=== PATIENT | female | born 1950 | race Caucasian/White ===

== ENCOUNTER → 2016-05-13 | Outpatient (CLI) | payer MEDICARE ==
[2016-05-13 08:55] LABS: Potassium 3.9 mmol/L (3.5-5.1); Total Bilirubin 0.7 mg/dL (0.2-1.3); Total Protein 6.8 g/dL (6.3-8.2)
== END | disposition home or self-care (01) ==
LOC: LABWHC1 08:13
PROVIDERS: ATTEND Internal Medicine Endocrinology, Diabetes & Metabolism
DX: E11.65 Type 2 diabetes mellitus with hyperglycemia (principal)
CPT/HCPCS: 36415; 80053; 80061; 82043

== ENCOUNTER → 2016-05-24 | Outpatient (CLI) | payer MEDICARE ==
[2016-05-24 10:17] LABS: Anisocytosis Slight; Basophils # (A) 0.1 k/uL (0-0.2); Basophils % (A) 1 %; CH 21.9; CHCM 29.5; Eosinophils # (A) 0.2 k/uL (0-0.7); Eosinophils % (A) 2 %; HGB 8.9 gm/dL (11.4-16.0); Hypochromasia Marked; Luc # (Auto) 0.18; Luc % (Auto) 2; Lymphocytes # (A) 1.9 k/uL (1.0-4.8); Lymphocytes % (A) 23 %; MCH 21.5 pg (25.0-35.0); MCHC 28.7 g/dL (31.0-37.0); MCV 74.6 fL (80.0-100.0); Microcytosis Slight; Monocytes # (A) 0.5 k/uL (0-1.0); Monocytes % (A) 6 %; Neutrophils # (A) 5.4 k/uL (1.3-7.7); Neutrophils % (A) 67 %; Poikilocytosis Slight; RBC 4.16 m/uL (3.80-5.40); RDW 16.5 % (11.5-15.5); WBC 8.1 k/uL (3.8-10.6); WBC (Perox) 8.64
[2016-05-24 10:48] LABS: ALT 16 U/L (9-52); AST 18 U/L (14-36); Alkaline Phosphatase 120 U/L (38-126); Anion Gap 11 mmol/L; Blood Urea Nitrogen 13 mg/dL (7-17); Calcium 9.4 mg/dL (8.4-10.2); Carbon Dioxide 27 mmol/L (22-30); Chloride 106 mmol/L (98-107); Creatine Kinase 48 U/L (30-135); Glucose 67 mg/dL (74-99); Non-African American GFR(MDRD) 47 (>60 ml/min/1.73 sqM); Sodium 144 mmol/L (137-145); Total Bilirubin 0.6 mg/dL (0.2-1.3); Total Protein 6.7 g/dL (6.3-8.2)
== END ==
LOC: LABWHC1 09:31
PROVIDERS: ATTEND Internal Medicine
DX: I50.30 Unspecified diastolic (congestive) heart failure (principal); E78.2 Mixed hyperlipidemia; T86.20 Unspecified complication of heart transplant; T86.21 Heart transplant rejection; T86.22 Heart transplant failure; T86.23 Heart transplant infection; T86.290 Cardiac allograft vasculopathy; Z94.1 Heart transplant status
CPT/HCPCS: 36415; 80053; 82550; 83735; 83880; 85025

== ENCOUNTER → 2016-06-08 | Outpatient (CLI) | payer MEDICARE ==
[2016-06-08 10:40] LABS: Anisocytosis Slight; Basophils # (A) 0.1 k/uL (0-0.2); Basophils % (A) 1 %; CH 21.2; CHCM 28.5; Eosinophils # (A) 0.2 k/uL (0-0.7); Eosinophils % (A) 2 %; HDW 3.51; HGB 8.9 gm/dL (11.4-16.0); Hypochromasia Marked; Luc # (Auto) 0.24; Luc % (Auto) 3; Lymphocytes # (A) 1.7 k/uL (1.0-4.8); Lymphocytes % (A) 22 %; MCH 21.6 pg (25.0-35.0); MCHC 28.8 g/dL (31.0-37.0); MCV 74.8 fL (80.0-100.0); Mean Platelet Volume 7.9; Microcytosis Slight; Monocytes # (A) 0.5 k/uL (0-1.0); Monocytes % (A) 6 %; Neutrophils # (A) 5.3 k/uL (1.3-7.7); Neutrophils % (A) 67 %; Poikilocytosis Slight; RBC 4.15 m/uL (3.80-5.40); RDW 16.7 % (11.5-15.5); WBC (Perox) 8.83
[2016-06-08 11:16] LABS: Anion Gap 12 mmol/L; Blood Urea Nitrogen 14 mg/dL (7-17); Calcium 8.9 mg/dL (8.4-10.2); Carbon Dioxide 26 mmol/L (22-30); Chloride 105 mmol/L (98-107); Glucose 125 mg/dL (74-99); Non-African American GFR(MDRD) 45 (>60 ml/min/1.73 sqM); Potassium 3.6 mmol/L (3.5-5.1); Sodium 143 mmol/L (137-145)
== END | disposition home or self-care (01) ==
LOC: LABWHC1 08:54
PROVIDERS: ATTEND Internal Medicine
DX: Z94.1 Heart transplant status (principal); T86.20 Unspecified complication of heart transplant; T86.21 Heart transplant rejection; T86.22 Heart transplant failure; T86.23 Heart transplant infection; T86.290 Cardiac allograft vasculopathy; E78.2 Mixed hyperlipidemia; I50.30 Unspecified diastolic (congestive) heart failure
CPT/HCPCS: 36415; 80048; 85025

== ENCOUNTER 2016-06-24 11:17 | Emergency (ER) | payer MEDICARE ==
[2016-06-24] MEDS ORDERED: SODIUM CHLORIDE 0.9% 1,000 ML IV STA ×2 (11:40)
[2016-06-24] MEDS ORDERED: ONDANSETRON 4 MG/2 ML VIAL IVP STA (11:40)
--- NOTE | 2016-06-24 12:47 | XR ---
EXAMINATION TYPE: XR abdomen acute w cxr DATE OF EXAM ORDERED: 06/24/2016 12:37 PM HISTORY: nausea and vomiting. COMPARISON: None. FINDINGS: There has been a midline sternotomy. The most superior cyst sternal wire is fractured. The lungs are clear. Pleural spaces are clear. Heart size is upper limits of normal. Within the abdomen, is been a previous cholecystectomy. The abdominal gas pattern is normal. There is no evidence of obstruction or free air. There is a solitary phlebolith in the right hemipelvis. Ther e are mild degenerative changes in the lower lumbar spine. IMPRESSION: NO ACUTE THORACIC OR ABDOMINAL ABNORMALITY.
[2016-06-24 13:01] VITALS: RESP 16
[2016-06-24] MEDS ORDERED: ACETAMINOPHEN IV (For NPO) 1,000 MG in EMPTY BAG 1 BAG IVPB ONE (13:10)
[2016-06-24 14:30] LABS: Anisocytosis Slight; Basophils # (A) 0.1 k/uL (0-0.2); Basophils % (A) 1 %; CH 20.6; CHCM 27.8; Eosinophils % (A) 1 %; HCT 34.3 % (34.0-46.0); HDW 3.49; HGB 9.5 gm/dL (11.4-16.0); Hypochromasia Marked; Luc # (Auto) 0.16; Luc % (Auto) 2; Lymphocytes # (A) 1.8 k/uL (1.0-4.8); Lymphocytes % (A) 27 %; MCH 20.7 pg (25.0-35.0); MCV 74.5 fL (80.0-100.0); Mean Platelet Volume 6.4; Microcytosis Slight; Monocytes # (A) 0.3 k/uL (0-1.0); Monocytes % (A) 5 %; Neutrophils # (A) 4.4 k/uL (1.3-7.7); Neutrophils % (A) 65 %; Poikilocytosis Slight; RDW 16.3 % (11.5-15.5); WBC 6.7 k/uL (3.8-10.6); WBC (Perox) 6.92
[2016-06-24 14:35] LABS: MCHC 27.7 g/dL (31.0-37.0)
[2016-06-24 14:42] LABS: Calcium 9.5 mg/dL (8.4-10.2); Potassium 3.9 mmol/L (3.5-5.1); Total Bilirubin 0.7 mg/dL (0.2-1.3)
--- NOTE | 2016-06-24 15:44 | ED ---
Nausea/Vomiting/Diarrhea HPI - General Chief complaint: Nausea/Vomiting/Diarrhea Stated complaint: POSS DEHYDRATION, SENT BY DR BELL Time Seen by Provider: 06/24/16 11:36 Source: patient Mode of arrival: wheelchair Limitations: no limitations - History of Present Illness Initial comments: This 65-year-old white female presents with a complaint of some nausea and vomiting. She states that she is just vomited some phlegm. This started approximately 24 hours ago. She states that she has not been able to keep any of her food or fluids down for one day. She feels weak and has had some myalgias. She denies any chest pain or shortness of breath. She denies any fevers or chills. She does feel somewhat dehydrated. She saw her primary care physician and they sent her to the ER for further treatment. She does relate that she had some dental work this past week and apparently had a dental infection and was on clindamycin. Her dental pain hasn't alleviated. She talked to her heart transplant team at [facility] and they told her to stop the clindamycin as they do not want to interact with the CellCept. She denies any other complaints or modifying factors. She does have the history of heart transplant in 2001 at [facility] and has been doing well with this treatment since. - Related Data Home Medications Medication Instructions Recorded Confirmed Aspirin EC [Ecotrin Low Dose] 81 mg PO DAILY 06/24/16 06/24/16 Atorvastatin Calcium [Lipitor] 10 mg PO HS 06/24/16 06/24/16 Furosemide [Lasix] 40 mg PO BID 06/24/16 06/24/16 Insulin NPH Human Isophane 30 unit SQ BID 06/24/16 06/24/16 [NovoLIN N] Insulin Regular, Human [Novolin R] See Protocol SQ AC-TID 06/24/16 06/24/16 Levothyroxine Sodium [Synthroid] 75 mcg PO DAILY 06/24/16 06/24/16 Metoprolol Tartrate [Lopressor] 12.5 mg PO BID 06/24/16 06/24/16 Mycophenolate Mofetil [Cellcept] 500 mg PO BID 06/24/16 06/24/16 Pantoprazole Sodium [Protonix] 40 mg PO AC-BID 06/24/16 06/24/16 Sirolimus 1 mg PO DAILY 06/24/16 06/24/16 Sucralfate [Carafate] 500 mg PO QID 06/24/16 06/24/16 Topiramate [Topamax] 25 mg PO BID 06/24/16 06/24/16 hydrALAZINE HCL [Apresoline] 50 mg PO TID 06/24/16 06/24/16 Allergies Allergy/AdvReac Type Severity Reaction Status Date / Time codeine Allergy Unknown Verified 06/24/16 11:48 hydrocodone [From Lortab] Allergy Unknown Verified 06/24/16 11:48 hydroxyprogesterone Allergy Unknown Verified 06/24/16 11:48 opium (anthroposophic) Allergy Unknown Verified 06/24/16 11:48 Penicillins Allergy Unknown Verified 06/24/16 11:48 simvastatin Allergy Unknown Verified 06/24/16 11:48 tramadol HCl [From Ultram] Allergy Unknown Verified 06/24/16 11:48 Review of Systems ROS Statement: Those systems with pertinent positive or pertinent negative responses have been documented in the HPI. ROS Other: All systems not noted in ROS Statement are negative. Past Medical History Past Medical History: Diabetes Mellitus, GERD/Reflux, Thyroid Disorder History of Any Multi-Drug Resistant Organisms: None Reported Past Surgical History: Appendectomy, Breast Surgery, Cholecystectomy, Tonsillectomy, Tubal Ligation Additional Past Surgical History / Comment(s): Heart Transplant 2002 Past Psychological History: No Psychological Hx Reported Smoking Status: Former smoker Past Alcohol Use History: None Reported Past Drug Use History: None Reported General Exam - General Exam Comments Initial Comments: GENERAL: The patient is well nourished and well hydrated. VITAL SIGNS: Heart rate, blood pressure, respiratory rate reviewed as recorded in nurse's notes. EYES: Pupils are round and reactive. Extraocular movements are intact. No conjunctival / lid redness or swelling. ENT: No external evidence of injury, swelling, or ecchymosis. Airway is patent. Throat is clear. NECK: Nontender. No swelling or evidence of injury. No subcutaneous emphysema. Trachea is midline. No thyroid mass. HEART: Regular rate and rhythm. Good peripheral pulses. LUNGS/CHEST: Breath sounds clear and equal bilaterally. No rales, rhonchi, or wheezes. No ecchymosis, subcutaneous emphysema, or tenderness. ABDOMEN: Abdomen soft without tenderness. No palpable masses or organomegaly. No peritoneal signs. No abdominal wall swelling or ecchymosis. EXTREMITIES: No extremity tenderness. Normal muscle tone and function. No thoracolumbar tenderness. NEUROLOGIC: Sensation is grossly intact. Cranial nerve exam reveals face is symmetrical, tongue is midline, speech is clear. SKIN: No abrasions or ecchymosis is noted. No induration or masses noted. PSYCHIATRIC: Alert and oriented. Appropriate behavior and judgment. Limitations: no limitations Course Vital Signs 06/24/16 06/24/16 06/24/16 11:28 13:00 14:57 Temperature 97.8 F Pulse Rate 64 64 64 Respiratory 20 16 16 Rate Blood Pressure 186/78 173/74 140/67 O2 Sat by Pulse 98 99 97 Oximetry Medical Decision Making - Medical Decision Making The patient was seen and examined. All diagnostics were reviewed. The EKG shows a sinus bradycardia with a sinus arrhythmia at a heart rate of 57. There is no acute ST-T wave changes identified. 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 The NH interval is 148, QRS duration is 96, and QTC intervals 443. The acute abdominal series x-ray was also essentially within normal limits. The patient's labs showed a stable and slightly improved hemoglobin which is still low at 9.5. The creatinine is slightly elevated at 1.2 but is stable compared to previous. Her glucose is slightly elevated at 221. The influenza test was negative. She was hydrated received Zofran and Ofirmev and is feeling improved on recheck. It is felt as though she would benefit from admission to the hospital the sure that her symptoms resolved. Is likely due to viral gastritis but she does have a history of cardiac transplant. Case is discussed with Dr. Soto and he is agreeable to admission. - Lab Data Result diagrams: 06/24/16 14:14 06/24/16 14:14 Lab Results 06/24/16 06/24/16 06/24/16 Range/Units 12:05 14:14 14:14 WBC 6.7 (3.8-10.6) k/uL RBC 4.60 (3.80-5.40) m/uL Hgb 9.5 L (11.4-16.0) gm/dL Hct 34.3 (34.0-46.0) % MCV 74.5 L (80.0-100.0) fL MCH 20.7 L (25.0-35.0) pg MCHC 27.7 L (31.0-37.0) g/dL RDW 16.3 H (11.5-15.5) % Plt Count 327 (150-450) k/uL Neutrophils % 65 % Lymphocytes % 27 % Monocytes % 5 % Eosinophils % 1 % Basophils % 1 % Neutrophils # 4.4 (1.3-7.7) k/uL Lymphocytes # 1.8 (1.0-4.8) k/uL Monocytes # 0.3 (0-1.0) k/uL Eosinophils # 0.0 (0-0.7) k/uL Basophils # 0.1 (0-0.2) k/uL Hypochromasia Marked Poikilocytosis Slight Anisocytosis Slight Microcytosis Slight Sodium 142 (137-145) mmol/L Potassium 3.9 (3.5-5.1) mmol/L Chloride 104 (98-107) mmol/L Carbon Dioxide 25 (22-30) mmol/L Anion Gap 13 mmol/L BUN 16 (7-17) mg/dL Creatinine 1.20 H (0.52-1.04) mg/dL Est GFR (MDRD) Af Amer 55 (>60 ml/min/1.73 sqM) Est GFR (MDRD) Non-Af 45 (>60 ml/min/1.73 sqM) Glucose 221 H (74-99) mg/dL Calcium 9.5 (8.4-10.2) mg/dL Total Bilirubin 0.7 (0.2-1.3) mg/dL AST 16 (14-36) U/L ALT 18 (9-52) U/L Alkaline Phosphatase 132 H (38-126) U/L Total Protein 7.0 (6.3-8.2) g/dL Albumin 3.7 (3.5-5.0) g/dL Amylase 62 (30-110) U/L Lipase 12 L (23-300) U/L Influenza Type A RNA Not Detected (Not Detectd) Influenza Type B (PCR) Not Detected (Not Detectd) Disposition Clinical Impression: Nausea and vomiting, Viral gastritis, History of heart transplant, Anemia, Renal insufficiency, Hyperglycemia Disposition: ADMITTED IP TO THIS HOSP Condition: Fair Time of Disposition: 15:44 Decision Date: 06/24/16 Decision Time: 15:44
[2016-06-24] MEDS ORDERED: ACETAMINOPHEN TAB 325 MG TAB PO PRN (15:46)
[2016-06-24] MEDS ORDERED: ONDANSETRON 4 MG/2 ML VIAL IVP PRN (15:46)
[2016-06-24] MEDS ORDERED: hydrALAZINE HCL 50 MG TAB PO SCH (16:00)
[2016-06-24 16:28] LABS: Hemoglobin A1C 7.6 % (4.2-6.1)
--- NOTE | 2016-06-24 16:39 | ED ---
Medical Decision Making - Lab Data Result diagrams: 06/24/16 14:14 06/24/16 14:14 Lab Results 06/24/16 06/24/16 06/24/16 Range/Units 12:05 14:14 14:14 WBC 6.7 (3.8-10.6) k/uL RBC 4.60 (3.80-5.40) m/uL Hgb 9.5 L (11.4-16.0) gm/dL Hct 34.3 (34.0-46.0) % MCV 74.5 L (80.0-100.0) fL MCH 20.7 L (25.0-35.0) pg MCHC 27.7 L (31.0-37.0) g/dL RDW 16.3 H (11.5-15.5) % Plt Count 327 (150-450) k/uL Neutrophils % 65 % Lymphocytes % 27 % Monocytes % 5 % Eosinophils % 1 % Basophils % 1 % Neutrophils # 4.4 (1.3-7.7) k/uL Lymphocytes # 1.8 (1.0-4.8) k/uL Monocytes # 0.3 (0-1.0) k/uL Eosinophils # 0.0 (0-0.7) k/uL Basophils # 0.1 (0-0.2) k/uL Hypochromasia Marked Poikilocytosis Slight Anisocytosis Slight Microcytosis Slight Sodium 142 (137-145) mmol/L Potassium 3.9 (3.5-5.1) mmol/L Chloride 104 (98-107) mmol/L Carbon Dioxide 25 (22-30) mmol/L Anion Gap 13 mmol/L BUN 16 (7-17) mg/dL Creatinine 1.20 H (0.52-1.04) mg/dL Est GFR (MDRD) Af Amer 55 (>60 ml/min/1.73 sqM) Est GFR (MDRD) Non-Af 45 (>60 ml/min/1.73 sqM) Glucose 221 H (74-99) mg/dL Estimated Ave Glu mg/dL mg/dL Hemoglobin A1c (4.2-6.1) % Calcium 9.5 (8.4-10.2) mg/dL Total Bilirubin 0.7 (0.2-1.3) mg/dL AST 16 (14-36) U/L ALT 18 (9-52) U/L Alkaline Phosphatase 132 H (38-126) U/L Total Protein 7.0 (6.3-8.2) g/dL Albumin 3.7 (3.5-5.0) g/dL Amylase 62 (30-110) U/L Lipase 12 L (23-300) U/L Influenza Type A RNA Not Detected (Not Detectd) Influenza Type B (PCR) Not Detected (Not Detectd) 06/24/16 Range/Units 15:51 WBC (3.8-10.6) k/uL RBC (3.80-5.40) m/uL Hgb (11.4-16.0) gm/dL Hct (34.0-46.0) % MCV (80.0-100.0) fL MCH (25.0-35.0) pg MCHC (31.0-37.0) g/dL RDW (11.5-15.5) % Plt Count (150-450) k/uL Neutrophils % % Lymphocytes % % Monocytes % % Eosinophils % % Basophils % % Neutrophils # (1.3-7.7) k/uL Lymphocytes # (1.0-4.8) k/uL Monocytes # (0-1.0) k/uL Eosinophils # (0-0.7) k/uL Basophils # (0-0.2) k/uL Hypochromasia Poikilocytosis Anisocytosis Microcytosis Sodium (137-145) mmol/L Potassium (3.5-5.1) mmol/L Chloride (98-107) mmol/L Carbon Dioxide (22-30) mmol/L Anion Gap mmol/L BUN (7-17) mg/dL Creatinine (0.52-1.04) mg/dL Est GFR (MDRD) Af Amer (>60 ml/min/1.73 sqM) Est GFR (MDRD) Non-Af (>60 ml/min/1.73 sqM) Glucose (74-99) mg/dL Estimated Ave Glu mg/dL 171 mg/dL Hemoglobin A1c 7.6 H (4.2-6.1) % Calcium (8.4-10.2) mg/dL Total Bilirubin (0.2-1.3) mg/dL AST (14-36) U/L ALT (9-52) U/L Alkaline Phosphatase (38-126) U/L Total Protein (6.3-8.2) g/dL Albumin (3.5-5.0) g/dL Amylase (30-110) U/L Lipase (23-300) U/L Influenza Type A RNA (Not Detectd) Influenza Type B (PCR) (Not Detectd) Disposition Clinical Impression: Nausea and vomiting, Viral gastritis, History of heart transplant, Anemia, Renal insufficiency, Hyperglycemia Disposition: ADMITTED IP TO THIS HOSP Condition: Fair Instructions: Acute Nausea and Vomiting (ED) Prescriptions: Ondansetron [Zofran ODT] 8 mg PO Q8HR PRN #12 tab PRN Reason: Nausea Referrals: Gilmar Al MD [Primary Care Provider] - 1-2 days Time of Disposition: 16:38
[2016-06-24 16:44] VITALS: BP 177/77; PULSE 57; TEMP 97.7
[2016-06-24] MEDS ORDERED: FUROSEMIDE 40 MG TAB PO SCH (17:00)
[2016-06-24] MEDS ORDERED: INSULIN LISPRO (humaLOG) 300 UNIT/3 ML VIAL SQ SCH (17:30)
[2016-06-24] MEDS ORDERED: SUCRALFATE 1 GM TAB PO SCH (18:00)
[2016-06-24] MEDS ORDERED: TOPIRAMATE 25 MG TAB PO SCH (21:00)
[2016-06-24] MEDS ORDERED: METOPROLOL TARTRATE 12.5 MG TAB PO SCH (21:00)
[2016-06-24] MEDS ORDERED: INSULIN NPH 300 UNIT/3 ML VIAL SQ SCH (21:00)
[2016-06-24] MEDS ORDERED: MYCOPHENOLATE MOFETIL 250 MG CAP PO SCH (21:00)
[2016-06-24] MEDS ORDERED: ATORVASTATIN 10 MG TAB PO SCH (21:00)
[2016-06-25] MEDS ORDERED: LEVOTHYROXINE 75 MCG TAB PO SCH (06:30)
[2016-06-25] MEDS ORDERED: PANTOPRAZOLE 40 MG/10 ML VIAL IV SCH (09:00)
[2016-06-25] MEDS ORDERED: ENOXAPARIN 40 MG/0.4 ML SYRINGE SQ SCH (09:00)
[2016-06-25] MEDS ORDERED: ASPIRIN 81 MG CHEW PO SCH (09:00)
[2016-06-25] MEDS ORDERED: SIROLIMUS 1 MG PO SCH (09:00)
== END 2016-06-24 17:00 | disposition other institution (70) ==
LOC: EC 11:17 → 5ONC 15:46 → UNDOADMOB 15:46 → EC 17:00
DX: A08.4 Viral intestinal infection, unspecified (principal); R11.2 Nausea with vomiting, unspecified; D64.9 Anemia, unspecified; N28.9 Disorder of kidney and ureter, unspecified; R00.0 Tachycardia, unspecified; E11.65 Type 2 diabetes mellitus with hyperglycemia; E07.9 Disorder of thyroid, unspecified; Z88.5 Allergy status to narcotic agent; Z88.0 Allergy status to penicillin; Z88.6 Allergy status to analgesic agent; Z88.8 Allergy status to other drugs, medicaments and biological substances; Z79.4 Long term (current) use of insulin; Z90.49 Acquired absence of other specified parts of digestive tract; Z87.891 Personal history of nicotine dependence; Z79.899 Other long term (current) drug therapy
CPT/HCPCS: 99284; 96374; 96375; 96361 ×5; 36415; 93005; 80053; 82150; 83036; 83690; 85025; 87502; 74022; J2405; J0131

== ENCOUNTER → 2016-07-07 | Outpatient (CLI) | payer MEDICARE ==
[2016-07-07 10:28] LABS: Anisocytosis Slight; Basophils # (A) 0.1 k/uL (0-0.2); Basophils % (A) 1 %; CH 20.3; CHCM 27.2; Eosinophils # (A) 0.1 k/uL (0-0.7); Eosinophils % (A) 2 %; HCT 34.3 % (34.0-46.0); HDW 3.35; HGB 9.7 gm/dL (11.4-16.0); Hypochromasia Marked; Luc # (Auto) 0.19; Luc % (Auto) 2; Lymphocytes # (A) 2.2 k/uL (1.0-4.8); Lymphocytes % (A) 24 %; MCH 21.3 pg (25.0-35.0); MCHC 28.3 g/dL (31.0-37.0); MCV 75.1 fL (80.0-100.0); Mean Platelet Volume 6.9; Microcytosis Slight; Monocytes # (A) 0.6 k/uL (0-1.0); Monocytes % (A) 7 %; Neutrophils # (A) 5.9 k/uL (1.3-7.7); Neutrophils % (A) 65 %; RBC 4.57 m/uL (3.80-5.40); RDW 16.6 % (11.5-15.5); WBC 9.1 k/uL (3.8-10.6); WBC (Perox) 9.26
[2016-07-07 11:07] LABS: ALT 14 U/L (9-52); AST 16 U/L (14-36); Alkaline Phosphatase 121 U/L (38-126); Anion Gap 11 mmol/L; Blood Urea Nitrogen 13 mg/dL (7-17); Calcium 9.2 mg/dL (8.4-10.2); Carbon Dioxide 27 mmol/L (22-30); Chloride 104 mmol/L (98-107); Creatine Kinase 42 U/L (30-135); Glucose 132 mg/dL (74-99); Non-African American GFR(MDRD) 49 (>60 ml/min/1.73 sqM); Potassium 3.7 mmol/L (3.5-5.1); Sodium 142 mmol/L (137-145); Total Bilirubin 0.7 mg/dL (0.2-1.3); Total Protein 6.8 g/dL (6.3-8.2)
[2016-07-09 16:10] LABS: Mis test requested (Blood) B-Natriuretic Pep
== END | disposition home or self-care (01) ==
LOC: LABWHC1 09:16
PROVIDERS: ATTEND Internal Medicine
DX: I50.30 Unspecified diastolic (congestive) heart failure (principal); E78.2 Mixed hyperlipidemia; T86.290 Cardiac allograft vasculopathy; T86.23 Heart transplant infection; T86.22 Heart transplant failure; T86.21 Heart transplant rejection; T86.20 Unspecified complication of heart transplant; Z94.1 Heart transplant status
CPT/HCPCS: 36415; 80053; 82550; 83735; 83880; 85025

== ENCOUNTER → 2016-07-12 | Outpatient (CLI) | payer MEDICARE ==
[2016-07-12 09:27] LABS: Anisocytosis Slight; Basophils % (A) 1 %; CH 20.4; CHCM 27.4; Eosinophils # (A) 0.2 k/uL (0-0.7); Eosinophils % (A) 2 %; HCT 33.3 % (34.0-46.0); HDW 3.17; HGB 9.2 gm/dL (11.4-16.0); Hypochromasia Marked; Luc # (Auto) 0.15; Luc % (Auto) 2; Lymphocytes # (A) 1.9 k/uL (1.0-4.8); Lymphocytes % (A) 22 %; MCH 20.7 pg (25.0-35.0); MCV 74.9 fL (80.0-100.0); Mean Platelet Volume 6.5; Microcytosis Slight; Monocytes # (A) 0.5 k/uL (0-1.0); Monocytes % (A) 5 %; Neutrophils # (A) 6.2 k/uL (1.3-7.7); Neutrophils % (A) 69 %; RBC 4.44 m/uL (3.80-5.40); RDW 16.9 % (11.5-15.5); WBC 8.9 k/uL (3.8-10.6); WBC (Perox) 9.55
[2016-07-12 09:34] LABS: MCHC 27.7 g/dL (31.0-37.0)
[2016-07-12 09:39] LABS: ALT 17 U/L (9-52); AST 20 U/L (14-36); Alkaline Phosphatase 122 U/L (38-126); Anion Gap 12 mmol/L; Blood Urea Nitrogen 14 mg/dL (7-17); Calcium 9.1 mg/dL (8.4-10.2); Carbon Dioxide 26 mmol/L (22-30); Chloride 103 mmol/L (98-107); Creatine Kinase 41 U/L (30-135); Glucose 174 mg/dL (74-99); Magnesium 2.1 mg/dL (1.6-2.3); Non-African American GFR(MDRD) 46 (>60 ml/min/1.73 sqM); Potassium 3.8 mmol/L (3.5-5.1); Sodium 141 mmol/L (137-145); Total Bilirubin 0.6 mg/dL (0.2-1.3); Total Protein 6.9 g/dL (6.3-8.2)
== END | disposition home or self-care (01) ==
LOC: LABWHC1 08:22
PROVIDERS: ATTEND Internal Medicine
DX: I50.30 Unspecified diastolic (congestive) heart failure (principal); E78.2 Mixed hyperlipidemia; T86.290 Cardiac allograft vasculopathy; T86.23 Heart transplant infection; T86.22 Heart transplant failure; T86.21 Heart transplant rejection; T86.20 Unspecified complication of heart transplant; Z94.1 Heart transplant status
CPT/HCPCS: 36415; 80053; 82550; 83735; 83880; 85025

== ENCOUNTER → 2016-07-19 | Outpatient (CLI) | payer MEDICARE ==
[2016-07-19 09:07] LABS: Anisocytosis Slight; Basophils % (A) 1 %; CH 20.2; CHCM 27.6; Eosinophils # (A) 0.2 k/uL (0-0.7); Eosinophils % (A) 2 %; HCT 30.7 % (34.0-46.0); HDW 3.26; HGB 8.6 gm/dL (11.4-16.0); Hypochromasia Marked; Luc # (Auto) 0.21; Luc % (Auto) 3; Lymphocytes # (A) 1.7 k/uL (1.0-4.8); Lymphocytes % (A) 20 %; MCH 20.7 pg (25.0-35.0); MCHC 28.1 g/dL (31.0-37.0); MCV 73.7 fL (80.0-100.0); Mean Platelet Volume 6.4; Microcytosis Moderate; Monocytes # (A) 0.5 k/uL (0-1.0); Monocytes % (A) 6 %; Neutrophils # (A) 5.8 k/uL (1.3-7.7); Neutrophils % (A) 69 %; RBC 4.16 m/uL (3.80-5.40); WBC 8.5 k/uL (3.8-10.6); WBC (Perox) 8.81
[2016-07-19 09:20] LABS: ALT 20 U/L (9-52); AST 24 U/L (14-36); Alkaline Phosphatase 128 U/L (38-126); Anion Gap 10 mmol/L; Blood Urea Nitrogen 12 mg/dL (7-17); Calcium 8.7 mg/dL (8.4-10.2); Carbon Dioxide 25 mmol/L (22-30); Chloride 106 mmol/L (98-107); Creatine Kinase 38 U/L (30-135); Glucose 214 mg/dL (74-99); Non-African American GFR(MDRD) 47 (>60 ml/min/1.73 sqM); Potassium 3.7 mmol/L (3.5-5.1); Sodium 141 mmol/L (137-145); Total Bilirubin 0.6 mg/dL (0.2-1.3); Total Protein 6.2 g/dL (6.3-8.2)
[2016-07-21 12:35] LABS: Mis test requested (Blood) B Type Natriuretic P
== END | disposition home or self-care (01) ==
LOC: LABWHC1 08:17
PROVIDERS: ATTEND Internal Medicine
DX: T86.20 Unspecified complication of heart transplant (principal); T86.21 Heart transplant rejection; T86.22 Heart transplant failure; T86.23 Heart transplant infection; T86.290 Cardiac allograft vasculopathy; I50.30 Unspecified diastolic (congestive) heart failure; E78.2 Mixed hyperlipidemia; Z94.1 Heart transplant status
CPT/HCPCS: 36415; 80053; 82550; 83735; 83880; 85025

== ENCOUNTER → 2016-07-26 | Outpatient (CLI) | payer MEDICARE ==
[2016-07-26 09:22] LABS: ALT 16 U/L (9-52); AST 14 U/L (14-36); Alkaline Phosphatase 133 U/L (38-126); Anion Gap 10 mmol/L; Blood Urea Nitrogen 12 mg/dL (7-17); Calcium 8.9 mg/dL (8.4-10.2); Carbon Dioxide 28 mmol/L (22-30); Chloride 105 mmol/L (98-107); Creatine Kinase 44 U/L (30-135); Glucose 140 mg/dL (74-99); Magnesium 2.2 mg/dL (1.6-2.3); Non-African American GFR(MDRD) 47 (>60 ml/min/1.73 sqM); Potassium 3.7 mmol/L (3.5-5.1); Sodium 143 mmol/L (137-145); Total Bilirubin 0.6 mg/dL (0.2-1.3); Total Protein 6.9 g/dL (6.3-8.2)
[2016-07-26 09:43] LABS: Anisocytosis Slight; Basophils % (A) 0 %; CH 20.3; CHCM 27.6; Eosinophils # (A) 0.1 k/uL (0-0.7); Eosinophils % (A) 2 %; HCT 32.9 % (34.0-46.0); HDW 3.31; HGB 9.2 gm/dL (11.4-16.0); Hypochromasia Marked; Luc # (Auto) 0.14; Luc % (Auto) 2; Lymphocytes # (A) 1.8 k/uL (1.0-4.8); Lymphocytes % (A) 19 %; MCH 20.7 pg (25.0-35.0); MCHC 28.1 g/dL (31.0-37.0); MCV 73.9 fL (80.0-100.0); Mean Platelet Volume 6.7; Microcytosis Moderate; Monocytes # (A) 0.5 k/uL (0-1.0); Monocytes % (A) 6 %; Neutrophils # (A) 6.9 k/uL (1.3-7.7); Neutrophils % (A) 72 %; RBC 4.46 m/uL (3.80-5.40); RDW 16.9 % (11.5-15.5); WBC 9.6 k/uL (3.8-10.6); WBC (Perox) 10.07
[2016-07-28 15:43] LABS: Mis test requested (Blood) B-Natriuretic Pep
== END | disposition home or self-care (01) ==
LOC: LABWHC1 08:12
PROVIDERS: ATTEND Internal Medicine
DX: T86.20 Unspecified complication of heart transplant (principal); T86.21 Heart transplant rejection; T86.22 Heart transplant failure; T86.23 Heart transplant infection; T86.290 Cardiac allograft vasculopathy; E78.5 Hyperlipidemia, unspecified; I50.30 Unspecified diastolic (congestive) heart failure; Z94.1 Heart transplant status
CPT/HCPCS: 36415; 80053; 82550; 83735; 83880; 85025

== ENCOUNTER → 2016-08-04 | Outpatient (CLI) | payer MEDICARE ==
[2016-08-04 13:13] LABS: EKG EKG PERFORMED
[2016-08-04 13:41] LABS: Anion Gap 11 mmol/L; Blood Urea Nitrogen 10 mg/dL (7-17); Calcium 9.2 mg/dL (8.4-10.2); Carbon Dioxide 23 mmol/L (22-30); Chloride 107 mmol/L (98-107); Glucose 130 mg/dL (74-99); Magnesium 1.9 mg/dL (1.6-2.3); Non-African American GFR(MDRD) 50 (>60 ml/min/1.73 sqM); Potassium 3.8 mmol/L (3.5-5.1); Sodium 141 mmol/L (137-145)
== END | disposition home or self-care (01) ==
LOC: LABWHC1 13:03
PROVIDERS: ATTEND Internal Medicine
DX: T86.20 Unspecified complication of heart transplant (principal); T86.21 Heart transplant rejection; T86.22 Heart transplant failure; T86.23 Heart transplant infection; T86.290 Cardiac allograft vasculopathy; E78.2 Mixed hyperlipidemia; I50.30 Unspecified diastolic (congestive) heart failure; Z94.1 Heart transplant status
CPT/HCPCS: 36415; 80048; 83735; 93005

== ENCOUNTER → 2016-08-10 | Outpatient (CLI) | payer MEDICARE ==
[2016-08-10 16:03] LABS: Calcium 9.4 mg/dL (8.4-10.2); Potassium 3.7 mmol/L (3.5-5.1)
== END | disposition home or self-care (01) ==
LOC: LABWHC1 15:18
PROVIDERS: ATTEND Internal Medicine
DX: T86.290 Cardiac allograft vasculopathy (principal); T86.21 Heart transplant rejection; T86.22 Heart transplant failure; T86.23 Heart transplant infection; E78.2 Mixed hyperlipidemia; I50.30 Unspecified diastolic (congestive) heart failure; Z94.1 Heart transplant status
CPT/HCPCS: 36415; 80048

== ENCOUNTER → 2016-09-07 | Outpatient (CLI) | payer MEDICARE ==
[2016-09-07 09:43] LABS: Anisocytosis Slight; Basophils % (A) 1 %; CH 19.8; Eosinophils # (A) 0.2 k/uL (0-0.7); Eosinophils % (A) 2 %; HCT 32.2 % (34.0-46.0); HDW 3.44; HGB 8.8 gm/dL (11.4-16.0); Hypochromasia Marked; Luc # (Auto) 0.15; Luc % (Auto) 2; Lymphocytes # (A) 1.6 k/uL (1.0-4.8); Lymphocytes % (A) 20 %; MCH 20.2 pg (25.0-35.0); MCHC 27.3 g/dL (31.0-37.0); Microcytosis Moderate; Monocytes # (A) 0.4 k/uL (0-1.0); Monocytes % (A) 5 %; Neutrophils # (A) 5.8 k/uL (1.3-7.7); Neutrophils % (A) 71 %; Poikilocytosis Slight; RBC 4.35 m/uL (3.80-5.40); RDW 17.7 % (11.5-15.5); WBC 8.2 k/uL (3.8-10.6); WBC (Perox) 8.52
[2016-09-07 10:03] LABS: Magnesium 2.2 mg/dL (1.6-2.3); Total Bilirubin 0.5 mg/dL (0.2-1.3); Total Protein 6.1 g/dL (6.3-8.2)
== END | disposition home or self-care (01) ==
LOC: LABWHC1 09:04
PROVIDERS: ATTEND Internal Medicine
DX: T86.20 Unspecified complication of heart transplant (principal); T86.21 Heart transplant rejection; T86.22 Heart transplant failure; T86.23 Heart transplant infection; T86.290 Cardiac allograft vasculopathy; E78.2 Mixed hyperlipidemia; I50.30 Unspecified diastolic (congestive) heart failure; Z94.1 Heart transplant status
CPT/HCPCS: 36415; 80053; 82550; 83735; 83880; 85025

== ENCOUNTER → 2016-09-16 | Outpatient (CLI) | payer MEDICARE ==
[2016-09-16 12:57] LABS: Prothrombin Time 10.6 sec (9.0-12.0)
== END | disposition home or self-care (01) ==
LOC: LABWHC1 12:28
PROVIDERS: ATTEND Internal Medicine
DX: T86.21 Heart transplant rejection (principal); T86.20 Unspecified complication of heart transplant; T86.22 Heart transplant failure; T86.23 Heart transplant infection; T86.290 Cardiac allograft vasculopathy; E78.5 Hyperlipidemia, unspecified; I50.30 Unspecified diastolic (congestive) heart failure; Z94.1 Heart transplant status
CPT/HCPCS: 36415; 85610

== ENCOUNTER → 2016-10-14 | Outpatient (CLI) | payer MEDICARE ==
[2016-10-14 10:20] LABS: Anisocytosis Slight; Basophils # (A) 0.1 k/uL (0-0.2); Basophils % (A) 1 %; CH 19.7; CHCM 27.9; Eosinophils # (A) 0.3 k/uL (0-0.7); Eosinophils % (A) 2 %; HCT 31.8 % (34.0-46.0); HDW 3.61; HGB 8.8 gm/dL (11.4-16.0); Hypochromasia Marked; Luc # (Auto) 0.17; Luc % (Auto) 2; Lymphocytes % (A) 19 %; MCH 19.8 pg (25.0-35.0); MCHC 27.8 g/dL (31.0-37.0); MCV 71.1 fL (80.0-100.0); Mean Platelet Volume 6.8; Microcytosis Marked; Monocytes # (A) 0.6 k/uL (0-1.0); Monocytes % (A) 6 %; Neutrophils % (A) 70 %; Poikilocytosis Slight; RBC 4.47 m/uL (3.80-5.40); RDW 17.8 % (11.5-15.5); WBC 10.1 k/uL (3.8-10.6); WBC (Perox) 10.75
[2016-10-14 10:46] LABS: Glucose 113 mg/dL (74-99); Total Protein 6.4 g/dL (6.3-8.2); Triglycerides 102 mg/dL (<150); Uric Acid 6.1 mg/dL (3.7-7.4)
[2016-10-14 10:48] LABS: ALT 15 U/L (9-52); AST 17 U/L (14-36); Alkaline Phosphatase 131 U/L (38-126); Anion Gap 11 mmol/L; Blood Urea Nitrogen 14 mg/dL (7-17); Carbon Dioxide 26 mmol/L (22-30); Chloride 105 mmol/L (98-107); Cholesterol 139 mg/dL (<200); Creatine Kinase 68 U/L (30-135); HDL Cholesterol 43 mg/dL (40-60); Non-African American GFR(MDRD) 43 (>60 ml/min/1.73 sqM); Potassium 4.2 mmol/L (3.5-5.1); Sodium 142 mmol/L (137-145); Total Bilirubin 0.6 mg/dL (0.2-1.3)
[2016-10-18 08:29] LABS: Mis test requested (Blood) BNP
== END | disposition home or self-care (01) ==
LOC: LABWHC1 09:41
PROVIDERS: ATTEND Internal Medicine
DX: E78.2 Mixed hyperlipidemia (principal); I50.30 Unspecified diastolic (congestive) heart failure; T86.20 Unspecified complication of heart transplant; T86.21 Heart transplant rejection; T86.22 Heart transplant failure; T86.23 Heart transplant infection; T86.290 Cardiac allograft vasculopathy; Z94.1 Heart transplant status
CPT/HCPCS: 36415; 80053; 80061; 82550; 83735; 83880; 84550; 85025

== ENCOUNTER → 2017-03-08 | Outpatient (CLI) | payer MEDICARE, OTHER ==
[2017-03-08 09:52] LABS: Anisocytosis Slight; Basophils # (A) 0.1 k/uL (0-0.2); Basophils % (A) 1 %; CHCM 27.3; Eosinophils # (A) 0.2 k/uL (0-0.7); Eosinophils % (A) 3 %; HDW 3.61; HGB 8.9 gm/dL (11.4-16.0); Hypochromasia Marked; Luc % (Auto) 1; Lymphocytes # (A) 1.5 k/uL (1.0-4.8); Lymphocytes % (A) 16 %; MCH 19.5 pg (25.0-35.0); MCHC 27.8 g/dL (31.0-37.0); MCV 70.1 fL (80.0-100.0); Mean Platelet Volume 6.5; Microcytosis Marked; Monocytes # (A) 0.6 k/uL (0-1.0); Monocytes % (A) 6 %; Neutrophils % (A) 74 %; Poikilocytosis Slight; RBC 4.57 m/uL (3.80-5.40); RDW 18.4 % (11.5-15.5); WBC 9.4 k/uL (3.8-10.6); WBC (Perox) 9.91
[2017-03-08 10:07] LABS: Calcium 8.9 mg/dL (8.4-10.2); Magnesium 2.1 mg/dL (1.6-2.3); Potassium 3.9 mmol/L (3.5-5.1); Total Bilirubin 0.5 mg/dL (0.2-1.3); Total Protein 6.5 g/dL (6.3-8.2)
== END | disposition home or self-care (01) ==
LOC: LABWHC1 09:19
PROVIDERS: ATTEND Internal Medicine
DX: E78.2 Mixed hyperlipidemia (principal); I50.30 Unspecified diastolic (congestive) heart failure; T86.21 Heart transplant rejection; T86.22 Heart transplant failure; T86.23 Heart transplant infection; T86.290 Cardiac allograft vasculopathy
CPT/HCPCS: 36415; 80053; 82550; 83735; 83880; 85025

== ENCOUNTER 2017-03-20 09:12 | Emergency (ER) | payer MEDICARE, OTHER ==
[2017-03-20 09:20] VITALS: BP 146/61; PULSE 72; RESP 18; TEMP 97.9
[2017-03-20] MEDS ORDERED: PHENAZOPYRIDINE 100 MG TAB PO STA (09:53)
[2017-03-20] MEDS ORDERED: SULFAMETH-TMP DS STARTER PACK 2 TAB BTL PO STA (09:55)
[2017-03-20 09:56] LABS: Appearance,Urine Cloudy (Clear); Bilirubin,Urine Negative (Negative); Blood,Urine Moderate (Negative); Budding Yeast,Urine Rare /hpf; Color,Urine Yellow; Glucose,Urine (UA) Negative (Negative); Ketones,Urine Negative (Negative); Leukocyte Esterase,Urine Large (Negative); Nitrite,Urine Negative (Negative); PH, Urine 5.5 (5.0-8.0); Protein,Urine 1+ (Negative); RBC,Urine >182 /hpf (0-5); Specific Gravity,Urine 1.009 (1.001-1.035); Urobilinogen,Urine <2.0 mg/dL (<2.0); WBC,Urine 83 /hpf (0-5)
--- NOTE | 2017-03-20 09:56 | ED ---
Female Urogenital HPI - General Chief complaint: Urogenital Stated complaint: blood in urine Time Seen by Provider: 03/20/17 09:29 Source: patient, RN notes reviewed, old records reviewed Mode of arrival: ambulatory Limitations: no limitations - History of Present Illness Initial comments: Is a 66-year-old female presents emergency Department with the sudden onset of dysuria and hematuria for one day. She reports she woke up this morning at 3 AM and had dysuria. She states that she has not had a urinary tract infection in many years. Past medical history includes a heart transplant, and she is on warfarin. Patient reports that she has had no complications since her heart surgeries. She denies any fever or chills. She reports that she is ALLERGIC to multiple antibiotics. She denies any back pain, abdominal pain, nausea or vomiting. She reports urinary frequency. - Related Data Home Medications Medication Instructions Recorded Confirmed Atorvastatin Calcium [Lipitor] 10 mg PO HS 06/24/16 03/20/17 Levothyroxine Sodium [Synthroid] 75 mcg PO DAILY 06/24/16 03/20/17 Metoprolol Tartrate [Lopressor] 12.5 mg PO BID 06/24/16 03/20/17 Pantoprazole Sodium [Protonix] 40 mg PO DAILY 06/24/16 03/20/17 Sirolimus 1 mg PO HS 06/24/16 03/20/17 hydrALAZINE HCL [Apresoline] 50 mg PO TID 06/24/16 03/20/17 Butorphanol Tartrate [Stadol Nasal 1 spray NASAL Q4H PRN 03/03/17 03/20/17 [place]ed] Furosemide [Lasix] 40 mg PO DAILY 03/03/17 03/20/17 Furosemide [Lasix] 80 mg PO Q2D 03/03/17 03/20/17 Mycophenolate Mofetil [Cellcept] 500 mg PO BID 03/03/17 03/20/17 Potassium Chloride [Klor-Con 20] 20 - 40 meq PO DAILY 03/03/17 03/20/17 Topiramate [Topamax] 50 mg PO BID 03/03/17 03/20/17 Warfarin Sodium [Jantoven] 3 - 4 mg PO DAILY 03/03/17 03/20/17 Previous Rx's Medication Instructions Recorded Phenazopyridine [Pyridium] 100 mg PO TID #9 tablet 03/20/17 Sulfamethox-Tmp 800-160Mg [Bactrim 1 tab PO Q12HR #10 tab 03/20/17 DS 800-160 mg] Allergies Allergy/AdvReac Type Severity Reaction Status Date / Time cephalexin [From Keflex] Allergy Rash/Hives Verified 03/20/17 09:31 ciprofloxacin [From Cipro] Allergy Rash/Hives Verified 03/20/17 09:31 codeine Allergy Unknown Verified 03/20/17 09:31 hydrocodone [From Lortab] Allergy Unknown Verified 03/20/17 09:31 hydroxyprogesterone Allergy Unknown Verified 03/20/17 09:31 opium (anthroposophic) Allergy Unknown Verified 03/20/17 09:31 Penicillins Allergy Unknown Verified 03/20/17 09:31 simvastatin Allergy Unknown Verified 03/20/17 09:31 tramadol HCl [From Ultram] Allergy Unknown Verified 03/20/17 09:31 Review of Systems ROS Statement: Those systems with pertinent positive or pertinent negative responses have been documented in the HPI. ROS Other: All systems not noted in ROS Statement are negative. Past Medical History Past Medical History: Atrial Fibrillation, Diabetes Mellitus, GERD/Reflux, Thyroid Disorder History of Any Multi-Drug Resistant Organisms: None Reported Past Surgical History: Appendectomy, Breast Surgery, Cholecystectomy, Tonsillectomy, Tubal Ligation Additional Past Surgical History / Comment(s): Heart Transplant 2002 Past Psychological History: No Psychological Hx Reported Smoking Status: Former smoker Past Alcohol Use History: None Reported Past Drug Use History: None Reported General Exam - General Exam Comments Initial Comments: Is a 66-year-old female. No distress. Limitations: no limitations General appearance: alert Head exam: Present: atraumatic, normocephalic, normal inspection Eye exam: Present: normal appearance, PERRL, EOMI. Absent: scleral icterus, conjunctival injection, periorbital swelling ENT exam: Present: normal exam, mucous membranes moist Neck exam: Present: normal inspection. Absent: tenderness, meningismus, lymphadenopathy Respiratory exam: Present: normal lung sounds bilaterally, other (scar from heart surgery ). Absent: respiratory distress, wheezes, rales, rhonchi, stridor Cardiovascular Exam: Present: regular rate, normal rhythm, normal heart sounds. Absent: systolic murmur, diastolic murmur, rubs, gallop, clicks GI/Abdominal exam: Present: soft, tenderness (minimal suprapubic tenderness), normal bowel sounds. Absent: distended, guarding, rebound, rigid Extremities exam: Present: normal inspection, full ROM, normal capillary refill. Absent: tenderness, pedal edema, joint swelling, calf tenderness Back exam: Present: normal inspection, other (no CVA tenderness) Neurological exam: Present: alert, oriented X3, CN II-XII intact Psychiatric exam: Present: normal affect, normal mood Skin exam: Present: warm, dry, intact, normal color. Absent: rash Course Vital Signs 03/20/17 09:17 Temperature 97.9 F Pulse Rate 72 Respiratory 18 Rate Blood Pressure 146/61 O2 Sat by Pulse 98 Oximetry Medical Decision Making - Medical Decision Making 66-year-old presents emergency Department with 1 day of hematuria and dysuria and urinary frequency. No fever or chills. No back pain, nausea or vomiting or abdominal pain. She does have some minimal suprapubic tenderness. Patient' s urinalysis is positive for many red blood cells as well as over 90 white blood cells. Patient urine will be sent for culture. She is ALLERGIC to multiple antibiotics. Started on Bactrim. Given a starter pack in the emergency department as well as Pyridium. Patient was informed that she needs to have her INR rechecked after completing antibiotics. She is on warfarin. Patient understands treatment plan will comply. Return parameters were discussed. - Lab Data Lab Results 03/20/17 Range/Units 09:41 Urine Color Yellow Urine Appearance Cloudy H (Clear) Urine pH 5.5 (5.0-8.0) Ur Specific [place] 1.009 (1.001-1.035) Urine Protein 1+ H (Negative) Urine Glucose (UA) Negative (Negative) Urine Ketones Negative (Negative) Urine Blood Moderate H (Negative) Urine Nitrite Negative (Negative) Urine Bilirubin Negative (Negative) Urine Urobilinogen <2.0 (<2.0) mg/dL Ur Leukocyte Esterase Large H (Negative) Urine RBC >182 H (0-5) /hpf Urine WBC 83 H (0-5) /hpf Urine Yeast (Budding) Rare H (None) /hpf Disposition Clinical Impression: UTI (urinary tract infection) Disposition: HOME SELF-CARE Condition: Good Instructions: Urinary Tract Infection in Women (ED) Additional Instructions: Rest rest, increase her fluid intake. Patient needs to be completing the antibiotic prescription as well as taking Pyridium for pain. Follow-up with her primary care provider on Tuesday to have INR checked as well as follow up with Urinalysis recheck. Return to the emergency department if any alarming signs or symptoms occur. Prescriptions: Phenazopyridine [Pyridium] 100 mg PO TID #9 tablet Sulfamethox-Tmp 800-160Mg [Bactrim DS 800-160 mg] 1 tab PO Q12HR #10 tab Referrals: Gilmar Al MD [Primary Care Provider] - 1-2 days Time of Disposition: 10:30
== END 2017-03-20 10:43 | disposition home or self-care (01) ==
LOC: EC 09:12
DX: N39.0 Urinary tract infection, site not specified (principal); I48.91 Unspecified atrial fibrillation; E11.9 Type 2 diabetes mellitus without complications; K21.9 Gastro-esophageal reflux disease without esophagitis; E07.9 Disorder of thyroid, unspecified; Z87.891 Personal history of nicotine dependence; Z79.01 Long term (current) use of anticoagulants; Z79.899 Other long term (current) drug therapy; Z88.1 Allergy status to other antibiotic agents; Z88.0 Allergy status to penicillin; Z88.5 Allergy status to narcotic agent; Z88.8 Allergy status to other drugs, medicaments and biological substances; Z88.6 Allergy status to analgesic agent; Z90.49 Acquired absence of other specified parts of digestive tract; Z98.51 Tubal ligation status
CPT/HCPCS: 81001; 87077; 87086; 87186; 99284

== ENCOUNTER → 2017-04-26 | Outpatient (CLI) | payer MEDICARE, OTHER ==
[2017-04-26 13:18] LABS: ALT 22 U/L (9-52); AST 13 U/L (14-36); Albumin 3.3 g/dL (3.5-5.0); Alkaline Phosphatase 131 U/L (38-126); Anion Gap 10 mmol/L; Blood Urea Nitrogen 11 mg/dL (7-17); Carbon Dioxide 29 mmol/L (22-30); Chloride 103 mmol/L (98-107); Creatine Kinase 40 U/L (30-135); Glucose 167 mg/dL (74-99); Sodium 142 mmol/L (137-145); Total Bilirubin 0.6 mg/dL (0.2-1.3)
[2017-04-26 13:35] LABS: Anisocytosis Slight; Basophils % (A) 1 %; Eosinophils # (A) 0.3 k/uL (0-0.7); Eosinophils % (A) 3 %; HCT 32.3 % (34.0-46.0); HGB 8.6 gm/dL (11.4-16.0); Hypochromasia Marked; Lymphocytes % (A) 23 %; MCH 19.3 pg (25.0-35.0); MCHC 26.6 g/dL (31.0-37.0); MCV 72.7 fL (80.0-100.0); Mean Platelet Volume 6.8; Microcytosis Moderate; Monocytes # (A) 0.5 k/uL (0-1.0); Monocytes % (A) 6 %; Neutrophils # (A) 5.9 k/uL (1.3-7.7); Neutrophils % (A) 66 %; Platelet Count 417 k/uL (150-450); Poikilocytosis Slight; RBC 4.44 m/uL (3.80-5.40); RDW 17.7 % (11.5-15.5); WBC 8.9 k/uL (3.8-10.6)
== END | disposition home or self-care (01) ==
LOC: LABWHC1 12:21
PROVIDERS: ATTEND Internal Medicine
DX: T86.20 Unspecified complication of heart transplant (principal); T86.21 Heart transplant rejection; T86.22 Heart transplant failure; T86.23 Heart transplant infection; T86.290 Cardiac allograft vasculopathy; E78.2 Mixed hyperlipidemia; I50.30 Unspecified diastolic (congestive) heart failure
CPT/HCPCS: 36415; 80053; 80195; 82550; 83735; 83880; 85025; 85610

== ENCOUNTER 2017-06-25 13:01 | Emergency (ER) | payer MEDICARE, OTHER ==
[2017-06-25 13:22] VITALS: BP 134/62; PULSE 66; RESP 18; TEMP 99.1
--- NOTE | 2017-06-25 14:25 | ED ---
General Adult HPI - General Chief complaint: Upper Respiratory Infection Stated complaint: Sore throat Time Seen by Provider: 06/25/17 13:41 Source: patient Mode of arrival: ambulatory Limitations: no limitations - History of Present Illness Initial comments: 66-year-old female presents to the emergency department for scratchy throat 2 days. Patient states she has had a slight cough as well. The cough is dry and unproductive. Patient states she has not had fevers. She states she is on immunosuppressants and her was diagnosed with influenza so she would like to be tested. Patient states she can follow up with primary care provider easily. Patient denies any shortness of breath, chest pain, history of asthma or smoking, nausea or vomiting. Patient denies any urinary symptoms. Patient states she is only feeling a little more tired than normal and mostly came to the emergency department to be valuated for influenza. - Related Data Home Medications Medication Instructions Recorded Confirmed Atorvastatin Calcium [Lipitor] 10 mg PO HS 06/24/16 03/20/17 Levothyroxine Sodium [Synthroid] 75 mcg PO DAILY 06/24/16 03/20/17 Metoprolol Tartrate [Lopressor] 12.5 mg PO BID 06/24/16 03/20/17 Pantoprazole Sodium [Protonix] 40 mg PO DAILY 06/24/16 03/20/17 Sirolimus 1 mg PO HS 06/24/16 03/20/17 hydrALAZINE HCL [Apresoline] 50 mg PO TID 06/24/16 03/20/17 Butorphanol Tartrate [Stadol Nasal 1 spray NASAL Q4H PRN 03/03/17 03/20/17 [place]] Furosemide [Lasix] 40 mg PO DAILY 03/03/17 03/20/17 Furosemide [Lasix] 80 mg PO Q2D 03/03/17 03/20/17 Mycophenolate Mofetil [Cellcept] 500 mg PO BID 03/03/17 03/20/17 Potassium Chloride [Klor-Con 20] 20 - 40 meq PO DAILY 03/03/17 03/20/17 Topiramate [Topamax] 50 mg PO BID 03/03/17 03/20/17 Warfarin Sodium [Jantoven] 3 - 4 mg PO DAILY 03/03/17 03/20/17 Previous Rx's Medication Instructions Recorded Phenazopyridine [Pyridium] 100 mg PO TID #9 tablet 03/20/17 Sulfamethox-Tmp 800-160Mg [Bactrim 1 tab PO Q12HR #10 tab 03/20/17 DS 800-160 mg] Benzonatate [Tessalon Perles] 200 mg PO Q8H PRN #15 capsule 06/25/17 Allergies Allergy/AdvReac Type Severity Reaction Status Date / Time cephalexin [From Keflex] Allergy Rash/Hives Verified 06/25/17 13:23 ciprofloxacin [From Cipro] Allergy Rash/Hives Verified 06/25/17 13:23 codeine Allergy Unknown Verified 06/25/17 13:23 hydrocodone [From Lortab] Allergy Unknown Verified 06/25/17 13:23 hydromorphone [From Dilaudid] Allergy Rash/Hives Verified 06/25/17 13:23 hydroxyprogesterone Allergy Unknown Verified 06/25/17 13:23 opium (anthroposophic) Allergy Unknown Verified 06/25/17 13:23 Penicillins Allergy Unknown Verified 06/25/17 13:23 simvastatin Allergy Unknown Verified 06/25/17 13:23 tramadol HCl [From Ultram] Allergy Unknown Verified 06/25/17 13:23 Review of Systems ROS Statement: Those systems with pertinent positive or pertinent negative responses have been documented in the HPI. ROS Other: All systems not noted in ROS Statement are negative. Past Medical History Past Medical History: Atrial Fibrillation, Diabetes Mellitus, GERD/Reflux, Thyroid Disorder History of Any Multi-Drug Resistant Organisms: None Reported Past Surgical History: Appendectomy, Breast Surgery, Cholecystectomy, Tonsillectomy, Tubal Ligation Additional Past Surgical History / Comment(s): Heart Transplant 2002 Past Psychological History: No Psychological Hx Reported Smoking Status: Former smoker Past Alcohol Use History: None Reported Past Drug Use History: None Reported General Exam Limitations: no limitations Eye exam: Present: normal appearance, PERRL, EOMI. Absent: scleral icterus, conjunctival injection, periorbital swelling ENT exam: Present: normal exam, normal oropharynx, mucous membranes moist, TM's normal bilaterally Neck exam: Present: normal inspection. Absent: tenderness, meningismus, lymphadenopathy Respiratory exam: Present: normal lung sounds bilaterally. Absent: respiratory distress, wheezes, rales, rhonchi, stridor Cardiovascular Exam: Present: regular rate, normal rhythm, normal heart sounds. Absent: systolic murmur, diastolic murmur, rubs, gallop, clicks GI/Abdominal exam: Present: soft, normal bowel sounds. Absent: distended, tenderness, guarding, rebound, rigid Course Vital Signs 06/25/17 13:19 Temperature 99.1 F Pulse Rate 66 Respiratory 18 Rate Blood Pressure 134/62 O2 Sat by Pulse 98 Oximetry Medical Decision Making - Medical Decision Making 56-year-old female presents to the emergency room for a chief complaint of scratchy throat. Patient states she also has a slight cough but it is unproductive. Patient denies any fevers or chills at home. Vitals are within normal limits: Temp 99.1, pulse 66, respirations 18, blood pressure 134/62, pulse ox 98 on room air. Patient states her was diagnosed with the flu and would like to be tested for it. Patient states she is on immunosuppressants. She states she is feeling relatively fine but just wants to make sure she does not the flu. Influenza was obtained and was negative. Discussed a chest x-ray with patient. As her cough is not too bad, she has no shortness of breath, and no fevers she would like to follow up with primary care provider in one to 2 days instead of obtaining a chest x-ray in the emergency department. She will return to the emergency Department if she develops high fevers or has any shortness of breath. She will return if she has any worsening symptoms. She will take Tessalon Perles as prescribed as well as other [id number] medications for cold and flu if needed. She will take Tylenol for fever reduction. All of this was discussed with the patient. - Lab Data Lab Results 06/25/17 Range/Units 13:24 Influenza Type A RNA Not Detected (Not Detectd) Influenza Type B (PCR) Not Detected (Not Detectd) Disposition Clinical Impression: Upper respiratory infection Disposition: HOME SELF-CARE Condition: Good Instructions: Upper Respiratory Infection (ED) Additional Instructions: Please follow up with primary care provider in one to 2 days as discussed. If your cough worsens or you develop shortness of breath please return to the emergency department. Otherwise take Tylenol for fever reduction. You may take Tessalon Perles for cough. You may take [id number] cold or flu medication for symptom relief. Prescriptions: Benzonatate [Tessalon Perles] 200 mg PO Q8H PRN #15 capsule PRN Reason: Cough Referrals: Gilmar Al MD [Primary Care Provider] - 1-2 days Time of Disposition: 14:25 Decision Time: 14:24
== END 2017-06-25 14:37 | disposition home or self-care (01) ==
LOC: EC 13:01
DX: J06.9 Acute upper respiratory infection, unspecified (principal); I48.91 Unspecified atrial fibrillation; K21.9 Gastro-esophageal reflux disease without esophagitis; E07.9 Disorder of thyroid, unspecified; Z87.891 Personal history of nicotine dependence; Z79.01 Long term (current) use of anticoagulants; Z79.899 Other long term (current) drug therapy; Z88.0 Allergy status to penicillin; Z88.1 Allergy status to other antibiotic agents; Z88.5 Allergy status to narcotic agent; Z88.8 Allergy status to other drugs, medicaments and biological substances
CPT/HCPCS: 87502; 99283

== ENCOUNTER → 2017-06-29 | Outpatient (CLI) | payer MEDICARE, OTHER ==
[2017-06-29 10:47] LABS: Anisocytosis Slight; Basophils # (A) 0.1 k/uL (0-0.2); Basophils % (A) 1 %; Eosinophils # (A) 0.2 k/uL (0-0.7); Eosinophils % (A) 2 %; HCT 30.3 % (34.0-46.0); HGB 8.2 gm/dL (11.4-16.0); Hypochromasia Marked; Lymphocytes # (A) 2.1 k/uL (1.0-4.8); Lymphocytes % (A) 24 %; MCH 19.2 pg (25.0-35.0); MCHC 27.2 g/dL (31.0-37.0); MCV 70.6 fL (80.0-100.0); Mean Platelet Volume 6.5; Microcytosis Marked; Monocytes # (A) 0.4 k/uL (0-1.0); Monocytes % (A) 5 %; Neutrophils # (A) 5.5 k/uL (1.3-7.7); Neutrophils % (A) 65 %; Platelet Count 414 k/uL (150-450); Poikilocytosis Slight; RBC 4.29 m/uL (3.80-5.40); RDW 17.7 % (11.5-15.5); WBC 8.5 k/uL (3.8-10.6)
[2017-06-29 10:50] LABS: Albumin 3.3 g/dL (3.5-5.0); Calcium 8.8 mg/dL (8.4-10.2); Magnesium 2.1 mg/dL (1.6-2.3); Potassium 3.8 mmol/L (3.5-5.1); Total Bilirubin 0.7 mg/dL (0.2-1.3)
== END | disposition home or self-care (01) ==
LOC: LABWHC1 10:00
PROVIDERS: ATTEND Internal Medicine
DX: E78.2 Mixed hyperlipidemia (principal); I50.30 Unspecified diastolic (congestive) heart failure; T86.23 Heart transplant infection; T86.22 Heart transplant failure; T86.21 Heart transplant rejection
CPT/HCPCS: 36415; 80053; 82550; 83735; 83880; 85025

== ENCOUNTER → 2017-08-16 | Outpatient (CLI) | payer MEDICARE ==
[2017-08-16 12:07] LABS: INR 3.3 (<1.2); Prothrombin Time 29.4 sec (9.0-12.0)
== END | disposition home or self-care (01) ==
LOC: LABWHC1 10:56
PROVIDERS: ATTEND Internal Medicine Cardiovascular Disease
DX: I48.0 Paroxysmal atrial fibrillation (principal)
CPT/HCPCS: 36415; 85610

== ENCOUNTER → 2017-08-19 | Outpatient (CLI) | payer MEDICARE ==
[2017-08-19 08:20] LABS: Anisocytosis Slight; HCT 30.3 % (34.0-46.0); HGB 8.6 gm/dL (11.4-16.0); Hypochromasia Marked; MCH 19.9 pg (25.0-35.0); MCHC 28.4 g/dL (31.0-37.0); Mean Platelet Volume 7.4; Microcytosis Marked; Platelet Count 350 k/uL (150-450); RBC 4.33 m/uL (3.80-5.40); RDW 19.3 % (11.5-15.5); WBC 8.5 k/uL (3.8-10.6)
[2017-08-19 08:32] LABS: Calcium 8.7 mg/dL (8.4-10.2); Potassium 4.1 mmol/L (3.5-5.1)
[2017-08-19 08:42] LABS: INR 4.2 (<1.2); Prothrombin Time 38.1 sec (9.0-12.0)
== END | disposition home or self-care (01) ==
LOC: LABWHC1 08:02
PROVIDERS: ATTEND Internal Medicine Cardiovascular Disease
DX: I48.0 Paroxysmal atrial fibrillation (principal)
CPT/HCPCS: 36415; 80048; 85027; 85610

== ENCOUNTER → 2017-08-29 | Outpatient (CLI) | payer MEDICARE ==
[2017-08-29 10:17] LABS: Anisocytosis Slight; Basophils # (A) 0.1 k/uL (0-0.2); Basophils % (A) 1 %; Eosinophils # (A) 0.3 k/uL (0-0.7); Eosinophils % (A) 3 %; HCT 30.6 % (34.0-46.0); HGB 8.3 gm/dL (11.4-16.0); Hypochromasia Marked; Lymphocytes # (A) 1.8 k/uL (1.0-4.8); Lymphocytes % (A) 23 %; MCH 19.4 pg (25.0-35.0); MCV 71.9 fL (80.0-100.0); Mean Platelet Volume 6.4; Microcytosis Marked; Monocytes # (A) 0.5 k/uL (0-1.0); Monocytes % (A) 6 %; Neutrophils # (A) 5.3 k/uL (1.3-7.7); Neutrophils % (A) 65 %; Platelet Count 345 k/uL (150-450); RBC 4.25 m/uL (3.80-5.40); WBC 8.1 k/uL (3.8-10.6)
[2017-08-29 10:22] LABS: INR 3.7 (<1.2); Prothrombin Time 33.5 sec (9.0-12.0)
[2017-08-29 10:30] LABS: Albumin 3.5 g/dL (3.5-5.0); Calcium 8.9 mg/dL (8.4-10.2); Potassium 4.7 mmol/L (3.5-5.1); Total Bilirubin 0.4 mg/dL (0.2-1.3); Total Protein 6.2 g/dL (6.3-8.2)
== END | disposition home or self-care (01) ==
LOC: LABWHC1 09:18
PROVIDERS: ATTEND Internal Medicine
DX: T86.20 Unspecified complication of heart transplant (principal); T86.21 Heart transplant rejection
CPT/HCPCS: 36415; 80053; 83735; 83880; 85025; 85610

== ENCOUNTER 2017-09-06 05:23 | Inpatient (IN) | payer MEDICARE, OTHER ==
[2017-09-06] MEDS ORDERED: METOCLOPRAMIDE 5 MG/ML 2 ML VIAL IVP STA (05:47)
--- NOTE | 2017-09-06 05:48 | ED ---
Nausea/Vomiting/Diarrhea HPI - General Chief complaint: Nausea/Vomiting/Diarrhea Stated complaint: nvd Time Seen by Provider: 09/06/17 05:30 Source: EMS Mode of arrival: EMS Limitations: no limitations - History of Present Illness Initial comments: This patient is 66-year-old woman who presents because she woke this morning around 2 AM with a feeling of nausea and feeling sweaty. She states that prior to going to bed yesterday she had had a couple of episodes of which she is describing as diarrhea. She did not have any dark tarry or bloody stool. Patient's denying chest or abdominal pain. MD complaint: nausea, diarrhea Onset/Timin -: hour(s) Associated Abdominal Pain: No Improves with: none Worsens with: none Associated Symptoms: diaphoresis - Related Data Home Medications Medication Instructions Recorded Confirmed Atorvastatin Calcium [Lipitor] 10 mg PO HS 06/24/16 09/06/17 Levothyroxine Sodium [Synthroid] 75 mcg PO DAILY 06/24/16 09/06/17 Metoprolol Tartrate [Lopressor] 12.5 mg PO BID 06/24/16 09/06/17 Pantoprazole Sodium [Protonix] 40 mg PO DAILY 06/24/16 09/06/17 Sirolimus 1 mg PO HS 06/24/16 09/06/17 hydrALAZINE HCL [Apresoline] 50 mg PO TID 06/24/16 09/06/17 Butorphanol Tartrate [Stadol Nasal 1 spray NASAL Q4H PRN 03/03/17 09/06/17 [place]] Furosemide [Lasix] 40 mg PO DAILY 03/03/17 09/06/17 Furosemide [Lasix] 40 mg PO Q48H 03/03/17 09/06/17 Mycophenolate Mofetil [Cellcept] 500 mg PO BID 03/03/17 09/06/17 Potassium Chloride [Klor-Con 20] 20 - 40 meq PO DAILY 03/03/17 09/06/17 Topiramate [Topamax] 50 mg PO BID 03/03/17 09/06/17 Warfarin Sodium [Jantoven] 3 mg PO HS 03/03/17 09/06/17 Lisinopril [Zestril] 2.5 mg PO DAILY 09/06/17 09/06/17 Allergies Allergy/AdvReac Type Severity Reaction Status Date / Time cephalexin [From Keflex] Allergy Rash/Hives Verified 09/06/17 08:12 ciprofloxacin [From Cipro] Allergy Rash/Hives Verified 09/06/17 08:12 codeine Allergy Unknown Verified 09/06/17 08:12 hydrocodone [From Lortab] Allergy Unknown Verified 09/06/17 08:12 hydromorphone [From Dilaudid] Allergy Rash/Hives Verified 09/06/17 08:12 hydroxyprogesterone Allergy Unknown Verified 09/06/17 08:12 opium (anthroposophic) Allergy Unknown Verified 09/06/17 08:12 Penicillins Allergy Unknown Verified 09/06/17 08:12 simvastatin Allergy Unknown Verified 09/06/17 08:12 tramadol HCl [From Ultram] Allergy Unknown Verified 09/06/17 08:12 Review of Systems ROS Statement: Those systems with pertinent positive or pertinent negative responses have been documented in the HPI. ROS Other: All systems not noted in ROS Statement are negative. Constitutional: Denies: fever, chills, weakness Respiratory: Denies: cough, dyspnea Cardiovascular: Denies: chest pain, palpitations, orthopnea, edema, syncope Gastrointestinal: Reports: nausea, diarrhea. Denies: abdominal pain, vomiting, constipation, melena, hematochezia Genitourinary: Denies: dysuria Musculoskeletal: Denies: back pain Skin: Denies: rash Neurological: Denies: headache, weakness, numbness Past Medical History Past Medical History: Atrial Fibrillation, Diabetes Mellitus, GERD/Reflux, Thyroid Disorder History of Any Multi-Drug Resistant Organisms: None Reported Past Surgical History: Appendectomy, Breast Surgery, Cardiac Ablation, Cholecystectomy, Tonsillectomy, Tubal Ligation Additional Past Surgical History / Comment(s): Heart Transplant 2002 Past Psychological History: No Psychological Hx Reported Smoking Status: Former smoker Past Alcohol Use History: None Reported Past Drug Use History: None Reported General Exam Limitations: no limitations General appearance: alert, in no apparent distress Head exam: Present: atraumatic, normocephalic Eye exam: Present: normal appearance. Absent: scleral icterus, conjunctival injection ENT exam: Present: normal oropharynx Neck exam: Present: normal inspection Respiratory exam: Present: normal lung sounds bilaterally. Absent: respiratory distress, wheezes, rales, rhonchi, stridor Cardiovascular Exam: Present: regular rate, normal rhythm, normal heart sounds. Absent: systolic murmur, diastolic murmur, rubs, gallop GI/Abdominal exam: Present: soft. Absent: distended, tenderness, guarding, rebound, mass Extremities exam: Present: normal inspection, normal capillary refill. Absent: pedal edema, calf tenderness Back exam: Absent: CVA tenderness (R), CVA tenderness (L) Skin exam: Present: warm, dry, intact, normal color. Absent: rash Course Vital Signs 09/06/17 09/06/17 09/06/17 05:26 06:15 06:47 Temperature 97.0 F L Pulse Rate 70 65 78 Respiratory 18 18 18 Rate Blood Pressure 181/74 143/66 147/63 O2 Sat by Pulse 99 97 99 Oximetry Medical Decision Making - Lab Data Result diagrams: 09/06/17 05:36 09/06/17 05:36 Lab Results 09/06/17 09/06/17 09/06/17 Range/Units 05:36 05:36 05:36 WBC 7.7 (3.8-10.6) k/uL RBC 4.62 (3.80-5.40) m/uL Hgb 9.1 L (11.4-16.0) gm/dL Hct 31.6 L (34.0-46.0) % MCV 68.3 L (80.0-100.0) fL MCH 19.6 L (25.0-35.0) pg MCHC 28.8 L (31.0-37.0) g/dL RDW 18.9 H (11.5-15.5) % Plt Count 388 (150-450) k/uL Neutrophils % 73 % Lymphocytes % 19 % Monocytes % 5 % Eosinophils % 2 % Basophils % 1 % Neutrophils # 5.6 (1.3-7.7) k/uL Lymphocytes # 1.5 (1.0-4.8) k/uL Monocytes # 0.4 (0-1.0) k/uL Eosinophils # 0.2 (0-0.7) k/uL Basophils # 0.0 (0-0.2) k/uL Hypochromasia Marked Anisocytosis Slight Microcytosis Marked PT (9.0-12.0) sec INR (<1.2) APTT (22.0-30.0) sec Sodium 139 (137-145) mmol/L Potassium 5.2 H (3.5-5.1) mmol/L Chloride 104 (98-107) mmol/L Carbon Dioxide 23 (22-30) mmol/L Anion Gap 12 mmol/L BUN 22 H (7-17) mg/dL Creatinine 1.60 H (0.52-1.04) mg/dL Est GFR (CKD-EPI)AfAm 39 (>60 ml/min/1.73 sqM) Est GFR (CKD-EPI)NonAf 34 (>60 ml/min/1.73 sqM) Glucose 198 H (74-99) mg/dL Calcium 9.3 (8.4-10.2) mg/dL Total Bilirubin 0.6 (0.2-1.3) mg/dL AST 46 H (14-36) U/L ALT 20 (9-52) U/L Alkaline Phosphatase 103 (38-126) U/L Troponin I <0.012 (0.000-0.034) ng/mL Total Protein 7.0 (6.3-8.2) g/dL Albumin 3.9 (3.5-5.0) g/dL Amylase 44 (30-110) U/L Lipase 13 L (23-300) U/L Urine Color Urine Appearance (Clear) Urine pH (5.0-8.0) Ur Specific Johnson (1.001-1.035) Urine Protein (Negative) Urine Glucose (UA) (Negative) Urine Ketones (Negative) Urine Blood (Negative) Urine Nitrite (Negative) Urine Bilirubin (Negative) Urine Urobilinogen (<2.0) mg/dL Ur Leukocyte Esterase (Negative) Urine RBC (0-5) /hpf Urine WBC (0-5) /hpf Ur Squamous Epith Cells (0-4) /hpf Hyaline Casts (0-2) /lpf Urine Mucus (None) /hpf 09/06/17 09/06/17 Range/Units 05:36 07:10 WBC (3.8-10.6) k/uL RBC (3.80-5.40) m/uL Hgb (11.4-16.0) gm/dL Hct (34.0-46.0) % MCV (80.0-100.0) fL MCH (25.0-35.0) pg MCHC (31.0-37.0) g/dL RDW (11.5-15.5) % Plt Count (150-450) k/uL Neutrophils % % Lymphocytes % % Monocytes % % Eosinophils % % Basophils % % Neutrophils # (1.3-7.7) k/uL Lymphocytes # (1.0-4.8) k/uL Monocytes # (0-1.0) k/uL Eosinophils # (0-0.7) k/uL Basophils # (0-0.2) k/uL Hypochromasia Anisocytosis Microcytosis PT 68.4 H (9.0-12.0) sec INR 7.4 H* (<1.2) APTT 34.0 H (22.0-30.0) sec Sodium (137-145) mmol/L Potassium (3.5-5.1) mmol/L Chloride (98-107) mmol/L Carbon Dioxide (22-30) mmol/L Anion Gap mmol/L BUN (7-17) mg/dL Creatinine (0.52-1.04) mg/dL Est GFR (CKD-EPI)AfAm (>60 ml/min/1.73 sqM) Est GFR (CKD-EPI)NonAf (>60 ml/min/1.73 sqM) Glucose (74-99) mg/dL Calcium (8.4-10.2) mg/dL Total Bilirubin (0.2-1.3) mg/dL AST (14-36) U/L ALT (9-52) U/L Alkaline Phosphatase (38-126) U/L Troponin I (0.000-0.034) ng/mL Total Protein (6.3-8.2) g/dL Albumin (3.5-5.0) g/dL Amylase (30-110) U/L Lipase (23-300) U/L Urine Color Yellow Urine Appearance Clear (Clear) Urine pH 5.5 (5.0-8.0) Ur Specific Johnson 1.020 (1.001-1.035) Urine Protein 2+ H (Negative) Urine Glucose (UA) Negative (Negative) Urine Ketones 1+ H (Negative) Urine Blood Negative (Negative) Urine Nitrite Negative (Negative) Urine Bilirubin Negative (Negative) Urine Urobilinogen <2.0 (<2.0) mg/dL Ur Leukocyte Esterase Moderate H (Negative) Urine RBC 2 (0-5) /hpf Urine WBC 5 (0-5) /hpf Ur Squamous Epith Cells 2 (0-4) /hpf Hyaline Casts 20 H (0-2) /lpf Urine Mucus Rare H (None) /hpf - EKG Data -: EKG Interpreted by Me EKG shows normal: sinus rhythm, axis (Normal), intervals (Normal), ST-T waves ( Normal) Rate: normal (Rate 70 bpm) When compared to previous EKG there are: other (Similar to previous ECG from proximal month ago) Interpretation: other (Q waves in lead V2 and V3 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
[2017-09-06] MEDS ORDERED: SODIUM CHLORIDE 0.9% 500 ML IV STA (05:51)
[2017-09-06 06:05] LABS: Anisocytosis Slight; Basophils % (A) 1 %; Eosinophils # (A) 0.2 k/uL (0-0.7); Eosinophils % (A) 2 %; HCT 31.6 % (34.0-46.0); HGB 9.1 gm/dL (11.4-16.0); Hypochromasia Marked; Lymphocytes # (A) 1.5 k/uL (1.0-4.8); Lymphocytes % (A) 19 %; MCH 19.6 pg (25.0-35.0); MCHC 28.8 g/dL (31.0-37.0); MCV 68.3 fL (80.0-100.0); Mean Platelet Volume 7.4; Microcytosis Marked; Monocytes # (A) 0.4 k/uL (0-1.0); Monocytes % (A) 5 %; Neutrophils # (A) 5.6 k/uL (1.3-7.7); Neutrophils % (A) 73 %; Platelet Count 388 k/uL (150-450); RBC 4.62 m/uL (3.80-5.40); RDW 18.9 % (11.5-15.5); WBC 7.7 k/uL (3.8-10.6)
[2017-09-06 06:12] LABS: Albumin 3.9 g/dL (3.5-5.0); Calcium 9.3 mg/dL (8.4-10.2); Total Bilirubin 0.6 mg/dL (0.2-1.3)
[2017-09-06 06:26] LABS: Potassium 5.2 mmol/L (3.5-5.1)
[2017-09-06 06:54] LABS: Prothrombin Time 68.4 sec (9.0-12.0)
[2017-09-06 07:03] LABS: INR 7.4 (<1.2)
--- NOTE | 2017-09-06 07:29 | XR ---
EXAM: XR Chest, 1 View CLINICAL HISTORY: Pain TECHNIQUE: Frontal view of the chest. COMPARISON: FINDINGS: Lungs: The pulmonary vasculature is felt to be within normal limits. No focal airspace disease noted. Pleural space: No large pleural effusion noted. No pneumothorax. Heart: The cardiac silhouette is presumed accentuated by portable technique but appears to be within normal limits. Mediastinum: Unremarkable. Bones/joints: Intact sternotomy wires noted. IMPRESSION: Findings consistent with prior sternotomy. No focal airspace disease or definite acute cardiopulmonary process.
[2017-09-06] MEDS ORDERED: NITROGLYCERIN SL TABS 0.4 MG TAB SUBLINGUAL PRN (07:30)
[2017-09-06 07:32] LABS: Appearance,Urine Clear (Clear); Bilirubin,Urine Negative (Negative); Blood,Urine Negative (Negative); Color,Urine Yellow; Glucose,Urine (UA) Negative (Negative); Hyaline Casts,Urine 20 /lpf (0-2); Ketones,Urine 1+ (Negative); Leukocyte Esterase,Urine Moderate (Negative); Mucus,Urine Rare /hpf; Nitrite,Urine Negative (Negative); PH, Urine 5.5 (5.0-8.0); Protein,Urine 2+ (Negative); RBC,Urine 2 /hpf (0-5); Squamous Epithelial Cell,Urine 2 /hpf (0-4); Urobilinogen,Urine <2.0 mg/dL (<2.0); WBC,Urine 5 /hpf (0-5)
[2017-09-06] MEDS ORDERED: BENZONATATE 100 MG CAP PO PRN (07:33)
[2017-09-06] MEDS ORDERED: STADOL NASAL PRN (07:33)
[2017-09-06] MEDS ORDERED: FUROSEMIDE 40 MG TAB PO SCH (09:00)
[2017-09-06] MEDS ORDERED: SULFAMETHOX-TMP 800-160MG 1 EACH TAB PO SCH (09:00)
[2017-09-06] MEDS ORDERED: PHENAZOPYRIDINE 100 MG TAB PO SCH (09:00)
[2017-09-06] MEDS: TOPIRAMATE 25 MG TAB PO SCH ×2 (11:08→20:21)
[2017-09-06] MEDS: PANTOPRAZOLE 40 MG TABLET PO SCH (11:08)
[2017-09-06] MEDS: METOPROLOL TARTRATE 12.5 MG TAB PO SCH ×2 (11:08→20:21)
[2017-09-06] MEDS: LEVOTHYROXINE 75 MCG TAB PO SCH (11:09)
[2017-09-06] MEDS: MYCOPHENOLATE MOFETIL 250 MG CAP PO SCH ×2 (11:09→20:21)
[2017-09-06] MEDS: hydrALAZINE HCL 50 MG TAB PO SCH ×3 (11:09→20:21)
[2017-09-06 12:48] LABS: Glucose,Whole Blood 205 mg/dL (75-99)
[2017-09-06 12:56] LABS: Creatine Kinase 85 U/L (30-135)
[2017-09-06 13:10] LABS: Creatine Kinase MB 1.2 ng/mL (0.0-2.4); Troponin I <0.012 ng/mL (0.000-0.034)
--- NOTE | 2017-09-06 13:18 | ECHOF ---
Referral Reason:cp MEASUREMENTS -------- HEIGHT: 152.4 cm WEIGHT: 70.8 kg BP: 151/63 RVIDd: 3.8 cm (< 3.3) IVSd: 1.3 cm (0.6 - 1.1) LVIDd: 4.7 cm (3.9 - 5.3) LVPWd: 1.3 cm (0.6 - 1.1) IVSs: 1.6 cm LVIDs: 3.2 cm LVPWs: 1.6 cm LAESV Index (A-L): 53.48 ml/m Ao Diam: 2.8 cm (2.0 - 3.7) AV Cusp: 1.9 cm (1.5 - 2.6) LA Diam: 5.6 cm (2.7 - 3.8) EPSS: 0.2 cm MV E Alonzo: 1.52 m/s MV DecT: 191 ms MV A Alonzo: 0.87 m/s MV E/A Ratio: 1.75 RAP: 5.00 mmHg RVSP: 43.78 mmHg MV EF SLOPE: 108.65 mm/s (70 - 150) MV EXCURSION: 1.84 cm (> 18.000) FINDINGS -------- Sinus rhythm. This was a technically difficult study with suboptimal views. Patient has history of cardiac transp lantation in 2001. The left ventricular size is normal. There is mild concentric left ventricular hypertrophy. Overa ll left ventricular systolic function is normal with, an EF between 55 - 60 %. The right ventricle is mildly enlarged. LA is severely dilated >40 ml/m2 RA appears enlarged. 3ml of Lumason was utilized for enhancement of images. Aortic valve is trileaflet and is mildly thickened. There is mild aortic valve sclerosis. Trace t o mild aortic regurgitation. The mitral valve leaflets are mildly thickened. Mild mitral regurgitation is present. Mild tricuspid regurgitation present. Right ventricular systolic pressure is normal at < 35 mmHg. There is mild pulmonary hypertension. Trace/mild (physiologic) pulmonic regurgitation. The aortic root size is normal. The inferior vena cava is mildly dilated. There is no pericardial effusion. CONCLUSIONS -------- 1. Sinus rhythm. 2. This was a technically difficult study with suboptimal views. 3. Patient has history of cardiac transplantation in 2001. 4. The left ventricular size is normal. 5. There is mild concentric left ventricular hypertrophy. 6. Overall left ventricular systolic function is normal with, an EF between 55 - 60 %. 7. The right ventricle is mildly enlarged. 8. LA is severely dilated >40 ml/m2 9. RA appears enlarged. 10. 3ml of Lumason was utilized for enhancement of images. 11. Aortic valve is trileaflet and is mildly thickened. 12. Trace to mild aortic regurgitation. 13. The mitral valve leaflets are mildly thickened. 14. Mild mitral regurgitation is present. 15. Mild tricuspid regurgitation present. 16. Right ventricular systolic pressure is normal at < 35 mmHg. 17. There is mild pulmonary hypertension. 18. Trace/mild (physiologic) pulmonic regurgitation. 19. The aortic root size is normal. 20. The inferior vena cava is mildly dilated. 21. There is no pericardial effusion. SCRAPER TENDER: Mehdi Mcdermott RDCS
[2017-09-06] MEDS: INSULIN ASPART 100 UNIT/ML 1 ML 10 ML VIAL SQ SCH ×3 (14:29→21:43)
--- NOTE | 2017-09-06 14:35 | P.CRDCN ---
History of Present Illness History of present illness: Mrs. Barfield is a pleasant 66-year-old female past medical history significant for heart transplant 2001, atrial fibrillation s/p ablation 2 weeks ago and U of , diabetes mellitus, GERD, hypertension and dyslipidemia. She follows with a pheresis specialist at [facility]. We have been asked to see her in consultation. She states she woke up at 0200 in the morning with symptoms of nausea and acute diaphoresis. She had also had a couple episodes of diarrhea prior to going to bed. The symptoms were brief and subsided on their own with no specific alleviating factors. She states she recently been completed a 2 week course of Cipro for an infected tooth. She took her last dose 3 days ago. She has had no further symptoms since admission. She follows in [facility] for her coumadin dosing and INR on Tuesday was 3.1, found to be 7.4 on admission today. EKG sinus mechanism with no evidence of acute ST or T-wave abnormality. Chest x-ray no acute cardiopulmonary process. Laboratory data reviewed, hemoglobin 9.1, platelets 388, INR 7.4, sodium 139, potassium 5.2, creatinine 1.6, cardiac enzymes negative 2. Current cardiac medications include lisinopril 2.5 mg daily, hydralazine 50 mg 3 times a day, Coumadin 3 mg daily, metoprolol 12.5 mg twice a day, Lasix 40 mg daily and atorvastatin 10 mg daily. Echocardiogram has been ordered and reveals preserved left ventricular systolic function with ejection fraction 55-60%, mildly enlarged right ventricle, severely dilated left atrium, trace to mild aortic regurgitation, mild mitral regurgitation and mild tricuspid regurgitation. Review of Systems At the time of my exam: CONSTITUTIONAL: Denies fever. Denies chills. EYES: Denies blurred vision. Denies vision changes. Denies eye pain. EARS, NOSE, MOUTH & THROAT: Denies headache. Denies sore throat. Denies ear pain. CARDIOVASCULAR: Denies chest pain. Denies shortness of breath. Denies orthopnea. Denies PND. Denies palpitations. RESPIRATORY: Denies cough. GASTROINTESTINAL: Denies abdominal pain. Denies diarrhea. Denies constipation. Denies nausea. Denies vomiting. MUSCULOSKELETAL: Denies myalgias. INTEGUMENTARY: Denies pruitis. Denies rash. NEUROLOGIC: Denies numbness. Denies tingling. Denies weakness. PSYCHIATRIC: Denies anxiety. Denies depression. ENDOCRINE: Denies fatigue. Denies weight change. Denies polydipsia. Denies polyurina. GENITOURINARY: Denies burning, hematuria or urgency with micturation. HEMATOLOGIC: Denies history of anemia. Denies bleeding. Past Medical History Past Medical History: Atrial Fibrillation, Diabetes Mellitus, GERD/Reflux, Hyperlipidemia, Hypertension, Thyroid Disorder Additional Past Medical History / Comment(s): IDDM type II, cardiac transplant 2001 at [facility], hypothyroid. History of Any Multi-Drug Resistant Organisms: None Reported Past Surgical History: Appendectomy, Breast Surgery, Cardiac Ablation, Cholecystectomy, Tonsillectomy, Tubal Ligation Additional Past Surgical History / Comment(s): Heart Transplant 2001 at [facility], cardiac ablation about 2 weeks ago at [facility] for afib, bilateral breast reduction. Past Anesthesia/Blood Transfusion Reactions: No Reported Reaction Additional Past Anesthesia/Blood Transfusion Reaction / Comment(s): Pt has received blood in past without reaction. Smoking Status: Former smoker - Past Family History Father Family Medical History: Myocardial Infarction ([place]) Additional Family Medical History / Comment(s): Father of a massive [place] at the age of 52 yrs. Mother Family Medical History: No Reported History Additional Family Medical History / Comment(s): Mother in her sleep at the age of 82 yrs. Medications and Allergies Home Medications Medication Instructions Recorded Confirmed Type Atorvastatin Calcium [Lipitor] 10 mg PO HS 06/24/16 09/06/17 History Levothyroxine Sodium [Synthroid] 75 mcg PO DAILY 06/24/16 09/06/17 History Metoprolol Tartrate [Lopressor] 12.5 mg PO BID 06/24/16 09/06/17 History Pantoprazole Sodium [Protonix] 40 mg PO DAILY 06/24/16 09/06/17 History Sirolimus 1 mg PO HS 06/24/16 09/06/17 History hydrALAZINE HCL [Apresoline] 50 mg PO TID 06/24/16 09/06/17 History Butorphanol Tartrate [Stadol Nasal 1 spray NASAL Q4H PRN 03/03/17 09/06/17 History Balko] Furosemide [Lasix] 40 mg PO DAILY 03/03/17 09/06/17 History Furosemide [Lasix] 40 mg PO Q48H 03/03/17 09/06/17 History Mycophenolate Mofetil [Cellcept] 500 mg PO BID 03/03/17 09/06/17 History Potassium Chloride [Klor-Con 20] 20 - 40 meq PO DAILY 03/03/17 09/06/17 History Topiramate [Topamax] 50 mg PO BID 03/03/17 09/06/17 History Warfarin Sodium [Jantoven] 3 mg PO HS 03/03/17 09/06/17 History Lisinopril [Zestril] 2.5 mg PO DAILY 09/06/17 09/06/17 History Allergies Allergy/AdvReac Type Severity Reaction Status Date / Time cephalexin [From Keflex] Allergy Rash/Hives Verified 09/06/17 08:12 ciprofloxacin [From Cipro] Allergy Rash/Hives Verified 09/06/17 08:12 codeine Allergy Unknown Verified 09/06/17 08:12 hydrocodone [From Lortab] Allergy Unknown Verified 09/06/17 08:12 hydromorphone [From Dilaudid] Allergy Rash/Hives Verified 09/06/17 08:12 hydroxyprogesterone Allergy Unknown Verified 09/06/17 08:12 opium (anthroposophic) Allergy Unknown Verified 09/06/17 08:12 Penicillins Allergy Unknown Verified 09/06/17 08:12 simvastatin Allergy Unknown Verified 09/06/17 08:12 tramadol HCl [From Ultram] Allergy Unknown Verified 09/06/17 08:12 Physical Exam Vitals: Vital Signs Temp Pulse Pulse Resp BP BP Pulse Ox 09/06/17 09:53 97.8 F 81 16 151/63 99 09/06/17 08:53 72 16 150/63 96 09/06/17 06:47 78 18 147/63 99 09/06/17 06:15 65 18 143/66 97 09/06/17 05:26 97.0 F L 70 18 181/74 99 Intake and Output 09/05/17 09/06/17 09/06/17 22:59 06:59 14:59 Other: Weight 71.214 kg 70.8 kg Blood pressure 151/63 heart rate 81 afebrile maintaining oxygen saturation on room air GENERAL: This is a 66-year-old female in no apparent distress at the time of my examination. HEENT: Head is atraumatic, normocephalic. Pupils are equal, round. Sclerae anicteric. Conjunctivae are clear. Mucous membranes of the mouth are moist. Neck is supple. There is no jugular venous distention. No carotid bruit is heard. LUNGS: Clear to auscultation no wheezes, rales or rhonchi. No chest wall tenderness is noted on palpation or with deep breathing. HEART: Regular rate and rhythm with systolic ejection murmur at the base, no rubs or gallops. S1 and S2 heard. ABDOMEN: Soft, nontender. Bowel sounds are heard. No organomegaly noted. EXTREMITIES: No evidence of peripheral edema and no calf tenderness noted. VASCULAR: Radial and dorsalis pedis pulses palpated, no evidence of clubbing. NEUROLOGIC: Patient is awake, alert and oriented x3. Results 09/06/17 05:36 09/06/17 05:36 Cardiac Enzymes 09/06/17 09/06/17 09/06/17 Range/Units 05:36 05:36 12:16 AST 46 H (14-36) U/L CK-MB (CK-2) 1.2 (0.0-2.4) ng/mL Troponin I <0.012 <0.012 (0.000-0.034) ng/mL Coagulation 09/06/17 Range/Units 05:36 PT 68.4 H (9.0-12.0) sec APTT 34.0 H (22.0-30.0) sec CBC 09/06/17 Range/Units 05:36 WBC 7.7 (3.8-10.6) k/uL RBC 4.62 (3.80-5.40) m/uL Hgb 9.1 L (11.4-16.0) gm/dL Hct 31.6 L (34.0-46.0) % Plt Count 388 (150-450) k/uL Comprehensive Metabolic Panel 09/06/17 Range/Units 05:36 Sodium 139 (137-145) mmol/L Potassium 5.2 H (3.5-5.1) mmol/L Chloride 104 (98-107) mmol/L Carbon Dioxide 23 (22-30) mmol/L BUN 22 H (7-17) mg/dL Creatinine 1.60 H (0.52-1.04) mg/dL Glucose 198 H (74-99) mg/dL Calcium 9.3 (8.4-10.2) mg/dL AST 46 H (14-36) U/L ALT 20 (9-52) U/L Alkaline Phosphatase 103 (38-126) U/L Total Protein 7.0 (6.3-8.2) g/dL Albumin 3.9 (3.5-5.0) g/dL Current Medications Generic Name Dose Route Start Last Admin Trade Name Freq PRN Reason Stop Dose Admin Atorvastatin Calcium 10 mg 09/06/17 21:00 Lipitor PO HS DYLON Furosemide 40 mg 09/06/17 09:00 09/06/17 11:10 Lasix PO 40 mg DAILY DYLON Administration Hydralazine HCl 50 mg 09/06/17 09:00 09/06/17 11:09 Apresoline PO 50 mg TID DYLON Administration Insulin Aspart 0 unit 09/06/17 12:30 Novolog SQ ACHS DYLON Protocol Levothyroxine Sodium 75 mcg 09/06/17 09:00 09/06/17 11:09 Synthroid PO 75 mcg 0630 DYLON Administration Metoprolol Tartrate 12.5 mg 09/06/17 09:00 09/06/17 11:08 Lopressor PO 12.5 mg BID DYLON Administration Mycophenolate Mofetil 500 mg 09/06/17 09:00 09/06/17 11:09 Cellcept PO 500 mg BID DYLON Administration Nitroglycerin 0.4 mg 09/06/17 07:30 Nitrostat SUBLINGUAL Q5M PRN Chest Pain Stadol Nasal Balko ( 1 spray 09/06/17 07:33 Butorphanol Tartrate NASAL ) Q4H PRN MIGRAINES Rapamune (Sirolimus) 1 mg 09/06/17 21:00 1 Mg Tablet PO HS DYLON Pantoprazole Sodium 40 mg 09/06/17 09:00 09/06/17 11:08 Protonix PO 40 mg DAILY DYLON Administration Topiramate 50 mg 09/06/17 09:00 09/06/17 11:08 Topamax PO 50 mg BID DYLON Administration Intake and Output 09/05/17 09/06/17 09/06/17 22:59 06:59 14:59 Other: Weight 71.214 kg 70.8 kg Patient Weight 09/07/17 06:59 Weight 70.8 kg 09/06/17 05:36 09/06/17 05:36 Assessment and Plan Assessment: ASSESSMENT 1. Diarrhea, nausea and diaphoresis. An acute coronary event has been ruled out with no EKG evidence of acute ischemia and negative cardiac enzymes. 2. History of heart translplant 2001 3. Paroxysmal atrial fibrillation s/p recent ablation 2 weeks ago. Currently maintaining sinus mechanism. On penitentiary anti-coagulation with coumadin. 4. Diabetes mellitus 5. Hypertension 6. Dyslipidemia 7. Supra-therapeutic INR 8. Chronic kidney disease, GFR 34, Stage 3 9. Hyperkalemia 10. Hypochromic microcytic anemia PLAN Echocardiogram has been obtained and reviewed. Hold Coumadin tonight. Repeat INR and BMP in the morning. Thank you kindly for this consultation. Nurse Practitioner note has been reviewed, I agree with a documented findings and plan of care. Patient was seen and examined.
--- NOTE | 2017-09-06 16:10 | P.HPIM ---
History of Present Illness H&P Date: 09/06/17 Chief Complaint: Sweats, nausea This is a 66-year-old female patient of Dr. Al with a past medical history of paroxysmal atrial fibrillation status post ablation, diabetes mellitus type 2, insulin requiring, gastroesophageal reflux disease, hypothyroidism, congenital deformity of the heart status post heart transplant in 2001 at [facility]. Patient states that she woke up at 2 in the morning with sweats that were profuse with nausea. She denies having any chest pain. Prior to going to bed, patient had several episodes of loose stools. She states her just had a bone marrow transplant 2 months ago and he told her to just call EMS and going to the hospital. Patient thought that her blood sugar was low but when she checked it it was 150. She came into [facility] emergency center for evaluation. Chest x-ray revealed no focal airspace disease or definite acute cardio pulmonary process. EKG was a sinus rhythm without acute ST-T wave changes. Her hemoglobin was 9.1, INR was at 7.4. Patient states that she did have an INR checked on Tuesday which was 3.2 and this is managed by [facility]. Her creatinine was 1.6 and her baseline is at 1.2 with potassium of 5.2. Vital signs have been stable. Patient has been afebrile. Pulse ox 96% on room air. Troponins have been negative on 2 draws. She was placed on the observation unit and cardiology consult was requested. Patient has been cleared for discharge by cardiology but she will be monitored overnight and recheck lab work in the morning. Echocardiogram reveals EF of 55-60% with mild concentric left hypertrophy, LA severely dilated at greater than 40, are appears enlarged, mild aortic regurgitation, mild mitral regurgitation, mild tricuspid regurgitation, mild pulmonary hypertension. Review of Systems All systems: negative Constitutional: Reports sweats, Reports weakness, Denies chills, Denies fever Eyes: denies blurred vision, denies pain Ears, nose, mouth and throat: Denies headache, Denies sore throat Cardiovascular: Denies chest pain, Denies decreased exercise tolerance, Denies dyspnea on exertion, Denies leg edema, Denies lightheadedness, Denies shortness of breath, Denies syncope Respiratory: Denies cough, Denies cough with sputum, Denies dyspnea, Denies excessive sputum, Denies hemoptysis, Denies home oxygen, Denies wheezing Gastrointestinal: Reports diarrhea, Reports nausea, Denies abdominal pain, Denies vomiting Genitourinary: Denies dysuria, Denies hematuria, Denies urgency, Denies urinary frequency Musculoskeletal: Denies myalgias Integumentary: Denies pruritus, Denies rash, Denies wounds Neurological: Denies numbness, Denies weakness Psychiatric: Denies anxiety, Denies depression Endocrine: Denies fatigue, Denies weight change Past Medical History Past Medical History: Atrial Fibrillation, Diabetes Mellitus, GERD/Reflux, Thyroid Disorder Additional Past Medical History / Comment(s): Congenital deformity of the heart status post heart transplant in 2001 in [facility], skin cancer on her ankle History of Any Multi-Drug Resistant Organisms: None Reported Past Surgical History: Appendectomy, Breast Surgery, Cardiac Ablation, Cholecystectomy, Tonsillectomy, Tubal Ligation Additional Past Surgical History / Comment(s): Heart Transplant 2001 at [facility], lumbar laminectomy, breast reduction, removal of skin cancer on her ankle. Past Psychological History: No Psychological Hx Reported Smoking Status: Former smoker Past Alcohol Use History: None Reported Additional Past Alcohol Use History / Comment(s): Patient quit smoking more than 20 years ago. No alcohol or illicit drug use. She lives at home with her . Past Drug Use History: None Reported - Past Family History Father Family Medical History: Myocardial Infarction ([place]) Additional Family Medical History / Comment(s): Father of a massive [place] at the age of 52 yrs. Mother Family Medical History: No Reported History Additional Family Medical History / Comment(s): Mother in her sleep at the age of 82 yrs. Brother(s) Additional Family Medical History / Comment(s): Patient has 2 sisters and one brother with history of coronary artery disease. Patient does not have any children. Medications and Allergies Home Medications Medication Instructions Recorded Confirmed Type Atorvastatin Calcium [Lipitor] 10 mg PO HS 06/24/16 09/06/17 History Levothyroxine Sodium [Synthroid] 75 mcg PO DAILY 06/24/16 09/06/17 History Metoprolol Tartrate [Lopressor] 12.5 mg PO BID 06/24/16 09/06/17 History Pantoprazole Sodium [Protonix] 40 mg PO DAILY 06/24/16 09/06/17 History Sirolimus 1 mg PO HS 06/24/16 09/06/17 History hydrALAZINE HCL [Apresoline] 50 mg PO TID 06/24/16 09/06/17 History Butorphanol Tartrate [Stadol Nasal 1 spray NASAL Q4H PRN 03/03/17 09/06/17 History Russell] Furosemide [Lasix] 40 mg PO DAILY 03/03/17 09/06/17 History Furosemide [Lasix] 40 mg PO Q48H 03/03/17 09/06/17 History Mycophenolate Mofetil [Cellcept] 500 mg PO BID 03/03/17 09/06/17 History Potassium Chloride [Klor-Con 20] 20 - 40 meq PO DAILY 03/03/17 09/06/17 History Topiramate [Topamax] 50 mg PO BID 03/03/17 09/06/17 History Warfarin Sodium [Jantoven] 3 mg PO HS 03/03/17 09/06/17 History Lisinopril [Zestril] 2.5 mg PO DAILY 09/06/17 09/06/17 History Allergies Allergy/AdvReac Type Severity Reaction Status Date / Time cephalexin [From Keflex] Allergy Rash/Hives Verified 09/06/17 08:12 ciprofloxacin [From Cipro] Allergy Rash/Hives Verified 09/06/17 08:12 codeine Allergy Unknown Verified 09/06/17 08:12 hydrocodone [From Lortab] Allergy Unknown Verified 09/06/17 08:12 hydromorphone [From Dilaudid] Allergy Rash/Hives Verified 09/06/17 08:12 hydroxyprogesterone Allergy Unknown Verified 09/06/17 08:12 opium (anthroposophic) Allergy Unknown Verified 09/06/17 08:12 Penicillins Allergy Unknown Verified 09/06/17 08:12 simvastatin Allergy Unknown Verified 09/06/17 08:12 tramadol HCl [From Ultram] Allergy Unknown Verified 09/06/17 08:12 Physical Exam Vitals: Vital Signs Temp Pulse Pulse Resp BP BP Pulse Ox 09/06/17 09:53 97.8 F 81 16 151/63 99 09/06/17 08:53 72 16 150/63 96 09/06/17 06:47 78 18 147/63 99 09/06/17 06:15 65 18 143/66 97 09/06/17 05:26 97.0 F L 70 18 181/74 99 Intake and Output 09/05/17 09/06/17 09/06/17 22:59 06:59 14:59 Other: Weight 71.214 kg 70.8 kg Gen: This is a 66-year-old female. She is sitting up in bed and appears to be comfortable and in no acute distress. HEENT: Head is atraumatic, normocephalic. Pupils equal, round. Sclerae is anicteric. NECK: Supple. No JVD. No lymphadenopathy. No thyromegaly. LUNGS: Clear to auscultation. No wheezes or rhonchi. No intercostal retractions. HEART: Regular rate and rhythm. Systolic ejection murmur. ABDOMEN: Soft. Bowel sounds are present. No masses. No tenderness. EXTREMITIES: No pedal edema. No calf tenderness. NEUROLOGICAL: Patient is awake, alert and oriented x3. Cranial nerves 2 through 12 are grossly intact. Results CBC & Chem 7: 09/06/17 05:36 09/06/17 05:36 Labs: Abnormal Lab Results - Last 24 Hours (Table) 09/06/17 09/06/17 09/06/17 Range/Units 05:36 05:36 05:36 Hgb 9.1 L (11.4-16.0) gm/dL Hct 31.6 L (34.0-46.0) % MCV 68.3 L (80.0-100.0) fL MCH 19.6 L (25.0-35.0) pg MCHC 28.8 L (31.0-37.0) g/dL RDW 18.9 H (11.5-15.5) % PT 68.4 H (9.0-12.0) sec INR 7.4 H* (<1.2) APTT 34.0 H (22.0-30.0) sec Potassium 5.2 H (3.5-5.1) mmol/L BUN 22 H (7-17) mg/dL Creatinine 1.60 H (0.52-1.04) mg/dL Glucose 198 H (74-99) mg/dL AST 46 H (14-36) U/L Lipase 13 L (23-300) U/L Urine Protein (Negative) Urine Ketones (Negative) Ur Leukocyte Esterase (Negative) Hyaline Casts (0-2) /lpf Urine Mucus (None) /hpf 09/06/17 Range/Units 07:10 Hgb (11.4-16.0) gm/dL Hct (34.0-46.0) % MCV (80.0-100.0) fL MCH (25.0-35.0) pg MCHC (31.0-37.0) g/dL RDW (11.5-15.5) % PT (9.0-12.0) sec INR (<1.2) APTT (22.0-30.0) sec Potassium (3.5-5.1) mmol/L BUN (7-17) mg/dL Creatinine (0.52-1.04) mg/dL Glucose (74-99) mg/dL AST (14-36) U/L Lipase (23-300) U/L Urine Protein 2+ H (Negative) Urine Ketones 1+ H (Negative) Ur Leukocyte Esterase Moderate H (Negative) Hyaline Casts 20 H (0-2) /lpf Urine Mucus Rare H (None) /hpf Thrombosis Risk Factor Assmnt - DVT/VTE Prophylaxis DVT/VTE Prophylaxis: Pharmacologic Prophylaxis ordered Assessment and Plan Plan: 1. Nausea, sweats, diarrhea, possible viral gastroenteritis. Patient's symptoms have all resolved. She denies having any abdominal pain. Cardiology consult is appreciated. Acute coronary syndrome has been ruled out by cardiology Echocardiogram as above. One more set of troponins to be drawn. 2. Hypercoagulopathy secondary to Coumadin use and antibiotics. Coumadin is on hold. Recheck INR in the morning. 3. Acute kidney injury with creatinine of 1.6 and hypercholesterolemia of 5.2 and baseline creatinine of 1.2. Patient will be placed on IV fluids 0.9 normal saline at 50 mL per hour. She has received IV fluids of 500 ML's. Recheck labs in the morning. Lisinopril, Lasix and potassium on hold. 4. History of heart transplant in 2001, stable. Continue CellCept 500 mg twice daily, Sirolimus. 5. History of paroxysmal atrial fibrillation status post ablation. Coumadin is on hold. Continue Lopressor 12.5 mg twice daily. 6. Hypertension. Continue hydralazine 50 mg 3 times daily, Lopressor 12.5 mg twice daily. 7. Gastroesophageal reflux disease. Continue Protonix. 8. Hypothyroidism. Continue levothyroxine 75 g daily. 9. Hyperlipidemia. Continue atorvastatin 10 mg at bedtime. 10. Chronic kidney disease stage III. Patient will be admitted to the hospital for a minimum of 2 night stay. Discharge plan: Return home Impression and plan of care have been directed as dictated by the signing physician. Manisha Boyle nurse practitioner acting as scribe for signing physician.
[2017-09-06 17:58] LABS: Glucose,Whole Blood 125 mg/dL (75-99)
[2017-09-06] MEDS: SODIUM CHLORIDE 0.9% 1,000 ML IV SCH (17:58)
[2017-09-06 18:00] LABS: Creatine Kinase 85 U/L (30-135)
[2017-09-06 18:14] LABS: Creatine Kinase MB 1.1 ng/mL (0.0-2.4); Troponin I <0.012 ng/mL (0.000-0.034)
[2017-09-06] MEDS: ATORVASTATIN 10 MG TAB PO SCH (20:21)
[2017-09-06 21:03] LABS: Glucose,Whole Blood 140 mg/dL (75-99)
[2017-09-06] MEDS: RAPAMUNE 1 MG PO SCH (21:44)
[2017-09-06 22:20] LABS: Hemoglobin A1C 7.6 % (4.0-6.0)
[2017-09-07 02:00] LABS: Glucose,Whole Blood 146 mg/dL (75-99)
[2017-09-07 07:01] LABS: Glucose,Whole Blood 161 mg/dL (75-99)
[2017-09-07] MEDS: LEVOTHYROXINE 75 MCG TAB PO SCH (07:22)
[2017-09-07 07:33] LABS: Prothrombin Time 84.7 sec (9.0-12.0)
[2017-09-07 07:34] LABS: Anisocytosis Slight; Basophils % (A) 1 %; Eosinophils # (A) 0.1 k/uL (0-0.7); Eosinophils % (A) 2 %; HCT 26.6 % (34.0-46.0); HGB 7.8 gm/dL (11.4-16.0); Hypochromasia Marked; Lymphocytes # (A) 1.7 k/uL (1.0-4.8); Lymphocytes % (A) 30 %; MCH 19.9 pg (25.0-35.0); MCHC 29.3 g/dL (31.0-37.0); MCV 67.9 fL (80.0-100.0); Mean Platelet Volume 7.3; Microcytosis Marked; Monocytes # (A) 0.3 k/uL (0-1.0); Monocytes % (A) 6 %; Neutrophils # (A) 3.4 k/uL (1.3-7.7); Neutrophils % (A) 60 %; Platelet Count 433 k/uL (150-450); RBC 3.91 m/uL (3.80-5.40); RDW 18.7 % (11.5-15.5); WBC 5.7 k/uL (3.8-10.6)
[2017-09-07 07:40] LABS: Albumin 3.1 g/dL (3.5-5.0); Calcium 8.8 mg/dL (8.4-10.2); Potassium 3.9 mmol/L (3.5-5.1); Total Bilirubin 0.3 mg/dL (0.2-1.3); Total Protein 5.7 g/dL (6.3-8.2)
[2017-09-07 07:44] LABS: INR 9.1 (<1.2)
[2017-09-07] MEDS: INSULIN ASPART 100 UNIT/ML 1 ML 10 ML VIAL SQ SCH ×4 (08:21→21:16)
[2017-09-07] MEDS: PANTOPRAZOLE 40 MG TABLET PO SCH (08:23)
[2017-09-07] MEDS: MYCOPHENOLATE MOFETIL 250 MG CAP PO SCH ×2 (08:23→21:13)
[2017-09-07] MEDS: ONDANSETRON 4 MG/2 ML VIAL IVP PRN ×2 (08:58→14:12)
[2017-09-07] MEDS ORDERED: PHYTONADIONE ORAL 5 MG/5 ML ORAL.SYRG PO STA (10:42)
[2017-09-07] MEDS ORDERED: SODIUM FERRIC GLUCONAT-SUCROSE 125 MG in SODIUM CHLORIDE 0.9% 100 ML IVPB ONE (11:30)
[2017-09-07] MEDS: TOPIRAMATE 25 MG TAB PO SCH ×2 (12:05→21:12)
[2017-09-07] MEDS: METOPROLOL TARTRATE 12.5 MG TAB PO SCH ×2 (12:05→21:13)
[2017-09-07] MEDS: hydrALAZINE HCL 50 MG TAB PO SCH ×3 (12:05→21:13)
[2017-09-07] MEDS: SODIUM CHLORIDE 0.9% 1,000 ML IV SCH (12:08)
[2017-09-07 12:16] LABS: Glucose,Whole Blood 198 mg/dL (75-99)
[2017-09-07] MEDS ORDERED: LOPERAMIDE 2 MG CAP PO PRN (14:02)
--- NOTE | 2017-09-07 14:06 | P.PN ---
Subjective Progress Note Date: 09/07/17 This is a 66-year-old female patient of Dr. 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 Patient states that she woke up at 2 in the morning with sweats that were profuse with nausea. She denies having any chest pain. Prior to going to bed, patient had several episodes of loose stools. She states her just had a bone marrow transplant 2 months ago and he told her to just call EMS and going to the hospital. Patient thought that her blood sugar was low but when she checked it it was 150. She came into [facility] emergency center for evaluation. Chest x-ray revealed no focal airspace disease or definite acute cardio pulmonary process. EKG was a sinus rhythm without acute ST-T wave changes. Her hemoglobin was 9.1, INR was at 7.4. Patient states that she did have an INR checked on Tuesday which was 3.2 and this is managed by [facility]. Her creatinine was 1.6 and her baseline is at 1.2 with potassium of 5.2. Vital signs have been stable. Patient has been afebrile. Pulse ox 96% on room air. Troponins have been negative on 2 draws. She was placed on the observation unit and cardiology consult was requested. Patient has been cleared for discharge by cardiology but she will be monitored overnight and recheck lab work in the morning. Echocardiogram reveals EF of 55-60% with mild concentric left hypertrophy, LA severely dilated at greater than 40, are appears enlarged, mild aortic regurgitation, mild mitral regurgitation, mild tricuspid regurgitation, mild pulmonary hypertension. 09/07: Darwin came back with a hemoglobin of 7.8, INR is now 9.1, BUN 18 creatinine 1.5. Capillary blood glucose running between 146 and 198. Patient states that she had significant diarrhea that returned last evening. She was on clindamycin for 2 weeks for a tooth infection/abscess. She does complain of nausea this morning. Stool for occult blood and C. difficile toxin have been negative. Patient will be given Ferrlecit one dose. For the INR, one dose of vitamin K oral has been given and recheck INR at 4 PM. Plan to recheck blood work in the morning and possible discharge tomorrow. 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 Muhammad will contact the services and update them on patient's current status here. Objective - Vital Signs Vital signs: Vital Signs Temp 98.1 F 09/07/17 11:50 Pulse 69 09/07/17 11:50 Resp 18 09/07/17 11:50 BP 149/50 09/07/17 11:50 Pulse Ox 96 09/07/17 11:50 Intake & Output 09/06/17 09/07/17 09/07/17 18:59 06:59 18:59 Intake Total 476 Balance 476 Weight 70.8 kg Intake: Oral 476 Other: Voiding Method Toilet Toilet Toilet - Exam Gen: This is a 66-year-old female. She is sitting up in bed and appears to be comfortable and in no acute distress. HEENT: Head is atraumatic, normocephalic. Pupils equal, round. Sclerae is anicteric. NECK: Supple. No JVD. No lymphadenopathy. No thyromegaly. LUNGS: Clear to auscultation. No wheezes or rhonchi. No intercostal retractions. HEART: Regular rate and rhythm. Systolic ejection murmur. ABDOMEN: Soft. Bowel sounds are present. No masses. No tenderness. EXTREMITIES: No pedal edema. No calf tenderness. NEUROLOGICAL: Patient is awake, alert and oriented x3. Cranial nerves 2 through 12 are grossly intact. - Labs CBC & Chem 7: 09/07/17 06:44 09/07/17 06:44 Labs: Abnormal Lab Results - Last 24 Hours (Table) 09/06/17 09/06/17 09/06/17 Range/Units 05:36 17:10 20:46 Hgb (11.4-16.0) gm/dL Hct (34.0-46.0) % MCV (80.0-100.0) fL MCH (25.0-35.0) pg MCHC (31.0-37.0) g/dL RDW (11.5-15.5) % PT (9.0-12.0) sec INR (<1.2) Carbon Dioxide (22-30) mmol/L BUN (7-17) mg/dL Creatinine (0.52-1.04) mg/dL Glucose (74-99) mg/dL POC Glucose (mg/dL) 125 H 140 H (75-99) mg/dL Hemoglobin A1c 7.6 H (4.0-6.0) % Total Protein (6.3-8.2) g/dL Albumin (3.5-5.0) g/dL Triglycerides (<150) mg/dL HDL Cholesterol (40-60) mg/dL 09/07/17 09/07/17 09/07/17 Range/Units 01:34 06:44 06:44 Hgb 7.8 L (11.4-16.0) gm/dL Hct 26.6 L (34.0-46.0) % MCV 67.9 L (80.0-100.0) fL MCH 19.9 L (25.0-35.0) pg MCHC 29.3 L (31.0-37.0) g/dL RDW 18.7 H (11.5-15.5) % PT (9.0-12.0) sec INR (<1.2) Carbon Dioxide 20 L (22-30) mmol/L BUN 18 H (7-17) mg/dL Creatinine 1.50 H (0.52-1.04) mg/dL Glucose 151 H (74-99) mg/dL POC Glucose (mg/dL) 146 H (75-99) mg/dL Hemoglobin A1c (4.0-6.0) % Total Protein 5.7 L (6.3-8.2) g/dL Albumin 3.1 L (3.5-5.0) g/dL Triglycerides 182 H (<150) mg/dL HDL Cholesterol 27 L (40-60) mg/dL 09/07/17 09/07/17 09/07/17 Range/Units 06:44 06:59 12:11 Hgb (11.4-16.0) gm/dL Hct (34.0-46.0) % MCV (80.0-100.0) fL MCH (25.0-35.0) pg MCHC (31.0-37.0) g/dL RDW (11.5-15.5) % PT 84.7 H (9.0-12.0) sec INR 9.1 H* (<1.2) Carbon Dioxide (22-30) mmol/L BUN (7-17) mg/dL Creatinine (0.52-1.04) mg/dL Glucose (74-99) mg/dL POC Glucose (mg/dL) 161 H 198 H (75-99) mg/dL Hemoglobin A1c (4.0-6.0) % Total Protein (6.3-8.2) g/dL Albumin (3.5-5.0) g/dL Triglycerides (<150) mg/dL HDL Cholesterol (40-60) mg/dL Assessment and Plan Plan: 1. Nausea, sweats, diarrhea, possible viral gastroenteritis, C. difficile colitis has been ruled out. Symptoms most likely secondary to clindamycin. Imodium added. She denies having any abdominal pain. Cardiology consult is appreciated. Acute coronary syndrome has been ruled out by cardiology. Echocardiogram as above. 2. Hypercoagulopathy secondary to Coumadin use, diarrhea from and mycin. Coumadin is on hold. Vitamin K 1 dose ordered. Recheck INR at 4 PM. Recheck INR in the morning. 3. Acute kidney injury with hyperkalemia and baseline creatinine of 1.2. Patient will be placed on IV fluids 0.9 normal saline at 50 mL per hour. She has received IV fluids of 500 ML's. Recheck labs in the morning. Lisinopril, Lasix and potassium on hold. 4. History of heart transplant in 2001, stable. Continue CellCept 500 mg twice daily, Sirolimus. 5. History of paroxysmal atrial fibrillation status post ablation. Coumadin is on hold. Continue Lopressor 12.5 mg twice daily. 6. Hypertension. Continue hydralazine 50 mg 3 times daily, Lopressor 12.5 mg twice daily. 7. Gastroesophageal reflux disease. Continue Protonix. 8. Hypothyroidism. Continue levothyroxine 75 g daily. 9. Hyperlipidemia. Continue atorvastatin 10 mg at bedtime. 10. Chronic kidney disease stage III. Discharge plan: Return home Impression and plan of care have been directed as dictated by the signing physician. Manisha Boyle nurse practitioner acting as scribe for signing physician.
[2017-09-07 16:56] LABS: Glucose,Whole Blood 185 mg/dL (75-99)
[2017-09-07] MEDS ORDERED: oxyCODONE-APAP 10-325MG 1 EACH TAB PO ONE (18:08)
[2017-09-07 20:27] LABS: Glucose,Whole Blood 132 mg/dL (75-99)
[2017-09-07] MEDS: RAPAMUNE 1 MG PO SCH (21:02)
[2017-09-07] MEDS: ATORVASTATIN 10 MG TAB PO SCH (21:13)
[2017-09-07 22:00] LABS: Appearance,Urine Clear (Clear); Bilirubin,Urine Negative (Negative); Blood,Urine Negative (Negative); Color,Urine Yellow; Glucose,Urine (UA) Negative (Negative); Ketones,Urine 2+ (Negative); Leukocyte Esterase,Urine Trace (Negative); Nitrite,Urine Negative (Negative); PH, Urine 6.5 (5.0-8.0); Protein,Urine 2+ (Negative); RBC,Urine 4 /hpf (0-5); Specific Gravity,Urine 1.021 (1.001-1.035); Squamous Epithelial Cell,Urine <1 /hpf (0-4); Urobilinogen,Urine <2.0 mg/dL (<2.0); WBC,Urine 3 /hpf (0-5)
[2017-09-07] MEDS: oxyCODONE-APAP 10-325MG 1 EACH TAB PO PRN (22:36)
[2017-09-08] MEDS: LEVOTHYROXINE 75 MCG TAB PO SCH (06:35)
[2017-09-08] MEDS: oxyCODONE-APAP 10-325MG 1 EACH TAB PO PRN (06:36)
[2017-09-08 07:20] LABS: Glucose,Whole Blood 159 mg/dL (75-99)
[2017-09-08 07:26] VITALS: BP 130/65; PULSE 59; RESP 16; TEMP 98.5
[2017-09-08 07:47] LABS: INR 1.5 (<1.2); Prothrombin Time 13.9 sec (9.0-12.0)
[2017-09-08 07:54] LABS: Anisocytosis Slight; HCT 27.2 % (34.0-46.0); HGB 7.6 gm/dL (11.4-16.0); Hypochromasia Marked; MCHC 27.8 g/dL (31.0-37.0); MCV 68.5 fL (80.0-100.0); Mean Platelet Volume 6.4; Microcytosis Marked; Platelet Count 392 k/uL (150-450); RBC 3.97 m/uL (3.80-5.40); RDW 19.1 % (11.5-15.5); WBC 6.6 k/uL (3.8-10.6)
[2017-09-08 07:56] LABS: Calcium 8.8 mg/dL (8.4-10.2); Potassium 3.9 mmol/L (3.5-5.1)
[2017-09-08] MEDS: MYCOPHENOLATE MOFETIL 250 MG CAP PO SCH (08:02)
[2017-09-08] MEDS: hydrALAZINE HCL 50 MG TAB PO SCH (08:03)
[2017-09-08] MEDS: METOPROLOL TARTRATE 12.5 MG TAB PO SCH ×2 (08:03→09:35)
[2017-09-08] MEDS: TOPIRAMATE 25 MG TAB PO SCH (08:03)
[2017-09-08] MEDS: PANTOPRAZOLE 40 MG TABLET PO SCH (08:03)
[2017-09-08] MEDS: INSULIN ASPART 100 UNIT/ML 1 ML 10 ML VIAL SQ SCH (08:04)
[2017-09-08] MEDS: SODIUM CHLORIDE 0.9% 1,000 ML IV SCH (08:04)
[2017-09-08 11:55] LABS: Glucose,Whole Blood 177 mg/dL (75-99)
--- NOTE | 2017-09-08 12:41 | P.DS ---
Providers Date of admission: 09/07/17 10:41 Attending physician: Roddy Muhammad Consults: 09/06/17 07:30 Consult Physician Routine Consulting Provider: Jason Gross Consult Reason/Comments: Patient known to you Do you want consulting provider notified?: Yes Primary care physician: Gilmar Al [facility] Course: This is a 66-year-old female patient of Dr. 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 Patient states that she woke up at 2 in the morning with sweats that were profuse with nausea. She denies having any chest pain. Prior to going to bed, patient had several episodes of loose stools. She states her just had a bone marrow transplant 2 months ago and he told her to just call EMS and going to the hospital. Patient thought that her blood sugar was low but when she checked it it was 150. She came into [facility] emergency center for evaluation. Chest x-ray revealed no focal airspace disease or definite acute cardio pulmonary process. EKG was a sinus rhythm without acute ST-T wave changes. Her hemoglobin was 9.1, INR was at 7.4. Patient states that she did have an INR checked on Tuesday which was 3.2 and this is managed by [facility]. Her creatinine was 1.6 and her baseline is at 1.2 with potassium of 5.2. Vital signs have been stable. Patient has been afebrile. Pulse ox 96% on room air. Troponins have been negative on 2 draws. She was placed on the observation unit and cardiology consult was requested. Patient has been cleared for discharge by cardiology but she will be monitored overnight and recheck lab work in the morning. Echocardiogram reveals EF of 55-60% with mild concentric left hypertrophy, LA severely dilated at greater than 40, are appears enlarged, mild aortic regurgitation, mild mitral regurgitation, mild tricuspid regurgitation, mild pulmonary hypertension. 09/07: Lab came back with a hemoglobin of 7.8, INR is now 9.1, BUN 18 creatinine 1.5. Capillary blood glucose running between 146 and 198. Patient states that she had significant diarrhea that returned last evening. She was on clindamycin for 2 weeks for a tooth infection/abscess. She does complain of nausea this morning. Stool for occult blood and C. difficile toxin have been negative. Patient will be given Ferrlecit one dose. For the INR, one dose of vitamin K oral has been given and recheck INR at 4 PM. Plan to recheck blood work in the morning and possible discharge tomorrow. 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 Muhammad will contact the services and update them on patient's current status here. Her coagulopathy has improved significantly she will be back on warfarin today, testing her INR be done tomorrow and early next week. Patient is stable to be discharged home today. I had long discussion with the cardiac transplant in [facility] yesterday inform patient condition and her admission the 1 per to follow-up in their clinic sometime in a week to 10 days. We will contact her. Also we will follow her coagulation in the next few days. Assessment and Plan Plan: 1. Nausea, sweats, diarrhea, possible viral gastroenteritis, C. difficile colitis has been ruled out. Symptoms most likely secondary to clindamycin. Imodium added. She denies having any abdominal pain. Cardiology consult is appreciated. Acute coronary syndrome has been ruled out by cardiology. Echocardiogram as above. 2. Hypercoagulopathy secondary to Coumadin use, diarrhea from and mycin. Coumadin is on hold. Vitamin K 1 dose ordered. Recheck INR at 4 PM. Recheck INR in the morning. INR on 09/08 was down to 1.5 patient will be stable to be discharged and to start her warfarin back. 3. Acute kidney injury with hyperkalemia and baseline creatinine of 1.2. Patient will be placed on IV fluids 0.9 normal saline at 50 mL per hour. She has received IV fluids of 500 ML's. Recheck labs in the morning. Lisinopril, Lasix and potassium on hold. 4. History of heart transplant in 2001, stable. Continue CellCept 500 mg twice daily, Sirolimus. 5. History of paroxysmal atrial fibrillation status post ablation. Coumadin is on hold. Continue Lopressor 12.5 mg twice daily. 6. Hypertension. Continue hydralazine 50 mg 3 times daily, Lopressor 12.5 mg twice daily. 7. Gastroesophageal reflux disease. Continue Protonix. 8. Hypothyroidism. Continue levothyroxine 75 g daily. 9. Hyperlipidemia. Continue atorvastatin 10 mg at bedtime. 10. Chronic kidney disease stage III. Discharge plan: Return home day 09/08 2017. Patient Condition at Discharge: Fair Plan - Discharge Summary Discharge Rx Participant: No New Discharge Prescriptions: New oxyCODONE-APAP 10-325MG [Percocet 10-325 mg] 1 each PO Q4H PRN tab PRN Reason: Migraine Headache Continue Sirolimus 1 mg PO HS Atorvastatin Calcium [Lipitor] 10 mg PO HS hydrALAZINE HCL [Apresoline] 50 mg PO TID Metoprolol Tartrate [Lopressor] 12.5 mg PO BID Levothyroxine Sodium [Synthroid] 75 mcg PO DAILY Pantoprazole Sodium [Protonix] 40 mg PO DAILY Furosemide [Lasix] 40 mg PO Q48H Furosemide [Lasix] 40 mg PO DAILY Mycophenolate Mofetil [Cellcept] 500 mg PO BID Warfarin Sodium [Jantoven] 3 mg PO HS Topiramate [Topamax] 50 mg PO BID Potassium Chloride [Klor-Con 20] 20 - 40 meq PO DAILY Butorphanol Tartrate [Stadol Nasal [place]] 1 spray NASAL Q4H PRN PRN Reason: MIGRAINES Lisinopril [Zestril] 2.5 mg PO DAILY Discharge Medication List Atorvastatin Calcium [Lipitor] 10 mg PO HS 06/24/16 [History] Levothyroxine Sodium [Synthroid] 75 mcg PO DAILY 06/24/16 [History] Metoprolol Tartrate [Lopressor] 12.5 mg PO BID 06/24/16 [History] Pantoprazole Sodium [Protonix] 40 mg PO DAILY 06/24/16 [History] Sirolimus 1 mg PO HS 06/24/16 [History] hydrALAZINE HCL [Apresoline] 50 mg PO TID 06/24/16 [History] Butorphanol Tartrate [Stadol Nasal [place]] 1 spray NASAL Q4H PRN 03/03/17 [ History] Furosemide [Lasix] 40 mg PO DAILY 03/03/17 [History] Furosemide [Lasix] 40 mg PO Q48H 03/03/17 [History] Mycophenolate Mofetil [Cellcept] 500 mg PO BID 03/03/17 [History] Potassium Chloride [Klor-Con 20] 20 - 40 meq PO DAILY 03/03/17 [History] Topiramate [Topamax] 50 mg PO BID 03/03/17 [History] Warfarin Sodium [Jantoven] 3 mg PO HS 03/03/17 [History] Lisinopril [Zestril] 2.5 mg PO DAILY 09/06/17 [History] oxyCODONE-APAP 10-325MG [Percocet 10-325 mg] 1 each PO Q4H PRN tab 09/08/17 [Rx ] Follow up Appointment(s)/Referral(s): Gilmar Al MD [Primary Care Provider] - 09/09/17 10:00 am Patient Instructions/Handouts: Warfarin Toxicity (GEN) Activity/Diet/Wound Care/Special Instructions: Follow up at [facility] ict security specialist. Cardiac, low fat diet. Activity as tolerated. Discharge Disposition: HOME SELF-CARE
== END 2017-09-08 13:02 | disposition home or self-care (01) | DRG 392 ==
LOC: EC 05:23 → 3OBS 07:30 → OBSVTOIN 09-07 10:41 → 4MS4W 09-07 15:55
PROVIDERS: ADMIT Internal Medicine Geriatric Medicine; ATTEND Internal Medicine Geriatric Medicine
DX: A08.4 Viral intestinal infection, unspecified (principal); N17.9 Acute kidney failure, unspecified; Z94.1 Heart transplant status; D50.9 Iron deficiency anemia, unspecified; E03.9 Hypothyroidism, unspecified; E11.22 Type 2 diabetes mellitus with diabetic chronic kidney disease; E78.00 Pure hypercholesterolemia, unspecified; E78.5 Hyperlipidemia, unspecified; E87.5 Hyperkalemia; I08.3 Combined rheumatic disorders of mitral, aortic and tricuspid valves; I13.10 Hypertensive heart and chronic kidney disease without heart failure, with stage 1 through stage 4 chronic kidney disease, or unspecified chronic kidney disease; I27.20 Pulmonary hypertension, unspecified; I48.0 Paroxysmal atrial fibrillation; K21.9 Gastro-esophageal reflux disease without esophagitis; N18.3 Chronic kidney disease, stage 3 (moderate); T36.8X5A Adverse effect of other systemic antibiotics, initial encounter; T45.511A Poisoning by anticoagulants, accidental (unintentional), initial encounter; R79.1 Abnormal coagulation profile; Z79.01 Long term (current) use of anticoagulants; Z79.899 Other long term (current) drug therapy; Z79.890 Hormone replacement therapy; Z88.1 Allergy status to other antibiotic agents; Z88.5 Allergy status to narcotic agent; Z88.0 Allergy status to penicillin; Z88.8 Allergy status to other drugs, medicaments and biological substances; Z87.891 Personal history of nicotine dependence; Z85.828 Personal history of other malignant neoplasm of skin; Z90.49 Acquired absence of other specified parts of digestive tract; Z98.51 Tubal ligation status; Z82.49 Family history of ischemic heart disease and other diseases of the circulatory system; Y92.009 Unspecified place in unspecified non-institutional (private) residence as the place of occurrence of the external cause
CPT/HCPCS: 36415; 71045; 80048; 80053; 80061; 81001; 82150; 82272; 82550; 82553; 83036; 83690; 84484; 85025; 85027; 85610; 85730; 87086; 87324; 93005; 93306; 96361; 96374; 99285

== ENCOUNTER → 2017-09-09 | Outpatient (CLI) | payer MEDICARE, OTHER ==
[2017-09-09 12:39] LABS: Anisocytosis Slight; Basophils # (A) 0.1 k/uL (0-0.2); Basophils % (A) 1 %; Eosinophils # (A) 0.1 k/uL (0-0.7); Eosinophils % (A) 2 %; HCT 30.2 % (34.0-46.0); HGB 8.5 gm/dL (11.4-16.0); Hypochromasia Marked; Lymphocytes # (A) 2.2 k/uL (1.0-4.8); Lymphocytes % (A) 25 %; MCH 19.9 pg (25.0-35.0); MCHC 28.2 g/dL (31.0-37.0); MCV 70.5 fL (80.0-100.0); Mean Platelet Volume 6.8; Microcytosis Marked; Monocytes # (A) 0.6 k/uL (0-1.0); Monocytes % (A) 6 %; Neutrophils # (A) 5.7 k/uL (1.3-7.7); Neutrophils % (A) 65 %; Platelet Count 400 k/uL (150-450); Poikilocytosis Slight; RBC 4.29 m/uL (3.80-5.40); RDW 19.3 % (11.5-15.5); WBC 8.9 k/uL (3.8-10.6)
[2017-09-09 12:57] LABS: Prothrombin Time 10.2 sec (9.0-12.0)
== END ==
LOC: LABWHC1 11:27
PROVIDERS: ATTEND Family Medicine
DX: D64.9 Anemia, unspecified (principal); T45.511A Poisoning by anticoagulants, accidental (unintentional), initial encounter
CPT/HCPCS: 36415; 85025; 85610

== ENCOUNTER 2017-10-23 02:14 | Inpatient (IN) | payer MEDICARE, OTHER ==
[2017-10-23] MEDS ORDERED: oxyCODONE-APAP 5-325MG 1 EACH TAB PO STA (02:51)
--- NOTE | 2017-10-23 03:19 | ED ---
ENT HPI - General Chief complaint: Dental/Oral Stated complaint: Dental pain/infection Time Seen by Provider: 10/23/17 02:46 Source: patient, RN notes reviewed Mode of arrival: ambulatory Limitations: no limitations - History of Present Illness Initial comments: 66-year-old female presents emergency Department with chief complaint of dental pain, facial swelling. Patient states it started last 24 hours. Patient states that she did have root canal in this region with the last year states that the pain is severe at this time. Patient denies any fever, chills, night sweats. Patient states that she had no trauma. Patient states because it was a week and she did not contact her dentist. Patient states that she has multiple ALLERGIES and has not tried taking anything. - Related Data Home Medications Medication Instructions Recorded Confirmed Atorvastatin Calcium [Lipitor] 10 mg PO HS 06/24/16 09/06/17 Levothyroxine Sodium [Synthroid] 75 mcg PO DAILY 06/24/16 09/06/17 Metoprolol Tartrate [Lopressor] 12.5 mg PO BID 06/24/16 09/06/17 Pantoprazole Sodium [Protonix] 40 mg PO DAILY 06/24/16 09/06/17 Sirolimus 1 mg PO HS 06/24/16 09/06/17 hydrALAZINE HCL [Apresoline] 50 mg PO TID 06/24/16 09/06/17 Butorphanol Tartrate [Stadol Nasal 1 spray NASAL Q4H PRN 03/03/17 09/06/17 [place]] Furosemide [Lasix] 40 mg PO DAILY 03/03/17 09/06/17 Furosemide [Lasix] 40 mg PO Q48H 03/03/17 09/06/17 Mycophenolate Mofetil [Cellcept] 500 mg PO BID 03/03/17 09/06/17 Potassium Chloride [Klor-Con 20] 20 - 40 meq PO DAILY 03/03/17 09/06/17 Topiramate [Topamax] 50 mg PO BID 03/03/17 09/06/17 Warfarin Sodium [Jantoven] 3 mg PO HS 03/03/17 09/06/17 Lisinopril [Zestril] 2.5 mg PO DAILY 09/06/17 09/06/17 Previous Rx's Medication Instructions Recorded oxyCODONE-APAP 10-325MG [Percocet 1 each PO Q4H PRN tab 09/08/17 10-325 mg] Allergies Allergy/AdvReac Type Severity Reaction Status Date / Time cephalexin [From Keflex] Allergy Rash/Hives Verified 10/23/17 02:20 ciprofloxacin [From Cipro] Allergy Rash/Hives Verified 10/23/17 02:20 codeine Allergy Unknown Verified 10/23/17 02:20 hydrocodone [From Lortab] Allergy Unknown Verified 10/23/17 02:20 hydromorphone [From Dilaudid] Allergy Rash/Hives Verified 10/23/17 02:20 hydroxyprogesterone Allergy Unknown Verified 10/23/17 02:20 opium (anthroposophic) Allergy Unknown Verified 10/23/17 02:20 Penicillins Allergy Unknown Verified 10/23/17 02:20 simvastatin Allergy Unknown Verified 10/23/17 02:20 tramadol HCl [From Ultram] Allergy Unknown Verified 10/23/17 02:20 Review of Systems ROS Statement: Those systems with pertinent positive or pertinent negative responses have been documented in the HPI. ROS Other: All systems not noted in ROS Statement are negative. Past Medical History Past Medical History: Atrial Fibrillation, Diabetes Mellitus, GERD/Reflux, Thyroid Disorder Additional Past Medical History / Comment(s): Congenital deformity of the heart status post heart transplant in 2001 in [facility], skin cancer on her ankle History of Any Multi-Drug Resistant Organisms: None Reported Past Surgical History: Appendectomy, Breast Surgery, Cardiac Ablation, Cholecystectomy, Tonsillectomy, Tubal Ligation Additional Past Surgical History / Comment(s): Heart Transplant 2001 at [facility], lumbar laminectomy, breast reduction, removal of skin cancer on her ankle. Past Anesthesia/Blood Transfusion Reactions: No Reported Reaction Additional Past Anesthesia/Blood Transfusion Reaction / Comment(s): Pt has received blood in past without reaction. Past Psychological History: No Psychological Hx Reported Smoking Status: Former smoker Past Alcohol Use History: None Reported Past Drug Use History: None Reported - Past Family History Father Family Medical History: Myocardial Infarction ([place]) Additional Family Medical History / Comment(s): Father of a massive [place] at the age of 52 yrs. Mother Family Medical History: No Reported History Additional Family Medical History / Comment(s): Mother in her sleep at the age of 82 yrs. Brother(s) Additional Family Medical History / Comment(s): Patient has 2 sisters and one brother with history of coronary artery disease. Patient does not have any children. General Exam Limitations: no limitations General appearance: alert, in no apparent distress Head exam: Present: atraumatic, normocephalic, normal inspection Eye exam: Present: normal appearance, PERRL, EOMI. Absent: scleral icterus, conjunctival injection, periorbital swelling ENT exam: Present: mucous membranes moist. Absent: normal oropharynx (Dental fracture noted #27 with filling noted) Neck exam: Present: normal inspection, full ROM. Absent: tenderness, meningismus, lymphadenopathy Respiratory exam: Present: normal lung sounds bilaterally. Absent: respiratory distress, wheezes, rales, rhonchi, stridor Cardiovascular Exam: Present: regular rate, normal rhythm, normal heart sounds. Absent: systolic murmur, diastolic murmur, rubs, gallop, clicks Course Vital Signs 10/23/17 02:16 Temperature 97.8 F Pulse Rate 70 Respiratory 18 Rate Blood Pressure 153/69 O2 Sat by Pulse 98 Oximetry Medical Decision Making - Lab Data Lab Results 10/23/17 Range/Units 03:00 PT 38.7 H (9.0-12.0) sec INR 4.3 H (<1.2) APTT 38.1 H (22.0-30.0) sec Disposition Clinical Impression: Warfarin-induced coagulopathy, Dental abscess Disposition: ADMITTED IP TO THIS [facility] Condition: Stable Referrals: Gilmar Al MD [Primary Care Provider] - 1-2 days
[2017-10-23 03:28] LABS: INR 4.3 (<1.2); Partial Thromboplastin Time 38.1 sec (22.0-30.0); Prothrombin Time 38.7 sec (9.0-12.0)
[2017-10-23] MEDS ORDERED: ONDANSETRON ODT 4 MG TAB PO STA (03:28)
[2017-10-23] MEDS ORDERED: CLINDAMYCIN 600 MG in DEXTROSE 5% IN WATER 50 ML IVPB STA ×2 (04:17)
[2017-10-23] MEDS ORDERED: NALOXONE 0.4 MG/ML 1 ML VIAL IV PRN (04:18)
[2017-10-23] MEDS ORDERED: ONDANSETRON 4 MG/2 ML VIAL IVP PRN (04:18)
[2017-10-23 05:11] LABS: Anisocytosis Moderate; Basophils % (A) 1 %; Eosinophils # (A) 0.2 k/uL (0-0.7); Eosinophils % (A) 2 %; HCT 33.1 % (34.0-46.0); HGB 9.6 gm/dL (11.4-16.0); Hypochromasia Marked; Lymphocytes # (A) 2.4 k/uL (1.0-4.8); Lymphocytes % (A) 25 %; MCH 20.7 pg (25.0-35.0); MCHC 28.9 g/dL (31.0-37.0); MCV 71.7 fL (80.0-100.0); Microcytosis Marked; Monocytes # (A) 0.6 k/uL (0-1.0); Monocytes % (A) 6 %; Neutrophils # (A) 6.2 k/uL (1.3-7.7); Neutrophils % (A) 65 %; Platelet Count 331 k/uL (150-450); RBC 4.61 m/uL (3.80-5.40); RDW 20.5 % (11.5-15.5); WBC 9.5 k/uL (3.8-10.6)
[2017-10-23 05:27] LABS: Calcium 9.5 mg/dL (8.4-10.2); Potassium 4.2 mmol/L (3.5-5.1); Total Bilirubin 0.4 mg/dL (0.2-1.3); Total Protein 6.8 g/dL (6.3-8.2)
[2017-10-23 06:16] VITALS: BMI 30.2
[2017-10-23] MEDS: oxyCODONE-APAP 5-325MG 1 EACH TAB PO PRN ×4 (07:52→20:28)
[2017-10-23] MEDS ORDERED: CLINDAMYCIN 600 MG in DEXTROSE 5% IN WATER 50 ML IVPB SCH ×2 (12:00)
[2017-10-23] MEDS: MORPHINE SULFATE 2 MG/ML SYRINGE IVP PRN ×2 (12:28→18:52)
[2017-10-23 12:41] LABS: Anisocytosis Moderate; Basophils # (A) 0.1 k/uL (0-0.2); Basophils % (A) 1 %; Eosinophils # (A) 0.2 k/uL (0-0.7); Eosinophils % (A) 2 %; HCT 30.3 % (34.0-46.0); HGB 8.8 gm/dL (11.4-16.0); Hypochromasia Marked; Lymphocytes # (A) 1.9 k/uL (1.0-4.8); Lymphocytes % (A) 24 %; MCH 21.6 pg (25.0-35.0); MCV 74.5 fL (80.0-100.0); Mean Platelet Volume 6.5; Microcytosis Moderate; Monocytes # (A) 0.4 k/uL (0-1.0); Monocytes % (A) 5 %; Neutrophils # (A) 5.3 k/uL (1.3-7.7); Neutrophils % (A) 67 %; Platelet Count 295 k/uL (150-450); RBC 4.07 m/uL (3.80-5.40); RDW 20.1 % (11.5-15.5); WBC 7.9 k/uL (3.8-10.6)
[2017-10-23 12:49] LABS: Calcium 8.9 mg/dL (8.4-10.2); Potassium 4.2 mmol/L (3.5-5.1)
[2017-10-23 12:54] LABS: Prothrombin Time 44.9 sec (9.0-12.0)
[2017-10-23] MEDS ORDERED: BUTORPHANOL TARTRATE NASAL PRN (14:36)
--- NOTE | 2017-10-23 15:12 | P.HPIM ---
History of Present Illness H&P Date: 10/23/17 Chief Complaint: dental pain and swellign 66 years old female patient of Dr. 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 Patient comes in with the complaining of right jaw pain that started 24 hours ago. Patient had a root canal surgery one month ago on and was on Coumadin prior to that. She does have Coumadin coagulopathy when initiated on clindamycin. Patient is ALLERGIC to penicillin, Keflex, Cipro in the form of hives and rash. Clindamycin switched to ertapenem and due to the side effects. Dr. Davila consulted. No imaging has been performed in the ER. Will get CT of the facial bone and neck to rule out dental abscess ENT will be consulted. If no abscess collection patient will follow up being ENT. Percocet with morphine will be continued for pain control Review of Systems Constitutional: Denies chills, Denies fever, Denies lethargy, Denies malaise, Denies poor appetite, Denies weakness, Denies weight loss Eyes: denies decreased vision, denies diplopia, denies discharge, denies pain Ears: deny: decreased hearing Ears, nose, mouth and throat: endorsesdental painand swelling and no difficulty chewing food, Denies headache, Denies nasal discharge, Denies nose pain Cardiovascular: Denies chest pain, Denies decreased exercise tolerance, Denies edema, Denies high blood pressure, Denies irregular heart beat, Denies palpitations, Denies paroxysmal nocturnal dyspnea, Denies rapid heart beat, Denies shortness of breath Respiratory: Denies congestion, Denies cough, Denies cough with sputum, Denies dyspnea, Denies home oxygen, Denies wheezing Gastrointestinal: Denies abdominal pain, Denies change in bowel habits, Denies coffee ground emesis, Denies early satiety, Denies excessive gas, Denies heartburn, Denies hematemesis, Denies hematochezia, Denies loss of appetite, Denies nausea, Denies vomiting Genitourinary: Denies dysuria, Denies flank pain, Denies kidney stones, Denies menorrhagia, Denies urgency, Denies urinary frequency Musculoskeletal: Denies gait dysfunction, Denies limitation of motion, Denies morning stiffness, Denies muscle cramps Integumentary: Denies rash, Denies wounds, Denies brittle nails, Denies change in hair/nails, Denies darkening of skin Neurological: Denies balance difficulties, Denies change in speech, Denies double vision, Denies gait dysfunction, Denies loss of vision, Denies motor disturbance, Denies numbness, Denies paralysis, Denies paresthesias, Denies seizures Psychiatric: Denies anxiety, Denies depression Endocrine: Denies excessive sweating, Denies excessive thirst, Denies high blood sugars, Denies palpitations Hematologic/Lymphatic: Denies easy bruising, Denies lymphadenopathy Past Medical History Past Medical History: Atrial Fibrillation, Diabetes Mellitus, GERD/Reflux, Thyroid Disorder Additional Past Medical History / Comment(s): 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 History of Any Multi-Drug Resistant Organisms: None Reported Past Surgical History: Appendectomy, Breast Surgery, Cardiac Ablation, Cholecystectomy, Tonsillectomy, Tubal Ligation Additional Past Surgical History / Comment(s): Heart Transplant 2002 at [facility], lumbar laminectomy, breast reduction, removal of skin cancer on her left ankle. Past Anesthesia/Blood Transfusion Reactions: No Reported Reaction Additional Past Anesthesia/Blood Transfusion Reaction / Comment(s): Pt has received blood in past without reaction. Past Psychological History: No Psychological Hx Reported Additional Psychological History / Comment(s): Pt resides with her spouse. She is independent. She drives. She is retired. Smoking Status: Former smoker Past Alcohol Use History: None Reported Additional Past Alcohol Use History / Comment(s): Patient quit smoking more than 20 years ago. No alcohol or illicit drug use. She lives at home with her . Past Drug Use History: None Reported - Past Family History Father Family Medical History: Myocardial Infarction (ID) Additional Family Medical History / Comment(s): Father of a massive ID at the age of 52 yrs. Mother Family Medical History: No Reported History Additional Family Medical History / Comment(s): Mother in her sleep at the age of 82 yrs. Brother(s) Additional Family Medical History / Comment(s): Patient has 2 sisters and one brother with history of coronary artery disease. Patient does not have any children. Medications and Allergies Home Medications Medication Instructions Recorded Confirmed Type Atorvastatin Calcium [Lipitor] 10 mg PO HS 06/24/16 10/23/17 History Levothyroxine Sodium [Synthroid] 75 mcg PO DAILY 06/24/16 10/23/17 History Metoprolol Tartrate [Lopressor] 12.5 mg PO BID 06/24/16 10/23/17 History Pantoprazole Sodium [Protonix] 40 mg PO DAILY 06/24/16 10/23/17 History Sirolimus 1 mg PO HS 06/24/16 10/23/17 History hydrALAZINE HCL [Apresoline] 50 mg PO TID 06/24/16 10/23/17 History Butorphanol Tartrate [Stadol Nasal 1 spray NASAL Q4H PRN 03/03/17 10/23/17 History [place]] Furosemide [Lasix] 40 mg PO DAILY 03/03/17 10/23/17 History Furosemide [Lasix] 40 mg PO Q48H 03/03/17 10/23/17 History Mycophenolate Mofetil [Cellcept] 500 mg PO BID 03/03/17 10/23/17 History Potassium Chloride [Klor-Con 20] 20 - 40 meq PO DAILY 03/03/17 10/23/17 History Topiramate [Topamax] 50 mg PO BID 03/03/17 10/23/17 History Warfarin Sodium [Jantoven] 3 mg PO HS 03/03/17 10/23/17 History Lisinopril [Zestril] 2.5 mg PO DAILY 09/06/17 10/23/17 History Insulin NPH Human Isophane 35 unit SQ BID 10/23/17 10/23/17 History [NovoLIN N] Insulin Regular, Human [NovoLIN R] See Protocol SQ AC-TID 10/23/17 10/23/17 History Allergies Allergy/AdvReac Type Severity Reaction Status Date / Time cephalexin [From Keflex] Allergy Rash/Hives Verified 10/23/17 13:33 ciprofloxacin [From Cipro] Allergy Rash/Hives Verified 10/23/17 13:33 codeine Allergy Unknown Verified 10/23/17 13:33 hydrocodone [From Lortab] Allergy Unknown Verified 10/23/17 13:33 hydromorphone [From Dilaudid] Allergy Rash/Hives Verified 10/23/17 13:33 hydroxyprogesterone Allergy Unknown Verified 10/23/17 13:33 opium (anthroposophic) Allergy Unknown Verified 10/23/17 13:33 Penicillins Allergy Unknown Verified 10/23/17 13:33 simvastatin Allergy Unknown Verified 10/23/17 13:33 tramadol HCl [From Ultram] Allergy Unknown Verified 10/23/17 13:33 Physical Exam Vitals: Vital Signs Temp Pulse Pulse Resp BP BP Pulse Ox 10/23/17 07:56 55 L 10/23/17 06:16 97.3 F L 55 L 16 150/67 99 10/23/17 05:30 59 L 16 156/70 100 10/23/17 02:16 97.8 F 70 18 153/69 98 Intake and Output 10/23/17 10/23/17 10/23/17 06:59 14:59 22:59 Intake Total 110 50 Balance 110 50 Intake: Intake, IV Titration 50 50 Amount Clindamycin 600 mg In 50 50 Dextrose 5% in Water 50 ml @ 100 mls/hr IVPB Q6HR [facility] Rx#:[id number] Oral 60 Other: Voiding Method Toilet # Voids 2 Weight 70.307 kg - Constitutional General appearance: cooperative, no acute distress, obese - EENT Eyes: anicteric sclerae, PERRLA, normal appearance ENT: hearing grossly normal, significant swelling noted in the right jaw extending to the neck with no overlying inflammation, positive for indurated on palpation, tender to touch, no oral lesions or open wound, no drainage noted - Neck Neck: no lymphadenopathy, normal ROM, no other, no rigidity, no stridor, no thyromegaly - Respiratory Respiratory: bilateral: CTA, negative: diminished, dullness, rales, rhonchi - Cardiovascular Rhythm: regular Heart sounds: normal: S1, S2 Abnormal Heart Sounds: no systolic murmur, no diastolic murmur, no rub, no S3 Gallop, no S4 Gallop, no click, no other - Gastrointestinal General gastrointestinal: normal bowel sounds, soft - Integumentary Integumentary: no rash - Neurologic Neurologic: CNII-XII intact - Musculoskeletal Musculoskeletal: gait normal, strength equal bilaterally - Psychiatric Psychiatric: A&O x's 3, appropriate affect Results CBC & Chem 7: 10/24/17 06:45 08/06/18 06:45 Labs: Abnormal Lab Results - Last 24 Hours (Table) 10/23/17 10/23/17 10/23/17 Range/Units 03:00 04:59 04:59 Hgb 9.6 L (11.4-16.0) gm/dL Hct 33.1 L (34.0-46.0) % MCV 71.7 L (80.0-100.0) fL MCH 20.7 L (25.0-35.0) pg MCHC 28.9 L (31.0-37.0) g/dL RDW 20.5 H (11.5-15.5) % PT 38.7 H (9.0-12.0) sec INR 4.3 H (<1.2) APTT 38.1 H (22.0-30.0) sec Chloride 108 H (98-107) mmol/L Carbon Dioxide (22-30) mmol/L BUN 18 H (7-17) mg/dL Creatinine 1.20 H (0.52-1.04) mg/dL Glucose 168 H (74-99) mg/dL Alkaline Phosphatase 136 H (38-126) U/L C-Reactive Protein (<10.0) mg/L 10/23/17 10/23/17 10/23/17 Range/Units 12:17 12:17 12:17 Hgb 8.8 L (11.4-16.0) gm/dL Hct 30.3 L (34.0-46.0) % MCV 74.5 L (80.0-100.0) fL MCH 21.6 L (25.0-35.0) pg MCHC 29.0 L (31.0-37.0) g/dL RDW 20.1 H (11.5-15.5) % PT 44.9 H (9.0-12.0) sec INR 5.0 H* (<1.2) APTT (22.0-30.0) sec Chloride 108 H (98-107) mmol/L Carbon Dioxide 21 L (22-30) mmol/L BUN (7-17) mg/dL Creatinine 1.14 H (0.52-1.04) mg/dL Glucose 230 H (74-99) mg/dL Alkaline Phosphatase (38-126) U/L C-Reactive Protein (<10.0) mg/L 10/23/17 Range/Units 12:17 Hgb (11.4-16.0) gm/dL Hct (34.0-46.0) % MCV (80.0-100.0) fL MCH (25.0-35.0) pg MCHC (31.0-37.0) g/dL RDW (11.5-15.5) % PT (9.0-12.0) sec INR (<1.2) APTT (22.0-30.0) sec Chloride (98-107) mmol/L Carbon Dioxide (22-30) mmol/L BUN (7-17) mg/dL Creatinine (0.52-1.04) mg/dL Glucose (74-99) mg/dL Alkaline Phosphatase (38-126) U/L C-Reactive Protein 13.3 H (<10.0) mg/L Thrombosis Risk Factor Assmnt - Choose All That Apply Each Risk Factor Represents 2 Points: Age 61-74 years Thrombosis Risk Factor Assessment Total Risk Factor Score: 2 Thrombosis Risk Factor Assessment Level: Low Risk Assessment and Plan Plan: 1. swelling of the jaw likely dental abscess. CT facial bone and neck ordered to be done as soon as possible. Indomethacin switched to ertapenem due to patient's side effects and hypercoagulopathy with Coumadin. Infectious disease consulted. ENT consulted. Continuepain control with Percocet and morphine 2. Hypercoagulopathy secondary to Coumadin use and antibiotics. Coumadin is on hold. Recheck INR in the morning.current INR 5 3. chronic kidney diseasestage III with baseline creatinine 1.3 4. History of heart transplant in 2001, stable. continue CellCept 500 mg twice daily, Sirolimus, will talk to cardiac transplant if can be stopped while dealing with infection 5. History of paroxysmal atrial fibrillation status post ablation. Coumadin is on hold. Continue Lopressor 12.5 mg twice daily. 6. Hypertension. Continue hydralazine 50 mg 3 times daily, Lopressor 12.5 mg twice daily. 7. Gastroesophageal reflux disease. Continue Protonix. 8. Hypothyroidism. Continue levothyroxine 75 g daily. 9. Hyperlipidemia. Continue atorvastatin 10 mg at bedtime. 10. CODE STATUS full code Patient will be admitted to the hospital for a minimum of 2 night stay. Discharge plan: Return home
[2017-10-23] MEDS: hydrALAZINE HCL 50 MG TAB PO SCH ×2 (16:49→22:23)
[2017-10-23] MEDS: ERTAPENEM 1 GM in SODIUM CHLORIDE 0.9% 50 ML IVPB SCH (16:50)
--- NOTE | 2017-10-23 16:52 | CT ---
EXAMINATION TYPE: CT soft tissue neck w con DATE OF EXAM: 10/23/2017 COMPARISON: None HISTORY: 66 year-old female right dental abscess, Right side mandible swelling and pain. TECHNIQUE: Contiguous axial scanning of the soft tissues of the neck performed with IV Contrast, merry ent injected with 80ml mL of Isovue 300. Coronal/sagittal reconstructions performed. CT DLP: 599 mGycm Automated exposure control for dose reduction was used. FINDINGS: Visualized intracranial structures and mastoid air cells appear clear. There is air-fluid level in th e right maxillary sinus with moderate mucosal thickening. Nasopharynx is clear. Oropharynx is clear. The glottic and subglottic structures as well as the tracheal column and visualized upper lungs appea r clear. 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 Small thyroid gland, possible hypothyroidism. There is a nodule in the right lobe measuring 1.5 cm on coronal series. This can be further evaluated with thyroid ultrasound. The submandibular and parotid glands appear satisfactory. Scattered nonenlarged upper cervical lymph nodes. No cervical adenopathy. There is subcutaneous soft tissue stranding throughout the adipose layer of the right jaw extending a long the right upper neck. Extensive dental amalgam artifact limits assessment. Small periapical luce ncies suggestive involving the left maxillary first incisor and canine. No abscess is identified. No osseous destructive process. IMPRESSION: 1. CELLULITIS ALONG THE RIGHT JAW. NO ABSCESS IS SEEN. 2. THE EXACT ODONTOGENIC ORIGIN OF THE CELLULITIS IS NOT READILY APPARENT. THERE ARE SMALL PERIAPICAL LUCENCIES INVOLVING SOME OF THE LEFT-SIDED MAXILLARY TEETH. 3. A 1.5 CM RIGHT THYROID NODULE. THYROID ULTRASOUND CAN FURTHER EVALUATE. 4. INCIDENTAL ABERRANT RIGHT SUBCLAVIAN ARTERY WHICH TAKES A RETROESOPHAGEAL COURSE.
[2017-10-23 17:24] LABS: Glucose,Whole Blood 286 mg/dL (75-99)
[2017-10-23] MEDS: INSULIN NPH 300 UNIT/3 ML VIAL SQ SCH (17:42)
[2017-10-23] MEDS: INSULIN ASPART 100 UNIT/ML 1 ML 10 ML VIAL SQ SCH ×2 (17:43→20:33)
[2017-10-23 20:14] LABS: Glucose,Whole Blood 197 mg/dL (75-99)
[2017-10-23] MEDS: ATORVASTATIN 10 MG TAB PO SCH (20:29)
[2017-10-23] MEDS: TOPIRAMATE 25 MG TAB PO SCH (20:34)
[2017-10-23] MEDS: METOPROLOL TARTRATE 12.5 MG TAB PO SCH (20:34)
[2017-10-23] MEDS ORDERED: SIROLIMUS PO SCH (21:00)
[2017-10-23] MEDS ORDERED: MYCOPHENOLATE MOFETIL 250 MG CAP PO SCH (21:00)
--- NOTE | 2017-10-23 21:27 | XR ---
EXAMINATION TYPE: XR Panorex DATE OF EXAM: 10/23/2017 COMPARISON: NONE HISTORY: 66-year-old female right-sided dental abscess, swelling TECHNIQUE: Single panoramic AP view FINDINGS: Patient is partially edentulous. Small periapical lucencies redemonstrated involving left maxillary i ncisor and canine. Multiple root canals and fillings are present. There may be due to the rotation along the anterior/medial margin of the right maxillary molar near t he cortical margin of the mandible. No periapical lucency here. IMPRESSION: Possible dental haris along the anterior medial margin of the right mandibular molar near the junctio n with the mandibular cortex. A couple small periapical lucencies involving left maxillary teeth as noted on CT.
[2017-10-24] MEDS: MORPHINE ORAL SOLN 10 MG/5 ML CUP PO PRN ×2 (01:40→07:38)
[2017-10-24] MEDS: oxyCODONE-APAP 5-325MG 1 EACH TAB PO PRN ×4 (04:24→20:01)
[2017-10-24] MEDS: LEVOTHYROXINE 75 MCG TAB PO SCH (05:34)
[2017-10-24 07:10] LABS: Glucose,Whole Blood 184 mg/dL (75-99)
[2017-10-24 07:32] LABS: Anisocytosis Moderate; Basophils % (A) 0 %; Eosinophils # (A) 0.2 k/uL (0-0.7); Eosinophils % (A) 2 %; HCT 28.9 % (34.0-46.0); HGB 8.2 gm/dL (11.4-16.0); Hypochromasia Marked; Lymphocytes # (A) 1.7 k/uL (1.0-4.8); Lymphocytes % (A) 20 %; MCH 20.4 pg (25.0-35.0); MCHC 28.4 g/dL (31.0-37.0); Microcytosis Marked; Monocytes # (A) 0.5 k/uL (0-1.0); Monocytes % (A) 6 %; Neutrophils # (A) 6.2 k/uL (1.3-7.7); Neutrophils % (A) 71 %; Platelet Count 280 k/uL (150-450); RBC 4.01 m/uL (3.80-5.40); RDW 20.3 % (11.5-15.5); WBC 8.8 k/uL (3.8-10.6)
[2017-10-24] MEDS: INSULIN ASPART 100 UNIT/ML 1 ML 10 ML VIAL SQ SCH ×4 (07:36→20:58)
[2017-10-24] MEDS: INSULIN NPH 300 UNIT/3 ML VIAL SQ SCH ×2 (07:36→17:37)
[2017-10-24] MEDS: PANTOPRAZOLE 40 MG TABLET PO SCH (07:37)
[2017-10-24] MEDS: ERTAPENEM 1 GM in SODIUM CHLORIDE 0.9% 50 ML IVPB SCH (07:37)
[2017-10-24] MEDS: FUROSEMIDE 40 MG TAB PO SCH ×2 (07:37→07:38)
[2017-10-24] MEDS: TOPIRAMATE 25 MG TAB PO SCH ×2 (07:38→20:57)
[2017-10-24] MEDS: POTASSIUM CHLORIDE ER 20 MEQ TAB.ER PO SCH (07:38)
[2017-10-24] MEDS: METOPROLOL TARTRATE 12.5 MG TAB PO SCH ×2 (07:38→20:56)
[2017-10-24] MEDS: LISINOPRIL 2.5 MG TAB PO SCH (07:38)
[2017-10-24] MEDS: hydrALAZINE HCL 50 MG TAB PO SCH ×3 (07:38→20:57)
[2017-10-24 07:44] LABS: Albumin 3.2 g/dL (3.5-5.0); Calcium 8.7 mg/dL (8.4-10.2); Potassium 4.2 mmol/L (3.5-5.1); Total Bilirubin 0.2 mg/dL (0.2-1.3); Total Protein 5.7 g/dL (6.3-8.2)
--- NOTE | 2017-10-24 07:53 | CONS ---
CONSULTATION DATE OF SERVICE: 10/23/2017. REASON FOR CONSULTATION: A dental abscess and multiple drug allergies. HISTORY OF PRESENT ILLNESS: The patient is a 66-year-old female with past medical history significant for diabetes mellitus, status post heart transplant at [facility] currently on . The patient is coming to the hospital with chief complaints of pain to the right lower jaw area. Apparently the patient did have a root canal surgery done on the right lower jaw tooth. The patient describes the pain to be more of a throbbing nature almost 7 to 8/10, and no radiation. He did have associated swelling of the right lower jaw area with these symptoms, the patient did present to [facility] ER. The patient did have a CT of the soft tissue off the neck obtained which did show subcutaneous soft tissue stranding throughout the adipose layer of the joint extending along the right upper neck. Extensive dental amalgam artifact limits assessment. Small periapical lucency suggestive involving the left maxillary 1st incisor and canine teeth. In the ER because of multiple antibiotic allergies including to cephalexin, ciprofloxacin and penicillin and the patient seemed to have been on the clindamycin in outpatient setting, she was started on Invanz and admitted hospital. Infectious Disease was consulted for further recommendation regarding antibiotic therapy. REVIEW OF SYSTEMS: CONSTITUTIONAL: Positive for weakness and chills. EYES: No complaint. ENT: As per HPI. RESPIRATORY: No complaint. CARDIOVASCULAR: No complaint. GENITOURINARY: No complaint. GASTROINTESTINAL: No complaint. MUSCULOSKELETAL: No complaint. INTEGUMENTARY: No complaint. PSYCHOLOGICAL: No complaint. ENDOCRINE: No complaint. NEUROLOGICAL: No complaint. PAST MEDICAL HISTORY: Significant for a obtained anomaly of the heart, paroxysmal atrial fibrillation, type 2 diabetes mellitus, gastroesophageal reflux disease, hypothyroidism. PAST SURGICAL HISTORY: Heart transplant, appendectomy, back surgery, cardiac ablation, cholecystectomy, tonsillectomy, tubal ligation, removal of skin cancer on her left ankle. SOCIAL HISTORY: Patient quit smoking 20 years ago. No drinking or any drug use. , lives with . FAMILY HISTORY: Father with history of [place]. Mother of old age. ALLERGIES: To CEPHALEXIN, CIPROFLOXACIN, PENICILLIN, mostly with rash. MEDICATION: Currently include the patient is on Lipitor, ertapenem 1 g daily, she is on Lasix, hydralazine, NovoLog, Synthroid, Zestril, Lopressor, morphine sulfate, Zofran, Percocet, Protonix, K-Dur, Topamax. EXAMINATION: Blood pressure is 145/56, pulse of 51, temperature 98.1. She is 97% on room air. General description is an elderly female, lying in bed in no distress. No tachypnea or accessory muscle of respiration use. HEENT: Shows pallor. No scleral icterus. Oral mucosa is moist. Poor dental hygiene, especially in the lower right lower jaw. She did have some swelling and tenderness. No significant NECK: Trachea central. No thyromegaly. LUNGS: Unlabored breathing. Clear to auscultation. No wheeze or crackle. HEART: S1, S2 regular rate and rhythm. ABDOMEN: Soft, no tenderness. No rigidity. EXTREMITIES: No edema of the feet. SKIN EXAMINATION: No rash or mass palpable. NEUROLOGICAL: Patient is awake, alert, oriented x3. Mood and affect normal. LABS: Hemoglobin is 8.8, white count 7.9, BUN of 16, creatinine is 1.14. The blood culture obtained currently pending. DIAGNOSTIC IMPRESSION AND PLAN: 1. Patient admitted to the hospital right lower jaw pain and swelling and redness likely a dental caries in a patient who did have recent root canal done in the outpatient setting, more likely need to cover for the oral mainor of mouth which include mostly gram-positive both aerobes and anaerobes with underlying gram- negative infection not entirely excluded. 2. The patient has multiple antibiotic allergies that do limit the number of antibiotics that could be safely used. PLAN: 1. Invanz 1 g IV piggyback daily should provide adequate coverage of both aerobes and anaerobes. 2. The patient may benefit from a dental surgery evaluation to see extension of that infected tooth and drainage of the abscess will help in the healing of this infection. 3. We will follow up on clinical condition and further adjust medication if needed. Thank you for this consultation. Follow this patient along with you. MMODL / IJN: [id number] /
[2017-10-24 10:33] LABS: INR 3.9 (<1.2); Prothrombin Time 34.6 sec (9.0-12.0)
[2017-10-24 11:53] LABS: Erythrocyte Sedimentation Rate 44 mm/hr (0-20)
[2017-10-24 11:59] LABS: Glucose,Whole Blood 145 mg/dL (75-99)
[2017-10-24] MEDS: MYCOPHENOLATE MOFETIL 500 MG TAB PO SCH ×2 (14:28→21:25)
[2017-10-24 16:31] LABS: Glucose,Whole Blood 124 mg/dL (75-99)
[2017-10-24 20:15] LABS: Glucose,Whole Blood 126 mg/dL (75-99)
[2017-10-24] MEDS: ATORVASTATIN 10 MG TAB PO SCH (20:56)
[2017-10-24] MEDS ORDERED: SIROLIMUS 1 MG PO SCH (21:00)
--- NOTE | 2017-10-24 23:53 | PN ---
PROGRESS NOTE DATE OF SERVICE: 10/24/2017. REASON FOR FOLLOWUP: Right lower infected tooth. INTERVAL HISTORY: The patient is currently afebrile. She is still complaining of pain to the lower jaw area. Denies having any difficulty swallowing. No chest pain. No shortness of breath or cough. No abdominal pain. No diarrhea. PHYSICAL EXAMINATION: Her blood pressure is 138/53, pulse of 62, temperature 98.2. She is 99% on room air. General description is an elderly female up in the room in no distress. HEENT EXAMINATION: The right lower jaw with minimal swelling. Slightly tender to touch. No lymphadenopathy. LUNGS: Unlabored breathing. Clear to auscultation. HEART: S1, S2. Regular rate and rhythm. ABDOMEN: Soft. No tenderness. LABS: Hemoglobin 8.2, white count 8.8 with a BUN of 13, creatinine 1.15. DIAGNOSTIC IMPRESSION AND PLAN: Patient with right lower infected tooth and possible abscess. Waiting for the oral surgeon for possible extraction. In concert, will give the patient ertapenem because of her multiple antibiotin allergies. Continue with supportive care. MMODL / IJN: [id number] /
[2017-10-25] MEDS: oxyCODONE-APAP 5-325MG 1 EACH TAB PO PRN ×4 (01:54→19:21)
[2017-10-25] MEDS: LEVOTHYROXINE 75 MCG TAB PO SCH (06:20)
[2017-10-25 06:57] LABS: Glucose,Whole Blood 106 mg/dL (75-99)
[2017-10-25] MEDS: INSULIN ASPART 100 UNIT/ML 1 ML 10 ML VIAL SQ SCH ×4 (07:01→21:16)
[2017-10-25 07:24] LABS: Anisocytosis Moderate; Basophils # (A) 0.1 k/uL (0-0.2); Basophils % (A) 1 %; Eosinophils # (A) 0.3 k/uL (0-0.7); Eosinophils % (A) 3 %; HCT 29.3 % (34.0-46.0); HGB 8.5 gm/dL (11.4-16.0); Hypochromasia Marked; Lymphocytes # (A) 2.1 k/uL (1.0-4.8); Lymphocytes % (A) 25 %; MCH 20.5 pg (25.0-35.0); MCHC 28.8 g/dL (31.0-37.0); MCV 71.2 fL (80.0-100.0); Mean Platelet Volume 7.1; Microcytosis Marked; Monocytes # (A) 0.5 k/uL (0-1.0); Monocytes % (A) 6 %; Neutrophils # (A) 5.3 k/uL (1.3-7.7); Neutrophils % (A) 63 %; Platelet Count 279 k/uL (150-450); RBC 4.12 m/uL (3.80-5.40); RDW 20.6 % (11.5-15.5); WBC 8.4 k/uL (3.8-10.6)
[2017-10-25 07:36] LABS: INR 2.9 (<1.2); Prothrombin Time 25.8 sec (9.0-12.0)
[2017-10-25 07:47] LABS: Albumin 3.2 g/dL (3.5-5.0); Calcium 8.9 mg/dL (8.4-10.2); Potassium 3.7 mmol/L (3.5-5.1); Total Bilirubin 0.4 mg/dL (0.2-1.3); Total Protein 5.7 g/dL (6.3-8.2)
[2017-10-25] MEDS: ERTAPENEM 1 GM in SODIUM CHLORIDE 0.9% 50 ML IVPB SCH (08:30)
[2017-10-25] MEDS: PANTOPRAZOLE 40 MG TABLET PO SCH (08:32)
[2017-10-25] MEDS: TOPIRAMATE 25 MG TAB PO SCH ×2 (08:33→21:17)
[2017-10-25] MEDS: INSULIN NPH 300 UNIT/3 ML VIAL SQ SCH ×2 (08:33→19:22)
[2017-10-25] MEDS: POTASSIUM CHLORIDE ER 20 MEQ TAB.ER PO SCH (08:33)
[2017-10-25] MEDS: MYCOPHENOLATE MOFETIL 500 MG TAB PO SCH ×2 (08:33→21:17)
[2017-10-25] MEDS: FUROSEMIDE 40 MG TAB PO SCH (09:32)
[2017-10-25] MEDS: LISINOPRIL 2.5 MG TAB PO SCH (09:32)
[2017-10-25] MEDS: hydrALAZINE HCL 50 MG TAB PO SCH ×3 (09:32→21:17)
[2017-10-25] MEDS ORDERED: FUROSEMIDE 20 MG TAB PO STA (09:33)
[2017-10-25] MEDS: METOPROLOL TARTRATE 12.5 MG TAB PO SCH ×2 (10:27→21:17)
--- NOTE | 2017-10-25 11:09 | P.PN ---
Subjective Progress Note Date: 10/24/17 66 years old female patient of Dr. 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 Patient comes in with the complaining of right jaw pain that started 24 hours ago. Patient had a root canal surgery one month ago on and was on Coumadin prior to that. She does have Coumadin coagulopathy when initiated on clindamycin. Patient is ALLERGIC to penicillin, Keflex, Cipro in the form of hives and rash. Clindamycin switched to ertapenem and due to the side effects. Dr. Davila consulted. No imaging has been performed in the ER. Will get CT of the facial bone and neck to rule out dental abscess ENT will be consulted. If no abscess collection patient will follow up being ENT. Percocet with morphine will be continued for pain control 10/24: Patient states the swelling in her mouth is low but better. No trouble with swallowing. She states the pain is still there and quite intense. She denies any ALLERGIC reaction or hives from antibiotics. She is followed by Dr. Davila and remains on ertapenem. Transplant team was contacted and patient resumed back on her normal dose of CellCept and Sirolimus 1 mg changed from daily to every 48 hours per recommendations from the transplant team. INR today is 3.9 and Coumadin will remain on hold. Objective - Vital Signs Vital signs: Vital Signs Temp 98.3 F 10/24/17 07:37 Pulse 60 10/24/17 07:37 Resp 16 10/24/17 07:37 BP 130/57 10/24/17 07:37 Pulse Ox 97 10/24/17 07:37 Intake & Output 10/23/17 10/24/17 10/24/17 18:59 06:59 18:59 Intake Total 50 600 Balance 50 600 Weight 70.307 kg Intake: Intake, IV Titration 50 Amount Clindamycin 600 mg In 50 Dextrose 5% in Water 50 ml @ 100 mls/hr IVPB Q6HR [facility] Rx#:[id number] Oral 600 Other: Voiding Method Toilet Toilet Toilet # Voids 2 2 - Exam General appearance: cooperative, no acute distress, obese - EENT Eyes: anicteric sclerae, PERRLA, normal appearance ENT: hearing grossly normal, significant swelling noted in the right jaw extending to the neck with no overlying inflammation, positive for indurated on palpation, tender to touch, no oral lesions or open wound, no drainage noted - Neck Neck: no lymphadenopathy, normal ROM, no other, no rigidity, no stridor, no thyromegaly - Respiratory Respiratory: bilateral: CTA, negative: diminished, dullness, rales, rhonchi - Cardiovascular Rhythm: regular Heart sounds: normal: S1, S2 Abnormal Heart Sounds: no systolic murmur, no diastolic murmur, no rub, no S3 Gallop, no S4 Gallop, no click, no other - Gastrointestinal General gastrointestinal: normal bowel sounds, soft - Integumentary Integumentary: no rash - Neurologic Neurologic: CNII-XII intact - Musculoskeletal Musculoskeletal: gait normal, strength equal bilaterally - Psychiatric Psychiatric: A&O x's 3, appropriate affect - Labs CBC & Chem 7: 10/25/17 06:57 10/25/17 06:57 Labs: Abnormal Lab Results - Last 24 Hours (Table) 10/23/17 10/23/17 10/23/17 Range/Units 12:17 12:17 12:17 Hgb 8.8 L (11.4-16.0) gm/dL Hct 30.3 L (34.0-46.0) % MCV 74.5 L (80.0-100.0) fL MCH 21.6 L (25.0-35.0) pg MCHC 29.0 L (31.0-37.0) g/dL RDW 20.1 H (11.5-15.5) % ESR (0-20) mm/hr PT 44.9 H (9.0-12.0) sec INR 5.0 H* (<1.2) Chloride 108 H (98-107) mmol/L Carbon Dioxide 21 L (22-30) mmol/L Creatinine 1.14 H (0.52-1.04) mg/dL Glucose 230 H (74-99) mg/dL POC Glucose (mg/dL) (75-99) mg/dL C-Reactive Protein (<10.0) mg/L Total Protein (6.3-8.2) g/dL Albumin (3.5-5.0) g/dL 10/23/17 10/23/17 10/23/17 Range/Units 12:17 17:23 20:12 Hgb (11.4-16.0) gm/dL Hct (34.0-46.0) % MCV (80.0-100.0) fL MCH (25.0-35.0) pg MCHC (31.0-37.0) g/dL RDW (11.5-15.5) % ESR (0-20) mm/hr PT (9.0-12.0) sec INR (<1.2) Chloride (98-107) mmol/L Carbon Dioxide (22-30) mmol/L Creatinine (0.52-1.04) mg/dL Glucose (74-99) mg/dL POC Glucose (mg/dL) 286 H 197 H (75-99) mg/dL C-Reactive Protein 13.3 H (<10.0) mg/L Total Protein (6.3-8.2) g/dL Albumin (3.5-5.0) g/dL 10/24/17 10/24/17 10/24/17 Range/Units 06:45 06:45 06:45 Hgb 8.2 L (11.4-16.0) gm/dL Hct 28.9 L (34.0-46.0) % MCV 72.0 L (80.0-100.0) fL MCH 20.4 L (25.0-35.0) pg MCHC 28.4 L (31.0-37.0) g/dL RDW 20.3 H (11.5-15.5) % ESR 44 H (0-20) mm/hr PT 34.6 H (9.0-12.0) sec INR 3.9 H (<1.2) Chloride 109 H (98-107) mmol/L Carbon Dioxide (22-30) mmol/L Creatinine 1.15 H (0.52-1.04) mg/dL Glucose 151 H (74-99) mg/dL POC Glucose (mg/dL) (75-99) mg/dL C-Reactive Protein (<10.0) mg/L Total Protein 5.7 L (6.3-8.2) g/dL Albumin 3.2 L (3.5-5.0) g/dL 10/24/17 10/24/17 Range/Units 07:09 11:59 Hgb (11.4-16.0) gm/dL Hct (34.0-46.0) % MCV (80.0-100.0) fL MCH (25.0-35.0) pg MCHC (31.0-37.0) g/dL RDW (11.5-15.5) % ESR (0-20) mm/hr PT (9.0-12.0) sec INR (<1.2) Chloride (98-107) mmol/L Carbon Dioxide (22-30) mmol/L Creatinine (0.52-1.04) mg/dL Glucose (74-99) mg/dL POC Glucose (mg/dL) 184 H 145 H (75-99) mg/dL C-Reactive Protein (<10.0) mg/L Total Protein (6.3-8.2) g/dL Albumin (3.5-5.0) g/dL Microbiology - Last 24 Hours (Table) 10/23/17 05:35 Blood Culture - Preliminary Blood No Growth after 24 hours Assessment and Plan Plan: 1. Dental abscess. CT facial bone and neck ordered to be done as soon as possible. Indomethacin switched to ertapenem due to patient's side effects and hypercoagulopathy with Coumadin. Infectious disease consulted. ENT consulted. Continue pain control with Percocet and morphine 2. Hypercoagulopathy secondary to Coumadin use and antibiotics. Coumadin is on hold. Recheck INR in the morning. 3. Chronic kidney diseasestage III with baseline creatinine 1.3 4. History of heart transplant in 2001, stable. continue CellCept 500 mg twice daily, Sirolimus 1 mg every 48 hours. 5. History of paroxysmal atrial fibrillation status post ablation. Coumadin is on hold. Continue Lopressor 12.5 mg twice daily. 6. Hypertension. Continue hydralazine 50 mg 3 times daily, Lopressor 12.5 mg twice daily. 7. Gastroesophageal reflux disease. Continue Protonix. 8. Hypothyroidism. Continue levothyroxine 75 g daily. 9. Hyperlipidemia. Continue atorvastatin 10 mg at bedtime. 10. CODE STATUS full code Discharge plan: Return home Impression and plan of care have been directed as dictated by the signing physician. Manisha Boyle nurse practitioner acting as scribe for signing physician.
[2017-10-25 11:38] LABS: Glucose,Whole Blood 92 mg/dL (75-99)
--- NOTE | 2017-10-25 14:48 | PN ---
PROGRESS NOTE DATE OF SERVICE: 10/25/17. REASON FOR FOLLOWUP: Right lower jaw infected tooth with possible abscess. INTERVAL HISTORY: The patient is currently afebrile. Pain to the right lower jaw area has slightly improved compared to since she has been admitted to the hospital is about 25%. Denies any difficulty swallowing. Denies having any chest pain. No shortness of breath or cough. EXAMINATION: Blood pressure is 103/50 with a pulse of 63, temperature 98.2. She is 97% on room air. General description is an elderly female up in the room in no distress. HEENT EXAMINATION: The lower jaw slight tenderness but no redness. LUNGS: Unlabored breathing. Clear to auscultation. HEART: S1, S2. Regular rate and rhythm. ABDOMEN: Soft, no tenderness. LABS: Hemoglobin is 8.5, white count 8.4, BUN of 13, creatinine 1.27. DIAGNOSTIC IMPRESSION AND PLAN: Patient with right lower jaw infected tooth with possible abscess, has been seen by oral surgeon not recommending extraction of the teeth in view of her multiple antibiotic allergy and currently improving on the Invanz. She will continue with Invanz through a midline for 2 weeks with close outpatient followup. MMODL / IJN: [id number] /
--- NOTE | 2017-10-25 16:33 | CONS ---
CONSULTATION DATE OF CONSULT: 10/24/2017. CHIEF COMPLAINT: My face is swollen. HISTORY OF THE PRESENT ILLNESS: The patient is a 66-year-old female who had a root canal done in the lower right quadrant approximately 1 month ago. She states that she recently bit down on something and had acute pain. The next day she noticed significant swelling and then she presented to the [facility] ER for evaluation. The patient was evaluated and admitted for further evaluation and treatment. The patient is currently on IV imipenem and her coagulopathy has been stabilized. She entered the hospital with an INR of 9 and it is now approaching therapeutic range. The patient states that since she arrived in the hospital, the swelling and pain have significantly improved. She is afebrile currently and denies any odynophagia or dysphagia or any difficulty breathing. PAST MEDICAL HISTORY: Significant for atrial fibrillation, type 1 diabetes, GERD, and hypothyroidism. She also had a heart transplant in . She recently had an ablation approximately 1 month ago. PAST SURGICAL HISTORY: Significant for appendectomy, cholecystectomy, tonsillectomy, tubal ligation, breast reduction surgery and most recently a cardiac ablation. Also, she had a heart transplant in 2001 at the [facility]. SOCIAL HISTORY: Is insignificant. She denies currently smoking or abuse of alcohol. The patient quit smoking approximately 20 years ago. She denies any illicit drug use and she lives at home with her . MEDICATIONS: Include a levothyroxine, metoprolol, hydralazine, Lasix, CellCept, K-Ce, Topamax, lisinopril, Novolin, nasal Stadol, Protonix and sirolimus. ALLERGIES: Include KEFLEX, CIPRO, LORTAB, CODEINE, PENICILLIN, TRAMADOL, DILAUDID, SIMVASTATIN AND question OPIUM. PHYSICAL EXAMINATION: Reveals mild soft tissue swelling of the right mandible and submandibular triangle. It is tender to the touch and it is mildly firm. Intraoral examination reveals mild vestibular swelling in the buccal region of teeth numbers 28, 29, 30. This is tender to palpation. There is no floor of mouth swelling. There is no pharyngeal swelling. There is no trismus. Teeth numbers 28, 29, 30 are tender to palpation. No other swelling is noted. RADIOGRAPHIC EXAMINATION: Radiographic examination and panoramic x-ray reveals tooth #28 to have a root canal, tooth #29 with possible cervical caries and tooth #30 with a mesial bony defect superiorly. ASSESSMENT: 1. Right submandibular space and right buccal space cellulitis. 2. Odontogenic infection from teeth numbers 28 and 29 or 30. PLAN: Continue the IV imipenem and heat to the right mandible and submandibular triangle. The patient can have a soft diet and advance as tolerated. At this time, it is difficult to determine which tooth is causing the cellulitis. It is most likely teeth numbers 28 or 29. I will continue to follow and wait until the origin makes itself detectable. Once the offending tooth is noted then either a root canal will be necessary or extraction. I will review this with the patient at that time. MMODL / IJN: [id number] /
[2017-10-25 16:51] LABS: Glucose,Whole Blood 197 mg/dL (75-99)
[2017-10-25 20:09] LABS: Glucose,Whole Blood 152 mg/dL (75-99)
[2017-10-25] MEDS: ATORVASTATIN 10 MG TAB PO SCH (21:17)
[2017-10-26] MEDS: oxyCODONE-APAP 5-325MG 1 EACH TAB PO PRN ×3 (03:50→12:33)
[2017-10-26 05:57] VITALS: BP 116/56; PULSE 62; RESP 16; TEMP 97.7
[2017-10-26] MEDS: LEVOTHYROXINE 75 MCG TAB PO SCH (06:09)
[2017-10-26 06:58] LABS: Glucose,Whole Blood 101 mg/dL (75-99)
[2017-10-26 07:55] LABS: Anisocytosis Moderate; Basophils % (A) 0 %; Eosinophils # (A) 0.2 k/uL (0-0.7); Eosinophils % (A) 3 %; HCT 28.8 % (34.0-46.0); HGB 8.7 gm/dL (11.4-16.0); Hypochromasia Marked; Lymphocytes # (A) 2.1 k/uL (1.0-4.8); Lymphocytes % (A) 25 %; MCH 21.9 pg (25.0-35.0); MCHC 30.2 g/dL (31.0-37.0); MCV 72.4 fL (80.0-100.0); Mean Platelet Volume 6.2; Microcytosis Marked; Monocytes # (A) 0.4 k/uL (0-1.0); Monocytes % (A) 5 %; Neutrophils # (A) 5.2 k/uL (1.3-7.7); Neutrophils % (A) 65 %; Platelet Count 256 k/uL (150-450); RBC 3.98 m/uL (3.80-5.40); RDW 20.4 % (11.5-15.5); WBC 8.1 k/uL (3.8-10.6)
[2017-10-26 08:12] LABS: Albumin 3.3 g/dL (3.5-5.0); Calcium 8.7 mg/dL (8.4-10.2); Potassium 3.6 mmol/L (3.5-5.1); Total Bilirubin 0.3 mg/dL (0.2-1.3); Total Protein 5.8 g/dL (6.3-8.2)
[2017-10-26 08:18] LABS: INR 1.7 (<1.2); Prothrombin Time 15.9 sec (9.0-12.0)
[2017-10-26] MEDS: INSULIN ASPART 100 UNIT/ML 1 ML 10 ML VIAL SQ SCH ×2 (08:20→12:15)
[2017-10-26] MEDS: INSULIN NPH 300 UNIT/3 ML VIAL SQ SCH (08:20)
[2017-10-26] MEDS: METOPROLOL TARTRATE 12.5 MG TAB PO SCH (08:23)
[2017-10-26] MEDS: POTASSIUM CHLORIDE ER 20 MEQ TAB.ER PO SCH (08:23)
[2017-10-26] MEDS: hydrALAZINE HCL 50 MG TAB PO SCH (08:23)
[2017-10-26] MEDS: LISINOPRIL 2.5 MG TAB PO SCH (08:24)
[2017-10-26] MEDS: FUROSEMIDE 40 MG TAB PO SCH ×2 (08:24→10:44)
[2017-10-26] MEDS: MYCOPHENOLATE MOFETIL 500 MG TAB PO SCH (08:24)
[2017-10-26] MEDS: PANTOPRAZOLE 40 MG TABLET PO SCH (08:24)
[2017-10-26] MEDS: TOPIRAMATE 25 MG TAB PO SCH (08:24)
[2017-10-26] MEDS: ERTAPENEM 1 GM in SODIUM CHLORIDE 0.9% 50 ML IVPB SCH (08:25)
[2017-10-26 11:25] LABS: Glucose,Whole Blood 110 mg/dL (75-99)
--- NOTE | 2017-10-26 14:16 | PN ---
PROGRESS NOTE DATE OF SERVICE: 10/26/2017 REASON FOR FOLLOWUP: Right lower infected tooth and a question of an abscess. INTERVAL HISTORY: The patient is afebrile. She is currently feeling better. Pain has slightly decreased, almost 30% better since admission to the hospital. Denies having any chest pain, shortness of breath or cough. No abdominal pain, no diarrhea. PHYSICAL EXAMINATION: Blood pressure 116/56, pulse of 62, temperature is 97.7. She is 95% on room air. General description is an elderly female, up in the bed in no distress. HEENT EXAMINATION: Lower jaw currently with no swelling, redness, minimal tenderness. LUNGS: Unlabored breathing, clear to auscultation anteriorly. HEART: S1, S2. Regular rate and rhythm. ABDOMEN: Soft, no tenderness. LABS: Hemoglobin is 8.8, white count 8.1, BUN of 13, creatinine 1.1. DIAGNOSTIC IMPRESSION AND PLAN: Patient with right lower jaw infected tooth with secondary cellulitis. PLAN: At this time is to continue with Invanz 1 g daily for 2 weeks. In view of her multiple antibiotic allergies, no other option available and close outpatient followup. MMODL / IJN: [id number] /
[2017-10-26] MEDS ORDERED: FUROSEMIDE 40 MG TAB PO SCH (16:00)
--- NOTE | 2017-10-26 16:11 | P.PN ---
Subjective Progress Note Date: 10/25/17 66 years old female patient of Dr. Al with past medical history of paroxysmal atrial fibrillation status post ablation at 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 Patient comes in with the complaining of right jaw pain that started 24 hours ago. Patient had a root canal surgery one month ago on and was on Coumadin prior to that. She does have Coumadin coagulopathy when initiated on clindamycin. Patient is ALLERGIC to penicillin, Keflex, Cipro in the form of hives and rash. Clindamycin switched to ertapenem and due to the side effects. Dr. Davila consulted. No imaging has been performed in the ER. Will get CT of the facial bone and neck to rule out dental abscess ENT will be consulted. If no abscess collection patient will follow up being ENT. Percocet with morphine will be continued for pain control 10/24: Patient states the swelling in her mouth is low but better. No trouble with swallowing. She states the pain is still there and quite intense. She denies any ALLERGIC reaction or hives from antibiotics. She is followed by Dr. Davila and remains on ertapenem. Transplant team was contacted and patient resumed back on her normal dose of CellCept and Sirolimus 1 mg changed from daily to every 48 hours per recommendations from the transplant team. INR today is 3.9 and Coumadin will remain on hold. 10/25: INR today is 2.9. Creatinine is at 1.27. Blood culture is showing no growth at 48 hours. Patient has been afebrile. We are planning to reverse INR and have midline placed this afternoon. Discussed with this plan team at [facility]. Patient was seen by oral surgeon, Dr. Lira. No plan for any surgical intervention. Objective - Vital Signs Vital signs: Vital Signs Temp 98.2 F 10/25/17 06:46 Pulse 61 10/25/17 08:27 Resp 16 10/25/17 06:46 BP 106/54 10/25/17 08:27 Pulse Ox 97 10/25/17 06:46 Intake & Output 10/24/17 10/25/17 10/25/17 18:59 06:59 18:59 Intake Total 50 240 Balance 50 240 Weight 70.307 kg Intake: IV 240 ns@20 240 Intake, IV Titration 50 Amount Ertapenem 1 gm In Sodium 50 Chloride 0.9% 50 ml @ 100 mls/hr IVPB DAILY [facility] Rx #:[id number] Other: Voiding Method Toilet Toilet Toilet # Bowel Movements 0 - Exam General appearance: cooperative, no acute distress, obese - EENT Eyes: anicteric sclerae, PERRLA, normal appearance ENT: hearing grossly normal, significant swelling noted in the right jaw extending to the neck with no overlying inflammation, positive for indurated on palpation, tender to touch, no oral lesions or open wound, no drainage noted - Neck Neck: no lymphadenopathy, normal ROM, no other, no rigidity, no stridor, no thyromegaly - Respiratory Respiratory: bilateral: CTA, negative: diminished, dullness, rales, rhonchi - Cardiovascular Rhythm: regular Heart sounds: normal: S1, S2 Abnormal Heart Sounds: no systolic murmur, no diastolic murmur, no rub, no S3 Gallop, no S4 Gallop, no click, no other - Gastrointestinal General gastrointestinal: normal bowel sounds, soft - Integumentary Integumentary: no rash - Neurologic Neurologic: CNII-XII intact - Musculoskeletal Musculoskeletal: gait normal, strength equal bilaterally - Psychiatric Psychiatric: A&O x's 3, appropriate affect - Labs CBC & Chem 7: 10/26/17 07:15 10/26/17 07:15 Labs: Abnormal Lab Results - Last 24 Hours (Table) 10/24/17 10/24/17 10/24/17 Range/Units 06:45 11:59 16:30 Hgb (11.4-16.0) gm/dL Hct (34.0-46.0) % MCV (80.0-100.0) fL MCH (25.0-35.0) pg MCHC (31.0-37.0) g/dL RDW (11.5-15.5) % ESR 44 H (0-20) mm/hr PT (9.0-12.0) sec INR (<1.2) Creatinine (0.52-1.04) mg/dL POC Glucose (mg/dL) 145 H 124 H (75-99) mg/dL Total Protein (6.3-8.2) g/dL Albumin (3.5-5.0) g/dL 10/24/17 10/25/17 10/25/17 Range/Units 20:13 06:56 06:57 Hgb 8.5 L (11.4-16.0) gm/dL Hct 29.3 L (34.0-46.0) % MCV 71.2 L (80.0-100.0) fL MCH 20.5 L (25.0-35.0) pg MCHC 28.8 L (31.0-37.0) g/dL RDW 20.6 H (11.5-15.5) % ESR (0-20) mm/hr PT (9.0-12.0) sec INR (<1.2) Creatinine (0.52-1.04) mg/dL POC Glucose (mg/dL) 126 H 106 H (75-99) mg/dL Total Protein (6.3-8.2) g/dL Albumin (3.5-5.0) g/dL 10/25/17 10/25/17 Range/Units 06:57 06:57 Hgb (11.4-16.0) gm/dL Hct (34.0-46.0) % MCV (80.0-100.0) fL MCH (25.0-35.0) pg MCHC (31.0-37.0) g/dL RDW (11.5-15.5) % ESR (0-20) mm/hr PT 25.8 H (9.0-12.0) sec INR 2.9 H (<1.2) Creatinine 1.27 H (0.52-1.04) mg/dL POC Glucose (mg/dL) (75-99) mg/dL Total Protein 5.7 L (6.3-8.2) g/dL Albumin 3.2 L (3.5-5.0) g/dL Microbiology - Last 24 Hours (Table) 10/23/17 05:35 Blood Culture - Preliminary Blood No Growth after 48 hours Assessment and Plan Plan: 1. Dental abscess. CT facial bone and neck ordered to be done as soon as possible. Indomethacin switched to ertapenem due to patient's side effects and hypercoagulopathy with Coumadin. Infectious disease consulted. ENT consult appreciated. Continue pain control with Percocet and morphine. PICC line has been ordered and INR will be reviewed just with fresh frozen plasma. She will be resumed on Coumadin tonight at 1 mg and recheck INR in the morning. 2. Hypercoagulopathy secondary to Coumadin use and antibiotics. Coumadin resumed. Recheck INR in the morning. 3. Chronic kidney diseasestage III with baseline creatinine 1.3 4. History of heart transplant in 2001, stable. continue CellCept 500 mg twice daily, Sirolimus 1 mg every 48 hours. 5. History of paroxysmal atrial fibrillation status post ablation. Coumadin is on hold. Continue Lopressor 12.5 mg twice daily. 6. Hypertension. Continue hydralazine 50 mg 3 times daily, Lopressor 12.5 mg twice daily. 7. Gastroesophageal reflux disease. Continue Protonix. 8. Hypothyroidism. Continue levothyroxine 75 g daily. 9. Hyperlipidemia. Continue atorvastatin 10 mg at bedtime. 10. CODE STATUS full code Discharge plan: Return home Impression and plan of care have been directed as dictated by the signing physician. Manisha Boyle nurse practitioner acting as scribe for signing physician.
--- NOTE | 2017-10-26 16:16 | P.DS ---
Providers Date of admission: 10/24/17 14:28 Expected date of discharge: 10/26/17 Attending physician: Antonia Roe MD Consults: 10/23/17 14:53 Consult Physician Routine Consulting Provider: Joyce Venegas Consult Reason/Comments: dental abscess, multiple allergies to antibiotics Do you want consulting provider notified?: Yes 10/23/17 15:13 Consult Physician Routine Consulting Provider: Jack Leon Consult Reason/Comments: r/o dental abscess Do you want consulting provider notified?: Yes 10/23/17 18:13 Consult Physician Routine Consulting Provider: Jeyson Kidd Consult Reason/Comments: Mouth pain/recent oral surgery Do you want consulting provider notified?: Yes Primary care physician: Gilmar Al [facility] Course: 66 years old female patient of Dr. 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 Patient comes in with the complaining of right jaw pain that started 24 hours ago. Patient had a root canal surgery one month ago on and was on Coumadin prior to that. She does have Coumadin coagulopathy when initiated on clindamycin. Patient is ALLERGIC to penicillin, Keflex, Cipro in the form of hives and rash. Clindamycin switched to ertapenem and due to the side effects. Dr. Davila consulted. No imaging has been performed in the ER. Will get CT of the facial bone and neck to rule out dental abscess ENT will be consulted. If no abscess collection patient will follow up being ENT. Percocet with morphine will be continued for pain control 10/24: Patient states the swelling in her mouth is low but better. No trouble with swallowing. She states the pain is still there and quite intense. She denies any ALLERGIC reaction or hives from antibiotics. She is followed by Dr. Davila and remains on ertapenem. Transplant team was contacted and patient resumed back on her normal dose of CellCept and Sirolimus 1 mg changed from daily to every 48 hours per recommendations from the transplant team. INR today is 3.9 and Coumadin will remain on hold. 10/25: INR today is 2.9. Creatinine is at 1.27. Blood culture is showing no growth at 48 hours. Patient has been afebrile. We are planning to reverse INR and have midline placed this afternoon. Discussed with this plan team at [facility]. Patient was seen by oral surgeon, Dr. Lira. No plan for any surgical intervention. 10/26: Patient had midline placed yesterday evening. She was given Coumadin 1 mg last night and repeat INR is 1.7. Patient has been instructed to take Coumadin 2.5 mg and have recheck INR in 2 days. Patient was requesting Percocet for pain control which was given a 3 day supply and opioid start talking form was completed. Patient will be discharged home today in stable condition. Discharge diagnoses: 1. Dental abscess. 2. Hypercoagulopathy secondary to Coumadin use and antibiotics. 3. Chronic kidney diseasestage III with baseline creatinine 1.3 4. History of heart transplant in 2001, stable. 5. History of paroxysmal atrial fibrillation status post ablation. 6. Hypertension. 7. Gastroesophageal reflux disease. 8. Hypothyroidism. 9. Hyperlipidemia. Discharge plan: Return home Impression and plan of care have been directed as dictated by the signing physician. Manisha Boyle nurse practitioner acting as scribe for signing physician. Patient Condition at Discharge: Good Plan - Discharge Summary Discharge Rx Participant: No New Discharge Prescriptions: New Ertapenem [INVanz] 1 gm IVPB Q24H #14 bag Warfarin [Coumadin] 2.5 mg PO DAILY@1800 #75 tab oxyCODONE-APAP 5-325MG [Percocet 5-325 mg] 1 each PO Q4HR PRN #18 tab PRN Reason: Severe Pain Continue Sirolimus 1 mg PO HS Atorvastatin Calcium [Lipitor] 10 mg PO HS hydrALAZINE HCL [Apresoline] 50 mg PO TID Metoprolol Tartrate [Lopressor] 12.5 mg PO BID Levothyroxine Sodium [Synthroid] 75 mcg PO DAILY Pantoprazole Sodium [Protonix] 40 mg PO DAILY Furosemide [Lasix] 40 mg PO Q48H Furosemide [Lasix] 40 mg PO DAILY Mycophenolate Mofetil [Cellcept] 500 mg PO BID Topiramate [Topamax] 50 mg PO BID Potassium Chloride [Klor-Con 20] 20 - 40 meq PO DAILY Butorphanol Tartrate [Stadol Nasal Fults] 1 spray NASAL Q4H PRN PRN Reason: MIGRAINES Lisinopril [Zestril] 2.5 mg PO DAILY Insulin Regular, Human [NovoLIN R] See Protocol SQ AC-TID Insulin NPH Human Isophane [NovoLIN N] 35 unit SQ BID Discontinued Warfarin Sodium [Jantoven] 3 mg PO HS Discharge Medication List Atorvastatin Calcium [Lipitor] 10 mg PO HS 06/24/16 [History] Levothyroxine Sodium [Synthroid] 75 mcg PO DAILY 06/24/16 [History] Metoprolol Tartrate [Lopressor] 12.5 mg PO BID 06/24/16 [History] Pantoprazole Sodium [Protonix] 40 mg PO DAILY 06/24/16 [History] Sirolimus 1 mg PO HS 06/24/16 [History] hydrALAZINE HCL [Apresoline] 50 mg PO TID 06/24/16 [History] Butorphanol Tartrate [Stadol Nasal Fults] 1 spray NASAL Q4H PRN 03/03/17 [ History] Furosemide [Lasix] 40 mg PO DAILY 03/03/17 [History] Furosemide [Lasix] 40 mg PO Q48H 03/03/17 [History] Mycophenolate Mofetil [Cellcept] 500 mg PO BID 03/03/17 [History] Potassium Chloride [Klor-Con 20] 20 - 40 meq PO DAILY 03/03/17 [History] Topiramate [Topamax] 50 mg PO BID 03/03/17 [History] Lisinopril [Zestril] 2.5 mg PO DAILY 09/06/17 [History] Insulin NPH Human Isophane [NovoLIN N] 35 unit SQ BID 10/23/17 [History] Insulin Regular, Human [NovoLIN R] See Protocol SQ AC-TID 10/23/17 [History] Ertapenem [INVanz] 1 gm IVPB Q24H #14 bag 10/25/17 [Rx] Warfarin [Coumadin] 2.5 mg PO DAILY@1800 #75 tab 10/26/17 [Rx] oxyCODONE-APAP 5-325MG [Percocet 5-325 mg] 1 each PO Q4HR PRN #18 tab 10/26/17 [ Rx] Follow up Appointment(s)/Referral(s): Gilmar Al MD [Primary Care Provider] - 10/31/17 2:30 pm Joyce Venegas MD [STAFF PHYSICIAN] - 11/07/17 1:45 pm ([facility]) Ambulatory/Diagnostic Orders: Basic Metabolic Panel [LAB.AMB] Location: None Selected Complete Blood Count w/diff [LAB.AMB] Location: None Selected Prothrombin Time INR [LAB.AMB] Location: None Selected Activity/Diet/Wound Care/Special Instructions: Patient is set up at [facility] for tue10/27/17 at 1:45 pm please arrive 1/2 hr early for first visit. Discharge Disposition: HOME SELF-CARE
[2017-10-26] MEDS ORDERED: WARFARIN 1 MG TAB PO SCH (18:00)
== END 2017-10-26 14:15 | disposition home or self-care (01) | DRG 158 ==
LOC: EC 02:14 → 5MS5E 04:47 → OBSVTOIN 10-24 14:28
PROVIDERS: ADMIT Internal Medicine; ATTEND Internal Medicine
PROC: 05H633Z Insertion of Infusion Device into Left Subclavian Vein, Percutaneous Approach (ICD-10-PCS; principal; 2017-10-25 17:50)
PROC: B547ZZA Ultrasonography of Left Subclavian Vein, Guidance (ICD-10-PCS; 2017-10-25 17:50)
DX: K04.7 Periapical abscess without sinus (principal); Z94.1 Heart transplant status; K12.2 Cellulitis and abscess of mouth; I48.0 Paroxysmal atrial fibrillation; E10.22 Type 1 diabetes mellitus with diabetic chronic kidney disease; E03.9 Hypothyroidism, unspecified; E78.5 Hyperlipidemia, unspecified; E10.9 Type 1 diabetes mellitus without complications; K02.9 Dental caries, unspecified; I12.9 Hypertensive chronic kidney disease with stage 1 through stage 4 chronic kidney disease, or unspecified chronic kidney disease; N18.3 Chronic kidney disease, stage 3 (moderate); R79.1 Abnormal coagulation profile; T45.515A Adverse effect of anticoagulants, initial encounter; K21.9 Gastro-esophageal reflux disease without esophagitis; Z79.4 Long term (current) use of insulin; Z79.01 Long term (current) use of anticoagulants; Z79.890 Hormone replacement therapy; Z79.899 Other long term (current) drug therapy; Z87.798 Personal history of other (corrected) congenital malformations; Z90.49 Acquired absence of other specified parts of digestive tract; Z85.828 Personal history of other malignant neoplasm of skin; Z87.891 Personal history of nicotine dependence; Z98.51 Tubal ligation status; Z87.19 Personal history of other diseases of the digestive system; Z88.1 Allergy status to other antibiotic agents; Z88.5 Allergy status to narcotic agent; Z88.0 Allergy status to penicillin; Z88.8 Allergy status to other drugs, medicaments and biological substances; Z82.49 Family history of ischemic heart disease and other diseases of the circulatory system
CPT/HCPCS: 36415; 36569; 70355; 70491; 76937; 80048; 80053; 85025; 85610; 85652; 85730; 86140; 86850; 86900; 86901; 87040; 96365; 99284

== ENCOUNTER → 2017-10-28 | Outpatient (CLI) | payer MEDICARE, OTHER ==
[2017-10-28 10:11] LABS: INR 1.8 (<1.2); Prothrombin Time 16.2 sec (9.0-12.0)
== END | disposition home or self-care (01) ==
LOC: LABWHC1 09:39
PROVIDERS: ATTEND Internal Medicine
DX: I48.0 Paroxysmal atrial fibrillation (principal)
CPT/HCPCS: 36415; 85610

== ENCOUNTER → 2017-11-01 | Outpatient (CLI) | payer MEDICARE, OTHER ==
[2017-11-01 11:28] LABS: Anisocytosis Slight; Basophils # (A) 0.1 k/uL (0-0.2); Basophils % (A) 1 %; Eosinophils # (A) 0.2 k/uL (0-0.7); Eosinophils % (A) 3 %; HCT 34.7 % (34.0-46.0); HGB 10.4 gm/dL (11.4-16.0); Hypochromasia Marked; Lymphocytes % (A) 22 %; MCH 21.8 pg (25.0-35.0); MCV 72.5 fL (80.0-100.0); Mean Platelet Volume 7.6; Microcytosis Marked; Monocytes # (A) 0.4 k/uL (0-1.0); Monocytes % (A) 4 %; Neutrophils # (A) 6.3 k/uL (1.3-7.7); Neutrophils % (A) 70 %; Platelet Count 286 k/uL (150-450); RBC 4.78 m/uL (3.80-5.40); RDW 19.5 % (11.5-15.5); WBC 9.1 k/uL (3.8-10.6)
[2017-11-01 11:43] LABS: Albumin 4.1 g/dL (3.5-5.0); Calcium 9.4 mg/dL (8.4-10.2); Magnesium 2.3 mg/dL (1.6-2.3); Potassium 3.9 mmol/L (3.5-5.1); Total Bilirubin 0.4 mg/dL (0.2-1.3)
== END | disposition home or self-care (01) ==
LOC: LABWHC1 10:23
PROVIDERS: ATTEND Internal Medicine
DX: I48.91 Unspecified atrial fibrillation (principal); I50.30 Unspecified diastolic (congestive) heart failure; T86.21 Heart transplant rejection; T86.22 Heart transplant failure; T86.23 Heart transplant infection; T86.290 Cardiac allograft vasculopathy; E78.2 Mixed hyperlipidemia; Z51.81 Encounter for therapeutic drug level monitoring; Z79.01 Long term (current) use of anticoagulants
CPT/HCPCS: 36415; 80053; 82550; 83735; 83880; 85025

== ENCOUNTER → 2017-11-30 | Outpatient (CLI) | payer MEDICARE, OTHER ==
[2017-11-30 10:30] LABS: Anisocytosis Slight; Basophils % (A) 1 %; Eosinophils # (A) 0.2 k/uL (0-0.7); Eosinophils % (A) 2 %; HCT 35.2 % (34.0-46.0); HGB 10.3 gm/dL (11.4-16.0); Hypochromasia Marked; Lymphocytes # (A) 1.6 k/uL (1.0-4.8); Lymphocytes % (A) 21 %; MCH 22.3 pg (25.0-35.0); MCHC 29.2 g/dL (31.0-37.0); MCV 76.4 fL (80.0-100.0); Mean Platelet Volume 7.3; Microcytosis Slight; Monocytes # (A) 0.6 k/uL (0-1.0); Monocytes % (A) 7 %; Neutrophils # (A) 5.2 k/uL (1.3-7.7); Neutrophils % (A) 69 %; Platelet Count 334 k/uL (150-450); WBC 7.7 k/uL (3.8-10.6)
[2017-11-30 10:49] LABS: Calcium 9.5 mg/dL (8.4-10.2); Magnesium 2.1 mg/dL (1.6-2.3); Potassium 3.8 mmol/L (3.5-5.1); Total Bilirubin 0.7 mg/dL (0.2-1.3); Total Protein 7.3 g/dL (6.3-8.2)
== END ==
LOC: LABWHC1 09:11
PROVIDERS: ATTEND Internal Medicine
DX: T86.20 Unspecified complication of heart transplant (principal)
CPT/HCPCS: 36415; 80053; 83735; 83880; 85025; 85610

== ENCOUNTER → 2017-12-20 | Outpatient (CLI) | payer MEDICARE, OTHER ==
[2017-12-20 12:12] LABS: Albumin 3.6 g/dL (3.5-5.0); Calcium 9.3 mg/dL (8.4-10.2); Magnesium 1.7 mg/dL (1.6-2.3); Potassium 3.7 mmol/L (3.5-5.1); Total Bilirubin 0.7 mg/dL (0.2-1.3); Total Protein 6.7 g/dL (6.3-8.2)
[2017-12-20 12:26] LABS: Anisocytosis Slight; Basophils % (A) 0 %; Eosinophils # (A) 0.1 k/uL (0-0.7); Eosinophils % (A) 1 %; HCT 33.1 % (34.0-46.0); HGB 10.2 gm/dL (11.4-16.0); Hypochromasia Moderate; Lymphocytes # (A) 1.8 k/uL (1.0-4.8); Lymphocytes % (A) 23 %; MCH 22.9 pg (25.0-35.0); MCHC 30.9 g/dL (31.0-37.0); MCV 74.4 fL (80.0-100.0); Mean Platelet Volume 7.3; Microcytosis Moderate; Monocytes # (A) 0.5 k/uL (0-1.0); Monocytes % (A) 6 %; Neutrophils # (A) 5.1 k/uL (1.3-7.7); Neutrophils % (A) 68 %; Platelet Count 362 k/uL (150-450); RBC 4.46 m/uL (3.80-5.40); RDW 17.2 % (11.5-15.5); WBC 7.5 k/uL (3.8-10.6)
== END | disposition home or self-care (01) ==
LOC: LABWHC1 10:44
PROVIDERS: ATTEND Internal Medicine
DX: T86.21 Heart transplant rejection (principal); T86.23 Heart transplant infection; T86.290 Cardiac allograft vasculopathy; E78.2 Mixed hyperlipidemia; I50.30 Unspecified diastolic (congestive) heart failure
CPT/HCPCS: 36415; 80053; 82550; 83735; 83880; 85025

== ENCOUNTER 2017-12-21 19:48 | Emergency (ER) | payer MEDICARE, OTHER ==
[2017-12-21 19:54] VITALS: BP 117/71; PULSE 90; RESP 20; TEMP 98.3
[2017-12-21] MEDS ORDERED: MORPHINE SULFATE 4 MG/ML SYRINGE IM STA (20:50)
--- NOTE | 2017-12-21 21:01 | ED ---
General Adult HPI - General Chief complaint: Dental/Oral Stated complaint: DENTAL PAIN Time Seen by Provider: 12/21/17 20:02 Source: patient Mode of arrival: ambulatory Limitations: no limitations - History of Present Illness Initial comments: Patient is a 67-year-old female who presents the emergency department with complaint of right lower jaw pain that started yesterday. Her dentist prescribed her clindamycin which she has been taking since yesterday. Patient states she's been taking Percocet for pain last dose was 4 PM today. She has an appointment scheduled with an oral surgeon tomorrow. She comes the emergency department because she states she cannot tolerate her pain. She does not want a dental block or to try Orajel. She reports that she cannot take ibuprofen. She reports that she is able to eat with some difficulty but is able to drink without any difficulty. Patient denies any recent fever, chills, shortness of breath, chest pain, back pain, abdominal pain, nausea or vomiting, numbness or tingling, constipation or diarrhea, headaches or visual changes, or any other complaints. - Related Data Home Medications Medication Instructions Recorded Confirmed Atorvastatin Calcium [Lipitor] 10 mg PO HS 06/24/16 12/21/17 Levothyroxine Sodium [Synthroid] 75 mcg PO DAILY 06/24/16 12/21/17 Metoprolol Tartrate [Lopressor] 12.5 mg PO BID 06/24/16 12/21/17 Pantoprazole Sodium [Protonix] 40 mg PO DAILY 06/24/16 12/21/17 Sirolimus 1 mg PO HS 06/24/16 12/21/17 hydrALAZINE HCL [Apresoline] 50 mg PO TID 06/24/16 12/21/17 Butorphanol Tartrate [Stadol Nasal 1 spray NASAL Q4H PRN 03/03/17 12/21/17 [place]] Furosemide [Lasix] 40 mg PO DAILY 03/03/17 12/21/17 Furosemide [Lasix] 40 mg PO Q48H 03/03/17 12/21/17 Mycophenolate Mofetil [Cellcept] 500 mg PO BID 03/03/17 12/21/17 Potassium Chloride [Klor-Con 20] 20 - 40 meq PO DAILY 03/03/17 12/21/17 Topiramate [Topamax] 50 mg PO BID 03/03/17 12/21/17 Lisinopril [Zestril] 2.5 mg PO DAILY 09/06/17 12/21/17 Insulin NPH Human Isophane 35 unit SQ BID 10/23/17 12/21/17 [NovoLIN N] Insulin Regular, Human [NovoLIN R] See Protocol SQ AC-TID 10/23/17 12/21/17 Apixaban [Eliquis] 5 mg PO BID 12/21/17 12/21/17 Previous Rx's Medication Instructions Recorded Ertapenem [INVanz] 1 gm IVPB Q24H #14 bag 10/25/17 oxyCODONE-APAP 5-325MG [Percocet 1 each PO Q4HR PRN #18 tab 10/26/17 5-325 mg] Allergies Allergy/AdvReac Type Severity Reaction Status Date / Time cephalexin [From Keflex] Allergy Rash/Hives Verified 12/21/17 19:54 ciprofloxacin [From Cipro] Allergy Rash/Hives Verified 12/21/17 19:54 codeine Allergy Unknown Verified 12/21/17 19:54 hydrocodone [From Lortab] Allergy Unknown Verified 12/21/17 19:54 hydromorphone [From Dilaudid] Allergy Rash/Hives Verified 12/21/17 19:54 hydroxyprogesterone Allergy Unknown Verified 12/21/17 19:54 opium (anthroposophic) Allergy Unknown Verified 12/21/17 19:54 Penicillins Allergy Unknown Verified 12/21/17 19:54 simvastatin Allergy Unknown Verified 12/21/17 19:54 tramadol HCl [From Ultram] Allergy Unknown Verified 12/21/17 19:54 Review of Systems ROS Statement: Those systems with pertinent positive or pertinent negative responses have been documented in the HPI. ROS Other: All systems not noted in ROS Statement are negative. 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 History of Any Multi-Drug Resistant Organisms: None Reported Past Surgical History: Appendectomy, Breast Surgery, Cardiac Ablation, Cholecystectomy, Tonsillectomy, Tubal Ligation Additional Past Surgical History / Comment(s): Heart Transplant 2001 at [facility], lumbar laminectomy, breast reduction, removal of skin cancer on her left ankle. Past Anesthesia/Blood Transfusion Reactions: No Reported Reaction Additional Past Anesthesia/Blood Transfusion Reaction / Comment(s): Pt has received blood in past without reaction. Past Psychological History: No Psychological Hx Reported Smoking Status: Former smoker Past Alcohol Use History: None Reported Past Drug Use History: None Reported - Past Family History Father Family Medical History: Myocardial Infarction (DC) Additional Family Medical History / Comment(s): Father of a massive DC at the age of 52 yrs. Mother Family Medical History: No Reported History Additional Family Medical History / Comment(s): Mother in her sleep at the age of 82 yrs. Brother(s) Additional Family Medical History / Comment(s): Patient has 2 sisters and one brother with history of coronary artery disease. Patient does not have any children. General Exam - General Exam Comments Initial Comments: General: Well-developed, well-nourished, no acute distress HEENT: No visible abscess inside mouth. Normocephalic/atraumatic, no pharynx erythema, swallowing well, no cervical lymph nodes. Neck: Supple, nontender, trachea midline Chest/Lungs: Normal respirations, no signs of respiratory distress, clear to auscultation bilaterally, no wheezes, rales, or rhonchi Abdomen/GI: Soft, nontender Musculoskeletal: Nontender, moving all extremities, no edema Skin: Warmth, no cyanosis or diaphoresis Neurologic: A&O x 3, CN 2-12 intact Psychiatric: She is crying (due to pain), judgment normal Limitations: no limitations Course Vital Signs 12/21/17 19:52 Temperature 98.3 F Pulse Rate 90 Respiratory 20 Rate Blood Pressure 117/71 O2 Sat by Pulse 96 Oximetry Medical Decision Making - Medical Decision Making Patient is a 67-year-old female who presents to the emergency department with complaints of right lower jaw pain. She sees her oral surgeon tomorrow. She wants something for pain to hold her until then. She takes Percocet at home. She reported that she has taken morphine in the past without any ALLERGIC reactions; she would like morphine here. She was instructed not to drive tonight. Disposition Clinical Impression: Toothache Disposition: HOME SELF-CARE Condition: Good Instructions: Toothache (ED) Additional Instructions: Return to the emergency department if symptoms worsen or any other concerns. Do not drive tonight. See your oral surgeon tomorrow. Is patient prescribed a controlled substance at d/c from ED?: No Referrals: Gilmar Al MD [Primary Care Provider] - 1-2 days Time of Disposition: 21:01
== END 2017-12-21 21:07 | disposition home or self-care (01) ==
LOC: EC 19:48
DX: K08.89 Other specified disorders of teeth and supporting structures (principal); R68.84 Jaw pain; I48.91 Unspecified atrial fibrillation; E11.9 Type 2 diabetes mellitus without complications; K21.9 Gastro-esophageal reflux disease without esophagitis; E07.9 Disorder of thyroid, unspecified; Z87.891 Personal history of nicotine dependence; Z94.1 Heart transplant status; Z85.828 Personal history of other malignant neoplasm of skin; Z90.49 Acquired absence of other specified parts of digestive tract; Z98.51 Tubal ligation status; Z98.890 Other specified postprocedural states; Z79.01 Long term (current) use of anticoagulants; Z79.4 Long term (current) use of insulin; Z79.899 Other long term (current) drug therapy; Z88.0 Allergy status to penicillin; Z88.1 Allergy status to other antibiotic agents; Z88.5 Allergy status to narcotic agent; Z88.8 Allergy status to other drugs, medicaments and biological substances
CPT/HCPCS: 99282; 96372; J2270

== ENCOUNTER → 2018-01-05 | Outpatient (CLI) | payer MEDICARE, OTHER ==
[2018-01-05 08:57] LABS: Anisocytosis Slight; Basophils # (A) 0.1 k/uL (0-0.2); Basophils % (A) 1 %; Eosinophils # (A) 0.1 k/uL (0-0.7); Eosinophils % (A) 2 %; HCT 33.5 % (34.0-46.0); HGB 10.3 gm/dL (11.4-16.0); Hypochromasia Slight; Lymphocytes # (A) 1.5 k/uL (1.0-4.8); Lymphocytes % (A) 19 %; MCH 23.6 pg (25.0-35.0); MCHC 30.6 g/dL (31.0-37.0); MCV 77.2 fL (80.0-100.0); Mean Platelet Volume 7.4; Microcytosis Slight; Monocytes # (A) 0.5 k/uL (0-1.0); Monocytes % (A) 7 %; Neutrophils # (A) 5.2 k/uL (1.3-7.7); Neutrophils % (A) 70 %; Platelet Count 240 k/uL (150-450); RBC 4.34 m/uL (3.80-5.40); RDW 17.8 % (11.5-15.5); WBC 7.5 k/uL (3.8-10.6)
[2018-01-05 09:40] LABS: Albumin 3.8 g/dL (3.5-5.0); Calcium 9.4 mg/dL (8.4-10.2); Magnesium 1.9 mg/dL (1.6-2.3); Potassium 3.8 mmol/L (3.5-5.1); Total Bilirubin 0.8 mg/dL (0.2-1.3); Total Protein 6.9 g/dL (6.3-8.2)
[2018-01-05 16:53] LABS: Iron Saturation 7.31 (12.00-45.00)
== END ==
LOC: LABWHC1 08:03
PROVIDERS: ATTEND Internal Medicine
DX: E78.2 Mixed hyperlipidemia (principal); I50.30 Unspecified diastolic (congestive) heart failure; T86.290 Cardiac allograft vasculopathy; T86.21 Heart transplant rejection; T86.22 Heart transplant failure; T86.23 Heart transplant infection
CPT/HCPCS: 36415; 80053; 80061; 82550; 82728; 83540; 83550; 83735; 83880; 84550; 85025

== ENCOUNTER → 2018-02-03 | Outpatient (CLI) | payer MEDICARE, OTHER ==
[2018-02-03 11:11] LABS: Appearance,Urine Clear (Clear); Bilirubin,Urine Negative (Negative); Blood,Urine Negative (Negative); Color,Urine Colorless; Glucose,Urine (UA) Negative (Negative); Ketones,Urine Negative (Negative); Leukocyte Esterase,Urine Small (Negative); Mucus,Urine Rare /hpf; Nitrite,Urine Negative (Negative); Protein,Urine Negative (Negative); RBC,Urine 3 /hpf (0-5); Specific Gravity,Urine 1.005 (1.001-1.035); Squamous Epithelial Cell,Urine <1 /hpf (0-4); Urobilinogen,Urine <2.0 mg/dL (<2.0); WBC,Urine 16 /hpf (0-5)
[2018-02-03 16:55] LABS: Albumin 4.1 g/dL (3.80-4.90); Albumin/Globulin Ratio 1.86 (1.20-2.10); Calcium 9.4 mg/dL (8.7-10.3); Globulin 2.2 g/dL (2.1-3.7); LDL Cholesterol,Calculated 85.4 mg/dL (0.0-131.0); Potassium 3.6 mmol/L (3.5-5.5); Total Bilirubin 0.5 mg/dL (0.3-1.2); Total Protein 6.3 g/dL (6.2-8.2); VLDL Calculation 23.6 mg/dL (5.00-40.00)
[2018-02-03 20:16] LABS: Hemoglobin A1C 8.8 % (4.0-6.0)
== END ==
LOC: LABWHC1 09:58
PROVIDERS: ATTEND Internal Medicine Endocrinology, Diabetes & Metabolism
DX: E11.22 Type 2 diabetes mellitus with diabetic chronic kidney disease (principal); E11.65 Type 2 diabetes mellitus with hyperglycemia; N18.3 Chronic kidney disease, stage 3 (moderate)
CPT/HCPCS: 36415; 80053; 80061; 81001; 82043; 82570; 83036; 84443; 87086

== ENCOUNTER → 2018-03-30 | Outpatient (CLI) | payer MEDICARE, OTHER ==
[2018-03-30 12:21] LABS: Basophils % (A) 1 %; Eosinophils # (A) 0.2 k/uL (0-0.7); Eosinophils % (A) 2 %; HCT 37.8 % (34.0-46.0); HGB 12.1 gm/dL (11.4-16.0); Lymphocytes # (A) 1.9 k/uL (1.0-4.8); Lymphocytes % (A) 24 %; MCH 25.8 pg (25.0-35.0); MCHC 32.1 g/dL (31.0-37.0); MCV 80.2 fL (80.0-100.0); Mean Platelet Volume 7.8; Monocytes # (A) 0.5 k/uL (0-1.0); Monocytes % (A) 6 %; Neutrophils # (A) 5.3 k/uL (1.3-7.7); Neutrophils % (A) 66 %; Platelet Count 300 k/uL (150-450); RBC 4.72 m/uL (3.80-5.40); RDW 15.2 % (11.5-15.5)
[2018-03-30 17:23] LABS: Albumin 4.2 g/dL (3.80-4.90); Albumin/Globulin Ratio 2.1 (1.20-2.10); Anion Gap 11.3 mmol/L (4.00-12.00); Calcium 9.4 mg/dL (8.7-10.3); Carbon Dioxide 28.7 mmol/L (21.6-31.8); Magnesium 1.9 mg/dL (1.5-2.4); Potassium 4.3 mmol/L (3.5-5.5); Total Bilirubin 0.4 mg/dL (0.3-1.2); Total Protein 6.2 g/dL (6.2-8.2)
== END ==
LOC: LABWHC1 10:43
PROVIDERS: ATTEND Internal Medicine
DX: E78.2 Mixed hyperlipidemia (principal); I50.30 Unspecified diastolic (congestive) heart failure; T86.21 Heart transplant rejection; T86.22 Heart transplant failure; T86.23 Heart transplant infection; T86.290 Cardiac allograft vasculopathy; T86.20 Unspecified complication of heart transplant; Z94.1 Heart transplant status
CPT/HCPCS: 36415; 80053; 82550; 83735; 85025

== ENCOUNTER → 2018-04-07 | Outpatient (CLI) | payer MEDICARE, OTHER ==
--- NOTE | 2018-04-07 10:06 | MR ---
EXAMINATION TYPE: MR brain wo con DATE OF EXAM: 04/07/2018 COMPARISON: NONE HISTORY: HEADACHE T1-weighted sagittal, T2, FLAIR, and diffusion axial, and T2 coronal coronal views of the brain are s ubmitted. There is no evidence of acute ischemia. The ventricles, basal cisterns, and sulci overlying the conv exities are consistent with the patient's age. There is no mass effect. Craniocervical junction maintained. Partially empty sella turcica noted and there is a small amount o f fluid surrounding the optic nerves which can be associated with benign increased intracranial hyper tension. Areas of abnormal signal involving the meagan are noted and there are a few scattered areas of focal ab normal signal within the white matter bilaterally. Areas of abnormal signal involving the basal ganglia suggestive of prominent Virchow-Didier spaces or remote tiny lacunar infarct.. No cerebellopontine angle mass. Changes of chronic sinusitis are noted and there suggestion of a nasa l septal deviation. Nonspecific localized heterogeneous signal the inner table of right parietal bone . IMPRESSION: 1. Partially empty sella turcica which is a nonspecific finding. There also is a trace amount of flui d surrounding the optic nerves which can occasionally be seen with benign increased intracranial hype rtension correlate clinically. 2. Chronic sinusitis. 3. Mild nonspecific white matter changes most typical remote microvascular ischemia. 4. Nonspecific signal within the inner table of the right parietal bone questionable significance cou ld be followed short-term basis with CT head with bone windows. There are 5 there is hypertrophic anyi nge of the base of the skull on the left at the level the occipital condyle articulation with CT to v ertebral body resulting in mild anterolateral compression of the thecal sac and narrowing of the spin al canal.
== END | disposition home or self-care (01) ==
LOC: RADMRIMAIN 09:02
PROVIDERS: ATTEND Family Medicine
DX: I67.82 Cerebral ischemia (principal); R90.89 Other abnormal findings on diagnostic imaging of central nervous system
CPT/HCPCS: 70551

== ENCOUNTER → 2018-04-18 | Outpatient (CLI) | payer MEDICARE, OTHER ==
[2018-04-18 11:56] VITALS: BP 171/60; PULSE 96; RESP 16
== END ==
LOC: PNWHC3 11:34
PROVIDERS: ATTEND Anesthesiology
DX: Z53.21 Procedure and treatment not carried out due to patient leaving prior to being seen by health care provider (principal)
CPT/HCPCS: 99211

== ENCOUNTER → 2018-05-03 | Outpatient (CLI) | payer MEDICARE, OTHER ==
[2018-05-03 11:09] LABS: Basophils # (A) 0.1 k/uL (0-0.2); Basophils % (A) 1 %; Eosinophils # (A) 0.1 k/uL (0-0.7); Eosinophils % (A) 2 %; HGB 12.2 gm/dL (11.4-16.0); Hypochromasia Slight; Lymphocytes # (A) 1.6 k/uL (1.0-4.8); Lymphocytes % (A) 22 %; MCH 25.5 pg (25.0-35.0); MCHC 31.3 g/dL (31.0-37.0); MCV 81.5 fL (80.0-100.0); Mean Platelet Volume 6.8; Monocytes # (A) 0.5 k/uL (0-1.0); Monocytes % (A) 6 %; Neutrophils % (A) 68 %; Platelet Count 217 k/uL (150-450); RBC 4.79 m/uL (3.80-5.40); RDW 14.7 % (11.5-15.5); WBC 7.3 k/uL (3.8-10.6)
[2018-05-03 16:20] LABS: Albumin 4.2 g/dL (3.80-4.90); Albumin/Globulin Ratio 1.83 (1.60-3.17); Anion Gap 12.4 mmol/L (4.00-12.00); Calcium 9.6 mg/dL (8.7-10.3); Carbon Dioxide 25.6 mmol/L (21.6-31.8); Globulin 2.3 g/dL (1.6-3.3); Potassium 4.4 mmol/L (3.5-5.5); Total Bilirubin 0.5 mg/dL (0.3-1.2); Total Protein 6.5 g/dL (6.2-8.2)
== END | disposition home or self-care (01) ==
LOC: LABWHC1 09:57
PROVIDERS: ATTEND Internal Medicine
DX: T86.21 Heart transplant rejection (principal); T86.22 Heart transplant failure; T86.23 Heart transplant infection; T86.290 Cardiac allograft vasculopathy; E78.2 Mixed hyperlipidemia; I50.30 Unspecified diastolic (congestive) heart failure
CPT/HCPCS: 36415; 80053; 82550; 83735; 85025

== ENCOUNTER → 2018-05-26 | Outpatient (CLI) | payer MEDICARE, OTHER ==
[2018-05-26 20:28] LABS: Albumin 4.3 g/dL (3.80-4.90); Albumin/Globulin Ratio 1.79 (1.60-3.17); Anion Gap 11.9 mmol/L (4.00-12.00); Calcium 9.6 mg/dL (8.7-10.3); Carbon Dioxide 28.1 mmol/L (21.6-31.8); Globulin 2.4 g/dL (1.6-3.3); LDL Cholesterol,Calculated 98.2 mg/dL (0.0-131.0); Potassium 4.3 mmol/L (3.5-5.5); Total Bilirubin 0.4 mg/dL (0.2-1.2); Total Protein 6.7 g/dL (6.2-8.2); VLDL Calculation 23.8 mg/dL (5.00-40.00)
[2018-05-26 23:34] LABS: Hemoglobin A1C 9.7 % (4.0-6.0)
== END | disposition home or self-care (01) ==
LOC: LABWHC1 12:28
PROVIDERS: ATTEND Internal Medicine Endocrinology, Diabetes & Metabolism
DX: E11.65 Type 2 diabetes mellitus with hyperglycemia (principal); G43.709 Chronic migraine without aura, not intractable, without status migrainosus
CPT/HCPCS: 36415; 80053; 80061; 82043; 82306; 82570; 83036; 84443

== ENCOUNTER 2018-06-21 08:31 | Emergency (ER) | payer MEDICARE, OTHER ==
[2018-06-21 08:36] VITALS: TEMP 97.8
[2018-06-21] MEDS ORDERED: SODIUM CHLORIDE 0.9% 500 ML 500 ML IV STA (08:53)
[2018-06-21] MEDS ORDERED: ONDANSETRON 4 MG/2 ML VIAL IVP STA (08:54)
--- NOTE | 2018-06-21 08:57 | ED ---
General Adult HPI - General Chief complaint: Arrhythmia/Palpitations Stated complaint: nausea Time Seen by Provider: 06/21/18 08:31 Source: patient, RN notes reviewed Mode of arrival: ambulatory Limitations: no limitations - History of Present Illness Initial comments: This is a 67-year-old female who presents emergency Department with a past medical history significant for Radha anomaly and had a heart transplant. Patient comes in today because she was having palpitations and she does have a history of A. fib but did have an ablation about a year ago. Patient states she's had multiple episodes of these palpitations and she was seen at [facility] yesterday and he wanted to 23 hour her overnight but she did not want to stay. Patient states overnight she had more palpitations nausea and some lightheadedness which she decided to come the emergency department. Patient states she was somewhat short of breath but not very bad. Patient also complains of some left sided upper back pain. Patient denies any chest pain. Patient denies any fever chills or cough. Patient denies any abdominal pain. Patient denies any vomiting or diarrhea. Patient denies any near syncopal or syncopal episode. Patient denies any numbness or weakness focally - Related Data Home Medications Medication Instructions Recorded Confirmed Atorvastatin Calcium [Lipitor] 10 mg PO HS 06/24/16 06/21/18 Levothyroxine Sodium [Synthroid] 75 mcg PO DAILY 06/24/16 06/21/18 Pantoprazole Sodium [Protonix] 40 mg PO BID 06/24/16 06/21/18 Sirolimus 1 mg PO HS 06/24/16 06/21/18 hydrALAZINE HCL [Apresoline] 50 mg PO TID 06/24/16 06/21/18 Butorphanol Tartrate [Stadol Nasal 1 spray EA NOSTRIL Q4H PRN 03/03/17 06/21/18 [place]] Furosemide [Lasix] 40 mg PO DAILY 03/03/17 06/21/18 Furosemide [Lasix] 40 mg PO Q48H 03/03/17 06/21/18 Mycophenolate Mofetil [Cellcept] 500 mg PO BID 03/03/17 06/21/18 Potassium Chloride [Klor-Con 20] 40 meq PO DAILY 03/03/17 06/21/18 Lisinopril [Zestril] 2.5 mg PO DAILY 09/06/17 06/21/18 Apixaban [Eliquis] 5 mg PO BID 12/21/17 06/21/18 Insulin Glargine,Hum.rec.anlog 46 unit SQ DAILY 06/10/18 06/21/18 [Basaglar Miahikpen U-100] Allergies Allergy/AdvReac Type Severity Reaction Status Date / Time cephalexin [From Keflex] Allergy Rash/Hives Verified 06/21/18 08:57 ciprofloxacin [From Cipro] Allergy Rash/Hives Verified 06/21/18 08:57 codeine Allergy Unknown Verified 06/21/18 08:57 hydrocodone [From Lortab] Allergy Unknown Verified 06/21/18 08:57 hydromorphone [From Dilaudid] Allergy Rash/Hives Verified 06/21/18 08:57 hydroxyprogesterone Allergy Unknown Verified 06/21/18 08:57 opium (anthroposophic) Allergy Unknown Verified 06/21/18 08:57 Penicillins Allergy Unknown Verified 06/21/18 08:57 simvastatin Allergy Unknown Verified 06/21/18 08:57 tramadol HCl [From Ultram] Allergy Unknown Verified 06/21/18 08:57 Review of Systems ROS Statement: Those systems with pertinent positive or pertinent negative responses have been documented in the HPI. ROS Other: All systems not noted in ROS Statement are negative. 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 History of Any Multi-Drug Resistant Organisms: None Reported Past Surgical History: Appendectomy, Breast Surgery, Cardiac Ablation, Cholecystectomy, Tonsillectomy, Tubal Ligation Additional Past Surgical History / Comment(s): Heart Transplant 2001 at [facility], lumbar laminectomy, breast reduction, removal of skin cancer on her left ankle. Past Anesthesia/Blood Transfusion Reactions: No Reported Reaction Additional Past Anesthesia/Blood Transfusion Reaction / Comment(s): Pt has received blood in past without reaction. Past Psychological History: No Psychological Hx Reported Smoking Status: Former smoker Past Alcohol Use History: None Reported Past Drug Use History: None Reported - Past Family History Father Family Medical History: Myocardial Infarction (CT) Additional Family Medical History / Comment(s): Father of a massive CT at the age of 52 yrs. Mother Family Medical History: No Reported History Additional Family Medical History / Comment(s): Mother in her sleep at the age of 82 yrs. Brother(s) Additional Family Medical History / Comment(s): Patient has 2 sisters and one brother with history of coronary artery disease. Patient does not have any children. General Exam - General Exam Comments Initial Comments: GENERAL: Patient is well-developed and well-nourished. Patient is nontoxic and well- hydrated and is in mild distress. ENT: Neck is soft and supple. No significant lymphadenopathy is noted. Oropharynx is clear. Moist mucous membranes. Neck has full range of motion without eliciting any pain. EYES: The sclera were anicteric and conjunctiva were pink and moist. Extraocular movements were intact and pupils were equal round and reactive to light. Eyelids were unremarkable. PULMONARY: Unlabored respirations. Good breath sounds bilaterally. No audible rales rhonchi or wheezing was noted. CARDIOVASCULAR: Patient has regular rate with some extrasystole and is a 1/6 systolic murmur ABDOMEN: Soft and nontender with normal bowel sounds. No palpable organomegaly was noted. There is no palpable pulsatile mass. SKIN: Skin is clear with no lesions or rashes and otherwise unremarkable. NEUROLOGIC: Patient is alert and oriented x3. Cranial nerves II through XII are grossly intact. Motor and sensory are also intact. Normal speech, volume and content. Symmetrical smile. MUSCULOSKELETAL: Normal extremities with adequate strength and full range of motion. No lower extremity swelling or edema. No calf tenderness. LYMPHATICS: No significant lymphadenopathy is noted PSYCHIATRIC: Normal psychiatric evaluation. Limitations: no limitations Course Vital Signs 06/21/18 08:33 Temperature 97.8 F Pulse Rate 78 Respiratory 20 Rate Blood Pressure 162/73 O2 Sat by Pulse 97 Oximetry Medical Decision Making - Medical Decision Making EKG shows sinus rhythm with occasional PAC at 75 bpm NJ interval 152 QRS is 102 QT interval 422 QTC is 471 per patient's EKG shows no ST segment elevation or depression or T wave abnormalities are noted. Chest x-ray shows no acute normalities. I spoke with Dr. Padilla the pinner printed circuit boards for the patient. He recommended staying in this hospital or go to [facility] emergency department and be seen there. Patient refused to do either was in the room and she insisted on going home patient will sign out AMA - Lab Data Result diagrams: 06/21/18 09:35 06/21/18 09:35 Lab Results 06/21/18 06/21/18 06/21/18 Range/Units 09:35 09:35 09:35 WBC 8.2 (3.8-10.6) k/uL RBC 4.52 (3.80-5.40) m/uL Hgb 11.6 (11.4-16.0) gm/dL Hct 35.6 (34.0-46.0) % MCV 78.9 L (80.0-100.0) fL MCH 25.6 (25.0-35.0) pg MCHC 32.5 (31.0-37.0) g/dL RDW 15.0 (11.5-15.5) % Plt Count 245 (150-450) k/uL Neutrophils % 74 % Lymphocytes % 16 % Monocytes % 6 % Eosinophils % 2 % Basophils % 1 % Neutrophils # 6.1 (1.3-7.7) k/uL Lymphocytes # 1.3 (1.0-4.8) k/uL Monocytes # 0.5 (0-1.0) k/uL Eosinophils # 0.1 (0-0.7) k/uL Basophils # 0.0 (0-0.2) k/uL PT 10.7 (9.0-12.0) sec INR 1.0 (<1.2) APTT 28.9 (22.0-30.0) sec Sodium 137 (137-145) mmol/L Potassium 3.6 (3.5-5.1) mmol/L Chloride 97 L (98-107) mmol/L Carbon Dioxide 28 (22-30) mmol/L Anion Gap 12 mmol/L BUN 21 H (7-17) mg/dL Creatinine 1.12 H (0.52-1.04) mg/dL Est GFR (CKD-EPI)AfAm 59 (>60 ml/min/1.73 sqM) Est GFR (CKD-EPI)NonAf 51 (>60 ml/min/1.73 sqM) Glucose 312 H (74-99) mg/dL Calcium 9.5 (8.4-10.2) mg/dL Magnesium 1.7 (1.6-2.3) mg/dL Total Bilirubin 1.2 (0.2-1.3) mg/dL AST 18 (14-36) U/L ALT 22 (9-52) U/L Alkaline Phosphatase 128 H (38-126) U/L Troponin I (0.000-0.034) ng/mL Total Protein 6.8 (6.3-8.2) g/dL Albumin 4.0 (3.5-5.0) g/dL 06/21/18 Range/Units 09:35 WBC (3.8-10.6) k/uL RBC (3.80-5.40) m/uL Hgb (11.4-16.0) gm/dL Hct (34.0-46.0) % MCV (80.0-100.0) fL MCH (25.0-35.0) pg MCHC (31.0-37.0) g/dL RDW (11.5-15.5) % Plt Count (150-450) k/uL Neutrophils % % Lymphocytes % % Monocytes % % Eosinophils % % Basophils % % Neutrophils # (1.3-7.7) k/uL Lymphocytes # (1.0-4.8) k/uL Monocytes # (0-1.0) k/uL Eosinophils # (0-0.7) k/uL Basophils # (0-0.2) k/uL PT (9.0-12.0) sec INR (<1.2) APTT (22.0-30.0) sec Sodium (137-145) mmol/L Potassium (3.5-5.1) mmol/L Chloride (98-107) mmol/L Carbon Dioxide (22-30) mmol/L Anion Gap mmol/L BUN (7-17) mg/dL Creatinine (0.52-1.04) mg/dL Est GFR (CKD-EPI)AfAm (>60 ml/min/1.73 sqM) Est GFR (CKD-EPI)NonAf (>60 ml/min/1.73 sqM) Glucose (74-99) mg/dL Calcium (8.4-10.2) mg/dL Magnesium (1.6-2.3) mg/dL Total Bilirubin (0.2-1.3) mg/dL AST (14-36) U/L ALT (9-52) U/L Alkaline Phosphatase (38-126) U/L Troponin I <0.012 (0.000-0.034) ng/mL Total Protein (6.3-8.2) g/dL Albumin (3.5-5.0) g/dL Disposition Clinical Impression: Palpitations Disposition: Left Against Medical Advice Instructions (If sedation given, give patient instructions): Heart Palpitations (ED) Referrals: Gilmar Al MD [Primary Care Provider] - 1-2 days Time of Disposition: 11:23
[2018-06-21 09:56] LABS: Basophils % (A) 1 %; Eosinophils # (A) 0.1 k/uL (0-0.7); Eosinophils % (A) 2 %; HCT 35.6 % (34.0-46.0); HGB 11.6 gm/dL (11.4-16.0); Lymphocytes # (A) 1.3 k/uL (1.0-4.8); Lymphocytes % (A) 16 %; MCH 25.6 pg (25.0-35.0); MCHC 32.5 g/dL (31.0-37.0); MCV 78.9 fL (80.0-100.0); Mean Platelet Volume 7.4; Monocytes # (A) 0.5 k/uL (0-1.0); Monocytes % (A) 6 %; Neutrophils # (A) 6.1 k/uL (1.3-7.7); Neutrophils % (A) 74 %; Platelet Count 245 k/uL (150-450); RBC 4.52 m/uL (3.80-5.40); WBC 8.2 k/uL (3.8-10.6)
[2018-06-21 10:04] LABS: Partial Thromboplastin Time 28.9 sec (22.0-30.0); Prothrombin Time 10.7 sec (9.0-12.0)
[2018-06-21 10:07] LABS: Calcium 9.5 mg/dL (8.4-10.2); Magnesium 1.7 mg/dL (1.6-2.3); Potassium 3.6 mmol/L (3.5-5.1); Total Bilirubin 1.2 mg/dL (0.2-1.3); Total Protein 6.8 g/dL (6.3-8.2)
--- NOTE | 2018-06-21 10:25 | XR ---
EXAMINATION TYPE: XR chest 2V DATE OF EXAM: 06/21/2018 COMPARISON: 06/10/2018 TECHNIQUE: PA and lateral views submitted. HISTORY: Chest pain FINDINGS: The lungs are clear and there is no pneumothorax, pleural effusion, or focal pneumonia. Postsurgica l changes involving the mediastinum. Hypertrophic and degenerative change of the spine. Surgical clip s in the abdomen. IMPRESSION: 1. No acute process.
[2018-06-21 11:54] VITALS: BP 140/85; PULSE 78; RESP 18
== END 2018-06-21 11:56 | disposition left against medical advice (07) ==
LOC: EC 08:31
DX: R00.2 Palpitations (principal); R11.0 Nausea; R42 Dizziness and giddiness; R06.02 Shortness of breath; M54.9 Dorsalgia, unspecified; I48.91 Unspecified atrial fibrillation; E11.9 Type 2 diabetes mellitus without complications; K21.9 Gastro-esophageal reflux disease without esophagitis; E07.9 Disorder of thyroid, unspecified; Z79.01 Long term (current) use of anticoagulants; Z79.890 Hormone replacement therapy; Z79.4 Long term (current) use of insulin; Z79.899 Other long term (current) drug therapy; Z88.1 Allergy status to other antibiotic agents; Z88.5 Allergy status to narcotic agent; Z88.0 Allergy status to penicillin; Z88.8 Allergy status to other drugs, medicaments and biological substances; Z94.1 Heart transplant status; Z85.828 Personal history of other malignant neoplasm of skin
CPT/HCPCS: 36415; 93005; 80053; 83735; 84484; 85025; 85610; 85730; 71046; 99285; 96374; 96361; J2405

== ENCOUNTER → 2018-07-03 | Outpatient (CLI) | payer MEDICARE, OTHER ==
[2018-07-03 10:31] LABS: Basophils # (A) 0.1 k/uL (0-0.2); Basophils % (A) 1 %; Eosinophils # (A) 0.1 k/uL (0-0.7); Eosinophils % (A) 2 %; HCT 37.6 % (34.0-46.0); HGB 11.7 gm/dL (11.4-16.0); Hypochromasia Slight; Lymphocytes # (A) 1.6 k/uL (1.0-4.8); Lymphocytes % (A) 20 %; MCV 80.6 fL (80.0-100.0); Mean Platelet Volume 7.7; Monocytes # (A) 0.5 k/uL (0-1.0); Monocytes % (A) 7 %; Neutrophils # (A) 5.5 k/uL (1.3-7.7); Neutrophils % (A) 69 %; Platelet Count 263 k/uL (150-450); RBC 4.66 m/uL (3.80-5.40); RDW 15.4 % (11.5-15.5)
[2018-07-03 17:36] LABS: Albumin 4.2 g/dL (3.80-4.90); Anion Gap 9.9 mmol/L (4.00-12.00); Calcium 9.2 mg/dL (8.7-10.3); Carbon Dioxide 27.1 mmol/L (21.6-31.8); Globulin 2.1 g/dL (1.6-3.3); Magnesium 1.9 mg/dL (1.5-2.4); Potassium 4.1 mmol/L (3.5-5.5); Total Bilirubin 0.5 mg/dL (0.3-1.2); Total Protein 6.3 g/dL (6.2-8.2)
== END | disposition home or self-care (01) ==
LOC: LABWHC1 08:42
PROVIDERS: ATTEND Internal Medicine
DX: T86.21 Heart transplant rejection (principal); T86.22 Heart transplant failure; T86.23 Heart transplant infection; T86.290 Cardiac allograft vasculopathy; T86.20 Unspecified complication of heart transplant; E78.2 Mixed hyperlipidemia; I50.30 Unspecified diastolic (congestive) heart failure
CPT/HCPCS: 36415; 80053; 82550; 83735; 85025

== ENCOUNTER → 2018-07-25 | Outpatient (CLI) | payer MEDICARE, OTHER ==
[2018-07-25 17:28] LABS: Anion Gap 8.9 mmol/L (4.00-12.00); Calcium 9.2 mg/dL (8.7-10.3); Carbon Dioxide 25.1 mmol/L (21.6-31.8); Magnesium 1.9 mg/dL (1.5-2.4); Potassium 4.9 mmol/L (3.5-5.5)
== END | disposition home or self-care (01) ==
LOC: LABWHC1 08:58
PROVIDERS: ATTEND Internal Medicine
DX: E78.2 Mixed hyperlipidemia (principal); T86.20 Unspecified complication of heart transplant
CPT/HCPCS: 36415; 80048; 83735

== ENCOUNTER → 2018-08-15 | Outpatient (CLI) | payer MEDICARE, OTHER ==
[2018-08-15 13:05] LABS: INR 0.9 (<1.2); Prothrombin Time 9.9 sec (9.0-12.0)
[2018-08-15 13:06] LABS: Anisocytosis Slight; Basophils # (A) 0.1 k/uL (0-0.2); Basophils % (A) 1 %; Eosinophils # (A) 0.2 k/uL (0-0.7); Eosinophils % (A) 3 %; HCT 37.9 % (34.0-46.0); HGB 11.7 gm/dL (11.4-16.0); Hypochromasia Moderate; Lymphocytes # (A) 1.5 k/uL (1.0-4.8); Lymphocytes % (A) 22 %; MCH 25.6 pg (25.0-35.0); MCHC 30.9 g/dL (31.0-37.0); MCV 82.7 fL (80.0-100.0); Mean Platelet Volume 7.7; Monocytes # (A) 0.4 k/uL (0-1.0); Monocytes % (A) 6 %; Neutrophils # (A) 4.5 k/uL (1.3-7.7); Neutrophils % (A) 67 %; Platelet Count 226 k/uL (150-450); RBC 4.58 m/uL (3.80-5.40); RDW 16.5 % (11.5-15.5); WBC 6.8 k/uL (3.8-10.6)
[2018-08-15 18:35] LABS: Albumin 4.2 g/dL (3.80-4.90); Anion Gap 8.3 mmol/L (4.00-12.00); Calcium 9.3 mg/dL (8.7-10.3); Carbon Dioxide 26.7 mmol/L (21.6-31.8); Globulin 2.1 g/dL (1.6-3.3); Potassium 4.4 mmol/L (3.5-5.5); Total Bilirubin 0.4 mg/dL (0.3-1.2); Total Protein 6.3 g/dL (6.2-8.2)
== END | disposition home or self-care (01) ==
LOC: LABWHC1 11:52
PROVIDERS: ATTEND Internal Medicine
DX: T86.20 Unspecified complication of heart transplant (principal); T86.21 Heart transplant rejection; T86.22 Heart transplant failure; T86.23 Heart transplant infection; T86.290 Cardiac allograft vasculopathy; E78.2 Mixed hyperlipidemia; I50.30 Unspecified diastolic (congestive) heart failure; I48.0 Paroxysmal atrial fibrillation
CPT/HCPCS: 36415; 80053; 82550; 83735; 83880; 85025; 85610

== ENCOUNTER → 2018-08-25 | Outpatient (CLI) | payer MEDICARE, OTHER ==
[2018-08-25 10:57] LABS: Anisocytosis Slight; Basophils % (A) 0 %; Eosinophils # (A) 0.1 k/uL (0-0.7); Eosinophils % (A) 1 %; HCT 37.5 % (34.0-46.0); HGB 11.4 gm/dL (11.4-16.0); Hypochromasia Slight; Lymphocytes # (A) 1.5 k/uL (1.0-4.8); Lymphocytes % (A) 17 %; MCH 25.8 pg (25.0-35.0); MCHC 30.4 g/dL (31.0-37.0); MCV 84.7 fL (80.0-100.0); Mean Platelet Volume 7.2; Monocytes # (A) 0.7 k/uL (0-1.0); Monocytes % (A) 7 %; Neutrophils # (A) 6.7 k/uL (1.3-7.7); Neutrophils % (A) 73 %; Platelet Count 306 k/uL (150-450); RBC 4.43 m/uL (3.80-5.40); RDW 16.9 % (11.5-15.5); WBC 9.2 k/uL (3.8-10.6)
[2018-08-25 16:20] LABS: Albumin 4.5 g/dL (3.80-4.90); Albumin/Globulin Ratio 2.25 (1.60-3.17); Anion Gap 12.9 mmol/L (4.00-12.00); Calcium 9.3 mg/dL (8.7-10.3); Carbon Dioxide 26.1 mmol/L (21.6-31.8); Magnesium 2.2 mg/dL (1.5-2.4); Potassium 4.1 mmol/L (3.5-5.5); Total Bilirubin 0.4 mg/dL (0.3-1.2); Total Protein 6.5 g/dL (6.2-8.2)
== END | disposition home or self-care (01) ==
LOC: LABWHC1 09:34
PROVIDERS: ATTEND Internal Medicine
DX: E78.2 Mixed hyperlipidemia (principal); T86.20 Unspecified complication of heart transplant
CPT/HCPCS: 36415; 80053; 80195; 83735; 83880; 85025

== ENCOUNTER → 2018-09-18 | Outpatient (CLI) | payer MEDICARE, OTHER ==
[2018-09-18 16:22] LABS: T4, Free (Free Thyroxine) 1.2 ng/dL (0.80-1.80)
== END | disposition home or self-care (01) ==
LOC: LABWHC1 10:48
PROVIDERS: ATTEND Internal Medicine
DX: R94.6 Abnormal results of thyroid function studies (principal)
CPT/HCPCS: 36415; 84436; 84439; 84443; 84481

== ENCOUNTER → 2018-10-12 | Outpatient (CLI) | payer MEDICARE, OTHER ==
[2018-10-12 08:05] LABS: Anisocytosis Slight; Basophils # (A) 0.1 k/uL (0-0.2); Basophils % (A) 1 %; Eosinophils # (A) 0.1 k/uL (0-0.7); Eosinophils % (A) 1 %; HCT 30.1 % (34.0-46.0); Lymphocytes # (A) 1.4 k/uL (1.0-4.8); Lymphocytes % (A) 18 %; MCH 26.8 pg (25.0-35.0); MCHC 32.2 g/dL (31.0-37.0); MCV 83.2 fL (80.0-100.0); Mean Platelet Volume 7.5; Monocytes # (A) 0.5 k/uL (0-1.0); Monocytes % (A) 7 %; Neutrophils # (A) 5.6 k/uL (1.3-7.7); Neutrophils % (A) 71 %; Platelet Count 298 k/uL (150-450); RBC 3.62 m/uL (3.80-5.40); RDW 16.4 % (11.5-15.5); WBC 7.9 k/uL (3.8-10.6)
[2018-10-12 08:07] LABS: HGB 9.7 gm/dL (11.4-16.0)
[2018-10-12 11:59] LABS: Magnesium 1.9 mg/dL (1.5-2.4)
[2018-10-12 12:00] LABS: African American GFR (CKD) 35.8 (60.0-200.0); Albumin/Globulin Ratio 2.11 (1.60-3.17); Anion Gap 9.8 mmol/L (4.00-12.00); BUN/Creat Ratio 17.65 Ratio (12.00-20.00); Carbon Dioxide 24.2 mmol/L (21.6-31.8); Globulin 1.9 g/dL (1.6-3.3); Total Bilirubin 0.3 mg/dL (0.3-1.2); Total Protein 5.9 g/dL (6.2-8.2)
[2018-10-12 12:08] LABS: T4, Free (Free Thyroxine) 1.4 ng/dL (0.80-1.80)
[2018-10-12 12:14] LABS: Iron Saturation 6.06 (12.00-45.00)
== END | disposition home or self-care (01) ==
LOC: LABWHC1 06:58
PROVIDERS: ATTEND Internal Medicine
DX: E78.2 Mixed hyperlipidemia (principal); I50.30 Unspecified diastolic (congestive) heart failure; I50.84 End stage heart failure; Z94.1 Heart transplant status
CPT/HCPCS: 36415; 80053; 82550; 82728; 83540; 83550; 83735; 84439; 84443; 85025

== ENCOUNTER → 2018-10-30 | Outpatient (CLI) | payer MEDICARE, OTHER ==
[2018-10-30 08:30] LABS: Anisocytosis Slight; Basophils # (A) 0.1 k/uL (0-0.2); Basophils % (A) 1 %; Eosinophils # (A) 0.2 k/uL (0-0.7); Eosinophils % (A) 2 %; HCT 30.5 % (34.0-46.0); HGB 9.5 gm/dL (11.4-16.0); Hypochromasia Slight; Lymphocytes # (A) 1.6 k/uL (1.0-4.8); Lymphocytes % (A) 20 %; MCH 26.8 pg (25.0-35.0); MCHC 31.1 g/dL (31.0-37.0); MCV 86.3 fL (80.0-100.0); Mean Platelet Volume 7.1; Monocytes # (A) 0.7 k/uL (0-1.0); Monocytes % (A) 9 %; Neutrophils % (A) 65 %; Platelet Count 326 k/uL (150-450); RBC 3.53 m/uL (3.80-5.40); RDW 16.4 % (11.5-15.5); WBC 7.7 k/uL (3.8-10.6)
[2018-10-30 16:23] LABS: African American GFR (CKD) 29.4 (60.0-200.0); Albumin/Globulin Ratio 1.82 (1.60-3.17); Anion Gap 10.6 mmol/L (4.00-12.00); BUN/Creat Ratio 16.5 Ratio (12.00-20.00); Calcium 8.8 mg/dL (8.7-10.3); Carbon Dioxide 27.4 mmol/L (21.6-31.8); Globulin 2.2 g/dL (1.6-3.3); Magnesium 2.1 mg/dL (1.5-2.4); Non-African American GFR(CKD) 25.4 (60.0-200.0); Potassium 4.7 mmol/L (3.5-5.5); Total Bilirubin 0.4 mg/dL (0.3-1.2); Total Protein 6.2 g/dL (6.2-8.2)
== END | disposition home or self-care (01) ==
LOC: LABWHC1 08:00
PROVIDERS: ATTEND Internal Medicine
DX: I50.30 Unspecified diastolic (congestive) heart failure (principal); E78.2 Mixed hyperlipidemia; Z94.1 Heart transplant status
CPT/HCPCS: 36415; 80053; 82550; 83735; 83880; 85025

== ENCOUNTER → 2018-11-15 | Outpatient (CLI) | payer MEDICARE, OTHER ==
[2018-11-15 09:07] LABS: Anisocytosis Slight; Basophils # (A) 0.1 k/uL (0-0.2); Basophils % (A) 1 %; Eosinophils # (A) 0.2 k/uL (0-0.7); Eosinophils % (A) 2 %; HCT 31.3 % (34.0-46.0); HGB 9.7 gm/dL (11.4-16.0); Hypochromasia Moderate; Lymphocytes # (A) 1.8 k/uL (1.0-4.8); Lymphocytes % (A) 23 %; MCH 26.7 pg (25.0-35.0); MCHC 31.1 g/dL (31.0-37.0); MCV 85.7 fL (80.0-100.0); Mean Platelet Volume 7.6; Monocytes # (A) 0.5 k/uL (0-1.0); Monocytes % (A) 6 %; Neutrophils # (A) 5.1 k/uL (1.3-7.7); Neutrophils % (A) 67 %; Platelet Count 306 k/uL (150-450); RBC 3.65 m/uL (3.80-5.40); RDW 16.6 % (11.5-15.5); WBC 7.7 k/uL (3.8-10.6)
[2018-11-15 16:05] LABS: African American GFR (CKD) 35.8 (60.0-200.0); Albumin 4.3 g/dL (3.80-4.90); Albumin/Globulin Ratio 1.95 (1.60-3.17); Anion Gap 12.2 mmol/L (4.00-12.00); BUN/Creat Ratio 17.06 Ratio (12.00-20.00); Calcium 9.5 mg/dL (8.7-10.3); Carbon Dioxide 25.8 mmol/L (21.6-31.8); Globulin 2.2 g/dL (1.6-3.3); Potassium 4.3 mmol/L (3.5-5.5); Total Bilirubin 0.4 mg/dL (0.3-1.2); Total Protein 6.5 g/dL (6.2-8.2)
== END | disposition home or self-care (01) ==
LOC: LABWHC1 08:09
PROVIDERS: ATTEND Internal Medicine
DX: E78.2 Mixed hyperlipidemia (principal); I50.30 Unspecified diastolic (congestive) heart failure; T86.20 Unspecified complication of heart transplant; T86.21 Heart transplant rejection; T86.22 Heart transplant failure; T86.23 Heart transplant infection; T86.290 Cardiac allograft vasculopathy
CPT/HCPCS: 36415; 80053; 82550; 83735; 85025

== ENCOUNTER → 2018-12-29 | Outpatient (CLI) | payer MEDICARE, OTHER ==
[2018-12-29 09:01] LABS: Anisocytosis Slight; Basophils # (A) 0.1 k/uL (0-0.2); Basophils % (A) 1 %; Eosinophils # (A) 0.1 k/uL (0-0.7); Eosinophils % (A) 1 %; HCT 32.5 % (34.0-46.0); HGB 9.9 gm/dL (11.4-16.0); Hypochromasia Moderate; Lymphocytes # (A) 2.8 k/uL (1.0-4.8); Lymphocytes % (A) 39 %; MCH 27.4 pg (25.0-35.0); MCHC 30.4 g/dL (31.0-37.0); Mean Platelet Volume 7.6; Monocytes # (A) 0.4 k/uL (0-1.0); Monocytes % (A) 6 %; Neutrophils # (A) 3.6 k/uL (1.3-7.7); Neutrophils % (A) 50 %; Platelet Count 217 k/uL (150-450); RBC 3.61 m/uL (3.80-5.40); RDW 16.8 % (11.5-15.5); WBC 7.1 k/uL (3.8-10.6)
[2018-12-29 18:51] LABS: African American GFR (CKD) 38.2 (60.0-200.0); Anion Gap 10.8 mmol/L (4.00-12.00); BUN/Creat Ratio 16.25 Ratio (12.00-20.00); Calcium 9.3 mg/dL (8.7-10.3); Carbon Dioxide 27.2 mmol/L (21.6-31.8); Chol/HDL Ratio 5.31; Potassium 4.2 mmol/L (3.5-5.5); Total Bilirubin 0.3 mg/dL (0.3-1.2)
== END | disposition home or self-care (01) ==
LOC: LABWHC1 08:05
PROVIDERS: ATTEND Internal Medicine Endocrinology, Diabetes & Metabolism
DX: E11.65 Type 2 diabetes mellitus with hyperglycemia (principal); T86.20 Unspecified complication of heart transplant; T86.21 Heart transplant rejection; T86.22 Heart transplant failure; T86.23 Heart transplant infection; T86.290 Cardiac allograft vasculopathy; E78.2 Mixed hyperlipidemia; I50.30 Unspecified diastolic (congestive) heart failure; I50.84 End stage heart failure
CPT/HCPCS: 36415; 80053; 80061; 82043; 82570; 83880; 84443; 85025

== ENCOUNTER → 2019-01-02 | Outpatient (CLI) | payer MEDICARE, OTHER ==
--- NOTE | 2019-01-02 16:07 | US ---
EXAMINATION TYPE: US kidneys/renal and bladder DATE OF EXAM: 01/02/2019 COMPARISON: NONE CLINICAL HISTORY: R79.89 abnormal findings of blood chemistry. elevated creatinine, large body habitu s EXAM MEASUREMENTS: Right Kidney: 8.1 x 3.9 x 4.8 cm Left Kidney: 8.9 x 3.5 x 4.8 cm Right Kidney: Smaller in size, no hydronephrosis. Cortical renal thinning. Left Kidney: Smaller in size, no hydronephrosis. Cortical renal thinning. Bladder: wnl Bilateral Jets seen: no There is no evidence for hydronephrosis at this point in time. No nephrolithiasis is seen. Evaluatio n for masses is markedly limited given patient body habitus and suboptimal evaluation of the kidneys. The urinary bladder is anechoic. Bilateral ureteral jets are not seen. IMPRESSION: Mild bilateral cortical renal atrophy, sequela of chronic medical renal disease. Evaluati on of the kidneys is suboptimal given patient body habitus.
== END | disposition home or self-care (01) ==
LOC: RADUSWWP 14:08
PROVIDERS: ATTEND Family Medicine
DX: N26.1 Atrophy of kidney (terminal) (principal); N28.9 Disorder of kidney and ureter, unspecified; R79.89 Other specified abnormal findings of blood chemistry
CPT/HCPCS: 76770

== ENCOUNTER → 2019-03-12 | Outpatient (CLI) | payer MEDICARE, OTHER ==
[2019-03-12 08:56] LABS: Basophils # (A) 0.1 k/uL (0-0.2); Basophils % (A) 1 %; Eosinophils # (A) 0.2 k/uL (0-0.7); Eosinophils % (A) 2 %; HCT 33.7 % (34.0-46.0); HGB 10.7 gm/dL (11.4-16.0); Hypochromasia Slight; Lymphocytes # (A) 1.2 k/uL (1.0-4.8); Lymphocytes % (A) 13 %; MCH 27.4 pg (25.0-35.0); MCHC 31.6 g/dL (31.0-37.0); MCV 86.7 fL (80.0-100.0); Mean Platelet Volume 8.6; Monocytes # (A) 0.6 k/uL (0-1.0); Monocytes % (A) 7 %; Neutrophils # (A) 6.6 k/uL (1.3-7.7); Neutrophils % (A) 76 %; Platelet Count 221 k/uL (150-450); RBC 3.89 m/uL (3.80-5.40); RDW 14.7 % (11.5-15.5); WBC 8.7 k/uL (3.8-10.6)
[2019-03-12 17:11] LABS: African American GFR (CKD) 38.2 (60.0-200.0); Albumin 4.2 g/dL (3.80-4.90); Albumin/Globulin Ratio 2.33 (1.60-3.17); Anion Gap 8.2 mmol/L (4.00-12.00); BUN/Creat Ratio 10.63 Ratio (12.00-20.00); Calcium 9.2 mg/dL (8.7-10.3); Carbon Dioxide 24.8 mmol/L (21.6-31.8); Globulin 1.8 g/dL (1.6-3.3); Magnesium 1.9 mg/dL (1.5-2.4); Potassium 4.1 mmol/L (3.5-5.5); Total Bilirubin 0.3 mg/dL (0.3-1.2)
== END | disposition home or self-care (01) ==
LOC: LABWHC1 08:01
PROVIDERS: ATTEND Internal Medicine
DX: E78.2 Mixed hyperlipidemia (principal); I50.30 Unspecified diastolic (congestive) heart failure; T86.20 Unspecified complication of heart transplant; T86.21 Heart transplant rejection; T86.22 Heart transplant failure; T86.23 Heart transplant infection; T86.290 Cardiac allograft vasculopathy
CPT/HCPCS: 36415; 80053; 82550; 83735; 85025

== ENCOUNTER → 2019-03-27 | Outpatient (CLI) | payer MEDICARE, OTHER ==
[2019-03-27 13:26] LABS: African American GFR (CKD) 38.2 (60.0-200.0); Anion Gap 11.5 mmol/L (4.00-12.00); BUN/Creat Ratio 17.5 Ratio (12.00-20.00); Calcium 9.5 mg/dL (8.7-10.3); Carbon Dioxide 28.5 mmol/L (21.6-31.8); Potassium 4.3 mmol/L (3.5-5.5)
== END | disposition home or self-care (01) ==
LOC: LABWHC1 07:33
PROVIDERS: ATTEND Internal Medicine
DX: E78.2 Mixed hyperlipidemia (principal); T86.20 Unspecified complication of heart transplant; T86.21 Heart transplant rejection; T86.22 Heart transplant failure; T86.23 Heart transplant infection; T86.290 Cardiac allograft vasculopathy; I50.30 Unspecified diastolic (congestive) heart failure
CPT/HCPCS: 36415; 80048

== ENCOUNTER → 2019-04-06 | Outpatient (CLI) | payer MEDICARE, OTHER ==
[2019-04-06 09:43] LABS: HCT 34.8 % (34.0-46.0); HGB 10.6 gm/dL (11.4-16.0); Hypochromasia Slight; MCH 26.4 pg (25.0-35.0); MCHC 30.4 g/dL (31.0-37.0); MCV 86.8 fL (80.0-100.0); Mean Platelet Volume 8.1; Platelet Count 259 k/uL (150-450); RDW 15.3 % (11.5-15.5); WBC 8.1 k/uL (3.8-10.6)
[2019-04-06 18:01] LABS: % Iron Saturation 15.28 (12.00-45.00); African American GFR (CKD) 35.5 (60.0-200.0); Albumin/Globulin Ratio 2.35 (1.60-3.17); Anion Gap 13.2 mmol/L (4.00-12.00); BUN/Creat Ratio 13.53 Ratio (12.00-20.00); Carbon Dioxide 25.8 mmol/L (21.6-31.8); Globulin 1.7 g/dL (1.6-3.3); Non-African American GFR(CKD) 30.7 (60.0-200.0); Potassium 4.5 mmol/L (3.5-5.5); Total Bilirubin 0.5 mg/dL (0.3-1.2); Total Protein 5.7 g/dL (6.2-8.2)
[2019-04-06 18:02] LABS: Magnesium 1.9 mg/dL (1.5-2.4)
[2019-04-06 18:11] LABS: Ferritin 155.8 ng/mL (10.0-291.0)
[2019-04-06 19:16] LABS: Urine Creatinine 147.3 mg/dL
== END | disposition home or self-care (01) ==
LOC: LABWHC1 08:55
PROVIDERS: ATTEND Nurse Practitioner Family
DX: D64.9 Anemia, unspecified (principal); N18.3 Chronic kidney disease, stage 3 (moderate); R80.9 Proteinuria, unspecified; N25.81 Secondary hyperparathyroidism of renal origin; E55.9 Vitamin D deficiency, unspecified; M10.9 Gout, unspecified
CPT/HCPCS: 36415; 80053; 82043; 82570; 82652; 82728; 83540; 83550; 83735; 83970; 84100; 84550; 85027

== ENCOUNTER → 2019-04-18 | Outpatient (CLI) | payer MEDICARE, OTHER ==
[2019-04-18 11:51] LABS: Basophils # (A) 0.1 k/uL (0-0.2); Basophils % (A) 2 %; Eosinophils # (A) 0.2 k/uL (0-0.7); Eosinophils % (A) 4 %; HCT 38.1 % (34.0-46.0); HGB 11.6 gm/dL (11.4-16.0); Hypochromasia Slight; Lymphocytes # (A) 1.4 k/uL (1.0-4.8); Lymphocytes % (A) 21 %; MCH 26.6 pg (25.0-35.0); MCHC 30.5 g/dL (31.0-37.0); MCV 87.1 fL (80.0-100.0); Mean Platelet Volume 8.4; Monocytes # (A) 0.5 k/uL (0-1.0); Monocytes % (A) 7 %; Neutrophils # (A) 4.3 k/uL (1.3-7.7); Neutrophils % (A) 65 %; Platelet Count 189 k/uL (150-450); RBC 4.37 m/uL (3.80-5.40); RDW 15.6 % (11.5-15.5); WBC 6.6 k/uL (3.8-10.6)
[2019-04-18 18:56] LABS: African American GFR (CKD) 44.9 (60.0-200.0); Anion Gap 11.7 mmol/L (4.00-12.00); BUN/Creat Ratio 11.43 Ratio (12.00-20.00); Calcium 9.5 mg/dL (8.7-10.3); Carbon Dioxide 28.3 mmol/L (21.6-31.8); Non-African American GFR(CKD) 38.8 (60.0-200.0); Potassium 4.1 mmol/L (3.5-5.5)
== END | disposition home or self-care (01) ==
LOC: LABWHC1 10:37
PROVIDERS: ATTEND Internal Medicine
DX: E78.2 Mixed hyperlipidemia (principal); T86.20 Unspecified complication of heart transplant; T86.21 Heart transplant rejection; T86.22 Heart transplant failure; T86.23 Heart transplant infection; T86.290 Cardiac allograft vasculopathy; I50.30 Unspecified diastolic (congestive) heart failure
CPT/HCPCS: 36415; 80048; 83880; 85025

== ENCOUNTER → 2019-05-08 | Outpatient (CLI) | payer MEDICARE, OTHER ==
[2019-05-08 14:09] LABS: Basophils # (A) 0.1 k/uL (0-0.2); Basophils % (A) 1 %; Eosinophils # (A) 0.2 k/uL (0-0.7); Eosinophils % (A) 3 %; HGB 12.1 gm/dL (11.4-16.0); Hypochromasia Slight; Lymphocytes # (A) 1.8 k/uL (1.0-4.8); Lymphocytes % (A) 21 %; MCH 26.8 pg (25.0-35.0); MCV 86.4 fL (80.0-100.0); Monocytes # (A) 0.5 k/uL (0-1.0); Monocytes % (A) 6 %; Neutrophils # (A) 5.9 k/uL (1.3-7.7); Neutrophils % (A) 68 %; Platelet Count 248 k/uL (150-450); RBC 4.51 m/uL (3.80-5.40); RDW 15.3 % (11.5-15.5); WBC 8.6 k/uL (3.8-10.6)
[2019-05-08 17:03] LABS: African American GFR (CKD) 33.2 (60.0-200.0); Albumin 4.5 g/dL (3.80-4.90); Albumin/Globulin Ratio 2.5 (1.60-3.17); Anion Gap 10.9 mmol/L (4.00-12.00); BUN/Creat Ratio 17.22 Ratio (12.00-20.00); Calcium 9.6 mg/dL (8.7-10.3); Carbon Dioxide 25.1 mmol/L (21.6-31.8); Globulin 1.8 g/dL (1.6-3.3); Magnesium 2.1 mg/dL (1.5-2.4); Non-African American GFR(CKD) 28.6 (60.0-200.0); Total Bilirubin 0.3 mg/dL (0.3-1.2); Total Protein 6.3 g/dL (6.2-8.2)
== END | disposition home or self-care (01) ==
LOC: LABWHC1 08:50
PROVIDERS: ATTEND Internal Medicine
DX: E78.2 Mixed hyperlipidemia (principal); I50.30 Unspecified diastolic (congestive) heart failure; T86.20 Unspecified complication of heart transplant; T86.21 Heart transplant rejection; T86.22 Heart transplant failure; T86.23 Heart transplant infection; T86.290 Cardiac allograft vasculopathy
CPT/HCPCS: 36415; 80053; 82550; 83735; 83880; 85025

== ENCOUNTER → 2019-08-16 | Outpatient (CLI) | payer MEDICARE, OTHER ==
[2019-08-16 08:44] LABS: Basophils # (A) 0.1 k/uL (0-0.2); Basophils % (A) 1 %; Eosinophils # (A) 0.2 k/uL (0-0.7); Eosinophils % (A) 3 %; HCT 35.3 % (34.0-46.0); HGB 11.6 gm/dL (11.4-16.0); Hypochromasia Slight; Lymphocytes # (A) 1.8 k/uL (1.0-4.8); Lymphocytes % (A) 23 %; MCH 28.7 pg (25.0-35.0); MCHC 32.9 g/dL (31.0-37.0); MCV 87.3 fL (80.0-100.0); Mean Platelet Volume 8.3; Monocytes # (A) 0.5 k/uL (0-1.0); Monocytes % (A) 6 %; Neutrophils # (A) 5.3 k/uL (1.3-7.7); Neutrophils % (A) 66 %; Platelet Count 215 k/uL (150-450); RBC 4.04 m/uL (3.80-5.40); RDW 14.3 % (11.5-15.5)
[2019-08-16 19:56] LABS: African American GFR (CKD) 27.5 (60.0-200.0); Anion Gap 9.9 mmol/L (4.00-12.00); BUN/Creat Ratio 22.86 Ratio (12.00-20.00); Calcium 9.4 mg/dL (8.7-10.3); Carbon Dioxide 24.1 mmol/L (21.6-31.8); Non-African American GFR(CKD) 23.8 (60.0-200.0); Potassium 5.3 mmol/L (3.5-5.5)
== END | disposition home or self-care (01) ==
LOC: LABWHC1 08:06
PROVIDERS: ATTEND Internal Medicine
DX: I50.30 Unspecified diastolic (congestive) heart failure (principal); E78.2 Mixed hyperlipidemia; T86.290 Cardiac allograft vasculopathy; T86.23 Heart transplant infection; T86.22 Heart transplant failure; T86.21 Heart transplant rejection; T86.20 Unspecified complication of heart transplant
CPT/HCPCS: 36415; 80048; 85025

== ENCOUNTER → 2019-09-03 | Outpatient (CLI) | payer MEDICARE, OTHER ==
[2019-09-03 16:49] LABS: Hemoglobin A1C 7.9 % (4.0-6.0)
[2019-09-03 17:29] LABS: African American GFR (CKD) 41.4 (60.0-200.0); Albumin 4.1 g/dL (3.80-4.90); Albumin/Globulin Ratio 1.95 (1.60-3.17); Anion Gap 6.9 mmol/L (4.00-12.00); BUN/Creat Ratio 15.33 Ratio (12.00-20.00); Carbon Dioxide 27.1 mmol/L (21.6-31.8); Chol/HDL Ratio 3.45; Globulin 2.1 g/dL (1.6-3.3); Non-African American GFR(CKD) 35.7 (60.0-200.0); Potassium 5.1 mmol/L (3.5-5.5); Total Bilirubin 0.4 mg/dL (0.3-1.2); Total Protein 6.2 g/dL (6.2-8.2)
[2019-09-03 19:24] LABS: Urine Creatinine 63.9 mg/dL
== END | disposition home or self-care (01) ==
LOC: LABWHC1 08:26
PROVIDERS: ATTEND Internal Medicine Endocrinology, Diabetes & Metabolism
DX: E03.8 Other specified hypothyroidism (principal); E11.65 Type 2 diabetes mellitus with hyperglycemia
CPT/HCPCS: 36415; 80053; 80061; 82043; 82570; 83036; 83735; 83880; 84443

== ENCOUNTER → 2019-09-19 | Outpatient (CLI) | payer MEDICARE, OTHER ==
[2019-09-19 14:09] LABS: African American GFR (CKD) 31.1 (60.0-200.0); Anion Gap 17.5 mmol/L (4.00-12.00); BUN/Creat Ratio 16.32 Ratio (12.00-20.00); Calcium 9.3 mg/dL (8.7-10.3); Carbon Dioxide 20.5 mmol/L (21.6-31.8); Non-African American GFR(CKD) 26.8 (60.0-200.0)
== END | disposition home or self-care (01) ==
LOC: LABWHC1 07:31
PROVIDERS: ATTEND Internal Medicine
DX: T86.22 Heart transplant failure (principal); T86.21 Heart transplant rejection; E78.2 Mixed hyperlipidemia; I50.30 Unspecified diastolic (congestive) heart failure
CPT/HCPCS: 36415; 80048

== ENCOUNTER → 2019-10-16 | Outpatient (CLI) | payer MEDICARE, OTHER ==
[2019-10-16 08:17] LABS: Basophils # (A) 0.1 k/uL (0-0.2); Basophils % (A) 1 %; Eosinophils # (A) 0.1 k/uL (0-0.7); Eosinophils % (A) 1 %; HGB 12.3 gm/dL (11.4-16.0); Hypochromasia Slight; Lymphocytes # (A) 1.5 k/uL (1.0-4.8); Lymphocytes % (A) 20 %; MCH 26.7 pg (25.0-35.0); MCHC 31.4 g/dL (31.0-37.0); MCV 84.9 fL (80.0-100.0); Mean Platelet Volume 8.2; Monocytes # (A) 0.6 k/uL (0-1.0); Monocytes % (A) 7 %; Neutrophils # (A) 5.2 k/uL (1.3-7.7); Neutrophils % (A) 69 %; Platelet Count 201 k/uL (150-450); RDW 14.4 % (11.5-15.5); WBC 7.6 k/uL (3.8-10.6)
[2019-10-16 14:55] LABS: African American GFR (CKD) 41.4 (60.0-200.0); Albumin/Globulin Ratio 1.9 (1.60-3.17); Anion Gap 12.4 mmol/L (4.00-12.00); BUN/Creat Ratio 15.33 Ratio (12.00-20.00); Calcium 9.3 mg/dL (8.7-10.3); Carbon Dioxide 25.6 mmol/L (21.6-31.8); Globulin 2.1 g/dL (1.6-3.3); Magnesium 1.9 mg/dL (1.5-2.4); Non-African American GFR(CKD) 35.7 (60.0-200.0); Potassium 3.7 mmol/L (3.5-5.5); Total Bilirubin 0.5 mg/dL (0.3-1.2); Total Protein 6.1 g/dL (6.2-8.2)
== END | disposition home or self-care (01) ==
LOC: LABWHC1 07:20
PROVIDERS: ATTEND Internal Medicine
DX: I50.30 Unspecified diastolic (congestive) heart failure (principal); E78.2 Mixed hyperlipidemia; T86.23 Heart transplant infection; T86.22 Heart transplant failure; T86.21 Heart transplant rejection; T86.20 Unspecified complication of heart transplant
CPT/HCPCS: 36415; 80053; 82550; 83735; 83880; 85025

== ENCOUNTER → 2019-10-25 | Outpatient (CLI) | payer MEDICARE, OTHER | END | disposition home or self-care (01) | LOC: LABWHC1 07:05 | DX: I48.0 Paroxysmal atrial fibrillation (principal) | CPT/HCPCS: U0003; C9803 ==

== ENCOUNTER → 2019-12-28 | Outpatient (CLI) | payer MEDICARE, OTHER ==
[2019-12-28 15:38] LABS: Anisocytosis Slight; Basophils # (A) 0.2 k/uL (0-0.2); Basophils % (A) 3 %; Eosinophils # (A) 0.3 k/uL (0-0.7); Eosinophils % (A) 3 %; HCT 37.9 % (34.0-46.0); HGB 11.8 gm/dL (11.4-16.0); Hypochromasia Slight; Lymphocytes # (A) 1.8 k/uL (1.0-4.8); Lymphocytes % (A) 21 %; MCH 26.7 pg (25.0-35.0); MCHC 31.2 g/dL (31.0-37.0); MCV 85.5 fL (80.0-100.0); Mean Platelet Volume 7.9; Monocytes # (A) 0.8 k/uL (0-1.0); Monocytes % (A) 9 %; Neutrophils # (A) 5.3 k/uL (1.3-7.7); Neutrophils % (A) 63 %; Platelet Count 271 k/uL (150-450); RBC 4.43 m/uL (3.80-5.40); RDW 16.1 % (11.5-15.5); WBC 8.5 k/uL (3.8-10.6)
[2019-12-29 03:22] LABS: African American GFR (CKD) 30.9 (60.0-200.0); Anion Gap 12.3 mmol/L (4.00-12.00); BUN/Creat Ratio 15.79 Ratio (12.00-20.00); Calcium 9.1 mg/dL (8.7-10.3); Carbon Dioxide 26.7 mmol/L (21.6-31.8); Magnesium 2.1 mg/dL (1.5-2.4); Non-African American GFR(CKD) 26.6 (60.0-200.0)
== END | disposition home or self-care (01) ==
LOC: LABWHC1 14:00
PROVIDERS: ATTEND Internal Medicine
DX: E78.2 Mixed hyperlipidemia (principal); T86.20 Unspecified complication of heart transplant; T86.21 Heart transplant rejection; T86.22 Heart transplant failure; T86.23 Heart transplant infection; T86.290 Cardiac allograft vasculopathy; I50.30 Unspecified diastolic (congestive) heart failure
CPT/HCPCS: 36415; 80048; 83735; 85025

== ENCOUNTER 2020-01-19 22:51 | Observation (INO) | payer MEDICARE, OTHER ==
--- NOTE | 2020-01-19 23:27 | ED ---
Chest Pain HPI - General Chief Complaint: Chest Pain Stated Complaint: Chest Pain, Nausea Time Seen by Provider: 01/19/20 22:52 Source: patient, EMS Mode of arrival: EMS Limitations: no limitations - History of Present Illness Initial Comments: this patient is 69-year-old woman presenting to be evaluated for substernal chest pain. Has been going on intermittently throughout the day. It had started early and she states she was seen at [facility] for this condition. Theyhad checked a number of lab tests, EKG and x-ray and then discha rge her. When the symptoms recurred tonight she felt she should be reevaluated. She indicates substernal and states thepains usually accompany palpitations. She has not had any diaphoresis, nausea or vomiting. MD Complaint: chest pain Onset/Timin -: days(s) Onset: during rest Pain Location: substernal Pain Radiation: neck Severity: moderate Quality: dull Consistency: intermittent, now resolved Improves With: nothing Worsens With: exertion Anginal Symptoms: dyspnea Treatments Prior to Arrival: none - Related Data Home Medications Medication Instructions Recorded Confirmed Atorvastatin Calcium [Lipitor] 10 mg PO HS 06/24/16 01/20/20 Pantoprazole Sodium [Protonix] 40 mg PO BID 06/24/16 01/20/20 Sirolimus 1 mg PO HS 06/24/16 01/20/20 hydrALAZINE HCL [Apresoline] 50 mg PO TID 06/24/16 01/20/20 Butorphanol Tartrate [Stadol Nasal 1 spray EA NOSTRIL Q4H PRN 03/03/17 01/20/20 [place]] mycophenolate mofetiL [Cellcept] 250 mg PO BID 03/03/17 01/20/20 Apixaban [Eliquis] 5 mg PO BID 12/21/17 01/20/20 Aspirin EC [Ecotrin Low Dose] 81 mg PO DAILY 01/20/20 01/20/20 INSULIN LISPRO (humaLOG) [humaLOG] See Protocol SQ AC-TID 01/20/20 01/20/20 Insulin Glargine [Lantus] 26 unit SQ DAILY 01/20/20 01/20/20 Levothyroxine Sodium [Synthroid] 125 mcg PO DAILY 01/20/20 01/20/20 Losartan Potassium [Cozaar] 25 mg PO DAILY 01/20/20 01/20/20 Magnesium 200 mg PO DAILY 01/20/20 01/20/20 Promethazine HCl 12.5 mg PO Q6H PRN 01/20/20 01/20/20 Torsemide [Demadex] 20 mg PO MOWEFR 01/20/20 01/20/20 Previous Rx's Medication Instructions Recorded Losartan [Cozaar] 50 mg PO BID tab 01/20/20 Allergies Allergy/AdvReac Type Severity Reaction Status Date / Time cephalexin [From Keflex] Allergy Rash/Hives Verified 01/20/20 10:03 ciprofloxacin [From Cipro] Allergy Rash/Hives Verified 01/20/20 10:03 codeine Allergy Unknown Verified 01/20/20 10:03 hydrocodone [From Lortab] Allergy Unknown Verified 01/20/20 10:03 hydromorphone [From Dilaudid] Allergy Rash/Hives Verified 01/20/20 10:03 hydroxyprogesterone Allergy Unknown Verified 01/20/20 10:03 opium (anthroposophic) Allergy Unknown Verified 01/20/20 10:03 Penicillins Allergy Unknown Verified 01/20/20 10:03 simvastatin Allergy Unknown Verified 01/20/20 10:03 tramadol HCl [From Ultram] Allergy Unknown Verified 01/20/20 10:03 Review of Systems ROS Statement: Those systems with pertinent positive or pertinent negative responses have been documented in the HPI. ROS Other: All systems not noted in ROS Statement are negative. Constitutional: Denies: fever, chills, weakness Respiratory: Reports: dyspnea. Denies: cough, wheezes, hemoptysis Cardiovascular: Reports: chest pain, palpitations, edema (chronic). 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 History of Any Multi-Drug Resistant Organisms: None Reported Past Surgical History: Appendectomy, Breast Surgery, Cardiac Ablation, Cholecystectomy, Tonsillectomy, Tubal Ligation Additional Past Surgical History / Comment(s): Heart Transplant 2002 at [facility], lumbar laminectomy, breast reduction, removal of skin cancer on her left ankle. Past Anesthesia/Blood Transfusion Reactions: No Reported Reaction Additional Past Anesthesia/Blood Transfusion Reaction / Comment(s): Pt has received blood in past without reaction. Past Psychological History: No Psychological Hx Reported Smoking Status: Former smoker Past Alcohol Use History: None Reported Past Drug Use History: None Reported - Past Family History Father Family Medical History: Myocardial Infarction (HI) Additional Family Medical History / Comment(s): Father of a massive HI at the age of 52 yrs. Mother Family Medical History: No Reported History Additional Family Medical History / Comment(s): Mother in her sleep at the age of 82 yrs. Brother(s) Additional Family Medical History / Comment(s): Patient has 2 sisters and one brother with history of coronary artery disease. Patient does not have any children. General Exam Limitations: no limitations General appearance: alert, in no apparent distress Head exam: Present: atraumatic, normocephalic Eye exam: Present: normal appearance. Absent: scleral icterus, conjunctival injection ENT exam: Present: normal oropharynx Neck exam: Present: normal inspection, full ROM Respiratory exam: Present: normal lung sounds bilaterally. Absent: respiratory distress, wheezes, rales, rhonchi, stridor Cardiovascular Exam: Present: regular rate, normal rhythm, systolic murmur (grade 2/6 systolic ejection murmur). Absent: diastolic murmur, rubs, gallop GI/Abdominal exam: Present: soft. Absent: distended, tenderness, guarding, rebound, rigid, mass Extremities exam: Present: normal inspection, normal capillary refill, pedal edema (trace edema at the ankles bilaterally). Absent: calf tenderness Back exam: Present: normal inspection. Absent: CVA tenderness (R), CVA tenderness (L) Neurological exam: Present: alert Skin exam: Present: warm, dry, intact, normal color. Absent: rash Course Vital Signs 01/19/20 01/19/20 22:52 23:12 Temperature 98 F Pulse Rate 68 Respiratory 18 Rate Blood Pressure 184/68 152/54 O2 Sat by Pulse 94 L 98 Oximetry Chest Pain MDM - MDM following patient's workup I did discuss the case with her manager community at the [facility], Dr. Bhavik Mcginnis. we reviewed the studies and he feels that the patient does not require transfer to their facility at this point. He would recommend monitoring. And then patient stable for discharge to follow-up with them. Given this I discussed case with Dr. Jenkins, who is taking call and will accept patient here with telemetry monitoring and serial enzymes with cardiology consult. Disposition Clinical Impression: Chest pain, Palpitations Disposition: ADMITTED IP TO THIS HOSP Condition: Good Is patient prescribed a controlled substance at d/c from ED?: No
--- NOTE | 2020-01-19 23:42 | XR ---
EXAMINATION TYPE: XR chest 1V portable DATE OF EXAM: 01/19/2020 COMPARISON: 06/21/2018 HISTORY: Chest pain TECHNIQUE: FINDINGS: Heart and mediastinum are normal. Lungs are clear. Diaphragm is normal. Bony thorax is inta ct. There is left axillary pacemaker. There are sternal wires. IMPRESSION: No active cardiopulmonary disease. No change.
[2020-01-19 23:47] LABS: Anisocytosis Slight; Basophils # (A) 0.1 k/uL (0-0.2); Basophils % (A) 1 %; Eosinophils # (A) 0.2 k/uL (0-0.7); Eosinophils % (A) 2 %; HCT 36.5 % (34.0-46.0); HGB 11.7 gm/dL (11.4-16.0); Hypochromasia Slight; Lymphocytes # (A) 1.3 k/uL (1.0-4.8); Lymphocytes % (A) 19 %; MCH 27.4 pg (25.0-35.0); MCV 85.5 fL (80.0-100.0); Mean Platelet Volume 8.4; Monocytes # (A) 0.5 k/uL (0-1.0); Monocytes % (A) 7 %; Neutrophils % (A) 70 %; Platelet Count 214 k/uL (150-450); RBC 4.27 m/uL (3.80-5.40); RDW 16.9 % (11.5-15.5); WBC 7.1 k/uL (3.8-10.6)
[2020-01-19 23:56] LABS: Albumin 3.8 g/dL (3.5-5.0); Calcium 9.2 mg/dL (8.4-10.2); Magnesium 1.9 mg/dL (1.6-2.3); Total Bilirubin 0.8 mg/dL (0.2-1.3); Total Protein 6.6 g/dL (6.3-8.2)
[2020-01-19 23:58] LABS: Potassium 4.5 mmol/L (3.5-5.1)
[2020-01-20] MEDS ORDERED: PROMETHAZINE INJ 25 MG in SODIUM CHLORIDE 0.9% 50 ML IVPB STA (00:07)
[2020-01-20 00:14] LABS: Partial Thromboplastin Time 26.8 sec (22.0-30.0); Prothrombin Time 10.2 sec (9.0-12.0)
[2020-01-20] MEDS ORDERED: INSULIN REGULAR 100 UNIT/ML VIAL SQ STA (00:18)
[2020-01-20] MEDS ORDERED: MAGNESIUM SULFATE-D5W PMX 1 GM in DEXTROSE/WATER 1 100ML.BAG IVPB ONE (00:59)
[2020-01-20 01:28] LABS: Glucose,Whole Blood 279 mg/dL (75-99)
[2020-01-20] MEDS ORDERED: NITROGLYCERIN SL TABS 0.4 MG TAB SUBLINGUAL PRN (01:48)
[2020-01-20] MEDS ORDERED: SODIUM CHLORIDE 0.9% 1,000 ML IV SCH (02:00)
[2020-01-20] MEDS ORDERED: LEVOTHYROXINE 75 MCG TAB PO SCH (06:30)
[2020-01-20 08:56] VITALS: BP 142/58; PULSE 67; RESP 16; TEMP 97.7
[2020-01-20] MEDS ORDERED: POTASSIUM CHLORIDE ER 20 MEQ TAB.ER PO SCH (09:00)
[2020-01-20] MEDS ORDERED: lisinopriL 5 MG TAB PO SCH (09:00)
[2020-01-20] MEDS ORDERED: LOSARTAN 50 MG TAB PO SCH (09:00)
[2020-01-20] MEDS ORDERED: hydrALAZINE HCL 50 MG TAB PO SCH (09:00)
[2020-01-20] MEDS ORDERED: INSULIN DETEMIR (LEVEMIR) 100 UNIT/ML SYR SQ SCH (09:00)
[2020-01-20] MEDS ORDERED: APIXABAN 5 MG TAB PO SCH (09:00)
[2020-01-20] MEDS ORDERED: PANTOPRAZOLE 40 MG TABLET PO SCH (09:00)
--- NOTE | 2020-01-20 11:59 | P.CRDCN ---
History of Present Illness Consult date: 01/20/20 Consult reason: chest pain History of present illness: History of present illness: This is a 69-year-old female that follows with cardiology at [facility] with past medical history Radha anomaly of the heart status post heart transplant in 2001 at [facility], atrial fibrillation status post 2 ablations also done at [facility], pacemaker inserted in November of this year, diabetes mellitus insulin requiring, gastroesophageal reflux disease, hypothyroidism. She states that yesterday morning she was feeling lightheaded and wobbly as if she was given a follow her. She had trouble walking and she also felt a pounding sensation in her chest. She initially went to [facility] and they evaluated her and sent her home. Last night in bed she was still lightheaded and dizziness was worsening. She continued to have some pain or pounding sensation in her chest that went up into her neck and head. She denies having any chest pain. She states her last TSH was normal and was done recently at [facility]. She then came in to [facility] emergency center for evaluation. Her heart rate was in the 60s, initial blood pressure 184/68 and pulse ox 94% on room air. EKG is a paced rhythm. Chest x-ray showed no acute cardiopulmonary process. CBC was normal. BUN 23 and creatinine 1.33. Blood sugar 279. Troponins negative on 3 draws. ProBNP 1340. At the time of this evaluation, patient states that her symptoms are completely resolved. Review Of Systems: At the time of my evaluation Constitutional: No fever, no chills. No weakness, fatigue or lethargy. EENT: No headache. No dizziness. Lungs: No shortness of breath, cough, no sputum production. No wheezing. Cardiovascular: No chest pain, reports chronic lower extremity edema. No pa lpitations. No paroxysmal nocturnal dyspnea. No orthopnea. No lightheadedness or dizziness. No syncopal episodes. Abdominal: No abdominal pain. No nausea, vomiting. No diarrhea. No constipation. No bloody or tarry stools.. No loss of appetite. Genitourinary: No dysuria.. No urinary retention. Musculoskeletal: No myalgias. No muscle weakness, no gait dysfunction, no frequent falls. No back pain. No neck pain. Integumentary: No wounds, no lesions. No rash or pruritus. No unusual bru ising. Neurologic: No aphasia. No facial droop. No change in mentation. No head injury. No headache. No paralysis. No paresthesia. Psychiatric: No depression. No anxiety. Endocrine: No abnormal blood sugars. Physical examination: Gen: This is a 69-year-old female. Patient is resting in bed and appears to be comfortable and in no acute distress. VS: Afebrile, heart rate 67, blood pressure 142/58, pulse ox 90% on room air. HEENT: Head is atraumatic, normocephalic. Pupils equal, round. Sclerae is anicteric. NECK: Supple. No JVD. No lymphadenopathy. No thyromegaly. LUNGS: Clear to auscultation. No wheezes or rhonchi. No intercostal retractions. HEART: Regular rate and rhythm. 2/6 systolic ejection murmur. ABDOMEN: Soft. Bowel sounds are present. No masses. No tenderness. EXTREMITIES: Trace bilateral pedal edema. No calf tenderness. NEUROLOGICAL: Patient is awake, alert and oriented x3. Cranial nerves 2 through 12 are grossly intact. Assessment: Pounding sensation possible episode of atrial fibrillation with RVR, possibly related to hypertension uncontrolled Chronic persistent atrial fibrillation status post ablation 2 and pacemaker History of heart transplant Uncontrolled hypertension Diabetes mellitus insulin requiring Plan: Continue eliquis 5 mg twice daily, atorvastatin 10 mg at bedtime, hydralazine 50 mg 3 times daily Increase losartan from 75 mg daily to 50 mg twice daily Continue Demadex 20 mg Tuesday Continue antirejection medications Further recommendations to follow based upon clinical course Thank you kindly for this consultation. Nurse practitioner note has been reviewed, I agree with documented findings and plan of care. Patient was seen and examined. 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 History of Any Multi-Drug Resistant Organisms: None Reported Past Surgical History: Appendectomy, Breast Surgery, Cardiac Ablation, Cholecystectomy, Tonsillectomy, Tubal Ligation Additional Past Surgical History / Comment(s): Heart Transplant 2002 at [facility], lumbar laminectomy, breast reduction, removal of skin cancer on her left ankle. Past Anesthesia/Blood Transfusion Reactions: No Reported Reaction Additional Past Anesthesia/Blood Transfusion Reaction / Comment(s): Pt has received blood in past without reaction. Past Psychological History: No Psychological Hx Reported Smoking Status: Former smoker Past Alcohol Use History: None Reported Past Drug Use History: None Reported - Past Family History Father Family Medical History: Myocardial Infarction (NV) Additional Family Medical History / Comment(s): Father of a massive NV at the age of 52 yrs. Mother Family Medical History: No Reported History Additional Family Medical History / Comment(s): Mother in her sleep at the age of 82 yrs. Brother(s) Additional Family Medical History / Comment(s): Patient has 2 sisters and one brother with history of coronary artery disease. Patient does not have any children. Medications and Allergies Home Medications Medication Instructions Recorded Confirmed Type Atorvastatin Calcium [Lipitor] 10 mg PO HS 06/24/16 01/20/20 History Pantoprazole Sodium [Protonix] 40 mg PO BID 06/24/16 01/20/20 History Sirolimus 1 mg PO HS 06/24/16 01/20/20 History hydrALAZINE HCL [Apresoline] 50 mg PO TID 06/24/16 01/20/20 History Butorphanol Tartrate [Stadol Nasal 1 spray EA NOSTRIL Q4H PRN 03/03/17 01/20/20 History [place]] mycophenolate mofetiL [Cellcept] 250 mg PO BID 03/03/17 01/20/20 History Apixaban [Eliquis] 5 mg PO BID 12/21/17 01/20/20 History Aspirin EC [Ecotrin Low Dose] 81 mg PO DAILY 01/20/20 01/20/20 History INSULIN LISPRO (humaLOG) [humaLOG] See Protocol SQ AC-TID 01/20/20 01/20/20 History Insulin Glargine [Lantus] 26 unit SQ DAILY 01/20/20 01/20/20 History Levothyroxine Sodium [Synthroid] 125 mcg PO DAILY 01/20/20 01/20/20 History Losartan Potassium 50 mg PO DAILY 01/20/20 01/20/20 History Losartan Potassium [Cozaar] 25 mg PO DAILY 01/20/20 01/20/20 History Magnesium 200 mg PO DAILY 01/20/20 01/20/20 History Promethazine HCl 12.5 mg PO Q6H PRN 01/20/20 01/20/20 History Torsemide [Demadex] 20 mg PO MOWEFR 01/20/20 01/20/20 History Allergies Allergy/AdvReac Type Severity Reaction Status Date / Time cephalexin [From Keflex] Allergy Rash/Hives Verified 01/20/20 10:03 ciprofloxacin [From Cipro] Allergy Rash/Hives Verified 01/20/20 10:03 codeine Allergy Unknown Verified 01/20/20 10:03 hydrocodone [From Lortab] Allergy Unknown Verified 01/20/20 10:03 hydromorphone [From Dilaudid] Allergy Rash/Hives Verified 01/20/20 10:03 hydroxyprogesterone Allergy Unknown Verified 01/20/20 10:03 opium (anthroposophic) Allergy Unknown Verified 01/20/20 10:03 Penicillins Allergy Unknown Verified 01/20/20 10:03 simvastatin Allergy Unknown Verified 01/20/20 10:03 tramadol HCl [From Ultram] Allergy Unknown Verified 01/20/20 10:03 Physical Exam Vitals: Vital Signs Temp Pulse Pulse Resp BP BP Pulse Ox 01/20/20 02:53 70 18 01/20/20 02:45 97.9 F 70 18 163/67 98 01/20/20 02:28 97.9 F 70 18 163/67 98 01/20/20 02:20 143/75 01/19/20 23:12 152/54 98 01/19/20 22:52 98 F 68 18 184/68 94 L Intake and Output 01/19/20 01/20/20 01/20/20 23:59 06:59 14:59 Other: Voiding Method # Voids Weight Results 01/19/20 23:26 01/19/20 23:26 Cardiac Enzymes 01/19/20 01/19/20 01/20/20 Range/Units 23:26 23:26 02:50 AST 29 (14-36) U/L Troponin I <0.012 <0.012 (0.000-0.034) ng/mL Coagulation 01/19/20 Range/Units 23:26 PT 10.2 (9.0-12.0) sec APTT 26.8 (22.0-30.0) sec CBC 01/19/20 Range/Units 23:26 WBC 7.1 (3.8-10.6) k/uL RBC 4.27 (3.80-5.40) m/uL Hgb 11.7 (11.4-16.0) gm/dL Hct 36.5 (34.0-46.0) % Plt Count 214 (150-450) k/uL Comprehensive Metabolic Panel 01/19/20 Range/Units 23:26 Sodium 136 L (137-145) mmol/L Potassium 4.5 (3.5-5.1) mmol/L Chloride 105 (98-107) mmol/L Carbon Dioxide 25 (22-30) mmol/L BUN 23 H (7-17) mg/dL Creatinine 1.33 H (0.52-1.04) mg/dL Glucose 275 H (74-99) mg/dL Calcium 9.2 (8.4-10.2) mg/dL AST 29 (14-36) U/L ALT 11 (4-34) U/L Alkaline Phosphatase 100 (38-126) U/L Total Protein 6.6 (6.3-8.2) g/dL Albumin 3.8 (3.5-5.0) g/dL Current Medications Generic Name Dose Route Start Last Admin Trade Name Freq PRN Reason Stop Dose Admin Apixaban 5 mg 01/20/20 09:00 Apixaban 5 Mg Tab PO BID DYLON Aspirin 325 mg 01/21/20 09:00 Aspirin 325 Mg Tab PO DAILY DYLON Atorvastatin Calcium 10 mg 01/20/20 21:00 Atorvastatin 10 Mg Tab PO HS DYLON Hydralazine HCl 50 mg 01/20/20 09:00 Hydralazine Hcl 50 Mg Tab PO TID DYLON Sodium Chloride 1,000 mls @ 20 mls/hr 01/20/20 02:00 01/20/20 04:47 Saline 0.9% IV 20 mls/hr .Q24H DYLON Administration Insulin Detemir 46 unit 01/20/20 09:00 Insulin Detemir (Levemir) 100 Unit/Ml Syr SQ DAILY DYLON Levothyroxine Sodium 75 mcg 01/20/20 06:30 01/20/20 06:40 Levothyroxine 75 Mcg Tab PO 75 mcg DAILY@0630 DYLON Administration Lisinopril 2.5 mg 01/20/20 09:00 Lisinopril 2.5 Mg Tab PO DAILY DYLON Mycophenolate Mofetil 500 mg 01/20/20 09:00 Mycophenolate Mofetil 250 Mg Cap PO BID DYLON Nitroglycerin 0.4 mg 01/20/20 01:48 EST Nitroglycerin Sl Tabs 0.4 Mg Tab SUBLINGUAL Q5M PRN Chest Pain Non-Formulary Medication 1 mg 01/20/20 21:00 Sirolimus [Sirolimus] PO HS DYLON Pantoprazole Sodium 40 mg 01/20/20 09:00 Pantoprazole 40 Mg Tablet PO BID DYLON Potassium Chloride 40 meq 01/20/20 09:00 Potassium Chloride Er 20 Meq Tab.Er PO DAILY DYLON Intake and Output 01/19/20 01/20/20 01/20/20 23:59 06:59 14:59 Other: Voiding Method # Voids Weight 01/19/20 23:26 01/19/20 23:26
--- NOTE | 2020-01-20 13:46 | P.HPIM ---
History of Present Illness H&P Date: 01/20/20 THIS WILL SERVE BOTH H&p AND DISCHARGE SUMMARY This 76-year-old pleasant female, patient of Dr. Al, also sees a patient flow coordinator Bhavik Mcginnis at [facility] as the patient had congenital heart disease requiring heart transplant in 2007, and a dual chamber pacemaker implant on 12/09/2019. It's not AICD. He has she has underlying diabetes mellitus hypothyroidism, atrial fibrillation, requiring long-term anticoagulation with eliquis. Patient presents to the emergency room, secondary to occasional palpitations, off and on chest pressure, patient also was mentioning that the heart heart was squeezing harder, without any lightheadedness or dizziness. Patient denies any dyspnea on exertion, no PND, no diaphoresis. No nausea no vomiting no dysphagia, no aspirated events. No cough no fever no chills no other GI tablets. Patient denies any syncope or lightheadedness. She comes in to emergency room for rule out ACS, ER doctor has spoken to her primary patient flow coordinator at [facility], and requested that the patient just stay in for an observation for rule out NH. Next Troponins were performed, negative 3, seen by patient flow coordinator, cleared for discharge, with echocardiogram and stress test that can be performed by her primary patient flow coordinator. Losartan was increased to 50 mg twice a day by cardiology, no beta jimmie prior to this admission, heart rate is controlled in the 70s, patient has +1 chronic edema for which she is on Demadex 20 mg Tuesday. She is instructed to get one dose of Demadex today at home, and continue on her routine 20 mg 3 times a day. Electrolytes are okay admission was normal, TSH is not dunking his admission, needs to be performed as an outpatient creatinine at admission was 1.33, pro-BNP 1340 Review of Systems Constitutional: Reports as per HPI Ears, nose, mouth and throat: Reports as per HPI, Denies ant. neck pain, Denies bleeding gums, Denies dental pain, Denies dysphagia, Denies epistaxis, Denies headache, Denies hoarseness, Denies mouth pain, Denies nasal congestion, Denies nasal discharge, Denies neck fullness/pressure, Denies neck lump, Denies nose pain, Denies odynophagia, Denies post-nasal drip, Denies sinus pain, Denies sinus pressure, Denies swelling in mouth, Denies swelling in throat, Denies sore throat, Denies vertigo, Denies voice changes Cardiovascular: Reports as per HPI, Reports chest pain, Reports palpitations, De nies claudication, Denies decreased exercise tolerance, Denies dyspnea on exertion, Denies edema, Denies high blood pressure, Denies irregular heart beat, Denies leg edema, Denies lightheadedness, Denies orthopnea, Denies paroxysmal nocturnal dyspnea, Denies phlebitis, Denies rapid heart beat, Denies shortness of breath, Denies syncope Respiratory: Reports as per HPI, Denies congestion, Denies cough, Denies cough with sputum, Denies dyspnea, Denies excessive sputum, Denies hemoptysis, Denies home oxygen, Denies pain, Denies pain on inspiration, Denies pleurisy, Denies respiratory infections, Denies sleep apnea, Denies snoring, Denies wheezing Gastrointestinal: Reports as per HPI, Denies abdominal pain, Denies belching, Denies bloating, Denies BRBPR, Denies change in bowel habits, Denies coffee ground emesis, Denies constipation, Denies diarrhea, Denies dyspepsia, Denies early satiety, Denies excessive gas, Denies heartburn, Denies hematemesis, Denies hematochezia, Denies indigestion, Denies jaundice, Denies lactose intolerance, Denies loss of appetite, Denies melena, Denies nausea, Denies vomiting Genitourinary: Reports as per HPI, Denies abnormal vaginal bleeding, Denies decreased libido, Denies difficulty conceiving, Denies difficulty voiding, Denies dysmenorrhea, Denies dyspareunia, Denies dysuria, Denies flank pain, Denies genital sores, Denies hematuria, Denies hot flashes, Denies incomplete emptying, Denies kidney stones, Denies menorrhagia, Denies mixed incontinence, Denies nocturia, Denies pelvic pain, Denies post void dribbling, Denies , Denies prolapse symptoms, Denies stress incontinence, Denies urge incontinence, Denies urgency, Denies urinary frequency, Denies vaginal dischar ge, Denies vaginal dryness, Denies vaginal itching, Denies vaginal odor Menstruation: Reports as per HPI Musculoskeletal: Reports as per HPI, Denies arm numbness/tingling, Denies atrophy, Denies fractures, Denies frequent falls, Denies gait dysfunction, Denies hot joints, Denies leg numbness/tingling, Denies limitation of motion, Denies loss of height, Denies low back pain, Denies morning stiffness, Denies muscle cramps, Denies muscle weakness, Denies myalgias, Denies neck pain, Denies neck stiffness, Denies prior amputations, Denies redness of joints, Denies shooting arm pain, Denies shooting leg pain Integumentary: Reports as per HPI Neurological: Reports as per HPI Psychiatric: Reports as per HPI Endocrine: Reports as per HPI Hematologic/Lymphatic: Reports as per HPI, Denies easy bleeding, Denies easy bruising, Denies lymphadenopathy, Denies lymphedema, Denies thrombophilia Allergic/Immunologic: Reports as per HPI, Denies allergic rhinitis, Denies anaphylaxis, Denies angioedema, Denies gluten intolerance, Denies persistent infections, Denies seasonal allergies, Denies urticaria, Denies wheezing Past Medical History Past Medical History: Atrial Fibrillation, Diabetes Mellitus, GERD/Reflux, Thyroid Disorder Additional Past Medical History / Comment(s): Congenital deformity of the heart status post heart transplant in 2001 in [facility], skin cancer on her left ankle. History of Any Multi-Drug Resistant Organisms: None Reported Past Surgical History: Appendectomy, Breast Surgery, Cardiac Ablation, Cholecystectomy, Tonsillectomy, Tubal Ligation Additional Past Surgical History / Comment(s): Heart Transplant 2002 at [facility], lumbar laminectomy, breast reduction, removal of skin cancer on her left ankle. Past Anesthesia/Blood Transfusion Reactions: No Reported Reaction Additional Past Anesthesia/Blood Transfusion Reaction / Comment(s): Pt has received blood in past without reaction. Past Psychological History: No Psychological Hx Reported Smoking Status: Former smoker Past Alcohol Use History: None Reported Past Drug Use History: None Reported - Past Family History Father Family Medical History: Myocardial Infarction (NH) Additional Family Medical History / Comment(s): Father of a massive NH at the age of 52 yrs. Mother Family Medical History: No Reported History Additional Family Medical History / Comment(s): Mother in her sleep at the age of 82 yrs. Brother(s) Additional Family Medical History / Comment(s): Patient has 2 sisters and one brother with history of coronary artery disease. Patient does not have any children. Medications and Allergies Home Medications Medication Instructions Recorded Confirmed Type Atorvastatin Calcium [Lipitor] 10 mg PO HS 06/24/16 01/20/20 History Pantoprazole Sodium [Protonix] 40 mg PO BID 06/24/16 01/20/20 History Sirolimus 1 mg PO HS 06/24/16 01/20/20 History hydrALAZINE HCL [Apresoline] 50 mg PO TID 06/24/16 01/20/20 History Butorphanol Tartrate [Stadol Nasal 1 spray EA NOSTRIL Q4H PRN 03/03/17 01/20/20 History [place]] mycophenolate mofetiL [Cellcept] 250 mg PO BID 03/03/17 01/20/20 History Apixaban [Eliquis] 5 mg PO BID 12/21/17 01/20/20 History Aspirin EC [Ecotrin Low Dose] 81 mg PO DAILY 01/20/20 01/20/20 History INSULIN LISPRO (humaLOG) [humaLOG] See Protocol SQ AC-TID 01/20/20 01/20/20 History Insulin Glargine [Lantus] 26 unit SQ DAILY 01/20/20 01/20/20 History Levothyroxine Sodium [Synthroid] 125 mcg PO DAILY 01/20/20 01/20/20 History Losartan Potassium [Cozaar] 25 mg PO DAILY 01/20/20 01/20/20 History Losartan [Cozaar] 50 mg PO BID tab 01/20/20 Rx Magnesium 200 mg PO DAILY 01/20/20 01/20/20 History Promethazine HCl 12.5 mg PO Q6H PRN 01/20/20 01/20/20 History Torsemide [Demadex] 20 mg PO MOWEFR 01/20/20 01/20/20 History Allergies Allergy/AdvReac Type Severity Reaction Status Date / Time cephalexin [From Keflex] Allergy Rash/Hives Verified 01/20/20 10:03 ciprofloxacin [From Cipro] Allergy Rash/Hives Verified 01/20/20 10:03 codeine Allergy Unknown Verified 01/20/20 10:03 hydrocodone [From Lortab] Allergy Unknown Verified 01/20/20 10:03 hydromorphone [From Dilaudid] Allergy Rash/Hives Verified 01/20/20 10:03 hydroxyprogesterone Allergy Unknown Verified 01/20/20 10:03 opium (anthroposophic) Allergy Unknown Verified 01/20/20 10:03 Penicillins Allergy Unknown Verified 01/20/20 10:03 simvastatin Allergy Unknown Verified 01/20/20 10:03 tramadol HCl [From Ultram] Allergy Unknown Verified 01/20/20 10:03 Physical Exam Vitals: Vital Signs Temp Pulse Pulse Resp BP BP Pulse Ox 01/20/20 08:52 97.7 F 67 16 142/58 98 01/20/20 02:53 70 18 01/20/20 02:45 97.9 F 70 18 163/67 98 01/20/20 02:28 97.9 F 70 18 163/67 98 01/20/20 02:20 143/75 01/19/20 23:12 152/54 98 01/19/20 22:52 98 F 68 18 184/68 94 L Intake and Output 01/19/20 01/20/20 01/20/20 23:59 06:59 14:59 Other: Voiding Method # Voids Weight - Constitutional General appearance: cooperative, no acute distress - EENT Eyes: anicteric sclerae, EOMI, PERRLA, dentition normal, poor dentition ENT: NA/AT Results CBC & Chem 7: 01/19/20 23:26 01/19/20 23:26 Labs: Abnormal Lab Results - Last 24 Hours (Table) 01/19/20 01/19/20 01/20/20 Range/Units 23:26 23:26 01:26 EST RDW 16.9 H (11.5-15.5) % Sodium 136 L (137-145) mmol/L BUN 23 H (7-17) mg/dL Creatinine 1.33 H (0.52-1.04) mg/dL Glucose 275 H (74-99) mg/dL POC Glucose (mg/dL) 279 H (75-99) mg/dL Laboratory Results WBC 7.1 k/uL (3.8-10.6) 01/19/20 23:26 RBC 4.27 m/uL (3.80-5.40) 01/19/20 23:26 Hgb 11.7 gm/dL (11.4-16.0) 01/19/20 23:26 Hct 36.5 % (34.0-46.0) 01/19/20 23:26 MCV 85.5 fL (80.0-100.0) 01/19/20 23: MCH 27.4 pg (25.0-35.0) 01/19/20 23: MCHC 32.0 g/dL (31.0-37.0) 01/19/20 23: RDW 16.9 % (11.5-15.5) H 01/19/20 23:26 Plt Count 214 k/uL (150-450) 01/19/20 23:26 Neutrophils % 70 % 01/19/20 23: Lymphocytes % 19 % 01/19/20 23: Monocytes % 7 % 01/19/20 23: Eosinophils % 2 % 01/19/20 23: Basophils % 1 % 01/19/20 23:26 Neutrophils # 5.0 k/uL (1.3-7.7) 01/19/20 23: Lymphocytes # 1.3 k/uL (1.0-4.8) 01/19/20 23: Monocytes # 0.5 k/uL (0-1.0) 01/19/20 23: Eosinophils # 0.2 k/uL (0-0.7) 01/19/20 23: Basophils # 0.1 k/uL (0-0.2) 01/19/20 23:26 Hypochromasia Slight 01/19/20 23:26 Anisocytosis Slight 01/19/20 23:26 PT 10.2 sec (9.0-12.0) 01/19/20 23:26 INR 1.0 (<1.2) 01/19/20 23:26 APTT 26.8 sec (22.0-30.0) 01/19/20 23:26 Sodium 136 mmol/L (137-145) L 01/19/20 23:26 Potassium 4.5 mmol/L (3.5-5.1) 01/19/20 23:26 Chloride 105 mmol/L (98-107) 01/19/20 23:26 Carbon Dioxide 25 mmol/L (22-30) 01/19/20 23:26 Anion Gap 6 mmol/L 01/19/20 23:26 BUN 23 mg/dL (7-17) H 01/19/20 23:26 Creatinine 1.33 mg/dL (0.52-1.04) H 01/19/20 23:26 Est GFR (CKD-EPI)AfAm 47 (>60 ml/min/1.73 sqM) 01/19/20 23:26 Est GFR (CKD-EPI)NonAf 41 (>60 ml/min/1.73 sqM) 01/19/20 23:26 Glucose 275 mg/dL (74-99) H 01/19/20 23:26 POC Glucose (mg/dL) 279 mg/dL (75-99) H 01/20/20 01:26 EST POC Glu [employer] Operator ID Cony Fonseca 01/20/20 01:26 EST Calcium 9.2 mg/dL (8.4-10.2) 01/19/20 23:26 Magnesium 1.9 mg/dL (1.6-2.3) 01/19/20 23:26 Total Bilirubin 0.8 mg/dL (0.2-1.3) 01/19/20 23:26 AST 29 U/L (14-36) 01/19/20 23:26 ALT 11 U/L (4-34) 01/19/20 23:26 Alkaline Phosphatase 100 U/L (38-126) 01/19/20 23:26 Troponin I <0.012 ng/mL (0.000-0.034) 01/20/20 07:48 NT-Pro-B Natriuret Pep 1340 pg/mL 01/19/20 23:26 Total Protein 6.6 g/dL (6.3-8.2) 01/19/20 23:26 Albumin 3.8 g/dL (3.5-5.0) 01/19/20 23:26 Thrombosis Risk Factor Assmnt - Choose All That Apply Each Factor Represents 1 point: Obesity (BMI >25) Each Risk Factor Represents 2 Points: Age 61-74 years Other congenital or acquired thrombophilia - If yes, enter type in comment: No Thrombosis Risk Factor Assessment Total Risk Factor Score: 3 Thrombosis Risk Factor Assessment Level: Moderate Risk Assessment and Plan Plan: 1. Chest pain ruled out NH, symptoms of Palpitations perceived as heart beating hard, EKG currently is atrial sensed ventricular paced rhythm, seen by our patient flow coordinator, cardiac enzymes are negative 3, cleared for discharge by cardiology, outpatient follow-up with Dr. Bhavik Mcginnis [facility] patient flow coordinator. The complete cardiac workup 2Hypertension, uncontrolled, cardiology has increase to 50 mg twice a day, continue on hydralazine 50 3 times a day, Demadex 20 mg Tuesday 3. Atrial fibrillation history, on chronic anticoagulation with apixaban, not on any beta jimmie 4 history of congenital heart disease with cardiac transplant 2001, continue CellCept and tacrolimus 5. Hyperlipidemia on Lipitor 6Diabetes mellitus type 2, Levemir 26 units daily same as home, and NovoLog scale 7Hypothyroidism, on levothyroxine, no change in Synthroid 75, patient to have routine thyroid function test to be done as an outpatient
[2020-01-20] MEDS ORDERED: ATORVASTATIN 10 MG TAB PO SCH (21:00)
[2020-01-20] MEDS ORDERED: NON FORMULARY DRUG (Sirolimus [Sirolimus] 1 MG Tablet) PO SCH (21:00)
[2020-01-21] MEDS ORDERED: ASPIRIN 325 MG TAB PO SCH (09:00)
== END 2020-01-20 15:35 | disposition home or self-care (01) ==
LOC: EC 22:51 → 3NCARDOBS 01-20 01:48
PROVIDERS: ADMIT Family Medicine; ATTEND Family Medicine
DX: R07.89 Other chest pain (principal); R00.2 Palpitations; I10 Essential (primary) hypertension; I48.19 Other persistent atrial fibrillation; E78.5 Hyperlipidemia, unspecified; E11.9 Type 2 diabetes mellitus without complications; E03.9 Hypothyroidism, unspecified; K21.9 Gastro-esophageal reflux disease without esophagitis; E66.9 Obesity, unspecified; Z79.899 Other long term (current) drug therapy; Z79.01 Long term (current) use of anticoagulants; Z79.82 Long term (current) use of aspirin; Z79.4 Long term (current) use of insulin; Z79.890 Hormone replacement therapy; Z88.1 Allergy status to other antibiotic agents; Z88.5 Allergy status to narcotic agent; Z88.8 Allergy status to other drugs, medicaments and biological substances; Z88.0 Allergy status to penicillin; Z94.1 Heart transplant status; Z87.74 Personal history of (corrected) congenital malformations of heart and circulatory system; Z85.828 Personal history of other malignant neoplasm of skin; Z90.49 Acquired absence of other specified parts of digestive tract; Z98.890 Other specified postprocedural states; Z90.89 Acquired absence of other organs; Z98.51 Tubal ligation status; Z87.891 Personal history of nicotine dependence; Z95.0 Presence of cardiac pacemaker; Z68.35 Body mass index [BMI] 35.0-35.9, adult; Z82.49 Family history of ischemic heart disease and other diseases of the circulatory system
CPT/HCPCS: 96365; 96375; 99285; 36415 ×2; 93005; 83880; 80053; 83735; 84484 ×2; 85025; 85610; 85730; 71045; G0378; J2550; J7517; J3475

== ENCOUNTER → 2020-05-20 | Outpatient (CLI) | payer MEDICARE, OTHER ==
[2020-05-20 11:42] LABS: Basophils # (A) 0.05 X 10*3/uL (0.00-0.10); Basophils % (A) 0.6 %; Eosinophils # (A) 0.18 X 10*3/uL (0.04-0.35); Eosinophils % (A) 2.3 %; HCT 33.8 % (37.2-46.3); HGB 10.5 g/dL (12.0-15.0); Lymphocytes # (A) 1.51 X 10*3/uL (0.90-5.00); Lymphocytes % (A) 19.1 %; MCH 26.2 pg (27.0-32.0); MCHC 31.1 g/dL (32.0-37.0); MCV 84.3 fL (80.0-97.0); Mean Platelet Volume 11.1 fL (9.5-12.2); Monocytes # (A) 0.91 X 10*3/uL (0.20-1.00); Monocytes % (A) 11.5 %; Neutrophils # (A) 5.22 X 10*3/uL (1.80-7.70); Neutrophils % (A) 66.1 %; Platelet Count 219 X 10*3/uL (140-440); RBC 4.01 X 10*6/uL (4.10-5.20)
[2020-05-20 14:47] LABS: Albumin 4.2 g/dL (3.80-4.90); Albumin/Globulin Ratio 1.75 (1.60-3.17); BUN/Creat Ratio 18.5 Ratio (12.00-20.00); Calcium 9.4 mg/dL (8.7-10.3); Globulin 2.4 g/dL (1.6-3.3); Magnesium 1.7 mg/dL (1.5-2.4); Potassium 3.9 mmol/L (3.5-5.5); Total Bilirubin 0.4 mg/dL (0.2-1.2); Total Protein 6.6 g/dL (6.2-8.2)
== END | disposition home or self-care (01) ==
LOC: LABWHC1 07:21
PROVIDERS: ATTEND Internal Medicine
DX: R69 Illness, unspecified (principal)
CPT/HCPCS: 36415; 80053; 80195; 82550; 83735; 83880; 85025

== ENCOUNTER → 2020-08-26 | Outpatient (CLI) | payer MEDICARE, OTHER ==
[2020-08-26 16:02] LABS: Urine Creatinine 92.6 mg/dL
[2020-08-26 19:24] LABS: African American GFR (CKD) 35.3 (60.0-200.0); Albumin/Globulin Ratio 1.74 (1.60-3.17); Anion Gap 12.9 mmol/L (4.00-12.00); BUN/Creat Ratio 20.59 Ratio (12.00-20.00); Calcium 9.6 mg/dL (8.7-10.3); Carbon Dioxide 23.1 mmol/L (21.6-31.8); Chol/HDL Ratio 5.21; Globulin 2.3 g/dL (1.6-3.3); LDL Cholesterol,Calculated 80.8 mg/dL (0.0-131.0); Non-African American GFR(CKD) 30.5 (60.0-200.0); Potassium 4.1 mmol/L (3.5-5.5); Total Bilirubin 0.4 mg/dL (0.2-1.2); Total Protein 6.3 g/dL (6.2-8.2); VLDL Calculation 41.2 mg/dL (5.00-40.00)
[2020-08-26 21:16] LABS: Hemoglobin A1C 8.9 % (4.0-6.0)
== END | disposition home or self-care (01) ==
LOC: LABWHC1 07:29
PROVIDERS: ATTEND Internal Medicine Endocrinology, Diabetes & Metabolism
DX: E11.65 Type 2 diabetes mellitus with hyperglycemia (principal); I50.30 Unspecified diastolic (congestive) heart failure; T86.22 Heart transplant failure; T86.23 Heart transplant infection; E78.2 Mixed hyperlipidemia
CPT/HCPCS: 36415; 80053; 80061; 82043; 82570; 83036; 84443

== ENCOUNTER → 2020-10-16 | Outpatient (CLI) | payer MEDICARE, OTHER ==
[2020-10-16 18:53] LABS: HGB 11.1 g/dL (12.0-15.0); MCH 25.2 pg (27.0-32.0); MCHC 29.2 g/dL (32.0-37.0); MCV 86.2 fL (80.0-97.0); Mean Platelet Volume 11.1 fL (9.5-12.2); Platelet Count 264 X 10*3/uL (140-440); RBC 4.41 X 10*6/uL (4.10-5.20); RDW 15.4 % (11.5-14.5); WBC 9.03 X 10*3/uL (4.50-10.00)
[2020-10-17 04:58] LABS: % Iron Saturation 9.06 (12.00-45.00); African American GFR (CKD) 32.9 (60.0-200.0); Albumin 4.1 g/dL (3.80-4.90); Albumin/Globulin Ratio 1.71 (1.60-3.17); Anion Gap 14.6 mmol/L (4.00-12.00); BUN/Creat Ratio 12.78 Ratio (12.00-20.00); Calcium 9.2 mg/dL (8.7-10.3); Carbon Dioxide 23.4 mmol/L (21.6-31.8); Globulin 2.4 g/dL (1.6-3.3); Magnesium 1.8 mg/dL (1.5-2.4); Non-African American GFR(CKD) 28.4 (60.0-200.0); Total Bilirubin 0.5 mg/dL (0.3-1.2); Total Protein 6.5 g/dL (6.2-8.2); Uric Acid 8.2 mg/dL (2.9-7.7)
[2020-10-17 04:59] LABS: Phosphorus 3.2 mg/dL (2.4-5.1)
[2020-10-17 05:12] LABS: Urine Creatinine 130.9 mg/dL
== END | disposition home or self-care (01) ==
LOC: LABWHC1 12:04
PROVIDERS: ATTEND Nurse Practitioner Family
DX: N18.30 Chronic kidney disease, stage 3 unspecified (principal); D63.1 Anemia in chronic kidney disease; N25.81 Secondary hyperparathyroidism of renal origin; M10.9 Gout, unspecified; E55.9 Vitamin D deficiency, unspecified; R80.9 Proteinuria, unspecified
CPT/HCPCS: 36415; 80053; 82043; 82306; 82570; 82728; 83540; 83550; 83735; 83970; 84100; 84550; 85027

== ENCOUNTER 2020-10-30 01:57 | Emergency (ER) | payer MEDICARE, OTHER ==
[2020-10-30] MEDS ORDERED: SODIUM CHLORIDE 0.9% 1,000 ML IV STA ×2 (02:33)
[2020-10-30] MEDS ORDERED: ACETAMINOPHEN TAB 500 MG TAB PO STA (02:33)
[2020-10-30] MEDS ORDERED: KETOROLAC 15 MG/ML 1 ML VIAL IVP STA (02:33)
--- NOTE | 2020-10-30 02:36 | ED ---
Fever HPI - General Chief Complaint: Fever Stated Complaint: Fever Time Seen by Provider: 10/30/20 02:25 Source: patient, family Mode of arrival: ambulatory Limitations: no limitations - History of Present Illness Initial Comments: This is a 69 evaluation. Patient presents today for evaluation regards to fever. Shortness with fever bodyaches pains cough shortness of breath coughing up sputum and sore throat. Patient is also having fever running nose and sore throat. MD Complaint: fever, weakness -: days(s) Temperature Source: subjective Context: multiple patients with similar symptoms Associated Symptoms: denies other symptoms Treatments Prior to Arrival: none - Related Data Home Medications Medication Instructions Recorded Confirmed Atorvastatin Calcium [Lipitor] 10 mg PO HS 06/24/16 11/10/20 Pantoprazole Sodium [Protonix] 40 mg PO BID 06/24/16 11/10/20 Sirolimus 1 mg PO HS 06/24/16 11/10/20 hydrALAZINE HCL [Apresoline] 50 mg PO TID 06/24/16 11/10/20 Butorphanol Tartrate [Stadol Nasal 1 spray EA NOSTRIL Q4H PRN 03/03/17 11/10/20 [place]] mycophenolate mofetiL [Cellcept] 250 mg PO BID 03/03/17 11/10/20 Apixaban [Eliquis] 5 mg PO BID 12/21/17 11/10/20 Aspirin EC [Ecotrin Low Dose] 81 mg PO HS 01/20/20 11/10/20 INSULIN LISPRO (humaLOG) [humaLOG] See Protocol SQ AC-TID PRN 01/20/20 11/10/20 Insulin Glargine [Lantus Vial] 26 unit SQ DAILY 01/20/20 11/10/20 Levothyroxine Sodium [Synthroid] 125 mcg PO DAILY 01/20/20 11/10/20 Losartan Potassium [Cozaar] 25 mg PO DAILY 01/20/20 11/10/20 Promethazine HCl 12.5 mg PO Q6H PRN 01/20/20 11/10/20 Torsemide [Demadex] 20 mg PO MOWEFR 01/20/20 11/10/20 Metoprolol Succinate (ER) [Toprol 25 mg PO DAILY 10/31/20 11/10/20 Xl] Allergies Allergy/AdvReac Type Severity Reaction Status Date / Time cephalexin [From Keflex] Allergy Rash/Hives Verified 11/10/20 12:58 ciprofloxacin [From Cipro] Allergy Rash/Hives Verified 11/10/20 12:58 codeine Allergy Unknown Verified 11/10/20 12:58 hydrocodone [From Lortab] Allergy Unknown Verified 11/10/20 12:58 hydromorphone [From Dilaudid] Allergy Rash/Hives Verified 11/10/20 12:58 hydroxyprogesterone Allergy Unknown Verified 11/10/20 12:58 opium (anthroposophic) Allergy Unknown Verified 11/10/20 12:58 Penicillins Allergy Unknown Verified 11/10/20 12:58 simvastatin Allergy Unknown Verified 11/10/20 12:58 tramadol HCl [From Ultram] Allergy Unknown Verified 11/10/20 12:58 Review of Systems ROS Statement: Those systems with pertinent positive or pertinent negative responses have been documented in the HPI. ROS Other: All systems not noted in ROS Statement are negative. Past Medical History Past Medical History: Atrial Fibrillation, Diabetes Mellitus, GERD/Reflux, Thyroid Disorder Additional Past Medical History / Comment(s): Congenital deformity of the heart status post heart transplant in [address] [facility], skin cancer on her left ankle. History of Any Multi-Drug Resistant Organisms: None Reported Past Surgical History: Appendectomy, Breast Surgery, Cardiac Ablation, Cholecystectomy, Tonsillectomy, Tubal Ligation Additional Past Surgical History / Comment(s): Heart Transplant [address] [facility], lumbar laminectomy, breast reduction, removal of skin cancer on her left ankle. Past Anesthesia/Blood Transfusion Reactions: No Reported Reaction Additional Past Anesthesia/Blood Transfusion Reaction / Comment(s): Pt has received blood in past without reaction. Past Psychological History: No Psychological Hx Reported Smoking Status: Former smoker Past Alcohol Use History: None Reported Past Drug Use History: None Reported - Past Family History Father Family Medical History: Myocardial Infarction ([place]) Additional Family Medical History / Comment(s): Father of a massive [place] at the age of 52 yrs. Mother Family Medical History: No Reported History Additional Family Medical History / Comment(s): Mother in her sleep at the age of 82 yrs. Brother(s) Additional Family Medical History / Comment(s): Patient has 2 sisters and one brother with history of coronary artery disease. Patient does not have any children. General Exam Limitations: no limitations General appearance: alert, in no apparent distress Head exam: Present: atraumatic, normocephalic, normal inspection Eye exam: Present: normal appearance, PERRL, EOMI. Absent: scleral icterus, conjunctival injection, periorbital swelling ENT exam: Present: normal exam, mucous membranes moist Neck exam: Present: normal inspection. Absent: tenderness, meningismus, lymphadenopathy Respiratory exam: Present: normal lung sounds bilaterally. Absent: respiratory distress, wheezes, rales, rhonchi, stridor Cardiovascular Exam: Present: regular rate, normal rhythm, normal heart sounds. Absent: systolic murmur, diastolic murmur, rubs, gallop, clicks GI/Abdominal exam: Present: soft, normal bowel sounds. Absent: distended, tenderness, guarding, rebound, rigid Extremities exam: Present: normal inspection, full ROM, normal capillary refill. Absent: tenderness, pedal edema, joint swelling, calf tenderness Back exam: Present: normal inspection Neurological exam: Present: alert, oriented X3, CN II-XII intact Psychiatric exam: Present: normal affect, normal mood Skin exam: Present: warm, dry, intact, normal color. Absent: rash Course Vital Signs 10/30/20 10/30/20 02:04 05:00 Temperature 100.4 F H 97.9 F Pulse Rate 54 L 55 L Respiratory 22 18 Rate Blood Pressure 139/71 127/57 O2 Sat by Pulse 94 L 95 Oximetry - Reevaluation(s) Reevaluation #1: 11/01/20 Medical record is reviewed Symptoms are improved here in the emergency department Patient informed results and questions have been answered Patient is in no distress Medical Decision Making - Medical Decision Making 61 female to the ER today for evaluation, patient presents today for evaluation regards to fever. No significant cause found. Patient can be discharged home - Lab Data Result diagrams: 10/30/20 02:38 10/30/20 02:38 Lab Results 10/30/20 10/30/20 10/30/20 Range/Units 02:38 02:38 02:38 WBC 10.6 (3.8-10.6) k/uL RBC 4.51 (3.80-5.40) m/uL Hgb 11.9 (11.4-16.0) gm/dL Hct 36.5 (34.0-46.0) % MCV 80.8 (80.0-100.0) fL MCH 26.4 (25.0-35.0) pg MCHC 32.7 (31.0-37.0) g/dL RDW 15.6 H (11.5-15.5) % Plt Count 243 (150-450) k/uL MPV 7.9 Neutrophils % 84 % Lymphocytes % 9 % Monocytes % 4 % Eosinophils % 2 % Basophils % 1 % Neutrophils # 8.9 H (1.3-7.7) k/uL Lymphocytes # 1.0 (1.0-4.8) k/uL Monocytes # 0.4 (0-1.0) k/uL Eosinophils # 0.2 (0-0.7) k/uL Basophils # 0.1 (0-0.2) k/uL PT 12.1 H (9.0-12.0) sec INR 1.2 H (<1.2) APTT 25.7 (22.0-30.0) sec Sodium (137-145) mmol/L Potassium (3.5-5.1) mmol/L Chloride (98-107) mmol/L Carbon Dioxide (22-30) mmol/L Anion Gap mmol/L BUN (7-17) mg/dL Creatinine (0.52-1.04) mg/dL Est GFR (CKD-EPI)AfAm (>60 ml/min/1.73 sqM) Est GFR (CKD-EPI)NonAf (>60 ml/min/1.73 sqM) Glucose (74-99) mg/dL Plasma Lactic Acid Cj (0.7-2.0) mmol/L Calcium (8.4-10.2) mg/dL Magnesium (1.6-2.3) mg/dL Total Bilirubin (0.2-1.3) mg/dL AST (14-36) U/L ALT (4-34) U/L Alkaline Phosphatase (38-126) U/L Lactate Dehydrogenase (313-618) U/L C-Reactive Protein (<1.0) mg/dL NT-Pro-B Natriuret Pep 3210 pg/mL Total Protein (6.3-8.2) g/dL Albumin (3.5-5.0) g/dL Coronavirus (PCR) (Not Detectd) Influenza Type A RNA (Not Detectd) Influenza Type B (PCR) (Not Detectd) 10/30/20 10/30/20 10/30/20 Range/Units 02:38 02:38 02:38 WBC (3.8-10.6) k/uL RBC (3.80-5.40) m/uL Hgb (11.4-16.0) gm/dL Hct (34.0-46.0) % MCV (80.0-100.0) fL MCH (25.0-35.0) pg MCHC (31.0-37.0) g/dL RDW (11.5-15.5) % Plt Count (150-450) k/uL MPV Neutrophils % % Lymphocytes % % Monocytes % % Eosinophils % % Basophils % % Neutrophils # (1.3-7.7) k/uL Lymphocytes # (1.0-4.8) k/uL Monocytes # (0-1.0) k/uL Eosinophils # (0-0.7) k/uL Basophils # (0-0.2) k/uL PT (9.0-12.0) sec INR (<1.2) APTT (22.0-30.0) sec Sodium 136 L (137-145) mmol/L Potassium 3.6 (3.5-5.1) mmol/L Chloride 101 (98-107) mmol/L Carbon Dioxide 24 (22-30) mmol/L Anion Gap 11 mmol/L BUN 31 H (7-17) mg/dL Creatinine 1.85 H (0.52-1.04) mg/dL Est GFR (CKD-EPI)AfAm 32 (>60 ml/min/1.73 sqM) Est GFR (CKD-EPI)NonAf 28 (>60 ml/min/1.73 sqM) Glucose 161 H (74-99) mg/dL Plasma Lactic Acid Cj 0.8 (0.7-2.0) mmol/L Calcium 9.2 (8.4-10.2) mg/dL Magnesium 1.8 (1.6-2.3) mg/dL Total Bilirubin 0.7 (0.2-1.3) mg/dL AST 21 (14-36) U/L ALT 7 (4-34) U/L Alkaline Phosphatase 126 (38-126) U/L Lactate Dehydrogenase 496 (313-618) U/L C-Reactive Protein 3.3 H (<1.0) mg/dL NT-Pro-B Natriuret Pep pg/mL Total Protein 6.4 (6.3-8.2) g/dL Albumin 3.8 (3.5-5.0) g/dL Coronavirus (PCR) Not Detected (Not Detectd) Influenza Type A RNA (Not Detectd) Influenza Type B (PCR) (Not Detectd) 10/30/20 10/30/20 Range/Units 03:47 03:47 WBC (3.8-10.6) k/uL RBC (3.80-5.40) m/uL Hgb (11.4-16.0) gm/dL Hct (34.0-46.0) % MCV (80.0-100.0) fL MCH (25.0-35.0) pg MCHC (31.0-37.0) g/dL RDW (11.5-15.5) % Plt Count (150-450) k/uL MPV Neutrophils % % Lymphocytes % % Monocytes % % Eosinophils % % Basophils % % Neutrophils # (1.3-7.7) k/uL Lymphocytes # (1.0-4.8) k/uL Monocytes # (0-1.0) k/uL Eosinophils # (0-0.7) k/uL Basophils # (0-0.2) k/uL PT (9.0-12.0) sec INR (<1.2) APTT (22.0-30.0) sec Sodium (137-145) mmol/L Potassium (3.5-5.1) mmol/L Chloride (98-107) mmol/L Carbon Dioxide (22-30) mmol/L Anion Gap mmol/L BUN (7-17) mg/dL Creatinine (0.52-1.04) mg/dL Est GFR (CKD-EPI)AfAm (>60 ml/min/1.73 sqM) Est GFR (CKD-EPI)NonAf (>60 ml/min/1.73 sqM) Glucose (74-99) mg/dL Plasma Lactic Acid Cj (0.7-2.0) mmol/L Calcium (8.4-10.2) mg/dL Magnesium (1.6-2.3) mg/dL Total Bilirubin (0.2-1.3) mg/dL AST (14-36) U/L ALT (4-34) U/L Alkaline Phosphatase (38-126) U/L Lactate Dehydrogenase (313-618) U/L C-Reactive Protein (<1.0) mg/dL NT-Pro-B Natriuret Pep pg/mL Total Protein (6.3-8.2) g/dL Albumin (3.5-5.0) g/dL Coronavirus (PCR) Not Detected (Not Detectd) Influenza Type A RNA Not Detected (Not Detectd) Influenza Type B (PCR) Not Detected (Not Detectd) - EKG Data -: EKG Interpreted by Me (EKG shows paced a 71 AK 160 QRS 80 QTC 4:30) - Radiology Data Radiology results: report reviewed (Chest x-rays negative for acute disease), image reviewed Disposition Clinical Impression: Fever Disposition: HOME SELF-CARE Condition: Undetermined Instructions (If sedation given, give patient instructions): Fever in Adults (ED) Is patient prescribed a controlled substance at d/c from ED?: No Referrals: Gilmar Al MD [Primary Care Provider] - 1-2 days
[2020-10-30 03:14] LABS: Basophils # (A) 0.1 k/uL (0-0.2); Basophils % (A) 1 %; Eosinophils # (A) 0.2 k/uL (0-0.7); Eosinophils % (A) 2 %; HCT 36.5 % (34.0-46.0); HGB 11.9 gm/dL (11.4-16.0); Lymphocytes % (A) 9 %; MCH 26.4 pg (25.0-35.0); MCHC 32.7 g/dL (31.0-37.0); MCV 80.8 fL (80.0-100.0); Mean Platelet Volume 7.9; Monocytes # (A) 0.4 k/uL (0-1.0); Monocytes % (A) 4 %; Neutrophils # (A) 8.9 k/uL (1.3-7.7); Neutrophils % (A) 84 %; Platelet Count 243 k/uL (150-450); RBC 4.51 m/uL (3.80-5.40); RDW 15.6 % (11.5-15.5); WBC 10.6 k/uL (3.8-10.6)
--- NOTE | 2020-10-30 03:18 | XR ---
EXAMINATION TYPE: XR chest 1V portable DATE OF EXAM: 10/30/2020 COMPARISON: 01/19/2020 HISTORY: Fever TECHNIQUE: FINDINGS: There is no heart failure nor confluent pneumonic infiltrate. Costophrenic angles are clear . There is left axillary pacemaker. There are sternal wires. The thorax is intact. There is no pleura l effusion. IMPRESSION: No active cardiopulmonary disease. No change.
[2020-10-30 03:50] LABS: INR 1.2 (<1.2); Partial Thromboplastin Time 25.7 sec (22.0-30.0); Prothrombin Time 12.1 sec (9.0-12.0)
[2020-10-30 03:55] LABS: Albumin 3.8 g/dL (3.5-5.0); C Reactive Protein 3.3 mg/dL (<1.0); Calcium 9.2 mg/dL (8.4-10.2); Magnesium 1.8 mg/dL (1.6-2.3); Potassium 3.6 mmol/L (3.5-5.1); Total Bilirubin 0.7 mg/dL (0.2-1.3); Total Protein 6.4 g/dL (6.3-8.2)
[2020-10-30 05:11] VITALS: BP 127/57; PULSE 55; RESP 18; TEMP 97.9
== END 2020-10-30 05:05 | disposition home or self-care (01) ==
LOC: EC 01:57
DX: R50.9 Fever, unspecified (principal); R09.89 Other specified symptoms and signs involving the circulatory and respiratory systems; R06.02 Shortness of breath; R05 Cough; R52 Pain, unspecified; E11.9 Type 2 diabetes mellitus without complications; K21.9 Gastro-esophageal reflux disease without esophagitis; E07.9 Disorder of thyroid, unspecified; I48.91 Unspecified atrial fibrillation; Z88.1 Allergy status to other antibiotic agents; Z88.5 Allergy status to narcotic agent; Z88.0 Allergy status to penicillin; Z88.8 Allergy status to other drugs, medicaments and biological substances; Z79.890 Hormone replacement therapy; Z87.891 Personal history of nicotine dependence; Z79.899 Other long term (current) drug therapy; Z79.82 Long term (current) use of aspirin; Z94.1 Heart transplant status; Z20.822 Contact with and (suspected) exposure to COVID-19
CPT/HCPCS: 36415; 93005; 83880; 80053; 83605; 83615; 83735; 85025; 85610; 85730; 86140; 87040; 87502; 87635; 71045; 96374; 96361; 99285; U0003; U0005; J1885

== ENCOUNTER 2020-10-31 09:08 | Emergency (ER) | payer MEDICARE, OTHER ==
[2020-10-31 09:12] VITALS: RESP 18
[2020-10-31] MEDS ORDERED: SODIUM CHLORIDE 0.9% 1,000 ML IV STA (09:29)
[2020-10-31] MEDS ORDERED: ONDANSETRON 4 MG/2 ML VIAL IVP STA (09:29)
[2020-10-31] MEDS ORDERED: DICYCLOMINE 10 MG/ML 2 ML AMP IM STA (09:29)
[2020-10-31] MEDS ORDERED: FAMOTIDINE 20 MG/2 ML VIAL IV STA (09:30)
--- NOTE | 2020-10-31 09:35 | ED ---
General Adult HPI - General Chief complaint: Nausea/Vomiting/Diarrhea Stated complaint: N&V Time Seen by Provider: 10/31/20 09:16 Source: patient, RN notes reviewed Mode of arrival: ambulatory Limitations: no limitations - History of Present Illness Initial comments: Patient is a pleasant 69-year-old female presenting to the emergency department with nausea vomiting diarrhea. Onset of symptoms was around 3 days ago. Patient did have temperature of 100.2 today. Patient has nausea and vomiting approximately 3 times per day. Patient is probably having twice have much diarrhea. Patient has occasional abdominal cramping. No pain. No back pain. No history of chronic similar symptoms previously. - Related Data Home Medications Medication Instructions Recorded Confirmed Atorvastatin Calcium [Lipitor] 10 mg PO HS 06/24/16 10/31/20 Pantoprazole Sodium [Protonix] 40 mg PO BID 06/24/16 10/31/20 Sirolimus 1 mg PO HS 06/24/16 10/31/20 hydrALAZINE HCL [Apresoline] 50 mg PO TID 06/24/16 10/31/20 Butorphanol Tartrate [Stadol Nasal 1 spray EA NOSTRIL Q4H PRN 03/03/17 10/31/20 [place]] mycophenolate mofetiL [Cellcept] 250 mg PO BID 03/03/17 10/31/20 Apixaban [Eliquis] 5 mg PO BID 12/21/17 10/31/20 Aspirin EC [Ecotrin Low Dose] 81 mg PO HS 01/20/20 10/31/20 INSULIN LISPRO (humaLOG) [humaLOG] See Protocol SQ AC-TID PRN 01/20/20 10/31/20 Insulin Glargine [Lantus] 26 unit SQ DAILY 01/20/20 10/31/20 Levothyroxine Sodium [Synthroid] 125 mcg PO DAILY 01/20/20 10/31/20 Losartan Potassium [Cozaar] 25 mg PO DAILY 01/20/20 10/31/20 Promethazine HCl 12.5 mg PO Q6H PRN 01/20/20 10/31/20 Torsemide [Demadex] 20 mg PO MOWEFR 01/20/20 10/31/20 Losartan [Cozaar] 50 mg PO DAILY 10/31/20 10/31/20 Metoprolol Succinate (ER) [Toprol 25 mg PO DAILY 10/31/20 10/31/20 Xl] Allergies Allergy/AdvReac Type Severity Reaction Status Date / Time cephalexin [From Keflex] Allergy Rash/Hives Verified 10/31/20 10:55 ciprofloxacin [From Cipro] Allergy Rash/Hives Verified 10/31/20 10:55 codeine Allergy Unknown Verified 10/31/20 10:55 hydrocodone [From Lortab] Allergy Unknown Verified 10/31/20 10:55 hydromorphone [From Dilaudid] Allergy Rash/Hives Verified 10/31/20 10:55 hydroxyprogesterone Allergy Unknown Verified 10/31/20 10:55 opium (anthroposophic) Allergy Unknown Verified 10/31/20 10:55 Penicillins Allergy Unknown Verified 10/31/20 10:55 simvastatin Allergy Unknown Verified 10/31/20 10:55 tramadol HCl [From Ultram] Allergy Unknown Verified 10/31/20 10:55 Review of Systems ROS Statement: Those systems with pertinent positive or pertinent negative responses have been documented in the HPI. ROS Other: All systems not noted in ROS Statement are negative. 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 History of Any Multi-Drug Resistant Organisms: None Reported Past Surgical History: Appendectomy, Breast Surgery, Cardiac Ablation, Cholecystectomy, Tonsillectomy, Tubal Ligation Additional Past Surgical History / Comment(s): Heart Transplant 2002 at [facility], lumbar laminectomy, breast reduction, removal of skin cancer on her left ankle. Past Anesthesia/Blood Transfusion Reactions: No Reported Reaction Additional Past Anesthesia/Blood Transfusion Reaction / Comment(s): Pt has received blood in past without reaction. Past Psychological History: No Psychological Hx Reported Smoking Status: Former smoker Past Alcohol Use History: None Reported Past Drug Use History: None Reported - Past Family History Father Family Medical History: Myocardial Infarction ([place]) Additional Family Medical History / Comment(s): Father of a massive [place] at the age of 52 yrs. Mother Family Medical History: No Reported History Additional Family Medical History / Comment(s): Mother in her sleep at the age of 82 yrs. Brother(s) Additional Family Medical History / Comment(s): Patient has 2 sisters and one b rother with history of coronary artery disease. Patient does not have any children. General Exam Limitations: no limitations General appearance: alert, in no apparent distress Head exam: Present: normocephalic Eye exam: Present: normal appearance Neck exam: Present: normal inspection Respiratory exam: Present: normal lung sounds bilaterally Cardiovascular Exam: Present: regular rate, normal rhythm GI/Abdominal exam: Present: soft, normal bowel sounds. Absent: distended, tenderness, guarding, rebound, rigid, pulsatile mass Extremities exam: Present: normal inspection Neurological exam: Present: alert Psychiatric exam: Present: normal affect, normal mood Skin exam: Present: normal color Course Vital Signs 10/31/20 10/31/20 09:09 10:08 Temperature 98.2 F 98.6 F Pulse Rate 69 Respiratory 18 Rate Blood Pressure 172/69 O2 Sat by Pulse 97 Oximetry Medical Decision Making - Medical Decision Making Patient reevaluated and resting comfortably in bed. Patient updated on results. Patient is comfortable with discharge home. Patient states she has nausea medicine at home. - Lab Data Result diagrams: 10/31/20 09:47 10/31/20 09:47 Lab Results 10/31/20 10/31/20 10/31/20 Range/Units 09:47 09:47 09:47 WBC 11.6 H (3.8-10.6) k/uL RBC 4.69 (3.80-5.40) m/uL Hgb 12.4 (11.4-16.0) gm/dL Hct 38.3 (34.0-46.0) % MCV 81.6 (80.0-100.0) fL MCH 26.4 (25.0-35.0) pg MCHC 32.3 (31.0-37.0) g/dL RDW 15.4 (11.5-15.5) % Plt Count 230 (150-450) k/uL MPV 8.3 Neutrophils % 86 % Lymphocytes % 8 % Monocytes % 4 % Eosinophils % 1 % Basophils % 1 % Neutrophils # 10.0 H (1.3-7.7) k/uL Lymphocytes # 0.9 L (1.0-4.8) k/uL Monocytes # 0.5 (0-1.0) k/uL Eosinophils # 0.1 (0-0.7) k/uL Basophils # 0.1 (0-0.2) k/uL Sodium 138 (137-145) mmol/L Potassium 3.7 (3.5-5.1) mmol/L Chloride 101 (98-107) mmol/L Carbon Dioxide 23 (22-30) mmol/L Anion Gap 14 mmol/L BUN 30 H (7-17) mg/dL Creatinine 1.79 H (0.52-1.04) mg/dL Est GFR (CKD-EPI)AfAm 33 (>60 ml/min/1.73 sqM) Est GFR (CKD-EPI)NonAf 29 (>60 ml/min/1.73 sqM) Glucose 197 H (74-99) mg/dL Calcium 9.2 (8.4-10.2) mg/dL Total Bilirubin 0.8 (0.2-1.3) mg/dL AST 25 (14-36) U/L ALT 9 (4-34) U/L Alkaline Phosphatase 131 H (38-126) U/L Total Protein 6.6 (6.3-8.2) g/dL Albumin 4.0 (3.5-5.0) g/dL Amylase 41 (30-110) U/L Lipase 29 (23-300) U/L Urine Color Urine Appearance (Clear) Urine pH (5.0-8.0) Ur Specific [place] (1.001-1.035) Urine Protein (Negative) Urine Glucose (UA) (Negative) Urine Ketones (Negative) Urine Blood (Negative) Urine Nitrite (Negative) Urine Bilirubin (Negative) Urine Urobilinogen (<2.0) mg/dL Ur Leukocyte Esterase (Negative) Urine RBC (0-5) /hpf Urine WBC (0-5) /hpf Ur Squamous Epith Cells (0-4) /hpf Urine Bacteria (None) /hpf C. difficile (EIA) Intrp Negative (Negative) 10/31/20 Range/Units 12:15 WBC (3.8-10.6) k/uL RBC (3.80-5.40) m/uL Hgb (11.4-16.0) gm/dL Hct (34.0-46.0) % MCV (80.0-100.0) fL MCH (25.0-35.0) pg MCHC (31.0-37.0) g/dL RDW (11.5-15.5) % Plt Count (150-450) k/uL MPV Neutrophils % % Lymphocytes % % Monocytes % % Eosinophils % % Basophils % % Neutrophils # (1.3-7.7) k/uL Lymphocytes # (1.0-4.8) k/uL Monocytes # (0-1.0) k/uL Eosinophils # (0-0.7) k/uL Basophils # (0-0.2) k/uL Sodium (137-145) mmol/L Potassium (3.5-5.1) mmol/L Chloride (98-107) mmol/L Carbon Dioxide (22-30) mmol/L Anion Gap mmol/L BUN (7-17) mg/dL Creatinine (0.52-1.04) mg/dL Est GFR (CKD-EPI)AfAm (>60 ml/min/1.73 sqM) Est GFR (CKD-EPI)NonAf (>60 ml/min/1.73 sqM) Glucose (74-99) mg/dL Calcium (8.4-10.2) mg/dL Total Bilirubin (0.2-1.3) mg/dL AST (14-36) U/L ALT (4-34) U/L Alkaline Phosphatase (38-126) U/L Total Protein (6.3-8.2) g/dL Albumin (3.5-5.0) g/dL Amylase (30-110) U/L Lipase (23-300) U/L Urine Color Yellow Urine Appearance Clear (Clear) Urine pH 5.5 (5.0-8.0) Ur Specific [place] 1.018 (1.001-1.035) Urine Protein 1+ H (Negative) Urine Glucose (UA) Negative (Negative) Urine Ketones 1+ H (Negative) Urine Blood Negative (Negative) Urine Nitrite Negative (Negative) Urine Bilirubin Negative (Negative) Urine Urobilinogen <2.0 (<2.0) mg/dL Ur Leukocyte Esterase Trace H (Negative) Urine RBC 7 H (0-5) /hpf Urine WBC 2 (0-5) /hpf Ur Squamous Epith Cells 2 (0-4) /hpf Urine Bacteria Rare H (None) /hpf C. difficile (EIA) Intrp (Negative) Disposition Clinical Impression: Vomiting, Diarrhea Disposition: HOME SELF-CARE Condition: Stable Instructions (If sedation given, give patient instructions): Acute Nausea and Vomiting (ED), Acute Diarrhea (ED) Additional Instructions: Please do follow-up to primary care physician in the beginning of the week. Have primary care physician review stool culture from today. Return for not tolerating fluids, pain, fever, worsening or change in symptoms or other concerns. Is patient prescribed a controlled substance at d/c from ED?: No Referrals: Gilmar Al MD [Primary Care Provider] - 1-2 days Time of Disposition: 12:43
[2020-10-31 10:08] VITALS: TEMP 98.6
[2020-10-31 10:14] LABS: Basophils # (A) 0.1 k/uL (0-0.2); Basophils % (A) 1 %; Eosinophils # (A) 0.1 k/uL (0-0.7); Eosinophils % (A) 1 %; HCT 38.3 % (34.0-46.0); HGB 12.4 gm/dL (11.4-16.0); Lymphocytes # (A) 0.9 k/uL (1.0-4.8); Lymphocytes % (A) 8 %; MCH 26.4 pg (25.0-35.0); MCHC 32.3 g/dL (31.0-37.0); MCV 81.6 fL (80.0-100.0); Mean Platelet Volume 8.3; Monocytes # (A) 0.5 k/uL (0-1.0); Monocytes % (A) 4 %; Neutrophils % (A) 86 %; Platelet Count 230 k/uL (150-450); RBC 4.69 m/uL (3.80-5.40); RDW 15.4 % (11.5-15.5); WBC 11.6 k/uL (3.8-10.6)
[2020-10-31 10:30] LABS: Calcium 9.2 mg/dL (8.4-10.2); Potassium 3.7 mmol/L (3.5-5.1); Total Bilirubin 0.8 mg/dL (0.2-1.3); Total Protein 6.6 g/dL (6.3-8.2)
[2020-10-31 12:33] LABS: Appearance,Urine Clear (Clear); Bacteria,Urine Rare /hpf; Bilirubin,Urine Negative (Negative); Blood,Urine Negative (Negative); Color,Urine Yellow; Glucose,Urine (UA) Negative (Negative); Ketones,Urine 1+ (Negative); Leukocyte Esterase,Urine Trace (Negative); Nitrite,Urine Negative (Negative); PH, Urine 5.5 (5.0-8.0); Protein,Urine 1+ (Negative); RBC,Urine 7 /hpf (0-5); Specific Gravity,Urine 1.018 (1.001-1.035); Squamous Epithelial Cell,Urine 2 /hpf (0-4); Urobilinogen,Urine <2.0 mg/dL (<2.0); WBC,Urine 2 /hpf (0-5)
[2020-10-31 13:05] VITALS: BP 130/56; PULSE 65
== END 2020-10-31 13:16 | disposition home or self-care (01) ==
LOC: EC 09:08
DX: R11.2 Nausea with vomiting, unspecified (principal); R19.7 Diarrhea, unspecified; R10.9 Unspecified abdominal pain; E11.9 Type 2 diabetes mellitus without complications; I48.91 Unspecified atrial fibrillation; E07.9 Disorder of thyroid, unspecified; K21.9 Gastro-esophageal reflux disease without esophagitis; Z79.01 Long term (current) use of anticoagulants; Z79.4 Long term (current) use of insulin; Z79.82 Long term (current) use of aspirin; Z79.899 Other long term (current) drug therapy; Z87.891 Personal history of nicotine dependence; Z88.0 Allergy status to penicillin; Z88.1 Allergy status to other antibiotic agents; Z88.5 Allergy status to narcotic agent; Z94.1 Heart transplant status; Z88.8 Allergy status to other drugs, medicaments and biological substances; Z79.890 Hormone replacement therapy
CPT/HCPCS: 36415; 80053; 82150; 83690; 85025; 81001; 87324; 87045; 83630; 87046; 99284; 96374; 96375; 96361; 96372; J0500; J2405

== ENCOUNTER → 2020-11-17 | Outpatient (CLI) | payer MEDICARE, OTHER ==
[2020-11-17 14:52] LABS: Basophils # (A) 0.06 X 10*3/uL (0.00-0.10); Basophils % (A) 1.1 %; Eosinophils # (A) 0.07 X 10*3/uL (0.04-0.35); Eosinophils % (A) 1.3 %; HCT 36.3 % (37.2-46.3); HGB 11.1 g/dL (12.0-15.0); Lymphocytes # (A) 1.08 X 10*3/uL (0.90-5.00); Lymphocytes % (A) 20.3 %; MCH 25.7 pg (27.0-32.0); MCHC 30.6 g/dL (32.0-37.0); Monocytes % (A) 13.1 %; Neutrophils # (A) 3.39 X 10*3/uL (1.80-7.70); Neutrophils % (A) 63.6 %; Platelet Count 208 X 10*3/uL (140-440); RBC 4.32 X 10*6/uL (4.10-5.20); RDW 16.9 % (11.5-14.5); WBC 5.33 X 10*3/uL (4.50-10.00)
[2020-11-17 17:23] LABS: African American GFR (CKD) 35.3 (60.0-200.0); Albumin 3.8 g/dL (3.80-4.90); Albumin/Globulin Ratio 1.58 (1.60-3.17); Anion Gap 10.7 mmol/L (4.00-12.00); BUN/Creat Ratio 12.35 Ratio (12.00-20.00); Calcium 8.6 mg/dL (8.7-10.3); Carbon Dioxide 26.3 mmol/L (21.6-31.8); Globulin 2.4 g/dL (1.6-3.3); Magnesium 1.5 mg/dL (1.5-2.4); Non-African American GFR(CKD) 30.5 (60.0-200.0); Total Bilirubin 0.5 mg/dL (0.2-1.2); Total Protein 6.2 g/dL (6.2-8.2)
== END | disposition home or self-care (01) ==
LOC: LABWHC1 09:26
PROVIDERS: ATTEND Internal Medicine
DX: T86.21 Heart transplant rejection (principal); T86.23 Heart transplant infection; T86.22 Heart transplant failure; T86.290 Cardiac allograft vasculopathy; E78.2 Mixed hyperlipidemia
CPT/HCPCS: 36415; 80053; 82550; 83735; 85025; 87497

== ENCOUNTER 2020-12-02 07:45 | Emergency (ER) | payer MEDICARE, OTHER ==
[2020-12-02 07:53] VITALS: TEMP 97.5
[2020-12-02] MEDS ORDERED: METOCLOPRAMIDE 5 MG/ML 2 ML VIAL IVP STA (08:08)
[2020-12-02] MEDS ORDERED: SODIUM CHLORIDE 0.9% 500 ML 500 ML IV STA (08:08)
[2020-12-02] MEDS ORDERED: diphenhydrAMINE 50 MG/ML 1 ML VIAL IVP STA (08:08)
[2020-12-02 08:32] LABS: Anisocytosis Slight; Basophils # (A) 0.1 k/uL (0-0.2); Basophils % (A) 1 %; Eosinophils # (A) 0.1 k/uL (0-0.7); Eosinophils % (A) 1 %; HCT 37.9 % (34.0-46.0); HGB 12.3 gm/dL (11.4-16.0); Lymphocytes # (A) 1.3 k/uL (1.0-4.8); Lymphocytes % (A) 12 %; MCH 26.9 pg (25.0-35.0); MCHC 32.4 g/dL (31.0-37.0); MCV 82.9 fL (80.0-100.0); Mean Platelet Volume 7.9; Monocytes # (A) 0.5 k/uL (0-1.0); Monocytes % (A) 5 %; Neutrophils # (A) 8.2 k/uL (1.3-7.7); Neutrophils % (A) 80 %; Platelet Count 289 k/uL (150-450); RBC 4.57 m/uL (3.80-5.40); RDW 16.1 % (11.5-15.5); WBC 10.3 k/uL (3.8-10.6)
[2020-12-02 08:40] LABS: INR 1.1 (<1.2); Prothrombin Time 11.3 sec (9.0-12.0)
--- NOTE | 2020-12-02 08:46 | XR ---
EXAMINATION TYPE: XR chest 2V DATE OF EXAM: 12/02/2020 COMPARISON: Chest x-ray 10/30/2020 HISTORY: Dysrhythmia TECHNIQUE: Frontal and lateral views of the chest are obtained. FINDINGS: Generators present in the left pectoral region, there are leads in the right atrium and ve ntricle. Patient is post median sternotomy, there are fractured sternal wires as on prior. Cardiac me diastinal silhouette is within normal limits. No evident airspace disease, pneumothorax, or pleural e ffusion. There is eventration of the right hemidiaphragm. Suspect prominent epicardial fat pads. Ther e are overlying leads, patient is rotated. IMPRESSION: No acute cardiopulmonary process.
--- NOTE | 2020-12-02 08:46 | ED ---
General Adult HPI - General Chief complaint: Nausea/Vomiting/Diarrhea Stated complaint: Nausea/Vomiting/Diarrhea Time Seen by Provider: 12/02/20 07:47 Source: patient, RN notes reviewed Mode of arrival: ambulatory Limitations: no limitations - History of Present Illness Initial comments: This a 69-year-old female presents emergency Department chief complaint of nausea vomiting diarrhea, palpitations. Patient states symptoms started earlier today. Patient states she has no significant abdominal pain states that she just feels off. No fever but states that she has some chills this morning. Patient has no complaints of chest pain or shortness breath she only had some palpitations but is associated with her bowel issues. - Related Data Home Medications Medication Instructions Recorded Confirmed Atorvastatin Calcium [Lipitor] 10 mg PO HS 06/24/16 11/10/20 Pantoprazole Sodium [Protonix] 40 mg PO BID 06/24/16 11/10/20 Sirolimus 1 mg PO HS 06/24/16 11/10/20 hydrALAZINE HCL [Apresoline] 50 mg PO TID 06/24/16 11/10/20 Butorphanol Tartrate [Stadol Nasal 1 spray EA NOSTRIL Q4H PRN 03/03/17 11/10/20 [place]] mycophenolate mofetiL [Cellcept] 250 mg PO BID 03/03/17 11/10/20 Apixaban [Eliquis] 5 mg PO BID 12/21/17 11/10/20 Aspirin EC [Ecotrin Low Dose] 81 mg PO HS 01/20/20 11/10/20 INSULIN LISPRO (humaLOG) [humaLOG] See Protocol SQ AC-TID PRN 01/20/20 11/10/20 Insulin Glargine [Lantus Vial] 26 unit SQ DAILY 01/20/20 11/10/20 Levothyroxine Sodium [Synthroid] 125 mcg PO DAILY 01/20/20 11/10/20 Losartan Potassium [Cozaar] 25 mg PO DAILY 01/20/20 11/10/20 Promethazine HCl 12.5 mg PO Q6H PRN 01/20/20 11/10/20 Torsemide [Demadex] 20 mg PO MOWEFR 01/20/20 11/10/20 Metoprolol Succinate (ER) [Toprol 25 mg PO DAILY 10/31/20 11/10/20 Xl] Allergies Allergy/AdvReac Type Severity Reaction Status Date / Time cephalexin [From Keflex] Allergy Rash/Hives Verified 12/02/20 07:53 ciprofloxacin [From Cipro] Allergy Rash/Hives Verified 12/02/20 07:53 codeine Allergy Unknown Verified 12/02/20 07:53 hydrocodone [From Lortab] Allergy Unknown Verified 12/02/20 07:53 hydromorphone [From Dilaudid] Allergy Rash/Hives Verified 12/02/20 07:53 hydroxyprogesterone Allergy Unknown Verified 12/02/20 07:53 opium (anthroposophic) Allergy Unknown Verified 12/02/20 07:53 Penicillins Allergy Unknown Verified 12/02/20 07:53 simvastatin Allergy Unknown Verified 12/02/20 07:53 tramadol HCl [From Ultram] Allergy Unknown Verified 12/02/20 07:53 Review of Systems ROS Statement: Those systems with pertinent positive or pertinent negative responses have been documented in the HPI. ROS Other: All systems not noted in ROS Statement are negative. 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 History of Any Multi-Drug Resistant Organisms: None Reported Past Surgical History: Appendectomy, Breast Surgery, Cardiac Ablation, Cholecystectomy, Tonsillectomy, Tubal Ligation Additional Past Surgical History / Comment(s): Heart Transplant 2001 at [facility], lumbar laminectomy, breast reduction, removal of skin cancer on her left ankle. Past Anesthesia/Blood Transfusion Reactions: No Reported Reaction Additional Past Anesthesia/Blood Transfusion Reaction / Comment(s): Pt has received blood in past without reaction. Past Psychological History: No Psychological Hx Reported Smoking Status: Former smoker Past Alcohol Use History: None Reported Past Drug Use History: None Reported - Past Family History Father Family Medical History: Myocardial Infarction ([place]) Additional Family Medical History / Comment(s): Father of a massive [place] at the age of 52 yrs. Mother Family Medical History: No Reported History Additional Family Medical History / Comment(s): Mother in her sleep at the age of 82 yrs. Brother(s) Additional Family Medical History / Comment(s): Patient has 2 sisters and one brother with history of coronary artery disease. Patient does not have any children. General Exam Limitations: no limitations General appearance: alert, in no apparent distress Head exam: Present: atraumatic, normocephalic, normal inspection Neck exam: Present: normal inspection. Absent: tenderness, meningismus, lymphadenopathy Respiratory exam: Present: normal lung sounds bilaterally. Absent: respiratory distress, wheezes, rales, rhonchi, stridor Cardiovascular Exam: Present: regular rate, normal rhythm, normal heart sounds. Absent: systolic murmur, diastolic murmur, rubs, gallop, clicks GI/Abdominal exam: Present: soft, normal bowel sounds. Absent: distended, tenderness, guarding, rebound, rigid Back exam: Absent: CVA tenderness (R), CVA tenderness (L) Neurological exam: Present: alert Course Vital Signs 12/02/20 07:50 Temperature 97.5 F L Pulse Rate 56 L Respiratory 20 Rate Blood Pressure 157/71 O2 Sat by Pulse 97 Oximetry Medical Decision Making - Medical Decision Making Patient had presented for upset stomach, nausea vomiting diarrhea patient's labs unremarkable patient has no complaints of dysuria patient was hydrated feels greatly improved she did complain of mild palpitation she is a ventricular paced rhythm. Patient vitals been stable no fever be discharged in stable condition. Patient feels frontal discharge and close return symptoms worsen. - Lab Data Result diagrams: 12/02/20 08:22 12/02/20 08:22 Lab Results 12/02/20 12/02/20 12/02/20 Range/Units 08:22 08:22 08:22 WBC 10.3 (3.8-10.6) k/uL RBC 4.57 (3.80-5.40) m/uL Hgb 12.3 (11.4-16.0) gm/dL Hct 37.9 (34.0-46.0) % MCV 82.9 (80.0-100.0) fL MCH 26.9 (25.0-35.0) pg MCHC 32.4 (31.0-37.0) g/dL RDW 16.1 H (11.5-15.5) % Plt Count 289 (150-450) k/uL MPV 7.9 Neutrophils % 80 % Lymphocytes % 12 % Monocytes % 5 % Eosinophils % 1 % Basophils % 1 % Neutrophils # 8.2 H (1.3-7.7) k/uL Lymphocytes # 1.3 (1.0-4.8) k/uL Monocytes # 0.5 (0-1.0) k/uL Eosinophils # 0.1 (0-0.7) k/uL Basophils # 0.1 (0-0.2) k/uL Anisocytosis Slight PT 11.3 (9.0-12.0) sec INR 1.1 (<1.2) APTT 28.0 (22.0-30.0) sec Sodium 138 (137-145) mmol/L Potassium 3.8 (3.5-5.1) mmol/L Chloride 99 (98-107) mmol/L Carbon Dioxide 27 (22-30) mmol/L Anion Gap 12 mmol/L BUN 22 H (7-17) mg/dL Creatinine 1.60 H (0.52-1.04) mg/dL Est GFR (CKD-EPI)AfAm 38 (>60 ml/min/1.73 sqM) Est GFR (CKD-EPI)NonAf 33 (>60 ml/min/1.73 sqM) Glucose 166 H (74-99) mg/dL Calcium 9.4 (8.4-10.2) mg/dL Magnesium 1.5 L (1.6-2.3) mg/dL Total Bilirubin 0.8 (0.2-1.3) mg/dL AST 20 (14-36) U/L ALT 7 (4-34) U/L Alkaline Phosphatase 112 (38-126) U/L Troponin I (0.000-0.034) ng/mL Total Protein 7.0 (6.3-8.2) g/dL Albumin 3.7 (3.5-5.0) g/dL 12/02/20 Range/Units 08:22 WBC (3.8-10.6) k/uL RBC (3.80-5.40) m/uL Hgb (11.4-16.0) gm/dL Hct (34.0-46.0) % MCV (80.0-100.0) fL MCH (25.0-35.0) pg MCHC (31.0-37.0) g/dL RDW (11.5-15.5) % Plt Count (150-450) k/uL MPV Neutrophils % % Lymphocytes % % Monocytes % % Eosinophils % % Basophils % % Neutrophils # (1.3-7.7) k/uL Lymphocytes # (1.0-4.8) k/uL Monocytes # (0-1.0) k/uL Eosinophils # (0-0.7) k/uL Basophils # (0-0.2) k/uL Anisocytosis PT (9.0-12.0) sec INR (<1.2) APTT (22.0-30.0) sec Sodium (137-145) mmol/L Potassium (3.5-5.1) mmol/L Chloride (98-107) mmol/L Carbon Dioxide (22-30) mmol/L Anion Gap mmol/L BUN (7-17) mg/dL Creatinine (0.52-1.04) mg/dL Est GFR (CKD-EPI)AfAm (>60 ml/min/1.73 sqM) Est GFR (CKD-EPI)NonAf (>60 ml/min/1.73 sqM) Glucose (74-99) mg/dL Calcium (8.4-10.2) mg/dL Magnesium (1.6-2.3) mg/dL Total Bilirubin (0.2-1.3) mg/dL AST (14-36) U/L ALT (4-34) U/L Alkaline Phosphatase (38-126) U/L Troponin I <0.012 (0.000-0.034) ng/mL Total Protein (6.3-8.2) g/dL Albumin (3.5-5.0) g/dL Disposition Clinical Impression: Gastrointestinal symptoms, Palpitations Disposition: HOME SELF-CARE Condition: Stable Instructions (If sedation given, give patient instructions): Acute Nausea and Vomiting (ED), Acute Diarrhea (ED) Additional Instructions: Please return to the Emergency Department if symptoms worsen or any other concerns. Is patient prescribed a controlled substance at d/c from ED?: No Referrals: Gilmar Al MD [Primary Care Provider] - 1-2 days Time of Disposition: 09:56
[2020-12-02 09:04] LABS: Albumin 3.7 g/dL (3.5-5.0); Calcium 9.4 mg/dL (8.4-10.2); Magnesium 1.5 mg/dL (1.6-2.3); Potassium 3.8 mmol/L (3.5-5.1); Total Bilirubin 0.8 mg/dL (0.2-1.3)
[2020-12-02 10:03] VITALS: BP 147/59; PULSE 58; RESP 18
== END 2020-12-02 10:15 | disposition home or self-care (01) ==
LOC: EC 07:45
DX: R19.8 Other specified symptoms and signs involving the digestive system and abdomen (principal); R11.2 Nausea with vomiting, unspecified; R00.2 Palpitations; R19.7 Diarrhea, unspecified; I48.91 Unspecified atrial fibrillation; E11.9 Type 2 diabetes mellitus without complications; K21.9 Gastro-esophageal reflux disease without esophagitis; E07.9 Disorder of thyroid, unspecified; Z87.891 Personal history of nicotine dependence; Z79.82 Long term (current) use of aspirin; Z79.890 Hormone replacement therapy; Z79.4 Long term (current) use of insulin; Z79.899 Other long term (current) drug therapy; Z79.01 Long term (current) use of anticoagulants; Z88.1 Allergy status to other antibiotic agents; Z88.5 Allergy status to narcotic agent; Z88.8 Allergy status to other drugs, medicaments and biological substances; Z88.0 Allergy status to penicillin; Z88.6 Allergy status to analgesic agent
CPT/HCPCS: 99285; 96374; 96375; 93005; 80053; 83735; 84484; 85025; 85610; 85730; 71046; J1200; J2765

== ENCOUNTER → 2021-01-13 | Outpatient (CLI) | payer MEDICARE, OTHER ==
[2021-01-13 18:53] LABS: Basophils # (A) 0.04 X 10*3/uL (0.00-0.10); Basophils % (A) 0.5 %; Eosinophils # (A) 0.06 X 10*3/uL (0.04-0.35); Eosinophils % (A) 0.7 %; HGB 11.8 g/dL (12.0-15.0); Lymphocytes # (A) 1.34 X 10*3/uL (0.90-5.00); Lymphocytes % (A) 16.2 %; MCH 25.7 pg (27.0-32.0); MCHC 30.3 g/dL (32.0-37.0); Mean Platelet Volume 10.9 fL (9.5-12.2); Monocytes # (A) 0.61 X 10*3/uL (0.20-1.00); Monocytes % (A) 7.4 %; Neutrophils # (A) 6.19 X 10*3/uL (1.80-7.70); Neutrophils % (A) 74.8 %; Platelet Count 236 X 10*3/uL (140-440); RBC 4.59 X 10*6/uL (4.10-5.20); RDW 15.8 % (11.5-14.5); WBC 8.27 X 10*3/uL (4.50-10.00)
[2021-01-13 19:59] LABS: Magnesium 1.5 mg/dL (1.5-2.4)
[2021-01-13 20:00] LABS: African American GFR (CKD) 34.1 (60.0-200.0); Albumin 3.9 g/dL (3.8-4.9); Albumin/Globulin Ratio 1.35 (1.60-3.17); Anion Gap 12.9 mmol/L (4.00-12.00); BUN/Creat Ratio 7.93 Ratio (12.00-20.00); Blood Urea Nitrogen 13.8 mg/dL (9.0-27.0); Calcium 9.3 mg/dL (8.7-10.3); Globulin 2.9 g/dL (1.6-3.3); Non-African American GFR(CKD) 29.4 (60.0-200.0); Total Bilirubin 0.4 mg/dL (0.30-1.20); Total Protein 6.8 g/dL (6.2-8.2)
== END | disposition home or self-care (01) ==
LOC: LABWHC1 10:42
PROVIDERS: ATTEND Internal Medicine
DX: E78.2 Mixed hyperlipidemia (principal); T86.20 Unspecified complication of heart transplant; Z94.1 Heart transplant status; T86.21 Heart transplant rejection; T86.23 Heart transplant infection; T86.290 Cardiac allograft vasculopathy
CPT/HCPCS: 36415; 80053; 82550; 83735; 85025

== ENCOUNTER → 2021-01-13 | Outpatient (CLI) | payer MEDICARE, OTHER ==
[2021-01-13 12:39] LABS: Appearance,Urine Clear (Clear); Bilirubin,Urine Negative (Negative); Blood,Urine Negative (Negative); Color,Urine Yellow; Glucose,Urine (UA) Negative (Negative); Granular Casts,Urine 1 /lpf (0); Hyaline Casts,Urine 17 /lpf (0-2); Ketones,Urine Negative (Negative); Leukocyte Esterase,Urine Negative (Negative); Mucus,Urine Rare /hpf; Nitrite,Urine Negative (Negative); Protein,Urine 1+ (Negative); RBC,Urine 1 /hpf (0-5); Specific Gravity,Urine 1.013 (1.001-1.035); Squamous Epithelial Cell,Urine 1 /hpf (0-4); Urobilinogen,Urine <2.0 mg/dL (<2.0); WBC,Urine 2 /hpf (0-5)
[2021-01-13 12:51] LABS: Protein/Creatinine Ratio,Urine 0.252
[2021-01-13 19:57] LABS: % Iron Saturation 10.83 (12.00-45.00); Albumin 3.9 g/dL (3.8-4.9); Phosphorus 2.9 mg/dL (2.4-5.1); Uric Acid 9.9 mg/dL (2.9-7.7)
== END | disposition home or self-care (01) ==
LOC: LABWHC1 10:45
PROVIDERS: ATTEND Internal Medicine Nephrology
DX: N25.81 Secondary hyperparathyroidism of renal origin (principal); E61.1 Iron deficiency; M10.9 Gout, unspecified; N39.0 Urinary tract infection, site not specified; R80.9 Proteinuria, unspecified; N18.4 Chronic kidney disease, stage 4 (severe)
CPT/HCPCS: 36415; 81001; 82040; 82306; 82570; 82728; 83540; 83550; 83970; 84100; 84156; 84550

== ENCOUNTER → 2021-03-24 | Outpatient (CLI) | payer MEDICARE, OTHER ==
[2021-03-24 14:44] LABS: Basophils # (A) 0.06 X 10*3/uL (0.00-0.10); Basophils % (A) 0.8 %; Eosinophils % (A) 1.4 %; HCT 36.5 % (37.2-46.3); Lymphocytes # (A) 0.96 X 10*3/uL (0.90-5.00); Lymphocytes % (A) 13.5 %; MCH 26.1 pg (27.0-32.0); MCHC 30.1 g/dL (32.0-37.0); MCV 86.7 fL (80.0-97.0); Mean Platelet Volume 12.1 fL (9.5-12.2); Monocytes # (A) 0.64 X 10*3/uL (0.20-1.00); Neutrophils # (A) 5.35 X 10*3/uL (1.80-7.70); Platelet Count 205 X 10*3/uL (140-440); RBC 4.21 X 10*6/uL (4.10-5.20); RDW 14.8 % (11.5-14.5); WBC 7.13 X 10*3/uL (4.50-10.00)
[2021-03-24 16:15] LABS: Chol/HDL Ratio 5.26 Ratio; Creatine Kinase 28 U/L (26-186); LDL Cholesterol,Calculated 64.3 mg/dL (0.0-131.0); Magnesium 1.4 mg/dL (1.5-2.4)
[2021-03-24 16:36] LABS: ALT <5 U/L (8-44); AST 12 U/L (13-35); African American GFR (CKD) 40.8 (60.0-200.0); Albumin 3.8 g/dL (3.8-4.9); Albumin/Globulin Ratio 1.52 (1.60-3.17); Alkaline Phosphatase 102 U/L (41-126); BUN/Creat Ratio 9.87 Ratio (12.00-20.00); Blood Urea Nitrogen 14.8 mg/dL (9.0-27.0); Carbon Dioxide 28.2 mmol/L (20.0-27.5); Chloride 97 mmol/L (96-109); Globulin 2.5 g/dL (1.6-3.3); Glucose 183 mg/dL (70-110); Non-African American GFR(CKD) 35.2 (60.0-200.0); Potassium 3.6 mmol/L (3.5-5.5); Sodium 140 mmol/L (135-145); Total Protein 6.3 g/dL (6.2-8.2)
== END | disposition home or self-care (01) ==
LOC: LABWHC1 08:13
PROVIDERS: ATTEND Internal Medicine Endocrinology, Diabetes & Metabolism
DX: E11.65 Type 2 diabetes mellitus with hyperglycemia (principal); T86.21 Heart transplant rejection; T86.22 Heart transplant failure; T86.23 Heart transplant infection; T86.290 Cardiac allograft vasculopathy; E78.2 Mixed hyperlipidemia
CPT/HCPCS: 36415; 80053; 80061; 82043; 82550; 82570; 83036; 83735; 84443; 85025

== ENCOUNTER → 2021-04-17 | Outpatient (CLI) | payer MEDICARE, OTHER | END | disposition home or self-care (01) | LOC: LABWHC1 12:45 | PROVIDERS: ATTEND Internal Medicine | DX: Z94.1 Heart transplant status (principal); T86.20 Unspecified complication of heart transplant; T86.21 Heart transplant rejection; T86.22 Heart transplant failure | CPT/HCPCS: 36415; 86769 ==

== ENCOUNTER 2021-05-06 22:43 | Emergency (ER) | payer MEDICARE, OTHER ==
[2021-05-06 22:59] VITALS: TEMP 97.9
[2021-05-06 23:26] LABS: Glucose,Whole Blood 206 mg/dL (75-99)
[2021-05-06 23:35] LABS: Basophils # (A) 0.1 k/uL (0-0.2); Basophils % (A) 1 %; Eosinophils # (A) 0.1 k/uL (0-0.7); Eosinophils % (A) 1 %; HCT 38.1 % (34.0-46.0); HGB 12.1 gm/dL (11.4-16.0); Lymphocytes # (A) 1.5 k/uL (1.0-4.8); Lymphocytes % (A) 15 %; MCH 27.3 pg (25.0-35.0); MCHC 31.8 g/dL (31.0-37.0); MCV 85.8 fL (80.0-100.0); Mean Platelet Volume 8.7; Monocytes # (A) 0.5 k/uL (0-1.0); Monocytes % (A) 5 %; Neutrophils # (A) 7.8 k/uL (1.3-7.7); Neutrophils % (A) 77 %; Platelet Count 256 k/uL (150-450); RBC 4.45 m/uL (3.80-5.40); RDW 14.5 % (11.5-15.5)
--- NOTE | 2021-05-06 23:39 | ED ---
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 The patient presents tonight for 2 reasons. Started around 9 PM she noticed that she was starting to feel shaky and sweaty. She started having a cold feeling in the center of her chest. Patient just prior to that had taken her evening insulin. They checked and her blood sugar was low. They phoned EMS and she had just eaten. The blood sugar did subsequently recover. The patient states she continues to feel shaky and now the swelling has recurred. Patient denies dyspnea, nausea or vomiting. MD Complaint: chest pain -: hour(s) Onset: during rest Pain Location: substernal Pain Radiation: none Severity: mild Quality: other (Cold sensation) Consistency: constant Improves With: nothing Worsens With: nothing Anginal Symptoms: diaphoresis - Related Data Home Medications Medication Instructions Recorded Confirmed Atorvastatin Calcium [Lipitor] 10 mg PO HS 06/24/16 11/10/20 Pantoprazole Sodium [Protonix] 40 mg PO BID 06/24/16 11/10/20 Sirolimus 1 mg PO HS 06/24/16 11/10/20 hydrALAZINE HCL [Apresoline] 50 mg PO TID 06/24/16 11/10/20 Butorphanol Tartrate [Stadol Nasal 1 spray EA NOSTRIL Q4H PRN 03/03/17 11/10/20 [place]] mycophenolate mofetiL [Cellcept] 250 mg PO BID 03/03/17 11/10/20 Apixaban [Eliquis] 5 mg PO BID 12/21/17 11/10/20 Aspirin EC [Ecotrin Low Dose] 81 mg PO HS 01/20/20 11/10/20 INSULIN LISPRO (humaLOG) [humaLOG] See Protocol SQ AC-TID PRN 01/20/20 11/10/20 Insulin Glargine [Lantus Vial] 26 unit SQ DAILY 01/20/20 11/10/20 Levothyroxine Sodium [Synthroid] 125 mcg PO DAILY 01/20/20 11/10/20 Losartan Potassium [Cozaar] 25 mg PO DAILY 01/20/20 11/10/20 Promethazine HCl 12.5 mg PO Q6H PRN 01/20/20 11/10/20 Torsemide [Demadex] 20 mg PO MOWEFR 01/20/20 11/10/20 Metoprolol Succinate (ER) [Toprol 25 mg PO DAILY 10/31/20 11/10/20 Xl] Allergies Allergy/AdvReac Type Severity Reaction Status Date / Time cephalexin [From Keflex] Allergy Rash/Hives Verified 12/02/20 07:53 ciprofloxacin [From Cipro] Allergy Rash/Hives Verified 12/02/20 07:53 codeine Allergy Unknown Verified 12/02/20 07:53 hydrocodone [From Lortab] Allergy Unknown Verified 12/02/20 07:53 hydromorphone [From Dilaudid] Allergy Rash/Hives Verified 12/02/20 07:53 hydroxyprogesterone Allergy Unknown Verified 12/02/20 07:53 opium (anthroposophic) Allergy Unknown Verified 12/02/20 07:53 Penicillins Allergy Unknown Verified 12/02/20 07:53 simvastatin Allergy Unknown Verified 12/02/20 07:53 tramadol HCl [From Ultram] Allergy Unknown Verified 12/02/20 07:53 Review of Systems ROS Statement: Those systems with pertinent positive or pertinent negative responses have been documented in the HPI. ROS Other: All systems not noted in ROS Statement are negative. Constitutional: Denies: fever, chills, weakness Respiratory: Denies: cough, dyspnea Cardiovascular: Reports: as per HPI, chest pain. Denies: palpitations, orthopnea, edema, syncope Gastrointestinal: Denies: abdominal pain, nausea, vomiting, diarrhea Genitourinary: Denies: dysuria, hematuria Musculoskeletal: Denies: back pain Skin: Denies: rash Neurological: Denies: headache, weakness Psychiatric: Reports: anxiety EKG Findings - EKG Comments: EKG Findings:: The 12-lead ECG shows a paced rhythm with a rate of 64 bpm. 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 History of Any Multi-Drug Resistant Organisms: None Reported Past Surgical History: Appendectomy, Breast Surgery, Cardiac Ablation, Cholecystectomy, Tonsillectomy, Tubal Ligation Additional Past Surgical History / Comment(s): Heart Transplant 2002 at [facility], lumbar laminectomy, breast reduction, removal of skin cancer on her left ankle. Past Anesthesia/Blood Transfusion Reactions: No Reported Reaction Additional Past Anesthesia/Blood Transfusion Reaction / Comment(s): Pt has received blood in past without reaction. Past Psychological History: No Psychological Hx Reported Smoking Status: Former smoker Past Alcohol Use History: None Reported Past Drug Use History: None Reported - Past Family History Father Family Medical History: Myocardial Infarction ([place]) Additional Family Medical History / Comment(s): Father of a massive AL at the age of 52 yrs. Mother Family Medical History: No Reported History Additional Family Medical History / Comment(s): Mother in her sleep at the age of 82 yrs. Brother(s) Additional Family Medical History / Comment(s): Patient has 2 sisters and one brother with history of coronary artery disease. Patient does not have any children. General Exam General appearance: alert, in no apparent distress, anxious Head exam: Present: atraumatic, normocephalic Eye exam: Present: normal appearance. Absent: scleral icterus, conjunctival injection Neck exam: Present: normal inspection Respiratory exam: Present: normal lung sounds bilaterally. Absent: respiratory distress, wheezes, rales, rhonchi, stridor Cardiovascular Exam: Present: regular rate, normal rhythm, normal heart sounds. Absent: systolic murmur, diastolic murmur, rubs, gallop GI/Abdominal exam: Present: soft. Absent: distended, tenderness, guarding, rebound, rigid, mass, pulsatile mass, hernia Extremities exam: Present: normal inspection, normal capillary refill. Absent: pedal edema, calf tenderness Back exam: Present: normal inspection. Absent: CVA tenderness (R), CVA tenderness (L) Neurological exam: Present: alert Skin exam: Present: warm, dry, intact, normal color. Absent: rash Course Vital Signs 05/06/21 05/07/21 05/07/21 22:47 01:20 02:14 Temperature 97.9 F Pulse Rate 64 56 L 71 Respiratory 18 19 19 Rate Blood Pressure 143/66 180/85 136/62 O2 Sat by Pulse 98 99 97 Oximetry Chest Pain MDM - MDM Case is discussed with the patient's project development director, Dr. Padilla at [facility] and they will make contact tomorrow. Patient has had previous runs. Patient's labs approximate her baseline. Disposition Clinical Impression: Palpitations, Chest pain, Hypomagnesemia Disposition: HOME SELF-CARE Condition: Good Instructions (If sedation given, give patient instructions): Chest Pain (ED) Is patient prescribed a controlled substance at d/c from ED?: No Referrals: Gilmar Al MD [Primary Care Provider] - 1-2 days
[2021-05-06 23:48] LABS: Partial Thromboplastin Time 26.4 sec (22.0-30.0); Prothrombin Time 11.3 sec (9.0-12.0)
[2021-05-07 00:01] LABS: Albumin 3.9 g/dL (3.5-5.0); Calcium 9.2 mg/dL (8.4-10.2); Magnesium 1.3 mg/dL (1.6-2.3); Potassium 3.6 mmol/L (3.5-5.1); Total Bilirubin 0.6 mg/dL (0.2-1.3)
--- NOTE | 2021-05-07 00:07 | XR ---
EXAMINATION TYPE: XR chest 2V DATE OF EXAM: 05/06/2021 COMPARISON: 12/02/2020 HISTORY: Chest pain TECHNIQUE: FINDINGS: There is no heart failure nor confluent pneumonic infiltrate. Costophrenic angles are clear . There is left axillary pacemaker. There are sternal wires. Heart size is normal. IMPRESSION: No active cardiopulmonary disease. No change.
[2021-05-07] MEDS: MAGNESIUM SULFATE-D5W PMX 1 GM in DEXTROSE/WATER 1 100ML.BAG IVPB SCH ×2 (01:20→02:14)
[2021-05-07 01:24] VITALS: RESP 19
[2021-05-07] MEDS ORDERED: POTASSIUM CHLORIDE ER 20 MEQ TAB.ER PO STA (01:44)
[2021-05-07 02:15] VITALS: BP 136/62; PULSE 71
== END 2021-05-07 03:15 | disposition home or self-care (01) ==
LOC: EC 22:43
DX: R00.2 Palpitations (principal); K21.9 Gastro-esophageal reflux disease without esophagitis; E11.9 Type 2 diabetes mellitus without complications; Z87.891 Personal history of nicotine dependence; Z79.1 Long term (current) use of non-steroidal anti-inflammatories (NSAID); Z88.5 Allergy status to narcotic agent; Z88.1 Allergy status to other antibiotic agents; Z88.8 Allergy status to other drugs, medicaments and biological substances; Z88.0 Allergy status to penicillin
CPT/HCPCS: 36415; 93005; 83880; 80053; 83735; 84484; 85025; 85610; 85730; 71046; 99285; 96365; J3475

== ENCOUNTER → 2021-06-03 | Outpatient (CLI) | payer MEDICARE, OTHER ==
[2021-06-04 01:52] LABS: T4, Free (Free Thyroxine) 1.54 ng/dL (0.800-1.800)
== END | disposition home or self-care (01) ==
LOC: LABWHC1 09:30
PROVIDERS: ATTEND Internal Medicine Endocrinology, Diabetes & Metabolism
DX: E03.9 Hypothyroidism, unspecified (principal)
CPT/HCPCS: 36415; 84439; 84443; 84481

== ENCOUNTER → 2021-06-03 | Outpatient (CLI) | payer MEDICARE, OTHER ==
[2021-06-03 18:54] LABS: Basophils # (A) 0.07 X 10*3/uL (0.00-0.10); Basophils % (A) 0.9 %; Eosinophils % (A) 1.3 %; HCT 38.1 % (37.2-46.3); HGB 11.6 g/dL (12.0-15.0); Immature Grans, Automated 0.6 %; Lymphocytes # (A) 1.68 X 10*3/uL (0.90-5.00); Lymphocytes % (A) 21.5 %; MCH 26.8 pg (27.0-32.0); MCHC 30.4 g/dL (32.0-37.0); Mean Platelet Volume 11.4 fL (9.5-12.2); Monocytes # (A) 0.72 X 10*3/uL (0.20-1.00); Monocytes % (A) 9.2 %; NRBC Per 100 WBC 0 /100 WBCS (0.0-0.0); Neutrophils % (A) 66.5 %; Platelet Count 242 X 10*3/uL (140-440); RBC 4.33 X 10*6/uL (4.10-5.20); RDW 15.8 % (11.5-14.5); WBC 7.82 X 10*3/uL (4.50-10.00)
[2021-06-04 02:52] LABS: ALT <5 U/L (8-44); AST 16 U/L (13-35); African American GFR (CKD) 47.6 (60.0-200.0); Albumin/Globulin Ratio 1.38 (1.60-3.17); Alkaline Phosphatase 92 U/L (41-126); BUN/Creat Ratio 14.55 Ratio (12.00-20.00); Blood Urea Nitrogen 19.2 mg/dL (9.0-27.0); Calcium 9.6 mg/dL (8.7-10.3); Carbon Dioxide 23.9 mmol/L (20.0-27.5); Chloride 94 mmol/L (96-109); Creatine Kinase 81 U/L (26-186); Globulin 2.9 g/dL (1.6-3.3); Glucose 209 mg/dL (70-110); Magnesium 1.7 mg/dL (1.5-2.4); Non-African American GFR(CKD) 41.1 (60.0-200.0); Potassium 3.4 mmol/L (3.5-5.5); Sodium 137 mmol/L (135-145); Total Protein 6.8 g/dL (6.2-8.2)
== END | disposition home or self-care (01) ==
LOC: LABWHC1 09:26
PROVIDERS: ATTEND Internal Medicine
DX: T86.21 Heart transplant rejection (principal); T86.22 Heart transplant failure; E78.2 Mixed hyperlipidemia; Z94.1 Heart transplant status
CPT/HCPCS: 36415; 80053; 82550; 83735; 85025

== ENCOUNTER → 2021-07-09 | Outpatient (CLI) | payer MEDICARE, OTHER ==
[2021-07-09 23:21] LABS: African American GFR (CKD) 55.6 (60.0-200.0); Anion Gap 12.4 mmol/L (10.00-18.00); BUN/Creat Ratio 17.59 Ratio (12.00-20.00); Blood Urea Nitrogen 20.4 mg/dL (9.0-27.0); Calcium 9.4 mg/dL (8.7-10.3); Carbon Dioxide 27.9 mmol/L (20.0-27.5); Potassium 3.9 mmol/L (3.5-5.5)
== END | disposition home or self-care (01) ==
LOC: LABWHC1 13:38
PROVIDERS: ATTEND Internal Medicine
DX: T86.23 Heart transplant infection (principal); T86.21 Heart transplant rejection; T86.22 Heart transplant failure; T86.290 Cardiac allograft vasculopathy; E78.2 Mixed hyperlipidemia; I50.30 Unspecified diastolic (congestive) heart failure
CPT/HCPCS: 36415; 80048

== ENCOUNTER → 2021-07-09 | Outpatient (CLI) | payer MEDICARE, OTHER ==
[~2021-07-09] MED LIST: TIXAGEVIMAB/CILGAVIMAB (EUA) 300 MG/3 ML COMBO.PKG IM ONE
[2021-07-09 12:17] VITALS: BP 135/77; PULSE 65; RESP 16; TEMP 98.4
== END | disposition home or self-care (01) ==
LOC: PROCWHC3 11:59
PROVIDERS: ATTEND Family Medicine
DX: Z94.1 Heart transplant status (principal)
CPT/HCPCS: Q0220; M0220

== ENCOUNTER 2021-08-13 09:19 | Emergency (ER) | payer MEDICARE, OTHER ==
[2021-08-13 09:24] VITALS: RESP 16; TEMP 97.9
[2021-08-13 10:15] LABS: Basophils # (A) 0.1 k/uL (0-0.2); Basophils % (A) 1 %; Eosinophils # (A) 0.2 k/uL (0-0.7); Eosinophils % (A) 2 %; HCT 40.6 % (34.0-46.0); HGB 12.7 gm/dL (11.4-16.0); Lymphocytes # (A) 1.5 k/uL (1.0-4.8); Lymphocytes % (A) 20 %; MCH 26.8 pg (25.0-35.0); MCHC 31.2 g/dL (31.0-37.0); Mean Platelet Volume 8.3; Monocytes # (A) 0.4 k/uL (0-1.0); Monocytes % (A) 6 %; Neutrophils # (A) 5.2 k/uL (1.3-7.7); Neutrophils % (A) 69 %; Platelet Count 248 k/uL (150-450); RBC 4.73 m/uL (3.80-5.40); RDW 13.6 % (11.5-15.5); WBC 7.5 k/uL (3.8-10.6)
[2021-08-13 10:41] LABS: Partial Thromboplastin Time 27.3 sec (22.0-30.0); Prothrombin Time 10.8 sec (9.0-12.0)
--- NOTE | 2021-08-13 10:42 | ED ---
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 Mcginnis presents to the emergency department with palpitations, chest pain and rushes of cold sensation coming over her body. States that the symptoms started last night and progressed into today. She did receive a call yesterday from [facility]. States that she received a call from the monitoring clinic that something was going wrong with her pacemaker. They made an appointment for her to come in today. She attempted to drive to her appointment however symptoms worsened in route and came in to the closest facility. She has been taking her medications as directed. No fevers, chills or cough. Admits to nausea without vomiting. No abdominal pain. 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, precipitating or modifying factors - Related Data Home Medications Medication Instructions Recorded Confirmed Atorvastatin Calcium [Lipitor] 10 mg PO HS 06/24/16 07/09/21 Pantoprazole Sodium [Protonix] 40 mg PO BID 06/24/16 07/09/21 Sirolimus 1 mg PO HS 06/24/16 07/09/21 hydrALAZINE HCL [Apresoline] 50 mg PO TID 06/24/16 07/09/21 Butorphanol Tartrate [Stadol Nasal 1 spray EA NOSTRIL Q4H PRN 03/03/17 07/09/21 [place]] mycophenolate mofetiL [Cellcept] 250 mg PO BID 03/03/17 07/09/21 Apixaban [Eliquis] 5 mg PO BID 12/21/17 07/09/21 Aspirin EC [Ecotrin Low Dose] 81 mg PO HS 01/20/20 07/09/21 INSULIN LISPRO (humaLOG) [humaLOG] See Protocol SQ AC-TID PRN 01/20/20 07/09/21 Insulin Glargine [Lantus Vial] 26 unit SQ DAILY 01/20/20 07/09/21 Levothyroxine Sodium [Synthroid] 100 mcg PO DAILY 01/20/20 07/09/21 Losartan Potassium [Cozaar] 25 mg PO DAILY 01/20/20 07/09/21 Promethazine HCl 12.5 mg PO Q6H PRN 01/20/20 07/09/21 Torsemide [Demadex] 20 mg PO MOWEFR 01/20/20 07/09/21 Metoprolol Succinate (ER) [Toprol 25 mg PO DAILY 10/31/20 07/09/21 Xl] Allergies Allergy/AdvReac Type Severity Reaction Status Date / Time cephalexin [From Keflex] Allergy Rash/Hives Verified 08/13/21 09:24 ciprofloxacin [From Cipro] Allergy Rash/Hives Verified 08/13/21 09:24 codeine Allergy Unknown Verified 08/13/21 09:24 hydrocodone [From Lortab] Allergy Unknown Verified 08/13/21 09:24 hydromorphone [From Dilaudid] Allergy Rash/Hives Verified 08/13/21 09:24 hydroxyprogesterone Allergy Unknown Verified 08/13/21 09:24 opium (anthroposophic) Allergy Unknown Verified 08/13/21 09:24 Penicillins Allergy Unknown Verified 08/13/21 09:24 simvastatin Allergy Unknown Verified 08/13/21 09:24 tramadol HCl [From Ultram] Allergy Unknown Verified 08/13/21 09:24 Review of Systems ROS Statement: Those systems with pertinent positive or pertinent negative responses have been documented in the HPI. ROS Other: All systems not noted in ROS Statement are negative. 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, skin cancer on her left ankle. History of Any Multi-Drug Resistant Organisms: None Reported Past Surgical History: Appendectomy, Breast Surgery, Cardiac Ablation, Cholecystectomy, Tonsillectomy, Tubal Ligation Additional Past Surgical History / Comment(s): Heart Transplant 2001 at [facility], lumbar laminectomy, breast reduction, removal of skin cancer on her left ankle. Past Anesthesia/Blood Transfusion Reactions: No Reported Reaction Additional Past Anesthesia/Blood Transfusion Reaction / Comment(s): Pt has received blood in past without reaction. Past Psychological History: No Psychological Hx Reported Smoking Status: Former smoker Past Alcohol Use History: None Reported Past Drug Use History: None Reported - Past Family History Father Family Medical History: Myocardial Infarction ([place]) Additional Family Medical History / Comment(s): Father of a massive PR at the age of 52 yrs. Mother Family Medical History: No Reported History Additional Family Medical History / Comment(s): Mother in her sleep at the age of 82 yrs. Brother(s) Additional Family Medical History / Comment(s): Patient has 2 sisters and one brother with history of coronary artery disease. Patient does not have any children. General Exam Limitations: no limitations General appearance: alert, in no apparent distress Head exam: Present: atraumatic, normocephalic, normal inspection Eye exam: Present: normal appearance, PERRL, EOMI. Absent: scleral icterus, conjunctival injection, periorbital swelling ENT exam: Present: normal exam, mucous membranes moist Neck exam: Present: normal inspection. Absent: tenderness, meningismus, lymphadenopathy Respiratory exam: Present: normal lung sounds bilaterally. Absent: respiratory distress, wheezes, rales, rhonchi, stridor Cardiovascular Exam: Present: regular rate, irregular rhythm, normal heart sounds. Absent: systolic murmur, diastolic murmur, rubs, gallop, clicks GI/Abdominal exam: Present: soft, normal bowel sounds. Absent: distended, tenderness, guarding, rebound, rigid Extremities exam: Present: normal inspection, full ROM, normal capillary refill. Absent: tenderness, pedal edema, joint swelling, calf tenderness Back exam: Present: normal inspection Neurological exam: Present: alert, oriented X3, CN II-XII intact Psychiatric exam: Present: normal affect, normal mood Skin exam: Present: warm, dry, intact, normal color. Absent: rash Course Vital Signs 08/13/21 08/13/21 08/13/21 09:21 10:04 10:39 Temperature 97.9 F Pulse Rate 82 73 Pulse Rate [ 58 L [employer]] Respiratory 16 16 Rate Blood Pressure 178/80 157/63 O2 Sat by Pulse 100 99 Oximetry 08/13/21 12:20 Temperature Pulse Rate 63 Pulse Rate [ [employer]] Respiratory 16 Rate Blood Pressure 155/83 O2 Sat by Pulse 97 Oximetry EKG Findings - EKG Comments: EKG Findings:: EKG demonstrates electronic pacemaker. Pacemaker appears to capture appropriately. Rate of 73. OH interval 157. Dressing benign. QTC of 435. No acute ST segment elevations or depressions. Medical Decision Making - Medical Decision Making Upon arrival patient is placed into trauma 2. A thorough history and physical exam was performed. Patient placed on continuous pulse ox and cardiac monitoring. 12-lead EKG was obtained which demonstrates multiple PVCs. I did attempt to call the cardiac monitoring line however they are only able to disclose that the patient was coming in to 4 over pacing and PVCs. Patient's point was canceled as she reported she was going into the emergency department. Laboratory studies are obtained. Magnesium is 1.4. Potassium is 3.3. Chest x- ray demonstrates no acute process. Because of the patient's symptoms I did recommend transfer to [facility]. Spoke with Dr. Costa who accepted transfer. - Lab Data Result diagrams: 08/13/21 09:51 Lab Results 08/13/21 08/13/21 Range/Units 09:51 09:51 WBC 7.5 (3.8-10.6) k/uL RBC 4.73 (3.80-5.40) m/uL Hgb 12.7 (11.4-16.0) gm/dL Hct 40.6 (34.0-46.0) % MCV 86.0 (80.0-100.0) fL MCH 26.8 (25.0-35.0) pg MCHC 31.2 (31.0-37.0) g/dL RDW 13.6 (11.5-15.5) % Plt Count 248 (150-450) k/uL MPV 8.3 Neutrophils % 69 % Lymphocytes % 20 % Monocytes % 6 % Eosinophils % 2 % Basophils % 1 % Neutrophils # 5.2 (1.3-7.7) k/uL Lymphocytes # 1.5 (1.0-4.8) k/uL Monocytes # 0.4 (0-1.0) k/uL Eosinophils # 0.2 (0-0.7) k/uL Basophils # 0.1 (0-0.2) k/uL PT 10.8 (9.0-12.0) sec INR 1.0 (<1.2) APTT 27.3 (22.0-30.0) sec D-Dimer 0.44 (<0.60) mg/L FEU Disposition Clinical Impression: Chest pain, Nonsustained ventricular tachycardia Disposition: OTHER INSTITUTION NOT DEFINED Condition: Serious Is patient prescribed a controlled substance at d/c from ED?: No Referrals: Gilmar Al MD [Primary Care Provider] - 1-2 days - Out of Hospital Transfer - Req. Specs Out of Hospital Transfer - Requested Specifics: Other Emergency Center ([facility])
--- NOTE | 2021-08-13 10:51 | XR ---
EXAMINATION TYPE: XR chest 2V DATE OF EXAM: 08/13/2021 COMPARISON: Chest x-ray 05/06/2021 HISTORY: Dysrhythmia TECHNIQUE: Frontal and lateral views of the chest are obtained. FINDINGS: There is no focal air space opacity, pleural effusion, or pneumothorax seen. The cardiac silhouette size is within normal limits. There is a generator in the left pectoral region, leads are present in the right atrium and likely ventricle. Patient is post median sternotomy, superior sternal wires are fractured. There are overlying leads, artifacts. The osseous structures are intact, there is thoracic spondylosis. Surgical clips present in the upper abdomen. IMPRESSION: No acute cardiopulmonary process.
[2021-08-13 14:42] LABS: Calcium 8.9 mg/dL (8.4-10.2); Magnesium 1.4 mg/dL (1.6-2.3); Potassium 3.3 mmol/L (3.5-5.1); Total Bilirubin 0.6 mg/dL (0.2-1.3); Total Protein 6.8 g/dL (6.3-8.2)
[2021-08-13 14:50] VITALS: BP 155/83; PULSE 63
== END 2021-08-13 15:00 | disposition other institution (70) ==
LOC: EC 09:19
DX: I47.2 Ventricular tachycardia (principal); I48.91 Unspecified atrial fibrillation; E11.9 Type 2 diabetes mellitus without complications; K21.9 Gastro-esophageal reflux disease without esophagitis; E07.9 Disorder of thyroid, unspecified; Z87.891 Personal history of nicotine dependence; Z79.01 Long term (current) use of anticoagulants; Z79.899 Other long term (current) drug therapy
CPT/HCPCS: 36415; 71046; 80053; 83735; 84443; 84484; 85025; 85379; 85610; 85730; 99285

== ENCOUNTER → 2021-09-10 | Outpatient (CLI) | payer MEDICARE, OTHER ==
--- NOTE | 2021-09-10 15:59 | US ---
EXAMINATION TYPE: US kidneys/renal and bladder DATE OF EXAM: 09/10/2021 COMPARISON: US 2019 01/02/2019 CLINICAL HISTORY: R94.8 ABN PET SCAN. Not available at this location. EXAM MEASUREMENTS: Right Kidney: 7.9 x 4.7 x 4.7 cm Left Kidney: 8.5 x 4.3 x 4.2 cm Right Kidney: small in size, no hydronephrosis or masses seen Left Kidney: small in size, 2.9 x 2.8cm isoechoic area mid pole, possible dromedary hump, 1.3 x 1.3 x 1.2cm hypoechoic area lateral inferior pole may be a cyst with through transmission. This is not a c ompletely simple cyst and is new from [address] ultrasound [address] CT abdomen for a dditional evaluation. Bladder: wnl Bilateral Jets seen: right jet seen, left jet not seen IMPRESSION: 1. Suspected cyst inferior lateral left renal cyst. This however was not identified previously. CT re commended for additional evaluation.
== END | disposition home or self-care (01) ==
LOC: RADUSWWP 14:55
PROVIDERS: ATTEND Internal Medicine
DX: R94.8 Abnormal results of function studies of other organs and systems (principal)
CPT/HCPCS: 76770

== ENCOUNTER → 2021-09-15 | Outpatient (CLI) | payer MEDICARE, OTHER ==
[2021-09-15 09:40] LABS: Basophils # (A) 0.1 k/uL (0-0.2); Basophils % (A) 1 %; Eosinophils # (A) 0.1 k/uL (0-0.7); Eosinophils % (A) 2 %; HCT 41.2 % (34.0-46.0); HGB 13.6 gm/dL (11.4-16.0); Lymphocytes # (A) 1.7 k/uL (1.0-4.8); Lymphocytes % (A) 23 %; MCH 28.5 pg (25.0-35.0); MCHC 32.9 g/dL (31.0-37.0); MCV 86.6 fL (80.0-100.0); Mean Platelet Volume 8.6; Monocytes # (A) 0.5 k/uL (0-1.0); Monocytes % (A) 7 %; Neutrophils # (A) 4.6 k/uL (1.3-7.7); Neutrophils % (A) 65 %; Platelet Count 247 k/uL (150-450); RBC 4.76 m/uL (3.80-5.40); WBC 7.1 k/uL (3.8-10.6)
[2021-09-15 10:12] LABS: ALT 10 U/L (4-34); AST 18 U/L (14-36); African American GFR (CKD) 47 (>60 ml/min/1.73 sqM); Albumin 4.3 g/dL (3.5-5.0); Albumin/Globulin Ratio 1.5; Alkaline Phosphatase 119 U/L (38-126); Anion Gap 12 mmol/L; Blood Urea Nitrogen 31 mg/dL (7-17); Calcium 9.7 mg/dL (8.4-10.2); Carbon Dioxide 27 mmol/L (22-30); Chloride 96 mmol/L (98-107); Creatine Kinase 39 U/L (30-135); Globulin 2.9 g/dL; Glucose 222 mg/dL (74-99); Magnesium 1.7 mg/dL (1.6-2.3); Non-African American GFR(CKD) 41 (>60 ml/min/1.73 sqM); Potassium 4.9 mmol/L (3.5-5.1); Sodium 135 mmol/L (137-145); Total Bilirubin 0.7 mg/dL (0.2-1.3); Total Protein 7.2 g/dL (6.3-8.2)
== END | disposition home or self-care (01) ==
LOC: LABWHC1 08:35
PROVIDERS: ATTEND Internal Medicine
DX: I50.30 Unspecified diastolic (congestive) heart failure (principal); E78.2 Mixed hyperlipidemia; T86.21 Heart transplant rejection; T86.22 Heart transplant failure; T86.23 Heart transplant infection; T86.290 Cardiac allograft vasculopathy; Y71.8 Miscellaneous cardiovascular devices associated with adverse incidents, not elsewhere classified
CPT/HCPCS: 36415; 80053; 82550; 83735; 83880; 85025

== ENCOUNTER 2021-09-23 16:17 | Observation (INO) | payer MEDICARE, OTHER ==
[2021-09-23] MEDS ORDERED: SODIUM CHLORIDE 0.9% 500 ML 500 ML IV STA (16:37)
[2021-09-23 16:56] LABS: Basophils # (A) 0.1 k/uL (0-0.2); Basophils % (A) 2 %; Eosinophils # (A) 0.2 k/uL (0-0.7); Eosinophils % (A) 3 %; HCT 39.1 % (34.0-46.0); HGB 12.5 gm/dL (11.4-16.0); Lymphocytes % (A) 23 %; MCH 27.5 pg (25.0-35.0); MCHC 32.1 g/dL (31.0-37.0); MCV 85.8 fL (80.0-100.0); Mean Platelet Volume 7.7; Monocytes # (A) 0.5 k/uL (0-1.0); Monocytes % (A) 6 %; Neutrophils # (A) 5.7 k/uL (1.3-7.7); Neutrophils % (A) 66 %; Platelet Count 278 k/uL (150-450); RBC 4.56 m/uL (3.80-5.40); RDW 14.5 % (11.5-15.5); WBC 8.7 k/uL (3.8-10.6)
[2021-09-23] MEDS ORDERED: ONDANSETRON 4 MG/2 ML VIAL IVP STA (16:58)
[2021-09-23 17:09] LABS: Albumin 4.4 g/dL (3.5-5.0); Calcium 9.6 mg/dL (8.4-10.2); INR 0.9 (<1.2); Magnesium 1.8 mg/dL (1.6-2.3); Potassium 4.4 mmol/L (3.5-5.1); Total Bilirubin 0.6 mg/dL (0.2-1.3); Total Protein 7.5 g/dL (6.3-8.2)
[2021-09-23 17:10] LABS: Partial Thromboplastin Time 27.5 sec (22.0-30.0); Prothrombin Time 10.4 sec (9.0-12.0)
[2021-09-23 17:12] LABS: Appearance,Urine Clear (Clear); Bilirubin,Urine Negative (Negative); Blood,Urine Negative (Negative); Color,Urine Light Yellow; Glucose,Urine (UA) 1+ (Negative); Ketones,Urine Negative (Negative); Leukocyte Esterase,Urine Negative (Negative); Nitrite,Urine Negative (Negative); Protein,Urine Negative (Negative); Specific Gravity,Urine 1.006 (1.001-1.035); Urobilinogen,Urine <2.0 mg/dL (<2.0)
--- NOTE | 2021-09-23 17:33 | XR ---
EXAMINATION TYPE: XR chest 2V DATE OF EXAM: 09/23/2021 COMPARISON: 08/13/2021 HISTORY: Chest pain TECHNIQUE: 2 views FINDINGS: There is no heart failure nor confluent pneumonic infiltrate. Costophrenic angles are clear . There is left axillary pacemaker. There are sternal wires. There are chest leads. Thoracic spine is intact. IMPRESSION: No active cardiopulmonary disease. No change.
--- NOTE | 2021-09-23 17:33 | ED ---
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 Mcginnis presenting with chief complaint of palpitations. Patient states that when she woke up this morning she was experiencing nausea and vomiting, a cold sweat, and a cold sensation in her chest accompanied by a "rumbling" sensation. Patient states that she has had palpitations throughout the day and has seen PVCs on her apple watch. States that the pain radiates down her arms and upper neck. Patient states that she has a history of similar episodes. Pain does not radiate to the back, no ripping tearing pain, no headache, no vision or hearing changes. No shortness of breath. Patient states that symptoms are present at rest, she notices some worsening on exertion. Denies abdominal pain, fever, chills, recent injury, recent illness. - Related Data Home Medications Medication Instructions Recorded Confirmed Atorvastatin Calcium [Lipitor] 10 mg PO HS 06/24/16 09/23/21 Pantoprazole Sodium [Protonix] 40 mg PO AC-BID 06/24/16 09/23/21 Sirolimus 1 mg PO DAILY 06/24/16 09/23/21 hydrALAZINE HCL [Apresoline] 50 mg PO TID 06/24/16 09/23/21 Butorphanol Tartrate [Stadol Nasal 1 spray EA NOSTRIL Q4H PRN 03/03/17 09/23/21 [place]] mycophenolate mofetiL [Cellcept] 250 mg PO Q12H 03/03/17 09/23/21 Apixaban [Eliquis] 5 mg PO BID 12/21/17 09/23/21 Aspirin EC [Ecotrin Low Dose] 81 mg PO HS 01/20/20 09/23/21 Levothyroxine Sodium [Synthroid] 100 mcg PO DAILY 01/20/20 09/23/21 Losartan Potassium [Cozaar] 25 mg PO DAILY 01/20/20 09/23/21 Promethazine HCl 12.5 mg PO Q6H PRN 01/20/20 09/23/21 Torsemide [Demadex] 20 mg PO MOWEFR 01/20/20 09/23/21 Metoprolol Succinate [Toprol XL] 50 mg PO DAILY 09/23/21 09/23/21 Nortriptyline [Pamelor] 20 mg PO HS 09/23/21 09/23/21 Potassium Chloride ER [K-Dur 20] 20 meq PO MOWEFR 09/23/21 09/23/21 Allergies Allergy/AdvReac Type Severity Reaction Status Date / Time cephalexin [From Keflex] Allergy Rash/Hives Verified 09/23/21 19:29 ciprofloxacin [From Cipro] Allergy Rash/Hives Verified 09/23/21 19:29 codeine Allergy Unknown Verified 09/23/21 19:29 hydrocodone [From Lortab] Allergy Unknown Verified 09/23/21 19:29 hydromorphone [From Dilaudid] Allergy Rash/Hives Verified 09/23/21 19:29 hydroxyprogesterone Allergy Unknown Verified 09/23/21 19:29 opium (anthroposophic) Allergy Unknown Verified 09/23/21 19:29 Penicillins Allergy Unknown Verified 09/23/21 19:29 Childhood simvastatin Allergy Unknown Verified 09/23/21 19:29 tramadol HCl [From Ultram] Allergy Unknown Verified 09/23/21 19:29 Review of Systems ROS Statement: Those systems with pertinent positive or pertinent negative responses have been documented in the HPI. ROS Other: All systems not noted in ROS Statement are negative. 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 History of Any Multi-Drug Resistant Organisms: None Reported Past Surgical History: Appendectomy, Breast Surgery, Cardiac Ablation, Cholecystectomy, Tonsillectomy, Tubal Ligation Additional Past Surgical History / Comment(s): Heart Transplant 2001 at [facility], lumbar laminectomy, breast reduction, removal of skin cancer on her left ankle. Past Anesthesia/Blood Transfusion Reactions: No Reported Reaction Additional Past Anesthesia/Blood Transfusion Reaction / Comment(s): Pt has received blood in past without reaction. Past Psychological History: No Psychological Hx Reported Smoking Status: Former smoker Past Alcohol Use History: None Reported Past Drug Use History: None Reported - Past Family History Father Family Medical History: Myocardial Infarction (HI) Additional Family Medical History / Comment(s): Father of a massive HI at the age of 52 yrs. Mother Family Medical History: No Reported History Additional Family Medical History / Comment(s): Mother in her sleep at the age of 82 yrs. Brother(s) Additional Family Medical History / Comment(s): Patient has 2 sisters and one brother with history of coronary artery disease. Patient does not have any children. General Exam Limitations: no limitations General appearance: alert, in no apparent distress Head exam: Present: atraumatic, normocephalic, normal inspection Eye exam: Present: normal appearance, EOMI. Absent: scleral icterus, periorbital swelling Neck exam: Present: normal inspection Respiratory exam: Present: normal lung sounds bilaterally. Absent: respiratory distress, wheezes, rales, rhonchi, stridor Cardiovascular Exam: Present: regular rate, normal rhythm, normal heart sounds. Absent: systolic murmur, diastolic murmur, rubs, gallop, clicks GI/Abdominal exam: Present: soft. Absent: distended, tenderness, guarding, rebound, rigid Neurological exam: Present: alert, oriented X3, CN II-XII intact Psychiatric exam: Present: normal affect, normal mood Skin exam: Present: warm, dry, intact, normal color. Absent: rash Course Vital Signs 09/23/21 09/23/21 09/23/21 16:23 16:33 18:00 Temperature 97.8 F Pulse Rate 95 86 Pulse Rate [ 82 Pulse Oximetery ] Respiratory 16 18 Rate Blood Pressure 190/77 147/74 Blood Pressure [Right Arm] O2 Sat by Pulse 97 100 Oximetry 09/23/21 09/23/21 09/23/21 19:00 21:31 21:56 Temperature 97.6 F Pulse Rate 84 72 Pulse Rate [ 60 Pulse Oximetery ] Respiratory 18 18 16 Rate Blood Pressure 154/72 142/62 Blood Pressure 163/78 [Right Arm] O2 Sat by Pulse 100 99 100 Oximetry Chest Pain [facility] Patient is a 70-year-old female presenting with chief complaint of palpitations and chest discomfort. Patient states symptoms started this morning and were accompanied by nausea, vomiting, diaphoresis. On examination her lungs are clear to auscultation, patient is visibly uncomfortable, she states that she is having hot flashes throughout the examination. CBC, PT/INR, and d-dimer are unremarkable. BUN and creatinine are consistent with her baseline. Hyperglycemic with glucose of 322. Troponin is not elevated. TSH is WNL. Urine is unremarkable. I spoke with Dr. Muhammad who agreed to admit the patient for observation. Cardiology is consulted. I discussed these findings the plan with the patient, she was agreeable. I discussed this case my attending Dr. Cortes. Disposition Clinical Impression: Palpitations, Chest pain Disposition: ADMITTED IP TO THIS HOSP Condition: Fair Time of Disposition: 20:12 Decision to Admit Reason: Admit from EC Decision Date: 09/23/21 Decision Time: 20:12
[2021-09-23] MEDS ORDERED: METOCLOPRAMIDE 5 MG/ML 2 ML VIAL IVP STA (18:07)
[2021-09-23] MEDS ORDERED: NALOXONE 0.4 MG/ML 1 ML VIAL IV PRN (19:50)
[2021-09-23] MEDS ORDERED: NORTRIPTYLINE 10 MG CAP PO SCH (22:00)
[2021-09-23] MEDS ORDERED: TORSEMIDE 20 MG TAB PO SCH (22:30)
[2021-09-23] MEDS ORDERED: POTASSIUM CHLORIDE ER 20 MEQ TAB.ER PO SCH (22:30)
[2021-09-23] MEDS ORDERED: PROMETHAZINE 25 MG TAB PO PRN (22:30)
[2021-09-23] MEDS: SODIUM CHLORIDE 0.9% 1,000 ML IV SCH (22:51)
[2021-09-23 23:10] VITALS: RESP 16
[2021-09-23] MEDS: hydrALAZINE HCL 50 MG TAB PO SCH (23:11)
[2021-09-24] MEDS ORDERED: LEVOTHYROXINE 100 MCG TAB PO SCH (06:30)
[2021-09-24 07:07] LABS: Glucose,Whole Blood 223 mg/dL (70-110)
[2021-09-24 07:14] VITALS: BP 140/64; PULSE 73; TEMP 97.6
[2021-09-24] MEDS ORDERED: PANTOPRAZOLE 40 MG TABLET PO SCH (07:30)
[2021-09-24] MEDS ORDERED: INSULIN ASPART (NovoLOG) 100 UNIT/ML VIAL SQ SCH ×2 (08:05→12:30)
[2021-09-24] MEDS ORDERED: BUTORPHANOL TARTRATE 10 MG/ML EA NOSTRIL PRN (09:00)
[2021-09-24] MEDS ORDERED: APIXABAN 5 MG TAB PO SCH (09:00)
[2021-09-24] MEDS ORDERED: LOSARTAN 25 MG TAB PO SCH (09:00)
[2021-09-24] MEDS ORDERED: NON FORMULARY DRUG (Sirolimus [Sirolimus] 1 MG Tablet) PO SCH (09:00)
[2021-09-24] MEDS ORDERED: METOPROLOL SUCCINATE (ER) 50 MG TAB.ER.24H PO SCH (09:00)
[2021-09-24] MEDS: hydrALAZINE HCL 50 MG TAB PO SCH (09:09)
[2021-09-24] MEDS: SODIUM CHLORIDE 0.9% 1,000 ML IV SCH (09:10)
--- NOTE | 2021-09-24 09:53 | P.HPIM ---
History of Present Illness H&P Date: 09/24/21 HISTORY AND PHYSICAL AND DISCHARGE SUMMARY: HISTORY OF PRESENT ILLNESS This is a 70-year-old female patient of Dr. 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 Patient states that she developed a rumbling feeling or discomfort across her chest and went into her arms. She had a similar episode one month ago and was seen at [facility] admitted for 3 days in July and no definite diagnosis was identified but metoprolol was increased and patient was to have a cardiac mo nitor mailed to her which has not occurred. At the time of evaluation, patient denies chest pain, palpitations, shortness of breath. Patient presented to [facility] emergency center for evaluation. She was found to be afebrile, heart rate 95, blood pressure 190/77, pulse ox 97% on room air. EKG was a paced rhythm with no acute ST changes. CBC unremarkable. Sodium 133, potassium 4.4, chloride 96, CO2 28, BUN 32 and creatinine 1.17. Blood sugar 322. Troponins negative on 3 draws. Alkaline phosphatase 137 otherwise liver function tests were normal. Magnesium 1.8. TSH 3.030. Urinalysis was 1+ glucose. Chest x-ray showed no active cardiac pulmonary disease. Patient has been seen by Dr. 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 Patient will be discharged home today in stable condition. REVIEW OF SYSTEMS Constitutional: No fever, no chills, no night sweats. No weight change. No weakness, fatigue or lethargy. No daytime sleepiness. EENT: No headache. No blurred vision or double vision, no loss of vision. No loss of Hearing, no ringing in the ears, no dizziness. No nasal drainage or congestion. No epistaxis. No sore throat. Lungs: No shortness of breath, cough, no sputum production. No wheezing. Cardiovascular: Reported chest pain, no lower extremity edema. No palpitations. No paroxysmal nocturnal dyspnea. No orthopnea. No lightheadedness or dizziness. No syncopal episodes. Abdominal: No abdominal pain. No nausea, vomiting. No diarrhea. No constipation. No bloody or tarry stools. No loss of appetite. Genitourinary: No dysuria, increased frequency, urgency. No urinary retention. Musculoskeletal: No myalgias. No muscle weakness, no gait dysfunction, no frequent falls. No back pain. No neck pain. Integumentary: No wounds, no lesions. No rash or pruritus. No unusual bruising. No change in hair or nails. Neurologic: No aphasia. No facial droop. No change in mentation. No head injury. No headache. No paralysis. No paresthesia. Psychiatric: No depression. No anxiety. No mood swings. Endocrine: No abnormal blood sugars. No weight change. No excessive sweating or thirst. No cold intolerance. SOCIAL HISTORY Patient quit smoking more than 20 years ago. No alcohol or illicit drug use. She lives at home with her . FAMILY HISTORY Father of a massive NV at the age of 52 yrs. Mother in her sleep at the age of 82 yrs. Patient has 2 sisters and one brother with history of coronary artery disease. Patient does not have any children. PHYSICAL EXAMINATION Gen: This is a 70-year-old female. She is resting in bed and appears comfortable and in no acute distress. HEENT: Head is atraumatic, normocephalic. Pupils equal, round. Sclerae is anicteric. NECK: Supple. No JVD. No lymphadenopathy. No thyromegaly. LUNGS: Clear to auscultation. No wheezes or rhonchi. No intercostal retractions. HEART: Regular rate and rhythm. 2/6 systolic ejection murmur. Pacemaker to the upper left anterior wall. ABDOMEN: Soft. Bowel sounds are present. No masses. No tenderness. EXTREMITIES: No pedal edema. No calf tenderness. Dorsalis pedis +2 bilaterally. NEUROLOGICAL: Patient is awake, alert and oriented x3. Cranial nerves 2 through 12 are grossly intact. ASSESSMENT AND PLAN 1. Chest discomfort/rumbling sensation which could be related to palpitations. Acute coronary syndrome ruled out 2. Paroxysmal atrial fibrillation status post ablation. 3. Bradycardia status post permanent pacemaker. 4. Diabetes mellitus type 2 insulin requiring. 5. Heart transplant in 2001 at [facility] secondary to congenital d eformity. 6. Gastroesophageal reflux disease. 7. Hypothyroidism. Patient placed as an observation status. DISCHARGE PLAN Home DISCHARGE MEDICATIONS - no medication changes made Atorvastatin Calcium [Lipitor] 10 mg PO HS 06/24/16 [History] Pantoprazole Sodium [Protonix] 40 mg PO AC-BID 06/24/16 [History] Sirolimus 1 mg PO DAILY 06/24/16 [History] hydrALAZINE HCL [Apresoline] 50 mg PO TID 06/24/16 [History] Butorphanol Tartrate [Stadol Nasal [place]] 1 spray EA NOSTRIL Q4H PRN 03/03/17 [History] mycophenolate mofetiL [Cellcept] 250 mg PO Q12H 03/03/17 [History] Apixaban [Eliquis] 5 mg PO BID 12/21/17 [History] Aspirin EC [Ecotrin Low Dose] 81 mg PO HS 01/20/20 [History] Levothyroxine Sodium [Synthroid] 100 mcg PO DAILY 01/20/20 [History] Losartan Potassium [Cozaar] 25 mg PO DAILY 01/20/20 [History] Promethazine HCl 12.5 mg PO Q6H PRN 01/20/20 [History] Torsemide [Demadex] 20 mg PO MOWEFR 01/20/20 [History] Metoprolol Succinate [Toprol XL] 50 mg PO DAILY 09/23/21 [History] Nortriptyline [Pamelor] 20 mg PO HS 09/23/21 [History] Potassium Chloride ER [K-Dur 20] 20 meq PO MOWEFR 09/23/21 [History] Impression and plan of care have been directed as dictated by the signing physician. Manisha Boyle nurse practitioner acting as scribe for signing physician. Past Medical History Past Medical History: Atrial Fibrillation, Diabetes Mellitus, GERD/Reflux, Thyroid Disorder Additional Past Medical History / Comment(s): Congenital deformity of the heart status post heart transplant in 2001 in [facility], skin cancer on her left ankle with removal. History of Any Multi-Drug Resistant Organisms: None Reported Past Surgical History: Appendectomy, Breast Surgery, Cardiac Ablation, Cholecystectomy, Pacemaker, Tonsillectomy, Tubal Ligation Additional Past Surgical History / Comment(s): Heart Transplant 2001 at [facility], lumbar laminectomy, breast reduction, removal of skin cancer on her left ankle, medtronic pacemaker put in at [facility] 12/19/[address] Napier and Dr[address] Adams. Past Anesthesia/Blood Transfusion Reactions: No Reported Reaction Additional Past Anesthesia/Blood Transfusion Reaction / Comment(s): Pt has received blood in past without reaction. Type of Cardiac Device: Permanent Pacemaker Device Placement Date:: 12-19-19 Past Psychological History: No Psychological Hx Reported Additional Psychological History / Comment(s): Pt resides with her spouse. She is independent. She drives. She is retired. Smoking Status: Former smoker Past Alcohol Use History: None Reported Additional Past Alcohol Use History / Comment(s): Patient quit smoking more than 20 years ago. No alcohol or illicit drug use. She lives at home with her . Past Drug Use History: None Reported - Past Family History Father Family Medical History: Myocardial Infarction (NV) Additional Family Medical History / Comment(s): Father of a massive NV at the age of 52 yrs. Mother Family Medical History: No Reported History Additional Family Medical History / Comment(s): Mother in her sleep at the age of 82 yrs. Brother(s) Additional Family Medical History / Comment(s): Patient has 2 sisters and one brother with history of coronary artery disease. Patient does not have any children. Medications and Allergies Home Medications Medication Instructions Recorded Confirmed Type Atorvastatin Calcium [Lipitor] 10 mg PO HS 06/24/16 09/23/21 History Pantoprazole Sodium [Protonix] 40 mg PO AC-BID 06/24/16 09/23/21 History Sirolimus 1 mg PO DAILY 06/24/16 09/23/21 History hydrALAZINE HCL [Apresoline] 50 mg PO TID 06/24/16 09/23/21 History Butorphanol Tartrate [Stadol Nasal 1 spray EA NOSTRIL Q4H PRN 03/03/17 09/23/21 History [place]] mycophenolate mofetiL [Cellcept] 250 mg PO Q12H 03/03/17 09/23/21 History Apixaban [Eliquis] 5 mg PO BID 12/21/17 09/23/21 History Aspirin EC [Ecotrin Low Dose] 81 mg PO HS 01/20/20 09/23/21 History Levothyroxine Sodium [Synthroid] 100 mcg PO DAILY 01/20/20 09/23/21 History Losartan Potassium [Cozaar] 25 mg PO DAILY 01/20/20 09/23/21 History Promethazine HCl 12.5 mg PO Q6H PRN 01/20/20 09/23/21 History Torsemide [Demadex] 20 mg PO MOWEFR 01/20/20 09/23/21 History Metoprolol Succinate [Toprol XL] 50 mg PO DAILY 09/23/21 09/23/21 History Nortriptyline [Pamelor] 20 mg PO HS 09/23/21 09/23/21 History Potassium Chloride ER [K-Dur 20] 20 meq PO MOWEFR 09/23/21 09/23/21 History Allergies Allergy/AdvReac Type Severity Reaction Status Date / Time cephalexin [From Keflex] Allergy Rash/Hives Verified 09/23/21 19:29 ciprofloxacin [From Cipro] Allergy Rash/Hives Verified 09/23/21 19:29 codeine Allergy Unknown Verified 09/23/21 19:29 hydrocodone [From Lortab] Allergy Unknown Verified 09/23/21 19:29 hydromorphone [From Dilaudid] Allergy Rash/Hives Verified 09/23/21 19:29 hydroxyprogesterone Allergy Unknown Verified 09/23/21 19:29 opium (anthroposophic) Allergy Unknown Verified 09/23/21 19:29 Penicillins Allergy Unknown Verified 09/23/21 19:29 Childhood simvastatin Allergy Unknown Verified 09/23/21 19:29 tramadol HCl [From Ultram] Allergy Unknown Verified 09/23/21 19:29 Physical Exam Vitals: Vital Signs Temp Pulse Pulse Resp BP BP Pulse Ox 09/24/21 07:13 97.6 F 73 16 140/64 98 09/24/21 01:24 96.3 F L 60 16 130/70 99 09/23/21 21:56 97.6 F 60 16 163/78 100 09/23/21 21:31 72 18 142/62 99 09/23/21 19:00 84 18 154/72 100 09/23/21 18:00 86 18 147/74 100 09/23/21 16:33 82 09/23/21 16:23 97.8 F 95 16 190/77 97 Intake and Output 09/23/21 09/24/21 09/24/21 22:59 06:59 14:59 Other: # Voids 1 Weight 58.513 kg Results CBC & Chem 7: 09/23/21 16:45 09/23/21 16:45 Labs: Abnormal Lab Results - Last 24 Hours (Table) 09/23/21 09/23/21 09/24/21 Range/Units 16:45 16:45 07:06 Sodium 133 L (137-145) mmol/L Chloride 96 L (98-107) mmol/L BUN 32 H (7-17) mg/dL Creatinine 1.17 H (0.52-1.04) mg/dL Glucose 322 H (74-99) mg/dL POC Glucose (mg/dL) 223 H (70-110) mg/dL Alkaline Phosphatase 137 H (38-126) U/L Urine Glucose (UA) 1+ H (Negative) Thrombosis Risk Factor Assmnt - Choose All That Apply Any of the Below Risk Factors Present?: No Other Risk Factors: Yes Each Risk Factor Represents 2 Points: Age 61-74 years Other congenital or acquired thrombophilia - If yes, enter type in comment: No Thrombosis Risk Factor Assessment Total Risk Factor Score: 2 Thrombosis Risk Factor Assessment Level: Low Risk
--- NOTE | 2021-09-24 09:53 | P.CRDCN ---
History of Present Illness Consult date: 09/24/21 Chief complaint: Palpitation History of present illness: This is a 70-year-old female patient with a past medical history significant for history of cardiac transplant 20 years ago was performed at [facility] as well as a history of paroxysmal atrial fibrillation status post post ablation also at the [facility], permanent pacemaker implantation, as well as multiple comorbid conditions including diabetes and hypertension and dyslipidemia. She was seen and evaluated recently by her certified pediatric nurse practitioner at the [facility] where she was experiencing intermittent episodes of palpitation and she was diagnosed with "PVC". The dose of beta jimmie was increased by her certified pediatric nurse practitioner and subsequently she supposed to wear a monitor but unfortunately the monitor was not sent to her. She presented to the hospital again complaining of palpitation associated with mild chest discomfort. She describes the palpitation as a fluttering feeling in the chest. No dizziness or lightheadedness and no presyncope or syncope. No symptoms of any increasing shortness of breath and no lower extremities edema noted. She underw ent an EKG which showed an atrial paced rhythm. She underwent cardiac workup including also cardiac enzymes came in to be unremarkable. The chest x-ray also came in to be unremarkable. I had a long discussion with the patient regarding the next step and I advised the patient to call her certified pediatric nurse practitioner at the [facility] to have a monitor done. I am concerned about the frequency of the PVC which was seen earlier today on her monitor. She is going to do that. Meanwhile from the cardiac standpoint of view, she is stable to be discharged home. Past Medical History Past Medical History: Atrial Fibrillation, Diabetes Mellitus, GERD/Reflux, Thyroid Disorder Additional Past Medical History / Comment(s): Congenital deformity of the heart status post heart transplant in 2001 in [facility], skin cancer on her left ankle with removal. History of Any Multi-Drug Resistant Organisms: None Reported Past Surgical History: Appendectomy, Breast Surgery, Cardiac Ablation, Cholecystectomy, Pacemaker, Tonsillectomy, Tubal Ligation Additional Past Surgical History / Comment(s): Heart Transplant 2002 at [facility], lumbar laminectomy, breast reduction, removal of skin cancer on her left ankle, medtronic pacemaker put in at [facility] 12/19/[address] Napier and Dr[address] Adams. Past Anesthesia/Blood Transfusion Reactions: No Reported Reaction Additional Past Anesthesia/Blood Transfusion Reaction / Comment(s): Pt has received blood in past without reaction. Type of Cardiac Device: Permanent Pacemaker Device Placement Date:: 12-19-19 Past Psychological History: No Psychological Hx Reported Additional Psychological History / Comment(s): Pt resides with her spouse. She is independent. She drives. She is retired. Smoking Status: Former smoker Past Alcohol Use History: None Reported Additional Past Alcohol Use History / Comment(s): Patient quit smoking more than 20 years ago. No alcohol or illicit drug use. She lives at home with her . Past Drug Use History: None Reported - Past Family History Father Family Medical History: Myocardial Infarction (MD) Additional Family Medical History / Comment(s): Father of a massive MD at the age of 52 yrs. Mother Family Medical History: No Reported History Additional Family Medical History / Comment(s): Mother in her sleep at the age of 82 yrs. Brother(s) Additional Family Medical History / Comment(s): Patient has 2 sisters and one brother with history of coronary artery disease. Patient does not have any children. Medications and Allergies Home Medications Medication Instructions Recorded Confirmed Type Atorvastatin Calcium [Lipitor] 10 mg PO HS 06/24/16 09/23/21 History Pantoprazole Sodium [Protonix] 40 mg PO AC-BID 06/24/16 09/23/21 History Sirolimus 1 mg PO DAILY 06/24/16 09/23/21 History hydrALAZINE HCL [Apresoline] 50 mg PO TID 06/24/16 09/23/21 History Butorphanol Tartrate [Stadol Nasal 1 spray EA NOSTRIL Q4H PRN 03/03/17 09/23/21 History [place]] mycophenolate mofetiL [Cellcept] 250 mg PO Q12H 03/03/17 09/23/21 History Apixaban [Eliquis] 5 mg PO BID 12/21/17 09/23/21 History Aspirin EC [Ecotrin Low Dose] 81 mg PO HS 01/20/20 09/23/21 History Levothyroxine Sodium [Synthroid] 100 mcg PO DAILY 01/20/20 09/23/21 History Losartan Potassium [Cozaar] 25 mg PO DAILY 01/20/20 09/23/21 History Promethazine HCl 12.5 mg PO Q6H PRN 01/20/20 09/23/21 History Torsemide [Demadex] 20 mg PO MOWEFR 01/20/20 09/23/21 History Metoprolol Succinate [Toprol XL] 50 mg PO DAILY 09/23/21 09/23/21 History Nortriptyline [Pamelor] 20 mg PO HS 09/23/21 09/23/21 History Potassium Chloride ER [K-Dur 20] 20 meq PO MOWEFR 09/23/21 09/23/21 History Allergies Allergy/AdvReac Type Severity Reaction Status Date / Time cephalexin [From Keflex] Allergy Rash/Hives Verified 09/23/21 19:29 ciprofloxacin [From Cipro] Allergy Rash/Hives Verified 09/23/21 19:29 codeine Allergy Unknown Verified 09/23/21 19:29 hydrocodone [From Lortab] Allergy Unknown Verified 09/23/21 19:29 hydromorphone [From Dilaudid] Allergy Rash/Hives Verified 09/23/21 19:29 hydroxyprogesterone Allergy Unknown Verified 09/23/21 19:29 opium (anthroposophic) Allergy Unknown Verified 09/23/21 19:29 Penicillins Allergy Unknown Verified 09/23/21 19:29 Childhood simvastatin Allergy Unknown Verified 09/23/21 19:29 tramadol HCl [From Ultram] Allergy Unknown Verified 09/23/21 19:29 Physical Exam Vitals: Vital Signs Temp Pulse Pulse Resp BP BP Pulse Ox 09/24/21 07:13 97.6 F 73 16 140/64 98 09/24/21 01:24 96.3 F L 60 16 130/70 99 09/23/21 21:56 97.6 F 60 16 163/78 100 09/23/21 21:31 72 18 142/62 99 09/23/21 19:00 84 18 154/72 100 09/23/21 18:00 86 18 147/74 100 09/23/21 16:33 82 09/23/21 16:23 97.8 F 95 16 190/77 97 Intake and Output 09/23/21 09/24/21 09/24/21 22:59 06:59 14:59 Other: # Voids 1 Weight 58.513 kg - Constitutional General appearance: no acute distress - Respiratory Respiratory: bilateral: diminished - Cardiovascular Rhythm: regular Heart sounds: normal: S1, S2 Abnormal Heart Sounds: systolic murmur Results 09/23/21 16:45 09/23/21 16:45 Cardiac Enzymes 09/23/21 09/23/21 09/23/21 Range/Units 16:45 16:45 22:15 AST 19 (14-36) U/L Troponin I <0.012 <0.012 (0.000-0.034) ng/mL 09/24/21 Range/Units 01:15 AST (14-36) U/L Troponin I <0.012 (0.000-0.034) ng/mL Coagulation 09/23/21 Range/Units 16:45 PT 10.4 (9.0-12.0) sec APTT 27.5 (22.0-30.0) sec CBC 09/23/21 Range/Units 16:45 WBC 8.7 (3.8-10.6) k/uL RBC 4.56 (3.80-5.40) m/uL Hgb 12.5 (11.4-16.0) gm/dL Hct 39.1 (34.0-46.0) % Plt Count 278 (150-450) k/uL Comprehensive Metabolic Panel 09/23/21 Range/Units 16:45 Sodium 133 L (137-145) mmol/L Potassium 4.4 (3.5-5.1) mmol/L Chloride 96 L (98-107) mmol/L Carbon Dioxide 28 (22-30) mmol/L BUN 32 H (7-17) mg/dL Creatinine 1.17 H (0.52-1.04) mg/dL Glucose 322 H (74-99) mg/dL Calcium 9.6 (8.4-10.2) mg/dL AST 19 (14-36) U/L ALT 10 (4-34) U/L Alkaline Phosphatase 137 H (38-126) U/L Total Protein 7.5 (6.3-8.2) g/dL Albumin 4.4 (3.5-5.0) g/dL Current Medications Generic Name Dose Route Start Last Admin Trade Name Freq PRN Reason Stop Dose Admin Apixaban 5 mg 09/24/21 09:00 09/24/21 09:09 Apixaban 5 Mg Tab PO 5 mg BID [facility] Administration Protocol Aspirin 81 mg 09/24/21 21:00 Aspirin 81 Mg PO HS DYLON Atorvastatin Calcium 10 mg 09/24/21 21:00 Atorvastatin 10 Mg Tab PO HS DYLON Hydralazine HCl 50 mg 09/23/21 22:00 09/24/21 09:09 Hydralazine Hcl 50 Mg Tab PO 50 mg TID DYLON Administration Sodium Chloride 1,000 mls @ 75 mls/hr 09/23/21 20:00 09/24/21 09:10 Saline 0.9% IV 75 mls/hr .[id number] DYLON Administration Insulin Aspart 0 unit 09/24/21 08:05 09/24/21 09:10 Insulin Aspart (Novolog) 100 Unit/Ml Vial SQ 3 unit ACHS DYLON Administration Protocol Levothyroxine Sodium 100 mcg 09/24/21 06:30 09/24/21 05:25 Levothyroxine 100 Mcg Tab PO 100 mcg DAILY@0630 DYLON Administration Losartan Potassium 25 mg 09/24/21 09:00 09/24/21 09:09 Losartan 25 Mg Tab PO 25 mg DAILY DYLON Administration Metoprolol Succinate 50 mg 09/24/21 09:00 09/24/21 09:09 Metoprolol Succinate (Er) 50 Mg Tab.Er.24h PO 50 mg DAILY DYLON Administration Mycophenolate Mofetil 250 mg 09/23/21 23:00 09/23/21 23:12 Mycophenolate Mofetil 250 Mg Cap PO 250 mg Q12H DYLON Administration Naloxone HCl 0.2 mg 09/23/21 19:50 Naloxone 0.4 Mg/Ml 1 Ml Vial IV Q2M PRN Opioid Reversal Non-Formulary Medication 1 spray 09/24/21 09:00 Butorphanol Tartrate [Stadol Nasal [place]] EA NOSTRIL Q4H PRN MIGRAINES Non-Formulary Medication 1 mg 09/24/21 09:00 09/24/21 09:22 Sirolimus [Sirolimus] PO Not Given DAILY DYLON Nortriptyline HCl 20 mg 09/23/21 22:00 09/23/21 23:11 Nortriptyline 10 Mg Cap PO 20 mg HS DYLON Administration Pantoprazole Sodium 40 mg 09/24/21 07:30 09/24/21 07:31 Pantoprazole 40 Mg Tablet PO 40 mg AC-BID DYLON Administration Potassium Chloride 20 meq 09/23/21 22:30 09/23/21 22:50 Potassium Chloride Er 20 Meq Tab.Er PO 20 meq MoWeFr@0900 DYLON Administration Promethazine HCl 12.5 mg 09/23/21 22:30 Promethazine 25 Mg Tab PO Q6H PRN Nausea Torsemide 20 mg 09/23/21 22:30 09/23/21 22:44 Torsemide 20 Mg Tab PO Not Given MoWeFr@0900 DYLON Intake and Output 09/23/21 09/24/21 09/24/21 22:59 06:59 14:59 Other: # Voids 1 Weight 58.513 kg 09/23/21 16:45 09/23/21 16:45 Assessment and Plan Assessment: Assessment #1 history of cardiac transplant #2 frequent and PVCs #3 paroxysmal atrial fibrillation #4 status post permanent pacemaker #5 multiple comorbid conditions Plan #1 the patient is a stable to be discharged home #2 she was advised to call her certified pediatric nurse practitioner #3 she needs an event monitor to assess the frequency of the PVC probably through her certified pediatric nurse practitioner #4 follow-up with the patient
[2021-09-24 10:16] LABS: Basophils # (A) 0.06 X 10*3/uL (0.00-0.10); Basophils % (A) 0.9 %; Eosinophils % (A) 2.9 %; HCT 39.4 % (37.2-46.3); HGB 12.1 g/dL (12.0-15.0); Immature Grans, Automated 0.3 %; Lymphocytes # (A) 2.06 X 10*3/uL (0.90-5.00); MCH 26.1 pg (27.0-32.0); MCHC 30.7 g/dL (32.0-37.0); MCV 84.9 fL (80.0-97.0); Mean Platelet Volume 10.8 fL (9.5-12.2); Monocytes # (A) 0.75 X 10*3/uL (0.20-1.00); Monocytes % (A) 10.9 %; NRBC Per 100 WBC 0 /100 WBCS (0.0-0.0); Neutrophils # (A) 3.77 X 10*3/uL (1.80-7.70); Platelet Count 257 X 10*3/uL (140-440); RBC 4.64 X 10*6/uL (4.10-5.20); RDW 14.7 % (11.5-14.5); WBC 6.86 X 10*3/uL (4.50-10.00)
[2021-09-24 10:35] LABS: African American GFR (CKD) 53.9 (60.0-200.0); Albumin 4.1 g/dL (3.8-4.9); Albumin/Globulin Ratio 1.67 (1.60-3.17); Anion Gap 11.7 mmol/L (10.00-18.00); BUN/Creat Ratio 22.35 Ratio (12.00-20.00); Blood Urea Nitrogen 26.6 mg/dL (9.0-27.0); Calcium 9.9 mg/dL (8.7-10.3); Carbon Dioxide 27.9 mmol/L (20.0-27.5); Globulin 2.5 g/dL (1.6-3.3); Non-African American GFR(CKD) 46.5 (60.0-200.0); Potassium 4.5 mmol/L (3.5-5.5); Total Bilirubin 0.4 mg/dL (0.30-1.20); Total Protein 6.6 g/dL (6.2-8.2)
[2021-09-24] MEDS ORDERED: ATORVASTATIN 10 MG TAB PO SCH (21:00)
[2021-09-24] MEDS ORDERED: ASPIRIN 81 MG PO SCH (21:00)
== END 2021-09-24 10:15 | disposition home or self-care (01) ==
LOC: EC 16:17 → 6NMEDSUR 20:44
PROVIDERS: ADMIT Internal Medicine Geriatric Medicine; ATTEND Internal Medicine Geriatric Medicine
DX: R07.89 Other chest pain (principal); I48.0 Paroxysmal atrial fibrillation; R00.2 Palpitations; R11.2 Nausea with vomiting, unspecified; R61 Generalized hyperhidrosis; R00.1 Bradycardia, unspecified; Z94.1 Heart transplant status; K21.9 Gastro-esophageal reflux disease without esophagitis; E03.9 Hypothyroidism, unspecified; E11.65 Type 2 diabetes mellitus with hyperglycemia; I10 Essential (primary) hypertension; E78.5 Hyperlipidemia, unspecified; Q22.5 Ebstein's anomaly; Z71.9 Counseling, unspecified; Z95.0 Presence of cardiac pacemaker; Z87.891 Personal history of nicotine dependence; Z90.49 Acquired absence of other specified parts of digestive tract; Z85.828 Personal history of other malignant neoplasm of skin; Z79.899 Other long term (current) drug therapy; Z79.82 Long term (current) use of aspirin; Z79.890 Hormone replacement therapy; Z79.01 Long term (current) use of anticoagulants; Z88.1 Allergy status to other antibiotic agents; Z88.5 Allergy status to narcotic agent; Z88.8 Allergy status to other drugs, medicaments and biological substances; Z88.0 Allergy status to penicillin; Z82.49 Family history of ischemic heart disease and other diseases of the circulatory system
CPT/HCPCS: 96374; 96375; 99285; 36415; 93005; 85379; 80053 ×2; 84443; 83735; 84484 ×2; 85025 ×2; 85610; 85730; 81003; 71046; G0378 ×2; J2765; J2405; J7517

== ENCOUNTER 2021-10-06 17:51 | Emergency (ER) | payer MEDICARE, OTHER ==
[2021-10-06 18:15] VITALS: RESP 16; TEMP 98.3
--- NOTE | 2021-10-06 19:07 | ED ---
Arrhythmia/Palpitations HPI - General Chief Complaint: Arrhythmia/Palpitations Stated Complaint: A-Fib Time Seen by Provider: 10/06/21 18:20 Source: patient Mode of arrival: ambulatory Limitations: no limitations - History of Present Illness Initial Comments: 70-year-old female with past medical history of intermittent A. 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 He states that she had a colonoscopy on . She was told that they used to Magnant during the procedure. She was to call and tell her carrier driver that a magnet however she had not done this yet. She did receive a call from her EP clinic today stating that there was issues with her pacemaker and she needs to come in on for evaluation. She reports that after hearing that she's been having palpitations and lightheadedness. She follows with Dr. Mcginnis out of [facility]. She denies any chest pain. No syncope. No shortness of breath. 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 - Related Data Home Medications Medication Instructions Recorded Confirmed Atorvastatin Calcium [Lipitor] 10 mg PO HS 06/24/16 10/06/21 Pantoprazole Sodium [Protonix] 40 mg PO AC-BID 06/24/16 10/06/21 Sirolimus 1 mg PO DAILY 06/24/16 10/06/21 hydrALAZINE HCL [Apresoline] 50 mg PO TID 06/24/16 10/06/21 Butorphanol Tartrate [Stadol Nasal 1 spray EA NOSTRIL Q4H PRN 03/03/17 10/06/21 [place]] mycophenolate mofetiL [Cellcept] 250 mg PO Q12H 03/03/17 10/06/21 Apixaban [Eliquis] 5 mg PO BID 12/21/17 10/06/21 Aspirin EC [Ecotrin Low Dose] 81 mg PO HS 01/20/20 10/06/21 Losartan Potassium [Cozaar] 25 mg PO DAILY 01/20/20 10/06/21 Promethazine HCl 12.5 mg PO Q6H PRN 01/20/20 10/06/21 Torsemide [Demadex] 20 mg PO MOWEFR 01/20/20 10/06/21 Metoprolol Succinate [Toprol XL] 50 mg PO DAILY 09/23/21 10/06/21 Nortriptyline [Pamelor] 20 mg PO HS 09/23/21 10/06/21 Potassium Chloride ER [K-Dur 20] 20 meq PO MOWEFR 09/23/21 10/06/21 Levothyroxine Sodium 100 mcg PO AC-BRKFST 10/06/21 10/06/21 Allergies Allergy/AdvReac Type Severity Reaction Status Date / Time cephalexin [From Keflex] Allergy Rash/Hives Verified 10/06/21 19:41 ciprofloxacin [From Cipro] Allergy Rash/Hives Verified 10/06/21 19:41 codeine Allergy Unknown Verified 10/06/21 19:41 hydrocodone [From Lortab] Allergy Unknown Verified 10/06/21 19:41 hydromorphone [From Dilaudid] Allergy Rash/Hives Verified 10/06/21 19:41 hydroxyprogesterone Allergy Unknown Verified 10/06/21 19:41 opium (anthroposophic) Allergy Unknown Verified 10/06/21 19:41 Penicillins Allergy Unknown Verified 10/06/21 19:41 Childhood simvastatin Allergy Unknown Verified 10/06/21 19:41 tramadol HCl [From Ultram] Allergy Unknown Verified 10/06/21 19:41 Review of Systems ROS Statement: Those systems with pertinent positive or pertinent negative responses have been documented in the HPI. ROS Other: All systems not noted in ROS Statement are negative. 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 History of Any Multi-Drug Resistant Organisms: None Reported Past Surgical History: Appendectomy, Breast Surgery, Cardiac Ablation, Cholecystectomy, Pacemaker, Tonsillectomy, Tubal Ligation Additional Past Surgical History / Comment(s): Heart Transplant 2001 at [facility], lumbar laminectomy, breast reduction, removal of skin cancer on her left ankle. Past Anesthesia/Blood Transfusion Reactions: No Reported Reaction Additional Past Anesthesia/Blood Transfusion Reaction / Comment(s): Pt has received blood in past without reaction. Type of Cardiac Device: Permanent Pacemaker Device Placement Date:: 12-19-19 Past Psychological History: No Psychological Hx Reported Smoking Status: Former smoker Past Alcohol Use History: None Reported Past Drug Use History: None Reported - Past Family History Father Family Medical History: Myocardial Infarction (MT) Additional Family Medical History / Comment(s): Father of a massive MT at the age of 52 yrs. Mother Family Medical History: No Reported History Additional Family Medical History / Comment(s): Mother in her sleep at the age of 82 yrs. Brother(s) Additional Family Medical History / Comment(s): Patient has 2 sisters and one brother with history of coronary artery disease. Patient does not have any children. General Exam Limitations: no limitations General appearance: alert, in no apparent distress, anxious Head exam: Present: atraumatic, normocephalic, normal inspection Eye exam: Present: normal appearance, PERRL, EOMI. Absent: scleral icterus, conjunctival injection, periorbital swelling ENT exam: Present: normal exam, mucous membranes moist Neck exam: Present: normal inspection. Absent: tenderness, meningismus, lymphadenopathy Respiratory exam: Present: normal lung sounds bilaterally. Absent: respiratory distress, wheezes, rales, rhonchi, stridor Cardiovascular Exam: Present: regular rate, normal rhythm, normal heart sounds. Absent: systolic murmur, diastolic murmur, rubs, gallop, clicks GI/Abdominal exam: Present: soft, normal bowel sounds. Absent: distended, tenderness, guarding, rebound, rigid Extremities exam: Present: normal inspection, full ROM, normal capillary refill. Absent: tenderness, pedal edema, joint swelling, calf tenderness Back exam: Present: normal inspection Neurological exam: Present: alert, oriented X3, CN II-XII intact Psychiatric exam: Present: normal affect, normal mood Skin exam: Present: warm, dry, intact, normal color. Absent: rash Course Vital Signs 10/06/21 10/06/21 10/06/21 18:13 19:30 22:00 Temperature 98.3 F Pulse Rate 94 46 L 64 Respiratory 16 Rate Blood Pressure 197/77 186/79 162/86 O2 Sat by Pulse 99 96 Oximetry EKG Findings - EKG Comments: EKG Findings:: EKG demonstrates what appears to be a sinus tach with intermittent pacing. Rate of 106. GA interval 178. QRS 94. QTC of 434. Frequent PVCs. Repeat EKG 1943 demonstrates paced rhythm with a rate of 81. Frequent PVCs. GA interval 165. QRS 93. QTC 446. No acute a signal elevations or depressions Medical Decision Making - Medical Decision Making Upon arrival patient was placed into room 19. A thorough history and physical exam was performed. IV is established laboratory studies are conducted. She does have a chest x-ray performed. I attempted to call the EP line however after 2 hours I do not receive a call back. I then called and spoke with Dr. Mcginnis who is the patient's carrier driver. He is able to see the EP report. I did discuss the patient's case with him. He feels the patient is stable for discharge home and can follow up in office on . I discussed this with the patient. She agrees to the treatment plan. Will return for any new or worsening symptoms. Patient discharged home in stable condition - Lab Data Result diagrams: 10/06/21 19:30 10/06/21 19:30 Lab Results 10/06/21 10/06/21 10/06/21 Range/Units 19:30 19:30 19:30 WBC 9.9 (3.8-10.6) k/uL RBC 4.76 (3.80-5.40) m/uL Hgb 13.2 (11.4-16.0) gm/dL Hct 40.3 (34.0-46.0) % MCV 84.6 (80.0-100.0) fL MCH 27.6 (25.0-35.0) pg MCHC 32.6 (31.0-37.0) g/dL RDW 14.7 (11.5-15.5) % Plt Count 291 (150-450) k/uL MPV 7.9 Neutrophils % 72 % Lymphocytes % 19 % Monocytes % 5 % Eosinophils % 2 % Basophils % 1 % Neutrophils # 7.2 (1.3-7.7) k/uL Lymphocytes # 1.9 (1.0-4.8) k/uL Monocytes # 0.5 (0-1.0) k/uL Eosinophils # 0.2 (0-0.7) k/uL Basophils # 0.1 (0-0.2) k/uL PT 10.7 (9.0-12.0) sec INR 1.0 (<1.2) APTT 26.2 (22.0-30.0) sec Sodium 134 L (137-145) mmol/L Potassium 3.6 (3.5-5.1) mmol/L Chloride 97 L (98-107) mmol/L Carbon Dioxide 27 (22-30) mmol/L Anion Gap 10 mmol/L BUN 25 H (7-17) mg/dL Creatinine 1.25 H (0.52-1.04) mg/dL Est GFR (CKD-EPI)AfAm 51 (>60 ml/min/1.73 sqM) Est GFR (CKD-EPI)NonAf 44 (>60 ml/min/1.73 sqM) Glucose 228 H (74-99) mg/dL Calcium 9.5 (8.4-10.2) mg/dL Magnesium 1.5 L (1.6-2.3) mg/dL Total Bilirubin 0.6 (0.2-1.3) mg/dL AST 20 (14-36) U/L ALT 9 (4-34) U/L Alkaline Phosphatase 134 H (38-126) U/L Troponin I (0.000-0.034) ng/mL Total Protein 7.4 (6.3-8.2) g/dL Albumin 4.4 (3.5-5.0) g/dL TSH 4.590 (0.465-4.680) mIU/L 10/06/21 Range/Units 19:30 WBC (3.8-10.6) k/uL RBC (3.80-5.40) m/uL Hgb (11.4-16.0) gm/dL Hct (34.0-46.0) % MCV (80.0-100.0) fL MCH (25.0-35.0) pg MCHC (31.0-37.0) g/dL RDW (11.5-15.5) % Plt Count (150-450) k/uL MPV Neutrophils % % Lymphocytes % % Monocytes % % Eosinophils % % Basophils % % Neutrophils # (1.3-7.7) k/uL Lymphocytes # (1.0-4.8) k/uL Monocytes # (0-1.0) k/uL Eosinophils # (0-0.7) k/uL Basophils # (0-0.2) k/uL PT (9.0-12.0) sec INR (<1.2) APTT (22.0-30.0) sec Sodium (137-145) mmol/L Potassium (3.5-5.1) mmol/L Chloride (98-107) mmol/L Carbon Dioxide (22-30) mmol/L Anion Gap mmol/L BUN (7-17) mg/dL Creatinine (0.52-1.04) mg/dL Est GFR (CKD-EPI)AfAm (>60 ml/min/1.73 sqM) Est GFR (CKD-EPI)NonAf (>60 ml/min/1.73 sqM) Glucose (74-99) mg/dL Calcium (8.4-10.2) mg/dL Magnesium (1.6-2.3) mg/dL Total Bilirubin (0.2-1.3) mg/dL AST (14-36) U/L ALT (4-34) U/L Alkaline Phosphatase (38-126) U/L Troponin I <0.012 (0.000-0.034) ng/mL Total Protein (6.3-8.2) g/dL Albumin (3.5-5.0) g/dL TSH (0.465-4.680) mIU/L Disposition Clinical Impression: Palpitations Disposition: HOME SELF-CARE Condition: Stable Instructions (If sedation given, give patient instructions): Heart Palpitations (ED) Additional Instructions: Please follow-up at your EP appointment on . Return to the emergency room for any new or worsening symptoms Is patient prescribed a controlled substance at d/c from ED?: No Referrals: Gilmar Al MD [Primary Care Provider] - 1-2 days Time of Disposition: 21:47
--- NOTE | 2021-10-06 19:27 | XR ---
EXAMINATION TYPE: XR chest 2V DATE OF EXAM: 10/06/2021 COMPARISON: 09/23/2021 HISTORY: Dysrhythmia TECHNIQUE: FINDINGS: Heart is normal. Lungs are clear of infiltrate. No heart failure. There is left axillary pa cemaker. Costophrenic angles are clear. There are sternal wires. There are chest leads. Bony thorax i s intact. IMPRESSION: No active cardiopulmonary disease. No change.
[2021-10-06 20:00] LABS: Basophils # (A) 0.1 k/uL (0-0.2); Basophils % (A) 1 %; Eosinophils # (A) 0.2 k/uL (0-0.7); Eosinophils % (A) 2 %; HCT 40.3 % (34.0-46.0); HGB 13.2 gm/dL (11.4-16.0); Lymphocytes # (A) 1.9 k/uL (1.0-4.8); Lymphocytes % (A) 19 %; MCH 27.6 pg (25.0-35.0); MCHC 32.6 g/dL (31.0-37.0); MCV 84.6 fL (80.0-100.0); Mean Platelet Volume 7.9; Monocytes # (A) 0.5 k/uL (0-1.0); Monocytes % (A) 5 %; Neutrophils # (A) 7.2 k/uL (1.3-7.7); Neutrophils % (A) 72 %; Platelet Count 291 k/uL (150-450); RBC 4.76 m/uL (3.80-5.40); RDW 14.7 % (11.5-15.5); WBC 9.9 k/uL (3.8-10.6)
[2021-10-06 20:03] LABS: ALT 9 U/L (4-34); AST 20 U/L (14-36); African American GFR (CKD) 51 (>60 ml/min/1.73 sqM); Albumin 4.4 g/dL (3.5-5.0); Alkaline Phosphatase 134 U/L (38-126); Anion Gap 10 mmol/L; Blood Urea Nitrogen 25 mg/dL (7-17); Calcium 9.5 mg/dL (8.4-10.2); Carbon Dioxide 27 mmol/L (22-30); Chloride 97 mmol/L (98-107); Glucose 228 mg/dL (74-99); Magnesium 1.5 mg/dL (1.6-2.3); Non-African American GFR(CKD) 44 (>60 ml/min/1.73 sqM); Partial Thromboplastin Time 26.2 sec (22.0-30.0); Potassium 3.6 mmol/L (3.5-5.1); Prothrombin Time 10.7 sec (9.0-12.0); Sodium 134 mmol/L (137-145); Total Bilirubin 0.6 mg/dL (0.2-1.3); Total Protein 7.4 g/dL (6.3-8.2)
[2021-10-06 22:12] VITALS: BP 162/86; PULSE 64
== END 2021-10-06 22:21 | disposition home or self-care (01) ==
LOC: EC 17:51
DX: R00.2 Palpitations (principal); I48.91 Unspecified atrial fibrillation; E11.9 Type 2 diabetes mellitus without complications; K21.9 Gastro-esophageal reflux disease without esophagitis; E07.9 Disorder of thyroid, unspecified; Z87.891 Personal history of nicotine dependence; Z88.5 Allergy status to narcotic agent; Z88.8 Allergy status to other drugs, medicaments and biological substances; Z88.6 Allergy status to analgesic agent; Z88.1 Allergy status to other antibiotic agents; Z88.0 Allergy status to penicillin; Z79.899 Other long term (current) drug therapy; Z79.82 Long term (current) use of aspirin; Z79.01 Long term (current) use of anticoagulants; Z79.890 Hormone replacement therapy
CPT/HCPCS: 36415; 71046; 80053; 83735; 84443; 84484; 85025; 85610; 85730; 93005; 99285

== ENCOUNTER → 2021-11-30 | Outpatient (CLI) | payer MEDICARE, OTHER ==
[2021-11-30 14:45] LABS: Basophils # (A) 0.06 X 10*3/uL (0.00-0.10); Eosinophils # (A) 0.18 X 10*3/uL (0.04-0.35); Eosinophils % (A) 2.9 %; HCT 35.8 % (37.2-46.3); HGB 11.4 g/dL (12.0-15.0); Immature Grans, Automated 0.2 %; Lymphocytes % (A) 23.9 %; MCH 27.1 pg (27.0-32.0); MCHC 31.8 g/dL (32.0-37.0); Mean Platelet Volume 10.9 fL (9.5-12.2); Monocytes # (A) 0.61 X 10*3/uL (0.20-1.00); Monocytes % (A) 9.7 %; NRBC Per 100 WBC 0 /100 WBCS (0.0-0.0); Neutrophils # (A) 3.91 X 10*3/uL (1.80-7.70); Neutrophils % (A) 62.3 %; Platelet Count 188 X 10*3/uL (140-440); RBC 4.21 X 10*6/uL (4.10-5.20); WBC 6.27 X 10*3/uL (4.50-10.00)
[2021-11-30 15:39] LABS: ALT 11 U/L (8-44); AST 15 U/L (13-35); African American GFR (CKD) 53.9 (60.0-200.0); Albumin 4.1 g/dL (3.8-4.9); Albumin/Globulin Ratio 1.66 (1.60-3.17); Alkaline Phosphatase 134 U/L (41-126); Blood Urea Nitrogen 25.7 mg/dL (9.0-27.0); Calcium 9.3 mg/dL (8.7-10.3); Carbon Dioxide 27.4 mmol/L (20.0-27.5); Chloride 97 mmol/L (96-109); Chol/HDL Ratio 3.22 Ratio; Creatine Kinase 54 U/L (26-186); Globulin 2.5 g/dL (1.6-3.3); Glucose 254 mg/dL (70-110); LDL Cholesterol,Calculated 87.3 mg/dL (0.0-131.0); Non-African American GFR(CKD) 46.5 (60.0-200.0); Potassium 3.9 mmol/L (3.5-5.5); Sodium 136 mmol/L (135-145); Total Protein 6.6 g/dL (6.2-8.2)
[2021-11-30 18:00] LABS: Urine Creatinine 52.3 mg/dL (28.0-217.0)
== END | disposition home or self-care (01) ==
LOC: LABWHC1 07:21
PROVIDERS: ATTEND Internal Medicine Endocrinology, Diabetes & Metabolism
DX: E11.65 Type 2 diabetes mellitus with hyperglycemia (principal); T86.20 Unspecified complication of heart transplant; T86.21 Heart transplant rejection; T86.22 Heart transplant failure; T86.23 Heart transplant infection; T86.290 Cardiac allograft vasculopathy; E78.2 Mixed hyperlipidemia
CPT/HCPCS: 36415; 80053; 80061; 82043; 82550; 82570; 83036; 83735; 83880; 84443; 85025

== ENCOUNTER → 2022-01-15 | Outpatient (CLI) | payer MEDICARE, OTHER ==
[~2022-01-15] MED LIST changes: +TIXAGEVIMAB/CILGAVIMAB (EUA) 300 MG/3 ML COMBO.PKG IM NR; -TIXAGEVIMAB/CILGAVIMAB (EUA) 300 MG/3 ML COMBO.PKG IM ONE
[2022-01-15 12:45] VITALS: TEMP 98.4
[2022-01-15 13:37] VITALS: BP 112/66; PULSE 74; RESP 16
== END | disposition home or self-care (01) ==
LOC: PROCWHC3 12:26
PROVIDERS: ATTEND Nurse Practitioner
DX: D84.9 Immunodeficiency, unspecified (principal); Z94.1 Heart transplant status
CPT/HCPCS: Q0220; M0220

== ENCOUNTER → 2022-02-12 | Outpatient (CLI) | payer MEDICARE, OTHER ==
[2022-02-12 14:45] LABS: Basophils # (A) 0.06 X 10*3/uL (0.00-0.10); Basophils % (A) 0.8 %; Eosinophils # (A) 0.21 X 10*3/uL (0.04-0.35); Eosinophils % (A) 2.7 %; HCT 40.9 % (37.2-46.3); HGB 12.6 g/dL (12.0-15.0); Immature Grans, Automated 0.5 %; Lymphocytes # (A) 1.95 X 10*3/uL (0.90-5.00); Lymphocytes % (A) 24.7 %; MCH 26.1 pg (27.0-32.0); MCHC 30.8 g/dL (32.0-37.0); MCV 84.9 fL (80.0-97.0); Mean Platelet Volume 10.7 fL (9.5-12.2); Monocytes # (A) 0.81 X 10*3/uL (0.20-1.00); Monocytes % (A) 10.2 %; NRBC Per 100 WBC 0 /100 WBCS (0.0-0.0); Neutrophils # (A) 4.84 X 10*3/uL (1.80-7.70); Neutrophils % (A) 61.1 %; Platelet Count 235 X 10*3/uL (140-440); RBC 4.82 X 10*6/uL (4.10-5.20); RDW 14.8 % (11.5-14.5); WBC 7.91 X 10*3/uL (4.50-10.00)
[2022-02-12 15:03] LABS: African American GFR (CKD) 34.8 (60.0-200.0); BUN/Creat Ratio 24.76 Ratio (12.00-20.00); Blood Urea Nitrogen 42.1 mg/dL (9.0-27.0); Calcium 9.7 mg/dL (8.7-10.3); Potassium 5.2 mmol/L (3.5-5.5)
[2022-02-13 08:53] LABS: Tacrolimus (FK506) <1.5 ng/mL (5.0-20.0)
== END | disposition home or self-care (01) ==
LOC: LABWHC1 08:30
PROVIDERS: ATTEND Internal Medicine
DX: T86.21 Heart transplant rejection (principal); T86.22 Heart transplant failure; E78.2 Mixed hyperlipidemia; I50.30 Unspecified diastolic (congestive) heart failure; Y82.9 Unspecified medical devices associated with adverse incidents; T86.23 Heart transplant infection; T86.290 Cardiac allograft vasculopathy
CPT/HCPCS: 36415; 80048; 80195; 80197; 85025

== ENCOUNTER 2022-02-13 13:23 | Emergency (ER) | payer MEDICARE, OTHER ==
--- NOTE | 2022-02-13 13:37 | ED ---
Fall HPI - General Chief Complaint: Fall Stated Complaint: Fall Time Seen by Provider: 02/13/22 13:23 Source: patient, EMS, RN notes reviewed, old records reviewed Mode of arrival: EMS - History of Present Illness Initial Comments: 71-year-old female with a history of heart transplant in 2001 atrial fibrillation diabetes among other vital issues who tripped and fell today while shopping locally. She states she tripped over a curb and fell onto the ground striking the right side of her face. She denies any loss of consciousness no head neck or back pain no other injuries. Patient does state her tetanus shots are up-to-date. She denies a loss of function to her upper or lower extremity is no neck pain she did refuse a cervical collar and route. MD Complaint: fall - Related Data Home Medications Medication Instructions Recorded Confirmed Atorvastatin Calcium [Lipitor] 10 mg PO HS 06/24/16 01/15/22 Pantoprazole Sodium [Protonix] 40 mg PO AC-BID 06/24/16 01/15/22 Sirolimus 1 mg PO DAILY 06/24/16 01/15/22 hydrALAZINE HCL [Apresoline] 50 mg PO TID 06/24/16 01/15/22 Butorphanol Tartrate [Stadol Nasal 1 spray EA NOSTRIL Q4H PRN 03/03/17 01/15/22 [place]] mycophenolate mofetiL [Cellcept] 250 mg PO Q12H 03/03/17 01/15/22 Apixaban [Eliquis] 5 mg PO BID 12/21/17 01/15/22 Aspirin EC [Ecotrin Low Dose] 81 mg PO HS 01/20/20 01/15/22 Losartan Potassium [Cozaar] 25 mg PO DAILY 01/20/20 01/15/22 Promethazine HCl 12.5 mg PO Q6H PRN 01/20/20 01/15/22 Torsemide [Demadex] 20 mg PO MOWEFR 01/20/20 01/15/22 Metoprolol Succinate [Toprol XL] 50 mg PO DAILY 09/23/21 01/15/22 Nortriptyline [Pamelor] 20 mg PO HS 09/23/21 01/15/22 Potassium Chloride ER [K-Dur 20] 20 meq PO MOWEFR 09/23/21 01/15/22 Levothyroxine Sodium 100 mcg PO AC-BRKFST 10/06/21 01/15/22 Dapagliflozin Propanediol [Farxiga] 5 mg PO DAILY 01/15/22 01/15/22 Allergies Allergy/AdvReac Type Severity Reaction Status Date / Time cephalexin [From Keflex] Allergy Rash/Hives Verified 02/13/22 13:31 ciprofloxacin [From Cipro] Allergy Rash/Hives Verified 02/13/22 13:31 codeine Allergy Unknown Verified 02/13/22 13:31 hydrocodone [From Lortab] Allergy Unknown Verified 02/13/22 13:31 hydromorphone [From Dilaudid] Allergy Rash/Hives Verified 02/13/22 13:31 hydroxyprogesterone Allergy Unknown Verified 02/13/22 13:31 opium (anthroposophic) Allergy Unknown Verified 02/13/22 13:31 Penicillins Allergy Unknown Verified 02/13/22 13:31 Childhood simvastatin Allergy Unknown Verified 02/13/22 13:31 tramadol HCl [From Ultram] Allergy Unknown Verified 02/13/22 13:31 Review of Systems ROS Statement: Those systems with pertinent positive or pertinent negative responses have been documented in the HPI. ROS Other: All systems not noted in ROS Statement are negative. 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 History of Any Multi-Drug Resistant Organisms: C-DIFF Past Surgical History: Appendectomy, Breast Surgery, Cardiac Ablation, Cholecystectomy, Pacemaker, Tonsillectomy, Tubal Ligation Additional Past Surgical History / Comment(s): Heart Transplant 2002 at [facility], lumbar laminectomy, breast reduction, removal of skin cancer on her left ankle. Past Anesthesia/Blood Transfusion Reactions: No Reported Reaction Additional Past Anesthesia/Blood Transfusion Reaction / Comment(s): Pt has received blood in past without reaction. Type of Cardiac Device: Permanent Pacemaker Device Placement Date:: 12-19-19 Past Psychological History: No Psychological Hx Reported Smoking Status: Former smoker Past Alcohol Use History: None Reported Past Drug Use History: Marijuana - Past Family History Father Family Medical History: Myocardial Infarction ([place]) Additional Family Medical History / Comment(s): Father of a massive CA at the age of 52 yrs. Mother Family Medical History: No Reported History Additional Family Medical History / Comment(s): Mother in her sleep at the age of 82 yrs. Brother(s) Additional Family Medical History / Comment(s): Patient has 2 sisters and one brother with history of coronary artery disease. Patient does not have any children. General Exam - General Exam Comments Initial Comments: This is a well-developed well-nourished awake alert oriented 5 female with a Lance Coma Scale of 15 Limitations: no limitations, language barrier General appearance: alert, in no apparent distress Head exam: Present: normocephalic, other (Contusion seen above the lateral right eyebrow no step-off or crepitation is a superficial abrasion seen over the lateral inferior aspect of the orbit no active bleeding no step-off or crepitation no formed by seen no suture repair indicated.) Eye exam: Present: normal appearance, PERRL, EOMI. Absent: scleral icterus, conjunctival injection, periorbital swelling ENT exam: Present: normal exam, mucous membranes moist Neck exam: Present: normal inspection, full ROM, other (Genitourinary bruits). Absent: tenderness, meningismus, lymphadenopathy Respiratory exam: Present: normal lung sounds bilaterally. Absent: respiratory distress, wheezes, rales, rhonchi, stridor Cardiovascular Exam: Present: regular rate, normal rhythm. Absent: systolic murmur, diastolic murmur, rubs, gallop, clicks GI/Abdominal exam: Present: soft, normal bowel sounds. Absent: distended, tenderness, guarding, rebound, rigid Extremities exam: Present: normal inspection, full ROM, normal capillary refill. Absent: tenderness, pedal edema, joint swelling, calf tenderness Back exam: Present: normal inspection Neurological exam: Present: alert, oriented X3, CN II-XII intact Psychiatric exam: Present: normal affect, normal mood Skin exam: Present: warm, dry, intact, normal color. Absent: rash Course Vital Signs 02/13/22 13:24 Temperature 98.0 F Pulse Rate 72 Respiratory 18 Rate Blood Pressure 141/76 O2 Sat by Pulse 99 Oximetry Medical Decision Making - Medical Decision Making I did discuss findings with patient and her was present patient will be discharged we did discuss the progress of the small area of hematoma there right lateral eyebrow area in the abrasion. At this juncture the patient will continue with ice packs when necessary follow-up with her doctor and keep current medications - Radiology Data Radiology results: report reviewed (I did review the CAT scan and there is no evidence of acute intercranial processes. No evidence of any bleeding.), image reviewed Disposition Clinical Impression: Fall, Facial contusion, Facial abrasion Disposition: HOME SELF-CARE Condition: Good Instructions (If sedation given, give patient instructions): Fall Prevention for Older Adults (ED), Facial Contusion (ED), Abrasion (ED) Additional Instructions: Ice packs for the next 24-48 hours as needed Is patient prescribed a controlled substance at d/c from ED?: No Referrals: Gilmar Al MD [Primary Care Provider] - 1-2 days Decision Date: 02/13/22 Decision Time: 14:37
--- NOTE | 2022-02-13 14:01 | CT ---
EXAMINATION TYPE: CT brain wo con DATE OF EXAM: 02/13/2022 COMPARISON: None HISTORY: fall CT DLP: 1094.4 mGycm Automated exposure control for dose reduction was used. FINDINGS: The ventricles, basal cisterns and sulci over the convexities are within normal limits for the patien t's age. No abnormal density is seen throughout the brain parenchyma. There is no mass, mass effect or shift of the midline structures. There is no acute intra or extra-axial hemorrhage. The posterior fossa is grossly normal. Intraorbital contents appear normal and symmetric. Bilateral sinonasal antrectomy. There is a small air-fluid level in the left maxillary sinus. The mas toid air cells are well aerated. IMPRESSION: 1. No acute bleed or mass effect. 2. Possible mild acute sinusitis in the left maxillary sinus. 3.Bilateral maxillary sinus surgeries
[2022-02-13 14:09] VITALS: BP 141/76; PULSE 72; RESP 18; TEMP 98
== END 2022-02-13 18:28 | disposition home or self-care (01) ==
LOC: EC 13:23
DX: S00.11XA Contusion of right eyelid and periocular area, initial encounter (principal); I48.91 Unspecified atrial fibrillation; F12.90 Cannabis use, unspecified, uncomplicated; E11.9 Type 2 diabetes mellitus without complications; K21.9 Gastro-esophageal reflux disease without esophagitis; E07.9 Disorder of thyroid, unspecified; Z87.891 Personal history of nicotine dependence; Z79.83 Long term (current) use of bisphosphonates; Z79.82 Long term (current) use of aspirin; Z88.5 Allergy status to narcotic agent; Z88.1 Allergy status to other antibiotic agents; Z88.6 Allergy status to analgesic agent; Z88.0 Allergy status to penicillin; Z79.01 Long term (current) use of anticoagulants; W10.1XXA Fall (on)(from) sidewalk curb, initial encounter; Y93.01 Activity, walking, marching and hiking
CPT/HCPCS: 70450; 99284

== ENCOUNTER → 2022-02-23 | Outpatient (CLI) | payer MEDICARE, OTHER ==
[2022-02-23 19:24] LABS: African American GFR (CKD) 40.5 (60.0-200.0); Anion Gap 14.1 mmol/L (10.00-18.00); BUN/Creat Ratio 20.07 Ratio (12.00-20.00); Blood Urea Nitrogen 30.1 mg/dL (9.0-27.0); Calcium 9.5 mg/dL (8.7-10.3); Carbon Dioxide 24.9 mmol/L (20.0-27.5); Non-African American GFR(CKD) 34.9 (60.0-200.0); Potassium 4.3 mmol/L (3.5-5.5)
== END | disposition home or self-care (01) ==
LOC: LABWHC1 13:04
PROVIDERS: ATTEND Internal Medicine
DX: T86.20 Unspecified complication of heart transplant (principal); T86.22 Heart transplant failure; T86.23 Heart transplant infection; E78.2 Mixed hyperlipidemia; T86.21 Heart transplant rejection; I50.30 Unspecified diastolic (congestive) heart failure; Y82.9 Unspecified medical devices associated with adverse incidents
CPT/HCPCS: 36415; 80048

== ENCOUNTER → 2022-03-08 | Outpatient (CLI) | payer MEDICARE, OTHER ==
[2022-03-08 10:52] LABS: ALT 5 U/L (8-44); AST 17 U/L (13-35); African American GFR (CKD) 40.5 (60.0-200.0); Albumin 3.9 g/dL (3.8-4.9); Albumin/Globulin Ratio 1.34 (1.60-3.17); Alkaline Phosphatase 123 U/L (41-126); BUN/Creat Ratio 24.53 Ratio (12.00-20.00); Blood Urea Nitrogen 36.8 mg/dL (9.0-27.0); Calcium 9.5 mg/dL (8.7-10.3); Carbon Dioxide 23.6 mmol/L (20.0-27.5); Chloride 101 mmol/L (96-109); Chol/HDL Ratio 3.72 Ratio; Globulin 2.9 g/dL (1.6-3.3); Glucose 228 mg/dL (70-110); LDL Cholesterol,Calculated 81.4 mg/dL (0.0-131.0); Non-African American GFR(CKD) 34.9 (60.0-200.0); Potassium 4.8 mmol/L (3.5-5.5); Sodium 135 mmol/L (135-145); Total Protein 6.8 g/dL (6.2-8.2)
[2022-03-08 14:00] LABS: Urine Creatinine 36.3 mg/dL (28.0-217.0)
== END | disposition home or self-care (01) ==
LOC: LABWHC1 07:45
PROVIDERS: ATTEND Internal Medicine Endocrinology, Diabetes & Metabolism
DX: E11.65 Type 2 diabetes mellitus with hyperglycemia (principal)
CPT/HCPCS: 36415; 80053; 80061; 82043; 82570; 83036; 84443

== ENCOUNTER → 2022-03-09 | Outpatient (CLI) | payer MEDICARE, OTHER | LOC: CPPFTMAIN 09:25 | PROVIDERS: ATTEND Internal Medicine | DX: Z91.89 Other specified personal risk factors, not elsewhere classified (principal); Z79.899 Other long term (current) drug therapy; Z88.1 Allergy status to other antibiotic agents; Z88.5 Allergy status to narcotic agent; Z88.0 Allergy status to penicillin; Z88.6 Allergy status to analgesic agent; Z88.8 Allergy status to other drugs, medicaments and biological substances; Z87.891 Personal history of nicotine dependence | CPT/HCPCS: 94060; 94726; 94729 ==

== ENCOUNTER → 2022-06-14 | Outpatient (CLI) | payer MEDICARE, OTHER ==
[2022-06-14 14:48] LABS: ALT 10 U/L (8-44); AST 18 U/L (13-35); African American GFR (CKD) 36.1 (60.0-200.0); Albumin 4.1 g/dL (3.8-4.9); Albumin/Globulin Ratio 1.59 (1.60-3.17); Alkaline Phosphatase 118 U/L (41-126); BUN/Creat Ratio 20.61 Ratio (12.00-20.00); Calcium 9.4 mg/dL (8.7-10.3); Carbon Dioxide 27.7 mmol/L (20.0-27.5); Chloride 98 mmol/L (96-109); Chol/HDL Ratio 3.74 Ratio; Globulin 2.6 g/dL (1.6-3.3); Glucose 119 mg/dL (70-110); LDL Cholesterol,Calculated 88.9 mg/dL (0.0-131.0); Non-African American GFR(CKD) 31.1 (60.0-200.0); Potassium 3.9 mmol/L (3.5-5.5); Sodium 137 mmol/L (135-145); Total Protein 6.6 g/dL (6.2-8.2)
[2022-06-14 19:50] LABS: Urine Creatinine 51.1 mg/dL (28.0-217.0)
== END | disposition home or self-care (01) ==
LOC: LABWHC1 08:52
PROVIDERS: ATTEND Internal Medicine Endocrinology, Diabetes & Metabolism
DX: E11.65 Type 2 diabetes mellitus with hyperglycemia (principal)
CPT/HCPCS: 36415; 80053; 80061; 82043; 82570; 83036; 84443

== ENCOUNTER → 2022-07-12 | Outpatient (CLI) | payer MEDICARE, OTHER ==
[2022-07-12 11:13] LABS: Creatinine,Urine Random 12.6 mg/dL; Protein/Creatinine Ratio,Urine 1.111
[2022-07-12 11:19] LABS: Appearance,Urine Clear (Clear); Bilirubin,Urine Negative (Negative); Blood,Urine Negative (Negative); Color,Urine Yellow (Yellow); Ketones,Urine Negative (Negative); Nitrite,Urine Negative (Negative); PH, Urine 5.5 (5.0-8.0); Specific Gravity,Urine 1.009 (1.001-1.030); Urobilinogen,Urine 0.2 (0.2,1.0)
[2022-07-12 15:39] LABS: Basophils # (A) 0.07 X 10*3/uL (0.00-0.10); Basophils % (A) 1.1 %; Eosinophils # (A) 0.09 X 10*3/uL (0.04-0.35); Eosinophils % (A) 1.4 %; HCT 43.7 % (37.2-46.3); Immature Grans, Automated 0.3 %; Lymphocytes # (A) 1.85 X 10*3/uL (0.90-5.00); Lymphocytes % (A) 28.1 %; MCHC 29.7 g/dL (32.0-37.0); Mean Platelet Volume 10.4 fL (9.5-12.2); Monocytes # (A) 0.58 X 10*3/uL (0.20-1.00); Monocytes % (A) 8.8 %; NRBC Per 100 WBC 0 /100 WBCS (0.0-0.0); Neutrophils # (A) 3.97 X 10*3/uL (1.80-7.70); Neutrophils % (A) 60.3 %; Platelet Count 243 X 10*3/uL (140-440); WBC 6.58 X 10*3/uL (4.50-10.00)
[2022-07-12 15:46] LABS: % Iron Saturation 10.68 (12.00-45.00); African American GFR (CKD) 36.6 (60.0-200.0); Anion Gap 14.9 mmol/L (10.00-18.00); BUN/Creat Ratio 19.33 Ratio (12.00-20.00); Blood Urea Nitrogen 31.5 mg/dL (9.0-27.0); Calcium 9.7 mg/dL (8.7-10.3); Carbon Dioxide 27.6 mmol/L (20.0-27.5); Non-African American GFR(CKD) 31.6 (60.0-200.0); Phosphorus 3.5 mg/dL (2.4-5.1); Potassium 4.4 mmol/L (3.5-5.5); Uric Acid 4.7 mg/dL (2.9-7.7)
[2022-07-12 16:16] LABS: Albumin 4.2 g/dL (3.8-4.9)
== END | disposition home or self-care (01) ==
LOC: LABWHC1 07:42
PROVIDERS: ATTEND Internal Medicine Nephrology
DX: N25.81 Secondary hyperparathyroidism of renal origin (principal); N18.4 Chronic kidney disease, stage 4 (severe); M10.9 Gout, unspecified; E61.1 Iron deficiency; N39.0 Urinary tract infection, site not specified; R80.9 Proteinuria, unspecified
CPT/HCPCS: 36415; 80048; 81003; 82040; 82306; 82570; 82728; 83540; 83550; 83735; 83970; 84100; 84156; 84550; 85025

== ENCOUNTER → 2022-09-23 | Outpatient (CLI) | payer MEDICARE, OTHER ==
[2022-09-23 11:40] LABS: ALT 9 U/L (8-44); AST 16 U/L (13-35); Albumin 4.5 d/dL (3.8-4.9); Albumin/Globulin Ratio 1.73 Ratio (1.60-3.17); Alkaline Phosphatase 118 U/L (41-126); BUN/Creat Ratio 16.63 Ratio (12.00-20.00); Blood Urea Nitrogen 31.6 mg/dL (9.0-27.0); Calcium 10.2 mg/dL (8.7-10.3); Chloride 100 mmol/L (96-109); Globulin 2.6 d/dL (1.6-3.3); Glucose 194 mg/dL (70-110); Potassium 4.7 mmol/L (3.5-5.5); Sodium 142 mmol/L (135-145); Total Bilirubin 0.5 mg/dL (0.3-1.2); Total Protein 7.1 d/dL (6.2-8.2)
== END | disposition home or self-care (01) ==
LOC: LABWHC1 07:32
PROVIDERS: ATTEND Internal Medicine Endocrinology, Diabetes & Metabolism
DX: E11.65 Type 2 diabetes mellitus with hyperglycemia (principal)
CPT/HCPCS: 36415; 80053; 83036

== ENCOUNTER → 2022-10-05 | Outpatient (CLI) | payer MEDICARE, OTHER | LOC: CPPFTMAIN 11:23 | PROVIDERS: ATTEND Internal Medicine | DX: Z92.29 Personal history of other drug therapy (principal); Z88.0 Allergy status to penicillin; Z88.8 Allergy status to other drugs, medicaments and biological substances; Z88.5 Allergy status to narcotic agent; Z88.1 Allergy status to other antibiotic agents; Z87.891 Personal history of nicotine dependence | CPT/HCPCS: 94060; 94726; 94729 ==

== ENCOUNTER → 2022-11-25 | Outpatient (CLI) | payer MEDICARE, OTHER ==
--- NOTE | 2022-11-25 09:31 | CT ---
EXAMINATION TYPE: CT soft tissue neck wo con DATE OF EXAM: 11/25/2022 COMPARISON: 10/23/2017 HISTORY: left side neck swelling CT DLP: 426 mGycm CONTRAST: Patient injected with 0 mL of Isovue 300. TECHNIQUE: Axial images at 3 mm thick sections. Reconstructed images in the coronal plane and sagitt al plane are reviewed. FINDINGS: Limited CT sections are obtained the lung apices. The lung apices appear clear. CT neck: The torus tubarius and fossa of Rosenmuller are normal. Chief Passenger Ship Steward/Stewardess spaces are normal. Para nasal sinuses and mastoid air cells are clear. Parotid glands appear normal and symmetrical. Left submandibular gland appears more prominent than th e right. No discrete underlying mass is evident. No suspicious submandibular adenopathy is evident. T his appears stable from 2018. There may be some new stranding along the posterior lateral left subman dibular gland deep to the platysmas muscle not apparent previously. Parapharyngeal spaces are normal. No suspicious enlarged adenopathy is evident. The hypopharynx appears within normal limits. Vocal cord level appear symmetrical. Thyroid appears atrophic. Note is again made of the retrocrural esophageal a parent right subclavian artery. Osseous structures are normal. IMPRESSION: 1. There may be some mild stranding posterior to the left submandibular gland. Left submandibular gla nd is somewhat more prominent than the right but stable from comparison.
== END | disposition home or self-care (01) ==
LOC: RADCTMAIN 07:04
PROVIDERS: ATTEND Family Medicine
DX: K11.9 Disease of salivary gland, unspecified (principal)
CPT/HCPCS: 70490

== ENCOUNTER → 2023-02-03 | Outpatient (CLI) | payer MEDICARE, OTHER ==
[2023-02-03 13:25] LABS: Basophils % (A) 1 %; Eosinophils # (A) 0.1 k/uL (0-0.7); Eosinophils % (A) 2 %; HCT 37.9 % (34.0-46.0); Hypochromasia Moderate; Lymphocytes # (A) 1.6 k/uL (1.0-4.8); Lymphocytes % (A) 27 %; MCH 26.4 pg (25.0-35.0); MCHC 31.6 g/dL (31.0-37.0); MCV 83.6 fL (80.0-100.0); Monocytes # (A) 0.4 k/uL (0-1.0); Monocytes % (A) 7 %; Neutrophils # (A) 3.7 k/uL (1.3-7.7); Neutrophils % (A) 62 %; Platelet Count 230 k/uL (150-450); RBC 4.54 m/uL (3.80-5.40)
[2023-02-03 16:25] LABS: ALT 14 U/L (8-44); AST 21 U/L (13-35); Albumin 4.1 g/dL (3.8-4.9); Albumin/Globulin Ratio 1.71 Ratio (1.60-3.17); Alkaline Phosphatase 119 U/L (41-126); BUN/Creat Ratio 20.29 Ratio (12.00-20.00); Blood Urea Nitrogen 34.5 mg/dL (9.0-27.0); Calcium 9.8 mg/dL (8.7-10.3); Carbon Dioxide 29.6 mmol/L (21.6-31.8); Chloride 98 mmol/L (96-109); Creatine Kinase 34 U/L (26-186); Globulin 2.4 g/dL (1.6-3.3); Glucose 115 mg/dL (70-110); LDL Cholesterol,Calculated 78.6 mg/dL (0.0-131.0); Potassium 4.3 mmol/L (3.5-5.5); Sodium 142 mmol/L (135-145); Total Bilirubin 0.5 mg/dL (0.3-1.2); Total Protein 6.5 g/dL (6.2-8.2); Uric Acid 5.7 mg/dL (2.9-7.7)
== END | disposition home or self-care (01) ==
LOC: LABWHC1 07:37
PROVIDERS: ATTEND Internal Medicine
DX: E78.2 Mixed hyperlipidemia (principal); I50.30 Unspecified diastolic (congestive) heart failure; T86.20 Unspecified complication of heart transplant; T86.21 Heart transplant rejection; T86.22 Heart transplant failure; T86.23 Heart transplant infection; T86.290 Cardiac allograft vasculopathy; Y82.9 Unspecified medical devices associated with adverse incidents
CPT/HCPCS: 36415; 80053; 80061; 82550; 83735; 84550; 85025

== ENCOUNTER → 2023-02-22 | Outpatient (CLI) | payer MEDICARE, OTHER ==
[2023-02-22 11:27] LABS: ALT 12 U/L (8-44); AST 17 U/L (13-35); Alkaline Phosphatase 114 U/L (41-126); BUN/Creat Ratio 18.33 Ratio (12.00-20.00); Calcium 9.7 mg/dL (8.7-10.3); Carbon Dioxide 28.5 mmol/L (21.6-31.8); Chloride 96 mmol/L (96-109); Globulin 2.5 g/dL (1.6-3.3); Glucose 117 mg/dL (70-110); LDL Cholesterol,Calculated 76.3 mg/dL (0.0-131.0); Potassium 3.6 mmol/L (3.5-5.5); Sodium 138 mmol/L (135-145); Total Bilirubin 0.4 mg/dL (0.3-1.2); Total Protein 6.5 g/dL (6.2-8.2)
== END | disposition home or self-care (01) ==
LOC: LABWHC1 07:09
PROVIDERS: ATTEND Internal Medicine Endocrinology, Diabetes & Metabolism
DX: E11.65 Type 2 diabetes mellitus with hyperglycemia (principal); E03.8 Other specified hypothyroidism
CPT/HCPCS: 36415; 80053; 80061; 83036; 84443

== ENCOUNTER → 2023-05-09 | Outpatient (CLI) | payer MEDICARE, OTHER ==
[2023-05-09 15:20] LABS: Basophils # (A) 0.06 X 10*3/uL (0.00-0.10); Basophils % (A) 1.2 %; HCT 36.8 % (37.2-46.3); HGB 11.5 g/dL (12.0-15.0); Lymphocytes # (A) 1.22 X 10*3/uL (0.90-5.00); Lymphocytes % (A) 24.1 %; MCHC 31.3 g/dL (32.0-37.0); Monocytes % (A) 9.9 %; NRBC Per 100 WBC 0 X 10*3/uL (0.00-0.01); Neutrophils # (A) 3.16 X 10*3/uL (1.80-7.70); Neutrophils % (A) 62.4 %; Platelet Count 223 X 10*3/uL (140-440); RDW 15.5 % (11.5-14.5); WBC 5.06 X 10*3/uL (4.50-10.00)
[2023-05-09 15:24] LABS: ALT 13 U/L (8-44); AST 20 U/L (13-35); Albumin 4.1 g/dL (3.8-4.9); Albumin/Globulin Ratio 1.64 Ratio (1.60-3.17); Alkaline Phosphatase 111 U/L (41-126); BUN/Creat Ratio 18.25 Ratio (12.00-20.00); Blood Urea Nitrogen 29.2 mg/dL (9.0-27.0); Calcium 9.6 mg/dL (8.7-10.3); Carbon Dioxide 27.1 mmol/L (21.6-31.8); Chloride 97 mmol/L (96-109); Creatine Kinase 40 U/L (26-186); Globulin 2.5 g/dL (1.6-3.3); Glucose 188 mg/dL (70-110); Magnesium 2.1 mg/dL (1.5-2.4); Potassium 3.8 mmol/L (3.5-5.5); Sodium 138 mmol/L (135-145); Total Bilirubin 0.4 mg/dL (0.3-1.2); Total Protein 6.6 g/dL (6.2-8.2)
== END | disposition home or self-care (01) ==
LOC: LABWHC1 09:28
PROVIDERS: ATTEND Internal Medicine
DX: I50.30 Unspecified diastolic (congestive) heart failure (principal); T86.20 Unspecified complication of heart transplant; T86.21 Heart transplant rejection; T86.22 Heart transplant failure; T86.23 Heart transplant infection; E78.2 Mixed hyperlipidemia; T86.290 Cardiac allograft vasculopathy
CPT/HCPCS: 36415; 80053; 82550; 83735; 85025

== ENCOUNTER 2023-06-07 10:21 | Emergency (ER) | payer MEDICARE, OTHER ==
[2023-06-07 10:46] VITALS: RESP 18; TEMP 98
--- NOTE | 2023-06-07 10:46 | ED ---
General Adult HPI - General Chief complaint: Chest Pain Stated complaint: Chest Pains Time Seen by Provider: 06/07/23 10:29 Source: patient, RN/MD Mode of arrival: wheelchair Limitations: no limitations - History of Present Illness Initial comments: Dictation was produced using My[employer] dictation software. please excuse any grammatical, word or spelling errors. Chief Complaint: 72-year-old female presents emergency department for chest discomfort History of Present Illness: Patient 72-year-old female she has history of cardiac transplant performed at the [facility] 2001. This morning she woke up with a cold sensation in her chest that radiated down her left upper extremity. Patient denies any shortness of breath. She denies that the sensation in her chest feels like pain or pressure. She does also have a pacemaker. Patient is on all her transplant medications. The ROS documented in this emergency department record has been reviewed and confirmed by me. Those systems with pertinent positive or negative responses have been documented in the HPI. All other systems are other negative and/or noncontributory. - Related Data Home Medications Medication Instructions Recorded Confirmed Atorvastatin Calcium [Lipitor] 10 mg PO HS 06/24/16 06/07/23 Pantoprazole Sodium [Protonix] 40 mg PO AC-BID 06/24/16 06/07/23 Sirolimus 1 mg PO HS 06/24/16 06/07/23 hydrALAZINE HCL [Apresoline] 50 mg PO TID 06/24/16 06/07/23 Butorphanol Tartrate [Stadol Nasal 1 spray EA NOSTRIL Q4H PRN 03/03/17 06/07/23 [place]] mycophenolate mofetiL [Cellcept] 250 mg PO Q12H 03/03/17 06/07/23 Apixaban [Eliquis] 5 mg PO BID 12/21/17 06/07/23 Losartan Potassium [Cozaar] 25 mg PO DAILY 01/20/20 06/07/23 Torsemide [Demadex] 40 mg PO MOWEFR 01/20/20 06/07/23 Metoprolol Succinate [Toprol XL] 75 mg PO DAILY 09/23/21 06/07/23 Nortriptyline [Pamelor] 20 mg PO HS 09/23/21 06/07/23 Levothyroxine Sodium 100 mcg PO AC-BRKFST 10/06/21 06/07/23 Alendronate Sodium [Fosamax] 70 mg PO TAVERA 06/07/23 06/07/23 Amiodarone [Cordarone] 200 mg PO DAILY 06/07/23 06/07/23 Dapagliflozin Propanediol [Farxiga] 10 mg PO DAILY 06/07/23 06/07/23 Prochlorperazine [Compazine] 5 mg PO Q6H PRN 06/07/23 06/07/23 glipiZIDE [Glucotrol] 10 mg PO AC-BID 06/07/23 06/07/23 Allergies Allergy/AdvReac Type Severity Reaction Status Date / Time cephalexin [From Keflex] Allergy Rash/Hives Verified 06/07/23 14:13 ciprofloxacin [From Cipro] Allergy Rash/Hives Verified 06/07/23 14:13 codeine Allergy Unknown Verified 06/07/23 14:13 hydrocodone [From Lortab] Allergy Unknown Verified 06/07/23 14:13 hydromorphone [From Dilaudid] Allergy Rash/Hives Verified 06/07/23 14:13 hydroxyprogesterone Allergy Unknown Verified 06/07/23 14:13 opium (anthroposophic) Allergy Unknown Verified 06/07/23 14:13 Penicillins Allergy Unknown Verified 06/07/23 14:13 Childhood simvastatin Allergy Unknown Verified 06/07/23 14:13 tramadol HCl [From Ultram] Allergy Unknown Verified 06/07/23 14:13 Review of Systems ROS Statement: Those systems with pertinent positive or pertinent negative responses have been documented in the HPI. ROS Other: All systems not noted in ROS Statement are negative. 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 History of Any Multi-Drug Resistant Organisms: C-DIFF Past Surgical History: Appendectomy, Breast Surgery, Cardiac Ablation, Cholecystectomy, Pacemaker, Tonsillectomy, Tubal Ligation Additional Past Surgical History / Comment(s): Heart Transplant 2001 at [facility], lumbar laminectomy, breast reduction, removal of skin cancer on her left ankle. Past Anesthesia/Blood Transfusion Reactions: No Reported Reaction Additional Past Anesthesia/Blood Transfusion Reaction / Comment(s): Pt has received blood in past without reaction. Type of Cardiac Device: Permanent Pacemaker Device Placement Date:: 12-19-19 Past Psychological History: No Psychological Hx Reported Smoking Status: Former smoker Past Alcohol Use History: None Reported Past Drug Use History: Marijuana - Past Family History Father Family Medical History: Myocardial Infarction ([place]) Additional Family Medical History / Comment(s): Father of a massive [place] at the age of 52 yrs. Mother Family Medical History: No Reported History Additional Family Medical History / Comment(s): Mother in her sleep at the age of 82 yrs. Brother(s) Additional Family Medical History / Comment(s): Patient has 2 sisters and one b rother with history of coronary artery disease. Patient does not have any children. General Exam - General Exam Comments Initial Comments: PHYSICAL EXAM: General Impression: Alert and oriented x3, not in acute distress HEENT: Normocephalic atraumatic, extra-ocular movements intact, pupils equal and reactive to light bilaterally, mucous membranes moist. Cardiovascular: Heart regular rate and rhythm Chest: Able to complete full sentences, no retractions, no tachypnea Abdomen: abdomen soft, non-tender, non-distended, no organomegaly Musculoskeletal: Pulses present and equal in all extremities, no peripheral edema Motor: no focal deficits noted Neurological: CN II-XII grossly intact, no focal motor or sensory deficits noted Skin: Intact with no visualized rashes Psych: Normal affect and mood Limitations: no limitations Course Vital Signs 06/07/23 06/07/23 10:25 13:07 Temperature 98 F Pulse Rate 75 70 Respiratory 18 18 Rate Blood Pressure 187/83 140/72 O2 Sat by Pulse 98 97 Oximetry - Reevaluation(s) Reevaluation #1: 06/07/23 13:08 Case was discussed with Dr. Bhavik Mcginnis, patient's transplant motion designer. Patient's symptoms labs and EKG were discussed in detail. It was explained to him that patient is feeling what she describes as a cold sensation to her chest. Dr. Mcginnis recommended 2 troponins and discharge if her labs are unremarkable. EKG Findings - EKG Comments: EKG Findings:: My EKG interpretation: Ventricular rate 78, atrial and ventricularly paced rhythm. MA interval 170, QRS 119, QTc 410. No MA prolongation, no QTC prolongation, no ST or T-wave changes noted. . Overall, this EKG is unremarkable Medical Decision Making - Medical Decision Making Was pt. sent in by a medical professional or institution ([facility] Monk, RADIATOR SPECIALIST, urgent care, hospital, or penitentiary...) When possible be specific @ -No Did you speak to anyone other than the patient for history (EMS, parent, family, police, friend...)? What history was obtained from this source @ -No Did you review nursing and triage notes (agree or disagree)? Why? @ -I reviewed and agree with nursing and triage notes Were old charts reviewed (outside hosp., previous admission, EMS record, old EKG, old radiological studies, urgent care reports/EKG's, penitentiary records)? Report findings @ -No old charts were reviewed Differential Diagnosis (chest pain, altered mental status, abdominal pain women, abdominal pain men, vaginal bleeding, musculoskeletal, weakness, fever, dyspnea, syncope, headache, dizziness, GI bleed, back pain, seizure, CVA, palpatations, mental health)? @ -Differential Chest Pain: Stable Angina, Unstable Angina, STEMI, NSTEMI Aortic Dissection, Pneumothorax, Musculoskeletal, Esophageal Spasm GERD, Cholecystitis, Pancreatitis, Zoster, this is not meant to be an all-inclusive list. EKG interpreted by me (3pts min.). @ -See above X-rays interpreted by me (1pt min.). @ -'s chest x-ray is nonacute CT interpreted by me (1pt min.). @ -None done U/S interpreted by me (1pt. min.). @ -None done What testing was considered but not performed or refused? (CT, X-rays, U/S, labs)? Why? @ -None What meds were considered but not given or refused? Why? @ -None Did you discuss the management of the patient with other professionals (professionals i.e. ARSH Monk, RADIATOR SPECIALIST, lab, RT, psych nurse, social services technician, sfdc architect, teacher, telecommunications officer, bilingual patient support caseworker)? Give summary @ -See above Was smoking cessation discussed for >3mins.? @ -No Was critical care preformed (if so, how long)? @ -No Were there social determinants of health that impacted care today? How? (Homelessness, low income, unemployed, alcoholism, drug addiction, novak sportation, low edu. Level, literacy, decrease access to med. care, long term, rehab)? @ -No Was there de-escalation of care discussed even if they declined (Discuss DNR or withdrawal of care, Hospice)? DNR status @ -No What co-morbidities impacted this encounter? (DM, HTN, Smoking, COPD, CAD, Cancer, CVA, ARF, Chemo, Hep., AIDS, mental health diagnosis, sleep apnea, morbid obesity)? @ -Cardiac transplant Was patient admitted / discharged? Hospital course, mention meds given and route, prescriptions, significant lab abnormalities, going to OR and other pertinent info. @ -72-year-old female with history of cardiac transplant 2001 presents to the ER for very strange chest symptoms that she describes as cold sensation to her chest. Vital signs are stable. EKG is unremarkable. Laboratory evaluation is unremarkable. Discussed case with patient's transplant motion designer who requested 2 troponins and discharge if testing is negative. Patient troponins are negative. Labs are unremarkable x-ray is negative. Patient reevaluated 2:43 PM found to be in stable condition. Patient discharged Undiagnosed new problem with uncertain prognosis? @ -No Drug Therapy requiring intensive monitoring for toxicity (Heparin, Nitro, Insulin, Cardizem)? @ -No Were any procedures done? @ -No Diagnosis/symptom? Acute, or Chronic, or Acute on Chronic? Uncomplicated (without systemic symptoms) or Complicated (systemic symptoms)? @ -Chest symptoms Side effects of treatment? @ -No Exacerbation, Progression, or Severe Exacerbation? @ -No Poses a threat to life or bodily function? How? (Chest pain, [place], [place], pneumonia, PE, COPD, DKA, ARF, appy, cholecystitis, CVA, Diverticulitis, Homicidal, Suic idal, threat to staff... and all critical care pts) @ -No - Lab Data Result diagrams: 06/07/23 10:45 06/07/23 10:45 Lab Results 06/07/23 06/07/23 06/07/23 Range/Units 10:45 10:45 10:45 WBC 5.5 (3.8-10.6) k/uL RBC 5.07 (3.80-5.40) m/uL Hgb 12.7 (11.4-16.0) gm/dL Hct 40.4 (34.0-46.0) % MCV 79.7 L (80.0-100.0) fL MCH 25.1 (25.0-35.0) pg MCHC 31.5 (31.0-37.0) g/dL RDW 16.0 H (11.5-15.5) % Plt Count 239 (150-450) k/uL MPV 8.1 Neutrophils % 77 % Lymphocytes % 17 % Monocytes % 5 % Eosinophils % 0 % Basophils % 1 % Neutrophils # 4.3 (1.3-7.7) k/uL Lymphocytes # 0.9 L (1.0-4.8) k/uL Monocytes # 0.3 (0-1.0) k/uL Eosinophils # 0.0 (0-0.7) k/uL Basophils # 0.0 (0-0.2) k/uL Anisocytosis Slight PT 11.1 (10.0-12.5) sec INR 1.0 (<1.2) APTT 28.5 (22.0-30.0) sec Sodium 137 (137-145) mmol/L Potassium 3.9 (3.5-5.1) mmol/L Chloride 98 (98-107) mmol/L Carbon Dioxide 26 (22-30) mmol/L Anion Gap 13 mmol/L BUN 36 H (7-17) mg/dL Creatinine 1.56 H (0.52-1.04) mg/dL Est GFR (CKD-EPI)AfAm 38 (>60 ml/min/1.73 sqM) Est GFR (CKD-EPI)NonAf 33 (>60 ml/min/1.73 sqM) Glucose 230 H (74-99) mg/dL Calcium 9.3 (8.4-10.2) mg/dL Magnesium 2.1 (1.6-2.3) mg/dL Troponin I (0.000-0.034) ng/mL 06/07/23 06/07/23 Range/Units 10:45 14:00 WBC (3.8-10.6) k/uL RBC (3.80-5.40) m/uL Hgb (11.4-16.0) gm/dL Hct (34.0-46.0) % MCV (80.0-100.0) fL MCH (25.0-35.0) pg MCHC (31.0-37.0) g/dL RDW (11.5-15.5) % Plt Count (150-450) k/uL MPV Neutrophils % % Lymphocytes % % Monocytes % % Eosinophils % % Basophils % % Neutrophils # (1.3-7.7) k/uL Lymphocytes # (1.0-4.8) k/uL Monocytes # (0-1.0) k/uL Eosinophils # (0-0.7) k/uL Basophils # (0-0.2) k/uL Anisocytosis PT (10.0-12.5) sec INR (<1.2) APTT (22.0-30.0) sec Sodium (137-145) mmol/L Potassium (3.5-5.1) mmol/L Chloride (98-107) mmol/L Carbon Dioxide (22-30) mmol/L Anion Gap mmol/L BUN (7-17) mg/dL Creatinine (0.52-1.04) mg/dL Est GFR (CKD-EPI)AfAm (>60 ml/min/1.73 sqM) Est GFR (CKD-EPI)NonAf (>60 ml/min/1.73 sqM) Glucose (74-99) mg/dL Calcium (8.4-10.2) mg/dL Magnesium (1.6-2.3) mg/dL Troponin I <0.012 <0.012 (0.000-0.034) ng/mL Disposition Clinical Impression: Chest wall symptom Disposition: HOME SELF-CARE Condition: Fair Instructions (If sedation given, give patient instructions): Chest Pain (ED) Is patient prescribed a controlled substance at d/c from ED?: No Referrals: Gilmar Al [Primary Care Provider] - 1-2 days Time of Disposition: 14:37
[2023-06-07 11:59] LABS: African American GFR (CKD) 38 (>60 ml/min/1.73 sqM); Anion Gap 13 mmol/L; Blood Urea Nitrogen 36 mg/dL (7-17); Calcium 9.3 mg/dL (8.4-10.2); Carbon Dioxide 26 mmol/L (22-30); Chloride 98 mmol/L (98-107); Glucose 230 mg/dL (74-99); Magnesium 2.1 mg/dL (1.6-2.3); Non-African American GFR(CKD) 33 (>60 ml/min/1.73 sqM); Potassium 3.9 mmol/L (3.5-5.1); Sodium 137 mmol/L (137-145)
[2023-06-07 12:05] LABS: Anisocytosis Slight; Basophils % (A) 1 %; Eosinophils % (A) 0 %; HCT 40.4 % (34.0-46.0); HGB 12.7 gm/dL (11.4-16.0); Lymphocytes # (A) 0.9 k/uL (1.0-4.8); Lymphocytes % (A) 17 %; MCH 25.1 pg (25.0-35.0); MCHC 31.5 g/dL (31.0-37.0); MCV 79.7 fL (80.0-100.0); Mean Platelet Volume 8.1; Monocytes # (A) 0.3 k/uL (0-1.0); Monocytes % (A) 5 %; Neutrophils # (A) 4.3 k/uL (1.3-7.7); Neutrophils % (A) 77 %; Platelet Count 239 k/uL (150-450); RBC 5.07 m/uL (3.80-5.40); WBC 5.5 k/uL (3.8-10.6)
--- NOTE | 2023-06-07 12:21 | XR ---
EXAMINATION TYPE: XR chest 2V DATE OF EXAM: 06/07/2023 11:56 AM CLINICAL INDICATION:Female, 72 years old with history of chest symptoms; [facility] COMPARISON: Chest radiographs from 10/06/2021 TECHNIQUE: XR chest 2V Frontal and lateral views of the chest. FINDINGS: Lungs/Pleura: There is no evidence of pleural effusion, focal consolidation, or pneumothorax. Pulmonary vascularity: Unremarkable. Heart/mediastinum: Cardiomediastinal silhouette is unremarkable. Two lead cardiac conduction device o verlying the left hemithorax with lead tips projecting over the right ventricle and right atrium. Musculoskeletal: No acute osseous pathology. IMPRESSION: 1. No acute cardiopulmonary disease process. 2. COPD changes.
[2023-06-07] MEDS: ONDANSETRON 4 MG/2 ML VIAL IVP STA (13:13)
[2023-06-07 13:41] VITALS: BP 140/72; PULSE 70
[2023-06-07 13:46] LABS: Partial Thromboplastin Time 28.5 sec (22.0-30.0); Prothrombin Time 11.1 sec (10.0-12.5)
[2023-06-07] MEDS: PROCHLORPERAZINE INJ 10 MG/2 ML VIAL IVP STA (13:54)
[2023-06-07] MEDS: LORazepam 2 MG/ML INJ IV STA (13:55)
== END 2023-06-07 15:21 | disposition home or self-care (01) ==
LOC: EC 10:21
DX: R07.89 Other chest pain (principal); Z87.891 Personal history of nicotine dependence; Z88.0 Allergy status to penicillin; Z88.5 Allergy status to narcotic agent; Z88.8 Allergy status to other drugs, medicaments and biological substances; Z95.0 Presence of cardiac pacemaker; Z90.49 Acquired absence of other specified parts of digestive tract
CPT/HCPCS: 36415; 80048; 83735; 84484; 85025; 85610; 85730; 71046; 99285; 96374; 96375; J2060; J0780

== ENCOUNTER → 2023-07-19 | Outpatient (CLI) | payer MEDICARE, OTHER ==
[2023-07-19 14:51] LABS: Basophils # (A) 0.06 X 10*3/uL (0.00-0.10); Basophils % (A) 0.7 %; Eosinophils # (A) 0.04 X 10*3/uL (0.04-0.35); Eosinophils % (A) 0.5 %; HCT 37.8 % (37.2-46.3); HGB 11.2 g/dL (12.0-15.0); Lymphocytes # (A) 1.13 X 10*3/uL (0.90-5.00); Lymphocytes % (A) 13.3 %; MCH 23.8 pg (27.0-32.0); MCHC 29.6 g/dL (32.0-37.0); MCV 80.3 FL (80.0-97.0); Mean Platelet Volume 10.1 FL (9.5-12.2); Monocytes # (A) 0.74 X 10*3/uL (0.20-1.00); Monocytes % (A) 8.7 %; NRBC Per 100 WBC 0 X 10*3/uL (0.00-0.01); Neutrophils % (A) 76.2 %; Platelet Count 248 X 10*3/uL (140-440); RBC 4.71 X 10*6/uL (4.10-5.20); RDW 15.8 % (11.5-14.5); WBC 8.52 X 10*3/uL (4.50-10.00)
[2023-07-19 15:32] LABS: NT-Pro-B-Type Natriuretic Pept 3011 pg/mL (0-125)
[2023-07-19 17:09] LABS: BUN/Creat Ratio 21.06 Ratio (12.00-20.00); Blood Urea Nitrogen 35.8 mg/dL (9.0-27.0); Chloride 99 mmol/L (96-109); Glucose 112 mg/dL (70-110); Potassium 4.2 mmol/L (3.5-5.5); Sodium 139 mmol/L (135-145)
[2023-07-19 17:10] LABS: ALT 18 U/L (8-44); AST 27 U/L (13-35); Albumin 4.3 g/dL (3.8-4.9); Albumin/Globulin Ratio 1.59 Ratio (1.60-3.17); Alkaline Phosphatase 121 U/L (41-126); Calcium 9.2 mg/dL (8.7-10.3); Carbon Dioxide 24.7 mmol/L (21.6-31.8); Creatine Kinase 91 U/L (26-186); Globulin 2.7 g/dL (1.6-3.3); Magnesium 2.2 mg/dL (1.5-2.4); Total Bilirubin 0.5 mg/dL (0.3-1.2)
== END | disposition home or self-care (01) ==
LOC: LABWHC1 10:43
PROVIDERS: ATTEND Internal Medicine
DX: I50.30 Unspecified diastolic (congestive) heart failure (principal); E78.2 Mixed hyperlipidemia; T86.20 Unspecified complication of heart transplant; T86.21 Heart transplant rejection; T86.22 Heart transplant failure; T86.23 Heart transplant infection; T86.290 Cardiac allograft vasculopathy
CPT/HCPCS: 36415; 80053; 82550; 83735; 83880; 85025

== ENCOUNTER → 2023-08-23 | Outpatient (CLI) | payer MEDICARE, OTHER ==
--- NOTE | 2023-08-23 10:28 | XR ---
EXAMINATION TYPE: XR abdomen 1V DATE OF EXAM: 08/23/2023 Comparison: None Clinical History: 72-year-old female R15.9 FULL INCONTINENCE OF FECES Findings: Moderate stool burden. Sonographic artery calcifications. Right atrial and right ventricular pacer le ads. Partially visualized median sternotomy wires. No dilated small bowel loops seen. Additional meta static calcifications in the iliac arteries. Cholecystectomy clips. Impression: Nonobstructive bowel gas pattern. Moderate stool burden.
== END | disposition home or self-care (01) ==
LOC: RADXRMAIN 09:10
PROVIDERS: ATTEND Internal Medicine
DX: R15.9 Full incontinence of feces (principal)
CPT/HCPCS: 74018

== ENCOUNTER → 2023-08-23 | Outpatient (CLI) | payer MEDICARE, OTHER ==
[2023-08-23 15:45] LABS: ALT 15 U/L (8-44); AST 27 U/L (13-35); Albumin 4.4 g/dL (3.8-4.9); Albumin/Globulin Ratio 1.69 Ratio (1.60-3.17); Alkaline Phosphatase 124 U/L (41-126); BUN/Creat Ratio 21.93 Ratio (12.00-20.00); Bilirubin, Conjugated <0.20 mg/dL (0.20-0.40); Bilirubin,Unconjugated >0.20 mg/dL (0.20-1.00); Blood Urea Nitrogen 30.7 mg/dL (9.0-27.0); Calcium 9.8 mg/dL (8.7-10.3); Carbon Dioxide 24.6 mmol/L (21.6-31.8); Chloride 101 mmol/L (96-109); Chol/HDL Ratio 3.11 Ratio; Globulin 2.6 g/dL (1.6-3.3); Glucose 161 mg/dL (70-110); LDL Cholesterol,Calculated 77.1 mg/dL (0.0-131.0); Potassium 4.7 mmol/L (3.5-5.5); Sodium 138 mmol/L (135-145); Total Bilirubin 0.4 mg/dL (0.3-1.2)
[2023-08-23 17:59] LABS: Urine Creatinine 43.6 mg/dL (28.0-217.0)
== END | disposition home or self-care (01) ==
LOC: LABWHC1 08:47
PROVIDERS: ATTEND Internal Medicine Endocrinology, Diabetes & Metabolism
DX: E11.65 Type 2 diabetes mellitus with hyperglycemia (principal); Z92.29 Personal history of other drug therapy
CPT/HCPCS: 36415; 80053; 80061; 82043; 82248; 82570; 83036; 84443; 84481

== ENCOUNTER → 2023-09-20 | Outpatient (CLI) | payer MEDICARE, OTHER ==
[2023-09-20 15:44] LABS: Basophils # (A) 0.06 X 10*3/uL (0.00-0.10); Basophils % (A) 0.9 %; Eosinophils # (A) 0.17 X 10*3/uL (0.04-0.35); Eosinophils % (A) 2.6 %; HCT 38.7 % (37.2-46.3); HGB 11.8 g/dL (12.0-15.0); Lymphocytes # (A) 1.65 X 10*3/uL (0.90-5.00); Lymphocytes % (A) 25.4 %; MCHC 30.5 g/dL (32.0-37.0); MCV 78.7 FL (80.0-97.0); Mean Platelet Volume 9.3 FL (9.5-12.2); Monocytes # (A) 0.59 X 10*3/uL (0.20-1.00); Monocytes % (A) 9.1 %; NRBC Per 100 WBC 0 X 10*3/uL (0.00-0.01); Neutrophils # (A) 3.99 X 10*3/uL (1.80-7.70); Neutrophils % (A) 61.5 %; Platelet Count 276 X 10*3/uL (140-440); RBC 4.92 X 10*6/uL (4.10-5.20); RDW 15.9 % (11.5-14.5); WBC 6.49 X 10*3/uL (4.50-10.00)
[2023-09-20 21:15] LABS: NT-Pro-B-Type Natriuretic Pept 2513 pg/mL (0-125)
[2023-09-21 02:07] LABS: ALT 15 U/L (8-44); AST 23 U/L (13-35); Albumin 4.5 g/dL (3.8-4.9); Albumin/Globulin Ratio 1.61 Ratio (1.60-3.17); Alkaline Phosphatase 131 U/L (41-126); Blood Urea Nitrogen 44.2 mg/dL (9.0-27.0); Calcium 9.7 mg/dL (8.7-10.3); Carbon Dioxide 18.7 mmol/L (21.6-31.8); Chloride 98 mmol/L (96-109); Creatine Kinase 49 U/L (26-186); Globulin 2.8 g/dL (1.6-3.3); Glucose 137 mg/dL (70-110); Magnesium 2.4 mg/dL (1.5-2.4); Potassium 4.9 mmol/L (3.5-5.5); Sodium 139 mmol/L (135-145); Total Bilirubin 0.4 mg/dL (0.3-1.2); Total Protein 7.3 g/dL (6.2-8.2)
== END | disposition home or self-care (01) ==
LOC: LABWHC1 09:00
PROVIDERS: ATTEND Internal Medicine
DX: E78.2 Mixed hyperlipidemia (principal); T86.21 Heart transplant rejection; T86.22 Heart transplant failure; T86.23 Heart transplant infection; T86.290 Cardiac allograft vasculopathy; Y83.0 Surgical operation with transplant of whole organ as the cause of abnormal reaction of the patient, or of later complication, without mention of misadventure at the time of the procedure
CPT/HCPCS: 36415; 80053; 82550; 83735; 83880; 85025

== ENCOUNTER → 2023-11-29 | Outpatient (CLI) | payer MEDICARE, OTHER ==
[2023-11-29 15:05] LABS: Basophils # (A) 0.07 X 10*3/uL (0.00-0.10); Basophils % (A) 0.8 %; Eosinophils # (A) 0.06 X 10*3/uL (0.04-0.35); Eosinophils % (A) 0.7 %; HCT 33.8 % (37.2-46.3); HGB 10.5 g/dL (12.0-15.0); Lymphocytes # (A) 1.18 X 10*3/uL (0.90-5.00); Lymphocytes % (A) 13.6 %; MCH 24.6 pg (27.0-32.0); MCHC 31.1 g/dL (32.0-37.0); MCV 79.3 FL (80.0-97.0); Mean Platelet Volume 9.8 FL (9.5-12.2); Monocytes # (A) 0.57 X 10*3/uL (0.20-1.00); Monocytes % (A) 6.6 %; NRBC Per 100 WBC 0 X 10*3/uL (0.00-0.01); Neutrophils # (A) 6.76 X 10*3/uL (1.80-7.70); Platelet Count 259 X 10*3/uL (140-440); RBC 4.26 X 10*6/uL (4.10-5.20); RDW 17.3 % (11.5-14.5); WBC 8.67 X 10*3/uL (4.50-10.00)
[2023-11-29 15:28] LABS: ALT 16 U/L (8-44); AST 30 U/L (13-35); Albumin 4.2 g/dL (3.8-4.9); Albumin/Globulin Ratio 1.56 Ratio (1.60-3.17); Alkaline Phosphatase 119 U/L (41-126); BUN/Creat Ratio 22.24 Ratio (12.00-20.00); Blood Urea Nitrogen 37.8 mg/dL (9.0-27.0); Calcium 9.5 mg/dL (8.7-10.3); Carbon Dioxide 27.6 mmol/L (21.6-31.8); Chloride 96 mmol/L (96-109); Creatine Kinase 92 U/L (26-186); Globulin 2.7 g/dL (1.6-3.3); Glucose 213 mg/dL (70-110); Magnesium 1.9 mg/dL (1.5-2.4); Potassium 4.9 mmol/L (3.5-5.5); Sodium 137 mmol/L (135-145); Total Bilirubin 0.5 mg/dL (0.3-1.2); Total Protein 6.9 g/dL (6.2-8.2)
== END | disposition home or self-care (01) ==
LOC: LABWHC1 08:47
PROVIDERS: ATTEND Internal Medicine Endocrinology, Diabetes & Metabolism
DX: E78.2 Mixed hyperlipidemia (principal); E11.65 Type 2 diabetes mellitus with hyperglycemia; I50.30 Unspecified diastolic (congestive) heart failure; T86.20 Unspecified complication of heart transplant; T86.21 Heart transplant rejection; T86.22 Heart transplant failure; T86.23 Heart transplant infection; Z92.29 Personal history of other drug therapy
CPT/HCPCS: 36415; 80053; 82550; 83735; 83880; 84443; 84481; 85025

== ENCOUNTER → 2023-12-14 | Outpatient (CLI) | payer MEDICARE, OTHER ==
[2023-12-14 15:04] LABS: BUN/Creat Ratio 20.61 Ratio (12.00-20.00); Blood Urea Nitrogen 37.1 mg/dL (9.0-27.0); Calcium 9.4 mg/dL (8.7-10.3); Carbon Dioxide 27.7 mmol/L (21.6-31.8); Chloride 98 mmol/L (96-109); Glucose 192 mg/dL (70-110); Potassium 4.7 mmol/L (3.5-5.5); Sodium 139 mmol/L (135-145)
[2023-12-14 15:15] LABS: HCT 35.5 % (37.2-46.3); HGB 10.9 g/dL (12.0-15.0); MCH 24.7 pg (27.0-32.0); MCHC 30.7 g/dL (32.0-37.0); MCV 80.3 FL (80.0-97.0); Mean Platelet Volume 9.9 FL (9.5-12.2); NRBC Per 100 WBC 0 X 10*3/uL (0.00-0.01); Platelet Count 306 X 10*3/uL (140-440); RBC 4.42 X 10*6/uL (4.10-5.20); RDW 17.1 % (11.5-14.5); WBC 7.24 X 10*3/uL (4.50-10.00)
[2023-12-14 15:16] LABS: Basophils # (A) 0.06 X 10*3/uL (0.00-0.10); Basophils % (A) 0.8 %; Eosinophils # (A) 0.08 X 10*3/uL (0.04-0.35); Eosinophils % (A) 1.1 %; Lymphocytes # (A) 1.29 X 10*3/uL (0.90-5.00); Lymphocytes % (A) 17.8 %; Monocytes # (A) 0.86 X 10*3/uL (0.20-1.00); Monocytes % (A) 11.9 %; Neutrophils # (A) 4.92 X 10*3/uL (1.80-7.70)
== END | disposition home or self-care (01) ==
LOC: LABWHC1 08:56
PROVIDERS: ATTEND Internal Medicine
DX: E78.2 Mixed hyperlipidemia (principal); I50.30 Unspecified diastolic (congestive) heart failure; T86.20 Unspecified complication of heart transplant; T86.21 Heart transplant rejection; T86.22 Heart transplant failure; T86.23 Heart transplant infection
CPT/HCPCS: 36415; 80048; 85025

== ENCOUNTER → 2024-01-04 | Outpatient (CLI) | payer MEDICARE, OTHER ==
--- NOTE | 2024-01-04 12:24 | US ---
EXAMINATION TYPE: US kidneys/renal and bladder DATE OF EXAM: 01/04/2024 COMPARISON: US 09/10/21 CLINICAL INDICATION: Female, 73 years old with history of N18.32 CKD; CKD TECHNIQUE: Grayscale and color Doppler imaging of the bilateral kidneys and urinary bladder: FINDINGS: EXAM MEASUREMENTS: Right Kidney: 7.9x4.7x4.7 cm Left Kidney: 8.5x4.3x4.2 cm Right Kidney: No hydronephrosis or masses seen, cortical medullary differentiation is maintained. Left Kidney: No hydronephrosis or masses seen, cortical medullary differentiation is maintained. Bladder: wnl Bilateral Jets seen: Yes There is no evidence for hydronephrosis at this point in time. No nephrolithiasis is seen. No christine s are identified. The urinary bladder is anechoic. Bilateral ureteral jets are seen. exam limited by habitus and bowel gas IMPRESSION: No evidence for obstructive uropathy or acute process. [facility], , 01/04/2024 12:21 PM
== END | disposition home or self-care (01) ==
LOC: RADUSWWP 11:25
PROVIDERS: ATTEND Student in an Organized Health Care Education/Training Program
DX: N18.32 Chronic kidney disease, stage 3b (principal)
CPT/HCPCS: 76770

== ENCOUNTER → 2024-03-08 | Outpatient (CLI) | payer MEDICARE, OTHER ==
[2024-03-08 14:57] LABS: Basophils # (A) 0.05 X 10*3/uL (0.00-0.10); Basophils % (A) 0.8 %; Eosinophils # (A) 0.07 X 10*3/uL (0.04-0.35); Eosinophils % (A) 1.1 %; HCT 40.9 % (37.2-46.3); HGB 11.8 g/dL (12.0-15.0); Lymphocytes % (A) 29.1 %; MCH 23.7 pg (27.0-32.0); MCHC 28.9 g/dL (32.0-37.0); MCV 82.3 FL (80.0-97.0); Mean Platelet Volume 10.4 FL (9.5-12.2); Monocytes # (A) 0.73 X 10*3/uL (0.20-1.00); Monocytes % (A) 11.8 %; NRBC Per 100 WBC 0 X 10*3/uL (0.00-0.01); Neutrophils # (A) 3.51 X 10*3/uL (1.80-7.70); Neutrophils % (A) 56.9 %; Platelet Count 251 X 10*3/uL (140-440); RBC 4.97 X 10*6/uL (4.10-5.20); RDW 14.6 % (11.5-14.5); WBC 6.18 X 10*3/uL (4.50-10.00)
[2024-03-08 15:14] LABS: NT-Pro-B-Type Natriuretic Pept 2604 pg/mL (0-125)
[2024-03-08 15:22] LABS: BUN/Creat Ratio 25.47 Ratio (12.00-20.00); Blood Urea Nitrogen 43.3 mg/dL (9.0-27.0); Carbon Dioxide 27.3 mmol/L (21.6-31.8); Chloride 96 mmol/L (96-109); Creatine Kinase 46 U/L (26-186); Glucose 200 mg/dL (70-110); Potassium 3.6 mmol/L (3.5-5.5); Sodium 138 mmol/L (135-145)
[2024-03-08 15:23] LABS: ALT 19 U/L (8-44); AST 22 U/L (13-35); Albumin 4.3 g/dL (3.8-4.9); Albumin/Globulin Ratio 1.65 Ratio (1.60-3.17); Alkaline Phosphatase 115 U/L (41-126); Calcium 9.4 mg/dL (8.7-10.3); Globulin 2.6 g/dL (1.6-3.3); Total Bilirubin 0.4 mg/dL (0.3-1.2); Total Protein 6.9 g/dL (6.2-8.2)
== END | disposition home or self-care (01) ==
LOC: LABWHC1 08:21
PROVIDERS: ATTEND Internal Medicine
DX: I50.30 Unspecified diastolic (congestive) heart failure (principal); E78.2 Mixed hyperlipidemia; Z94.1 Heart transplant status; T86.20 Unspecified complication of heart transplant; T86.21 Heart transplant rejection; T86.22 Heart transplant failure; T86.23 Heart transplant infection; T86.290 Cardiac allograft vasculopathy
CPT/HCPCS: 36415; 80053; 82550; 83735; 83880; 84443; 85025

== ENCOUNTER → 2024-03-26 | Outpatient (CLI) | payer MEDICARE, OTHER ==
[2024-03-26 15:51] LABS: ALT 19 U/L (8-44); AST 24 U/L (13-35); Albumin 4.1 g/dL (3.8-4.9); Albumin/Globulin Ratio 1.64 Ratio (1.60-3.17); Alkaline Phosphatase 118 U/L (41-126); BUN/Creat Ratio 24.93 Ratio (12.00-20.00); Blood Urea Nitrogen 37.4 mg/dL (9.0-27.0); Calcium 9.2 mg/dL (8.7-10.3); Carbon Dioxide 25.2 mmol/L (21.6-31.8); Chloride 101 mmol/L (96-109); Globulin 2.5 g/dL (1.6-3.3); Glucose 161 mg/dL (70-110); LDL Cholesterol,Calculated 66.3 mg/dL (0.0-131.0); Potassium 4.6 mmol/L (3.5-5.5); Sodium 139 mmol/L (135-145); Total Bilirubin 0.3 mg/dL (0.3-1.2); Total Protein 6.6 g/dL (6.2-8.2)
== END | disposition home or self-care (01) ==
LOC: LABWHC1 08:20
PROVIDERS: ATTEND Internal Medicine Endocrinology, Diabetes & Metabolism
DX: E11.65 Type 2 diabetes mellitus with hyperglycemia (principal)
CPT/HCPCS: 36415; 80053; 80061; 82043; 82570; 83036; 84443

== ENCOUNTER → 2024-04-17 | Outpatient (CLI) | payer MEDICARE, OTHER ==
[2024-04-17 17:32] LABS: BUN/Creat Ratio 22.88 Ratio (12.00-20.00); Blood Urea Nitrogen 36.6 mg/dL (9.0-27.0); Calcium 9.2 mg/dL (8.7-10.3); Carbon Dioxide 25.2 mmol/L (21.6-31.8); Chloride 101 mmol/L (96-109); Glucose 128 mg/dL (70-110); Potassium 4.6 mmol/L (3.5-5.5); Sodium 137 mmol/L (135-145)
== END | disposition home or self-care (01) ==
LOC: LABWHC1 09:22
PROVIDERS: ATTEND Internal Medicine
DX: I50.30 Unspecified diastolic (congestive) heart failure (principal); E78.2 Mixed hyperlipidemia; Z94.1 Heart transplant status; T86.20 Unspecified complication of heart transplant; T86.21 Heart transplant rejection; T86.22 Heart transplant failure; T86.23 Heart transplant infection; T86.290 Cardiac allograft vasculopathy
CPT/HCPCS: 36415; 80048

== ENCOUNTER → 2024-05-22 | Outpatient (CLI) | payer MEDICARE, OTHER ==
[2024-05-22 16:39] LABS: ALT 15 U/L (8-44); AST 26 U/L (13-35); Albumin/Globulin Ratio 1.54 Ratio (1.60-3.17); Alkaline Phosphatase 128 U/L (41-126); Blood Urea Nitrogen 28.8 mg/dL (9.0-27.0); Chloride 101 mmol/L (96-109); Chol/HDL Ratio 3.03 Ratio; Creatine Kinase 64 U/L (26-186); Globulin 2.6 g/dL (1.6-3.3); Glucose 172 mg/dL (70-110); LDL Cholesterol,Calculated 71.6 mg/dL (0.0-131.0); Magnesium 2.1 mg/dL (1.5-2.4); NT-Pro-B-Type Natriuretic Pept 2492 pg/mL (0-125); Potassium 4.1 mmol/L (3.5-5.5); Sodium 146 mmol/L (135-145); Total Bilirubin 0.4 mg/dL (0.3-1.2); Total Protein 6.6 g/dL (6.2-8.2); Uric Acid 5.3 mg/dL (2.9-7.7)
[2024-05-22 16:47] LABS: Basophils # (A) 0.05 X 10*3/uL (0.00-0.10); Basophils % (A) 0.7 %; Eosinophils % (A) 1.5 %; HCT 38.4 % (37.2-46.3); HGB 11.5 g/dL (12.0-15.0); Lymphocytes # (A) 1.76 X 10*3/uL (0.90-5.00); MCH 24.4 pg (27.0-32.0); MCHC 29.9 g/dL (32.0-37.0); MCV 81.5 FL (80.0-97.0); Mean Platelet Volume 10.2 FL (9.5-12.2); Monocytes # (A) 0.67 X 10*3/uL (0.20-1.00); Monocytes % (A) 9.9 %; NRBC Per 100 WBC 0 X 10*3/uL (0.00-0.01); Neutrophils # (A) 4.17 X 10*3/uL (1.80-7.70); Neutrophils % (A) 61.6 %; Platelet Count 207 X 10*3/uL (140-440); RBC 4.71 X 10*6/uL (4.10-5.20); RDW 16.7 % (11.5-14.5); WBC 6.77 X 10*3/uL (4.50-10.00)
== END | disposition home or self-care (01) ==
LOC: LABWHC1 09:24
PROVIDERS: ATTEND Internal Medicine
DX: I50.30 Unspecified diastolic (congestive) heart failure (principal); E78.2 Mixed hyperlipidemia; T86.20 Unspecified complication of heart transplant; T86.21 Heart transplant rejection; T86.22 Heart transplant failure; T86.23 Heart transplant infection; T86.290 Cardiac allograft vasculopathy; Z94.1 Heart transplant status
CPT/HCPCS: 36415; 80053; 80061; 82550; 83735; 83880; 84550; 85025